=== PATIENT | male | born 1945 | race Caucasian/White ===

== ENCOUNTER → 2017-11-28 10:26 | Outpatient (CLI) | payer MEDICARE, SELFPAY ==
[2017-11-28 12:21] LABS: Absolute Lymphocyte Count 1.64 X10^3/ul (0.83-4.51); Absolute Neutrophil Count 3.4 X10^3/uL (2.0-7.7); Basophil# 0.07 X10^3/uL; Basophil% 1.1 % (0-1); Eosinophil# 0.28 X10^3/uL; Eosinophils% 4.6 % (0-5); Hematocrit 43.8 % (40-54); Lymphocyte # 1.64 X10^3/ul (4.0); Lymphocyte % 26.9 % (19-41); Mean Corp Hgb Conc 34.2 g/gl (32-36); Mean Corpuscular Hgb 34.2 pg (27.0-32.0); Mean Corpuscular Volume 99.8 fL (80-94); Mean Platelet Vol. 11.1 fl (6.2-12.0); Monocyte% 11.5 % (0-10); Neutrophil # 3.38 X10^3/uL (2.7-7.7); Neutrophil % 55.6 % (47-70); Platelet Count 285 K/mm3 (150-450); RBC Distribution Width CV 12.5 % (11.6-14.6); RBC Distribution Width SD 45.8 fl (35.1-43.9); Red Blood Count 4.39 M/mm3 (4.6-6.2); White Blood Count 6.1 K/mm3 (4.4-11.0)
[2017-11-28 12:33] LABS: POSITIVE COUNT NO; POSITIVE DIFFERENTIAL NO; POSITIVE MORPHOLOGY NO
[2017-11-28 12:39] LABS: Vitamin D,25 Hydroxy 18.5 ng/mL (29.95-100.01)
[2017-11-28 12:57] LABS: ALB/GLOB Ratio 0.9 RATIO (0.9-2.4); AST(SGOT) 14 U/L (15-37); Alanine Aminotransfer ALT/SGPT 26 U/L (16-61); Albumin, Serum 3.6 g/dL (3.2-5.0); Alkaline Phosphatase 63 U/L (45-117); Anion Gap 8 (5-15); BUN 24 mg/dL (7-18); BUN/Creat Ratio 22.2 RATIO (10-20); Calcium,Total 8.7 mg/dL (8.5-10.1); Chloride 107 mmol/L (98-107); Creatinine, Serum 1.08 mg/dL (0.70-1.30); EST Glomerular Filtration Rate 71 mL/min (>60); Est Glom Filt Rate - Afr Amer 86 mL/min (>60); Globulin 3.8 g/dL (2.2-4.2); Glucose 97 mg/dL (74-106); PSA,Total - Annual Screen 1.53 ng/mL (0.00-4.00); Potassium 3.9 mmol/L (3.5-5.1); Protein, Total 7.4 g/dL (6.4-8.2); Sodium Level 141 mmol/L (136-145); Thyroid Stim Hormone (TSH) 2.55 uIU/mL (0.358-3.74)
== END ==
PROVIDERS: Family Provider Family Medicine Geriatric Medicine; PCP Family Medicine Geriatric Medicine; Visit Provider Family Medicine Geriatric Medicine
DX: I10 Essential (primary) hypertension (principal); E55.9 Vitamin D deficiency, unspecified; Z12.5 Encounter for screening for malignant neoplasm of prostate
CPT/HCPCS: 36415; 80053; 82306; 84153; 84443; 85025; G0103

== ENCOUNTER → 2017-12-30 11:58 | Outpatient (CLI) | payer MEDICARE, SELFPAY | PROVIDERS: Family Provider Family Medicine Geriatric Medicine; PCP Family Medicine Geriatric Medicine; Visit Provider Family Medicine Geriatric Medicine | DX: R68.89 Other general symptoms and signs (principal) | CPT/HCPCS: 87633 ==

== ENCOUNTER → 2018-06-26 12:57 | Outpatient (CLI) | payer MEDICARE, SELFPAY ==
--- NOTE | 2018-06-26 14:43 | RAD_ITS ---
STUDY: X-RAY - ABDOMEN/PELVIS REASON FOR EXAM: Male, 73 years old. Nausea and vomiting TECHNIQUE: Two AP supine views of the abdomen and pelvis. COMPARISON: None. FINDINGS: No evidence of small bowel obstruction. Singular mildly gaseous distended loop of small bowel in the central abdomen with some wall thickening; this could represent enteritis. There is no demonstrated free abdominal air. The visualized liver, spleen and kidneys are grossly normal in size and morphology. Normal soft tissue structures. There are diffuse degenerative changes of the visualized lumbar spine. RAD/Abdomen Single View IMPRESSION: No evidence of small bowel obstruction. Mildly gaseous distended loop of small bowel in the central abdomen with wall thickening. Could represent enteritis. Electronically Signed: Yasmany Hartley DO at 12:47 EDT Tel , Service support ,
--- NOTE | 2018-06-26 14:43 | RAD_ITS ---
STUDY: X-RAY CHEST REASON FOR EXAM: Male, 73 years old. Cough TECHNIQUE: PA and lateral views of the chest. COMPARISON: None. FINDINGS: There is hyperinflation of the lungs consistent with chronic obstructive lung disease (COPD). Bibasilar airspace disease with small effusions. There is no demonstrated pleural abnormality. There is mild cardiac enlargement. Normal mediastinum and beto. Normal visualized pulmonary arteries. There is atherosclerotic tortuosity of the aortic arch and descending thoracic aorta. There are diffuse degenerative changes of the visualized thoracic spine. Normal visualized ribs, clavicles, and shoulders. There is no demonstrated abnormality of the visualized soft tissue structures of the upper abdomen. RAD/Chest PA and Lateral IMPRESSION: Bibasilar airspace disease with small effusions. Mild cardiomegaly Electronically Signed: Yasmany Hartley DO at 12:48 EDT Tel , Service support ,
[2018-06-26 16:33] LABS: Absolute Lymphocyte Count 1.35 X10^3/ul (0.83-4.51); Absolute Neutrophil Count 6.7 X10^3/uL (2.0-7.7); Basophil# 0.04 X10^3/uL; Basophil% 0.4 % (0-1); Eosinophil# 0.11 X10^3/uL; Eosinophils% 1.2 % (0-5); Hematocrit 46.9 % (40-54); Hemoglobin 15.7 g/dl (13.0-16.5); Lymphocyte # 1.35 X10^3/ul (4.0); Lymphocyte % 14.7 % (19-41); Mean Corp Hgb Conc 33.5 g/gl (32-36); Mean Corpuscular Hgb 33.8 pg (27.0-32.0); Mean Corpuscular Volume 100.9 fL (80-94); Mean Platelet Vol. 11.7 fl (6.2-12.0); Monocyte# 0.97 X10^3/uL; Monocyte% 10.6 % (0-10); Neutrophil # 6.66 X10^3/uL (2.7-7.7); Neutrophil % 72.8 % (47-70); Platelet Count 283 K/mm3 (150-450); RBC Distribution Width CV 14.4 % (11.6-14.6); RBC Distribution Width SD 52.7 fl (35.1-43.9); Red Blood Count 4.65 M/mm3 (4.6-6.2); White Blood Count 9.2 K/mm3 (4.4-11.0)
[2018-06-26 16:40] LABS: Anion Gap 9 (5-15); BUN 29 mg/dL (7-18); BUN/Creat Ratio 24.8 RATIO (10-20); CPK Total, Creatine Kinase 106 U/L (39-308); Calcium,Total 9.4 mg/dL (8.5-10.1); Chloride 108 mmol/L (98-107); Creatinine, Serum 1.17 mg/dL (0.70-1.30); EST Glomerular Filtration Rate 65 mL/min (>60); Est Glom Filt Rate - Afr Amer 78 mL/min (>60); Glucose 112 mg/dL (74-106); Sodium Level 143 mmol/L (136-145)
[2018-06-26 16:47] LABS: BNP,B-Type NATRIURETIC PEPTIDE 722.9 pg/mL (0-100)
[2018-06-26 17:11] LABS: POSITIVE COUNT NO; POSITIVE DIFFERENTIAL NO; POSITIVE MORPHOLOGY NO
[2018-06-28 12:34] LABS: Myoglobin, Serum 75 ng/mL (28-72)
== END ==
PROVIDERS: Family Provider Family Medicine Geriatric Medicine; PCP Family Medicine Geriatric Medicine; Referring Provider Family Medicine Geriatric Medicine; Visit Provider Family Medicine Geriatric Medicine
DX: I10 Essential (primary) hypertension (principal); R06.02 Shortness of breath; R06.89 Other abnormalities of breathing
CPT/HCPCS: 36415; 71046; 74018; 80048; 82550; 83874; 83880; 84484; 85025; 85379

== ENCOUNTER 2018-06-27 00:04 | Inpatient (IN) | payer MEDICARE, SELFPAY ==
[2018-06-27] VITALS (21 sets, daily range): BP systolic 144–203; BP diastolic 68–113; PULSE 78–130; RESP 18–26; TEMP 36.4–36.7; O2SAT 92–98; BMI 24.8; BMI 23.4
--- NOTE | 2018-06-27 00:26 | EKG12_ITS ---
Test Reason : SOB Blood Pressure : / mmHG Vent. Rate : 115 BPM Atrial Rate : 113 BPM P-R Int : 000 ms QRS Dur : 094 ms QT Int : 378 ms P-R-T Axes : 000 048 -43 degrees QTc Int : 522 ms Atrial fibrillation with multiform PVCs Nonspecific ST and T wave abnormality Prolonged QT Abnormal ECG Confirmed by CONTRERAS KELLEY, RUBENS ([id number]), marketing editor FELI HO ([id number]) on 06/29/2018 11:28:19 AM Referred By: Jose Alvarez Confirmed By:RUBENS CHAIREZ MD
--- NOTE | 2018-06-27 00:27 | CT_ITS ---
STUDY: CTA CHEST REASON FOR EXAM: Male, 73 years old. Shortness of breath for 6 months. RADIATION DOSAGE (If Supplied By Facility): CTDIvol = ( 16.62 ) mGy, DLP = ( 563.28 ) mGycm TECHNIQUE: The examination was performed with the intravenous administration of 75ML ml of Isovue 370 contrast material. Post-processing of the angiographic images was performed, with multiplanar reformation and 3D reconstruction. Individualized dose optimization techniques were used for this CT. COMPARISON: None. FINDINGS: Normal enhancement of the main pulmonary artery and right and left pulmonary arteries. Normal enhancement of the bilateral peripheral pulmonary arteries. There is no demonstrated pulmonary embolism. There is mild atherosclerotic calcification of the aortic arch with tortuosity. The aorta otherwise is not enhanced. Normal heart and pericardium. There are small nodes in the mediastinum and aortopulmonic window. Normal hilar regions. Normal visualized trachea and bronchi. The lungs are well expanded. There is a calcified granuloma in the left lower lobe. There is mild stranding/scarring in the left lower lobe. No focal infiltrate otherwise is seen. There are moderate bilateral pleural effusions. Normal chest wall structures. There are mild degenerative changes of thoracic spine. The visualized portions of the upper abdomen demonstrate a cyst in the right kidney. CT/CTA Chest W/WO Contrast IMPRESSION: 1. No evidence of pulmonary embolism. 2. Moderate bilateral pleural effusions. 3. Mild stranding/scarring in the left lower lobe. Electronically Signed: Mohit Stark MD at 1:35 EDT Tel , Service support ,
--- NOTE | 2018-06-27 00:28 | ED.RN ---
RN CALLED FOR EKG, NO OLD EKGS IN MUSE
--- NOTE | 2018-06-27 00:35 | ED.DCSUM_ITS ---
History of Present Illness Chief Complaint: Shortness of Breath Informant: Patient Onset: Month(s) - 6 Context: Gradual Onset Timing: Continuous Quality: just feels short of breath; wheezy at times, but not always Location: chest Current Severity: Mild - at rest, but present Maximum Severity: Severe Worsened by: exertion, lying supine Relieved by: sitting up, rest Associated Symptoms: cough mostly nonproductive, but swallowing mucous Narrative: Saw his PCP for this for the first time in about 6 months, since symptoms have been getting worse. No fever since, no chest discomfort. With swallowing mucus, he was vomiting last week, but that has been less now. About 6 months ago he had a case of acute bronchitis that he saw his doctor for and felt like he got over for the most part but continued to have coughing and dyspnea since that progressively worsened, but slowly. He thought maybe he had chronic bronchitis and was waiting for my body to heal itself, but I realized I was getting worse so I made an appointment with my doctor. An EKG was done in the office which according to his PCP showed A. fib, but he was rate controlled, so labs and chest x-ray were obtained as an outpatient. However they came back with a d-dimer elevated over 1 and a troponin that was just barely not negative, and the patient was more short of breath at rest and so he was advised to come to the ER for further testing and admission. Past Medical History - Allergies and Home Meds Allergies/Adverse Reactions: Allergies No Known Allergies Allergy (Verified 06/27/18 00:09) Primary Care Physician: Jose Alvarez Chi, MD [Primary Care Provider] - Smoking Status: Former smoker Drugs: None Review of Systems General: Reports: Malaise. Denies: Chills, Fever, Sweats Eyes: Denies: Visual changes - bilaterally, Diplopia ENT: Denies: Rhinorrhea, Sore throat Cardiovascular: Denies: Chest pain, Palpitations, Heart racing Respiratory: Reports: Dyspnea, Cough, Sputum - mostly swallowing it, Dyspnea on exertion Gastrointestinal: Reports: Nausea - gone now, Vomiting - after swallows lots of sputum. Denies: Abdominal pain, Diarrhea, Melena, Hematochezia Genitourinary: Denies: Dysuria, Hematuria, Frequency Musculoskeletal: Denies: Neck pain, Back pain, Swelling, Extremity Pain Skin: Denies: Rash, Abscess Neurological: Denies: Headache, Weakness, Numbness Psych: Denies: Depression, Suicidal thoughts Endocrine: Denies: Polyuria, Polydipsia, Heat intolerance, Cold intolerance Hematologic: Denies: Easy bruising, Easy bleeding Allergy: Denies: Swelling of the mouth, Swelling of the tongue Physical Exam Vital Signs/Narrative: Vital Signs Temp Pulse Resp BP Pulse Ox 06/27/18 00:15 119 H 24 H 203/99 H 96 06/27/18 00:05 97.6 F L 116 H 18 161/109 H 93 06/27/18 00:04 130 H 22 H 159/113 H 98 Inital Vital Signs reviewed: Yes General: Well nourished, Well developed Head: Normocephalic, Atraumatic Eyes: Perrl, EOMI ENT: Moist mucous membranes, No rhinorrhea Neck: Supple, Nontender, No lymphadenopathy, No JVD, - - trachea midline Cardiovascular: No murmurs, Irregular, Tachycardia Respiratory: No distress - mildly tachypneic, no distress. conversational., CTA bilaterally - although somewhat symmetrically diminished throughout, Chest nontender Abdomen: Soft, Nontender, Nondistended, Normal bowel sounds Back: Nontender, Normal Inspection. Negative for: CVA tenderness Extremities: Nontender - including no calf tenderness bilat, No edema, - - no cords Skin: Normal color, No rash Neurological: Alert, Oriented x3, Cranial nerves II-XII grossly intact, Normal Strength, Normal Sensation Psychological: Normal affect Diagnostic/Tx/Re-eval Impressions Chest CTA 06/27/18 00:27 IMPRESSION: 1. No evidence of pulmonary embolism. 2. Moderate bilateral pleural effusions. 3. Mild stranding/scarring in the left lower lobe. Electronically Signed: Mohit Stark MD at 1:35 EDT Tel , Service support , 06/27/18 00:27 CTA Chest W/WO Contrast [CT] Stat Laboratory Results 06/27/18 00:40 Troponin I 0.058 H - Rhythm Strip Rhythm Strip: A-fib Rate: 118 Ectopy: PVC(s) - EKG Initial EKG Interpretation: No Acute Injury Pattern, Atrial Fibrillation - w/ RVR at around 115, Non-Specific ST Changes, - - frequent multifocal PVCs, Fusion beats seen - Medical Decision Making Blood counts and renal function were fairly unremarkable, his x-ray had not been interpreted by radiology yet but I was able to visualize it, it showed what appeared to be a possible infiltrate in the left lower lobe and a possible left lung mass. His d-dimer was reported by his PCP to be over 1, but in the computer/EMR, it is labeled as canceled and there is no result available. I thought it best given x-ray findings in this ambiguous lab result to directly obtain CT angiography of the chest which I discussed with the patient and he was amenable to. It shows no PE, but bilateral moderate pleural effusions, which I suspect is probably mostly responsible for his symptoms. It also shows some scarring without pneumonia in the left lower lobe, as well as a calcified granuloma. His troponin is a little lower than it was earlier today but still abnormal. He was initially in A. fib with RVR, I gave him Cardizem 20 mg, also treating his blood pressure which was over 200. His blood pressure is down to 160s, and his heart rate is in the 80 range. Therefore, I am not putting him on a drip at this time. Will admit to the hospital for further workup and treatment. ED Disposition - Plan for ED Patient: Disposition: Acute Care Hospital [facility] Chief Complaint: Shortness of Breath Diagnosis: Pleural effusion, bilateral, Atrial fibrillation with RVR, Hypertensive urgency Referrals: Jose Alvarez Chi, MD [Primary Care Provider] -
[2018-06-27] MEDS: dilTIAZem 25 MG/5 ML Vial 20 MG IV BOLUS (00:41)
--- NOTE | 2018-06-27 02:13 | PCM.HP.STD ---
Problem List (1) Pleural effusion, bilateral Status: Acute (2) Atrial fibrillation with RVR Status: Acute (3) Hypertensive urgency Status: Chronic History of Present Illness Date of Admission: 06/27/18 Chief Complaint: shortness of breath The patient is a 73 year old male patient with a history of hypertension presents to the ER with shortness of breath. He states he has been dealing with what he calls chronic bronchitis for the past year. It has recently become worse with any exertion. He denies chest pain. CT scan reveals bilateral pleural effusions. He has an elevated BNTP and is in atrial fibrillation. He recently stopped his metoprolol and finds himself more short of breath after this was discharged. He will be admitted for further cardiac workup. Past Medical History Past Medical History (Chronic Problems): Chronic Problems Hypertensive urgency (Chronic) Allergies No Known Allergies Allergy (Verified 06/27/18 00:09) Home Medications: Ambulatory Orders Medication Instructions Recorded Metoprolol Tartrate 50 mg PO DAILY 06/27/18 Surgical History: no surgical history Smoking Status: Former smoker Drugs: None - *Family History Maternal History Items: No pertinent history Review of Systems Constitutional: Denies: Chills, Fever, Weight Change HEENT: Denies: Head Aches, Sinus Congestion, Sinus Drainage Cardiovascular: Denies: Chest Pain, Palpitations Respiratory: Reports: Cough, Shortness of breath at rest, Shortness of breath upon exertion. Denies: Sputum production Gastrointestinal: Denies: Abdominal Pain, Nausea, Vomiting Genitourinary: Denies: Dysuria Musculoskeletal: Denies: Joint Pain, Joint Tenderness Skin: Denies: Rash, Wounds Neurological: Denies: Numbness, Tingling, Focal weakness Psychiatric: Denies: Anxiety, Depression, Homicidal Ideations, Suicidal Ideations Hematologic/ Lymphatic: Denies: Easy Bruising, Easy Bleeding VTE Information - Inpt Only VTE Present on Admission: No VTE Mechan Device Prophylaxis: None VTE Pharm Prophylaxis ordered?: Yes Patient Problems: Active and Suspected Problems Pleural effusion, bilateral (Acute) Atrial fibrillation with RVR (Acute) - Physical Exam General: Alert, Oriented x3, Cooperative HEENT: Atraumatic, Normocephalic Neck: Supple Lungs: Clear to auscultation, Normal air movement Cardiovascular: Normal S1, Normal S2, Irregular Rate, Murmur Abdomen: Bowel Sounds Present, Soft, Non Tender Extremities: No edema Skin: No rashes Musculoskeletal: No Tenderness to Palpation of Joints or Extremities Neurological: Neuro grossly intact Psych/Mental Status: Normal Affect, Appropriate Vital Signs Temp Pulse Resp BP Pulse Ox 97.6 F L 94 26 H 148/92 H 92 06/27/18 00:05 06/27/18 02:00 06/27/18 02:00 06/27/18 02:00 06/27/18 02:00 Oxygen Delivery Method Nasal Cannula Weight: 173 lb 1.006 oz Body Mass Index (BMI) 24.8 Laboratory Tests Past 24 Hrs 06/27/18 00:40 Troponin I 0.058 H Assessment/Plan All Active Problems Pleural effusion, bilateral (Acute) Atrial fibrillation with RVR (Acute) Plan - admit to PCU - cycle cardiac markers - echocardiogram - consider cardiac consult in am - add lasix for diureses - CBC, BMP in am - oxygen per routine - LMWH for DVT prophylaxis - continue routine medications Code Visit Inpatient E&M: 97163 Init Hosp L3
[2018-06-27 04:16] LABS: BNP,B-Type NATRIURETIC PEPTIDE 687.1 pg/mL (0-100)
[2018-06-27 04:22] LABS: ALB/GLOB Ratio 1.1 RATIO (0.9-2.4); AST(SGOT) 39 U/L (15-37); Alanine Aminotransfer ALT/SGPT 54 U/L (16-61); Albumin, Serum 3.2 g/dL (3.2-5.0); Alkaline Phosphatase 70 U/L (45-117); Anion Gap 12 (5-15); BUN 25 mg/dL (7-18); BUN/Creat Ratio 24.8 RATIO (10-20); Calcium,Total 8.4 mg/dL (8.5-10.1); Chloride 111 mmol/L (98-107); Cholesterol 153 mg/dL (200); Creatinine, Serum 1.01 mg/dL (0.70-1.30); EST Glomerular Filtration Rate 77 mL/min (>60); Est Glom Filt Rate - Afr Amer 93 mL/min (>60); Estimated Creatinine Clearance 70.43 ml/min; Glucose 147 mg/dL (74-106); High Density Lipoprotein 22 mg/dL; Potassium 3.3 mmol/L (3.5-5.1); Protein, Total 6.2 g/dL (6.4-8.2); Sodium Level 144 mmol/L (136-145); Thyroid Stim Hormone (TSH) 0.54 uIU/mL (0.358-3.74); Triglycerides 62 mg/dL; Very Low Density Lipoprotein 12 mg/dL (5-40)
[2018-06-27] MEDS: 0.9% NaCl Peripheral Flush Adult/Peds IV ×3 (05:29→17:53)
[2018-06-27] MEDS: Metoprolol Tartrate 5 MG/5 ML Vial IV ×2 (05:29→11:30)
--- NOTE | 2018-06-27 05:55 | ECHOD_ITS ---
Reason For Study: MURMUR Procedure This was a 2D Doppler, Color Flow transthoracic echocardiogram. The exam was of adequate technical quality. Exam performed portable in patient room. Left Ventricle Normal LV size. Apical false tendon noted. Left ventricular systolic function is normal. The estimated ejection fraction is 60 %. Diastolic function is indeterminate. No regional wall motion abnormalities noted. Right Ventricle Normal RV size. Normal systolic function. Atria The left atrium is moderately enlarged. The right atrium is mildly enlarged. No doppler evidence for ASD. Mitral Valve There is no mitral annular calcification. Mild mitral valve prolapse, posterior leaflet. Moderate (2+) eccentric mitral valve insufficiency. Tricuspid Valve Normal tricuspid valve. Moderate (2+) eccentric tricuspid valve insufficiency. Right ventricular systolic pressure estimated to be 58 mmHg. Aortic Valve Trisinus/trileaflet aortic valve. Mild focal aortic valve calcification. Trivial eccentric aortic valve insufficiency. Pulmonic Valve The pulmonic valve is not well visualized. Trivial eccentric pulmonic valve insufficiency. Great Vessels Normal sized aortic root. Pericardium/Pleural No pericardial effusion. Echolucency c/w a pleural effusion. MMode/2D Measurements & Calculations LVIDd: 5.5 cm IVSd: 1.2 cm Ao root diam: 3.3 cm LVIDs: 4.3 cm LVPWd: 1.1 cm LA dimension: 4.4 cm RVDd: 3.9 cm FS: 22.3 % LAV(MOD-bp): 119.5 ml LVAd ap4: 35.5 cm2 SV(MOD-sp4): 73.0 ml LAV(MOD-bp) Indexed: 60.9 ml/m2 EDV(MOD-sp4): 115.0 ml LAV(MOD-sp2): 125.7 ml EDV(sp4-el): 117.7 ml LAV(MOD-sp4): 95.0 ml LVAs ap4: 20.0 cm2 ESV(MOD-sp4): 42.0 ml ESV(sp4-el): 43.6 ml EF(MOD-sp4): 63.5 % EF(sp4-el): 63.0 % SV(sp4-el): 74.1 ml LA A4 area: 31.2 cm2 RA A4 area: 26.3 cm2 Doppler Measurements & Calculations MV E max kimberly: 121.9 cm/sec Ao V2 max: 123.4 cm/sec LV V1 max: 93.0 cm/sec Ao max P.1 mmHg LV V1 max P.5 mmHg PA V2 max: 82.8 cm/sec TR max kimberly: 354.4 cm/sec TR max P.3 mmHg Interpretation Summary Left ventricular systolic function is normal. The estimated ejection fraction is 60 %. Apical false tendon noted. The left atrium is moderately enlarged. The right atrium is mildly enlarged. Mild mitral valve prolapse, posterior leaflet Moderate (2+) eccentric mitral valve insufficiency. Moderate (2+) eccentric tricuspid valve insufficiency. Mild focal aortic valve calcification. Trivial eccentric aortic valve insufficiency. Trivial eccentric pulmonic valve insufficiency. Echolucency c/w a pleural effusion. Right ventricular systolic pressure estimated to be 58 mmHg. Diastolic function is indeterminate. Ordering Physician: [facility] Referring Physician: Jose Alvarez Chi Performed By: Grace Dawson, SHIRLEY
[2018-06-27] MEDS: Aspirin 81 MG TAB.CHEW PO (08:34)
[2018-06-27] MEDS: Furosemide 20 MG/2 ML VIAL IV ×2 (10:08→17:53)
[2018-06-27] MEDS: Enoxaparin 40 MG/0.4 ML Syringe SC (10:08)
--- NOTE | 2018-06-27 11:12 | CASEMGMT ---
RENITA HAYS assessment: Face to Face with patient for initial transition planning/care coordination assessment. RENITA HAYS introduced self and role at [facility], pt voices understanding and consents to assessment at this time. Pt is sitting up in bed in no distress at this time. Pt is A/Ox4 at this time and answers all questions appropriately at this time. Care providers, pharmacy, and demographics verified at this time. PCP: [facility] Specialists: Pt states currently has no specialists. Preferred Pharmacy: [facility] but [facility]. Insurance: [facility] Prescription Benefit: [facility] Living Will/HPOA: Pt state does not currently have LW/HPOA but is interested in completing at this time. Referral to [facility] at this time, voices understanding. LNOK: Timoteo Diaz, son; Joe Diaz, son Living Arrangements: Pt states lives alone in a duplex with stairs throughout but states no concerns at home at this time. Transportation: Pt states drives self and states no transportation concerns at this time. DME/HHC: Pt states has grab bars and states no further need for DME at this time. Pt states no hx of HHC or SNF. Pt states no concerns with going home at time of discharge. Pt states no further concerns/needs at this time. Advised pt to ask for CM if any further questions/concerns/needs arise, voices understanding. CM to follow for any further discharge planning/needs. Plan[place] RENITA HAYS
--- NOTE | 2018-06-27 13:05 | PN_ITS ---
<Keyla Sigala - Last Filed: 06/27/18 13:08> Patient Problems: Active and Suspected Problems Pleural effusion, bilateral (Acute) Atrial fibrillation with RVR (Acute) Subjective: Patient seen and examined. Notes improvement in breathing. Notes improvement in breathing while lying flat. Denies other current complaints. - Physical Exam General: Alert, Oriented x3, Cooperative, No apparent distress HEENT: Atraumatic, PERRLA, EOMI, Normocephalic Neck: Supple, No JVD, Negative Carotid Bruits Lungs: Clear to auscultation, Normal air movement Cardiovascular: Normal S1, Normal S2, Murmur, - - Atrial fibrillation, rate controlled Abdomen: Bowel Sounds Present, Soft, Non Tender, Non-Distended Extremities: No clubbing, No cyanosis, No edema, Capillary Refill Less than 3 Seconds Skin: No rashes, No breakdown Musculoskeletal: No Tenderness to Palpation of Joints or Extremities Neurological: Cranial nerves II-XII grossly intact, Neuro grossly intact Psych/Mental Status: Normal Affect, Appropriate Vital Signs Temp Pulse Resp BP Pulse Ox 97.9 F 95 18 151/81 H 95 06/27/18 11:18 06/27/18 11:30 06/27/18 11:18 06/27/18 11:30 06/27/18 11:18 Oxygen Delivery Method Room Air Weight: 173 lb 1.006 oz Body Mass Index (BMI) 23.4 Intake and Output for Last 24 Hours 06/25/18 06/26/18 06/27/18 23:59 23:59 23:59 Intake Total 320 / 320 Output Total 675 / 675 Balance -355 / -355 Laboratory Tests Past 24 Hrs 06/27/18 06/27/18 06/27/18 00:40 03:38 03:38 Sodium 144 Potassium 3.3 L Chloride 111 H Carbon Dioxide 21.0 Anion Gap 12 BUN 25 H Creatinine 1.01 Estim Creat Clear Calc 70.43 Est GFR (MDRD) Af Amer 93 Est GFR (MDRD) Non-Af 77 BUN/Creatinine Ratio 24.8 H Glucose 147 H Calcium 8.4 L Total Bilirubin 1.50 H AST 39 H ALT 54 Alkaline Phosphatase 70 Troponin I 0.058 H B-Natriuretic Peptide 687.1 H Total Protein 6.2 L Albumin 3.2 Globulin 3.0 Albumin/Globulin Ratio 1.1 Triglycerides 62 Cholesterol 153 LDL Cholesterol 119 VLDL Cholesterol 12 HDL Cholesterol 22 L TSH 0.54 06/27/18 06/27/18 03:38 06:40 Sodium Potassium Chloride Carbon Dioxide Anion Gap BUN Creatinine Estim Creat Clear Calc Est GFR (MDRD) Af Amer Est GFR (MDRD) Non-Af BUN/Creatinine Ratio Glucose Calcium Total Bilirubin AST ALT Alkaline Phosphatase Troponin I 0.059 H 0.055 H B-Natriuretic Peptide Total Protein Albumin Globulin Albumin/Globulin Ratio Triglycerides Cholesterol LDL Cholesterol VLDL Cholesterol HDL Cholesterol TSH Medical Necessity - Tobacco Use Smoking Status: Former smoker Assessment/Plan All Active Problems Pleural effusion, bilateral (Acute) Atrial fibrillation with RVR (Acute) 1. Small bilateral pleural effusions suspected secondary to new onset CHF, unclear subtype-BNP on admission 687. Chest x-ray shows bibasilar small effusions, mild cardiomegaly. CTA of chest showed no evidence of pulmonary embolism, moderate bilateral pleural effusions, mild scarring in the left lower lobe. Patient reports history of rheumatic fever as a child, positive murmur. Echocardiogram pending. Continue IV Lasix. Cardiology consult. Strict I&O. Daily weight. 2. New onset atrial fibrillation-initially A. fib with RVR on admission. Received IV Cardizem bolus 20 mg x1. Now on metoprolol IV 5 mg every 6. Cardiology consulted given new onset A. fib. Begin therapeutic Lovenox sc. 3. Hypertensive urgency-elevated blood pressure on admission 203/99. Improved. Patient reports previously on lisinopril and developed cough. He was then switched to metoprolol by primary care physician. Recommend adding losartan or amlodipine. 4. Indeterminate troponin-suspect demand ischemia due to A. fib with RVR. Cardiology consulted. 5. Elevated glucose-check hemoglobin A1c. DVT prophylaxis-Lovenox subcu. This patient was seen by GABE Hodge under the supervision of Dr. Mera. <Maciel Mera - Last Filed: 06/27/18 16:04> Subjective: Seen and examined. 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 Patient also has PND and orthopnea. Patient attributes to shortness of breath and cough of bronchitis that he had 6 months ago. Patient also states he has a dry cough. Patient denies chest pain. Patient never had been assessed for heart failure in the past or denies history of coronary artery disease. Was found to have A. fib patient states sometimes he feels irregular heartbeat. No significant pedal edema. On cardiac rehabilitation specialist shows A. fib. Patient has history of his smoking. For about 15-20 pack years and quit when he was 29-year-old - Physical Exam Lungs: No rhonchi, No wheeze, No rales, Diminished - Diminished in bilateral lung bases secondary to bilateral pleural effusion Cardiovascular: Normal S1, Normal S2, Irregular Rate, Murmur, - Abdomen: Non Tender, Non-Distended Extremities: No clubbing, No cyanosis, No edema Musculoskeletal: No Tenderness to Palpation of Joints or Extremities Vital Signs Temp Pulse Resp BP Pulse Ox 97.9 F 95 18 151/81 H 95 06/27/18 11:18 06/27/18 12:26 06/27/18 11:18 06/27/18 11:30 06/27/18 11:18 Oxygen Delivery Method Room Air Weight: 173 lb 1.006 oz Body Mass Index (BMI) 23.4 Intake and Output for Last 24 Hours 06/25/18 06/26/18 06/27/18 23:59 23:59 23:59 Intake Total 320 / 320 Output Total 675 / 675 Balance -355 / -355 Laboratory Tests Past 24 Hrs 06/27/18 06/27/18 06/27/18 00:40 03:38 03:38 Sodium 144 Potassium 3.3 L Chloride 111 H Carbon Dioxide 21.0 Anion Gap 12 BUN 25 H Creatinine 1.01 Estim Creat Clear Calc 70.43 Est GFR (MDRD) Af Amer 93 Est GFR (MDRD) Non-Af 77 BUN/Creatinine Ratio 24.8 H Glucose 147 H Calcium 8.4 L Total Bilirubin 1.50 H AST 39 H ALT 54 Alkaline Phosphatase 70 Troponin I 0.058 H B-Natriuretic Peptide 687.1 H Total Protein 6.2 L Albumin 3.2 Globulin 3.0 Albumin/Globulin Ratio 1.1 Triglycerides 62 Cholesterol 153 LDL Cholesterol 119 VLDL Cholesterol 12 HDL Cholesterol 22 L TSH 0.54 06/27/18 06/27/18 06/27/18 03:38 06:40 13:10 Sodium 145 Potassium 3.9 Chloride 112 H Carbon Dioxide 21.0 Anion Gap 12 BUN 24 H Creatinine 1.24 Estim Creat Clear Calc 57.37 Est GFR (MDRD) Af Amer 73 Est GFR (MDRD) Non-Af 61 BUN/Creatinine Ratio 19.4 Glucose 132 H Calcium 9.1 Total Bilirubin AST ALT Alkaline Phosphatase Troponin I 0.059 H 0.055 H B-Natriuretic Peptide Total Protein Albumin Globulin Albumin/Globulin Ratio Triglycerides Cholesterol LDL Cholesterol VLDL Cholesterol HDL Cholesterol TSH Assessment/Plan This patient was seen in conjunction with Keyla NOONAN. I have independently interviewed and examined the patient and reviewed pertinent history, examination findings, laboratory and plan of management. I have reviewed the note and agree with the documented findings with the few additional points. In brief, patient is admitted for new diagnosis of heart failure with small to moderate bilateral pleural effusion on chest x-ray and chest CT scan. CTA negative for PE. Patient also has A. fib with RVR on admission currently rate is controlled. Heart failure workup with 2D echo, rate control. Patient is on Lovenox subcu therapeutic dose and will be transitioned to Eliquis. I have discussed my assessment with Keyla NOONAN and orders have been reviewed.
[2018-06-27 14:10] LABS: Anion Gap 12 (5-15); BUN 24 mg/dL (7-18); BUN/Creat Ratio 19.4 RATIO (10-20); Calcium,Total 9.1 mg/dL (8.5-10.1); Chloride 112 mmol/L (98-107); Creatinine, Serum 1.24 mg/dL (0.70-1.30); EST Glomerular Filtration Rate 61 mL/min (>60); Est Glom Filt Rate - Afr Amer 73 mL/min (>60); Estimated Creatinine Clearance 57.37 ml/min; Glucose 132 mg/dL (74-106); Potassium 3.9 mmol/L (3.5-5.1); Sodium Level 145 mmol/L (136-145)
--- NOTE | 2018-06-27 15:40 | EKG12_ITS ---
Test Reason : RHYTHM Blood Pressure : / mmHG Vent. Rate : 107 BPM Atrial Rate : 107 BPM P-R Int : 000 ms QRS Dur : 090 ms QT Int : 384 ms P-R-T Axes : 000 047 035 degrees QTc Int : 512 ms Atrial fibrillation with rapid ventricular response with premature ventricular or aberrantly conducte d complexes Nonspecific ST abnormality Abnormal ECG When compared with ECG of 27-JUN-2018 00:16, MANUAL COMPARISON REQUIRED, DATA IS UNCONFIRMED Confirmed by KALLI KELLEY, CARINA ([id number]), news editor JASMEET DESIR ([id number]) on 07/03/2018 10:59:24 AM Referred By: Jose Alvarez Confirmed By:CARINA MAHAN MD
--- NOTE | 2018-06-27 17:04 | CON.PCM_ITS ---
Problem List (1) Atrial fibrillation with RVR Status: Acute (2) Mitral valve disorder Status: Chronic (3) CHF (congestive heart failure) Status: Acute Qualifiers: Heart failure type: diastolic Heart failure chronicity: acute Qualified Code(s): I50.31 - Acute diastolic (congestive) heart failure (4) Pleural effusion, bilateral Status: Acute (5) Abnormal cardiac enzyme level Status: Acute (6) Hypertensive urgency Status: Acute Reason for Consult Date of Consultation: 06/27/18 History of Present Illness: The patient is a 73 year old male who claims to have a past medical history of hypertension and a mitral valve disorder with mitral valve prolapse/mitral valve regurgitation, who presents for concerns of progressive shortness of breath/dyspnea, orthopnea, and fatigue. He states symptoms have progressed for some time now. He notes they finally got to the point where he felt he required additional evaluation and care. He states based upon his symptoms he has been diagnosed with repetitive episodes of bronchitis in the past. He has been treated with antiviral therapy and antibacterial therapy. He notes over time he would rebound from these events and then they would occur again. Thus based upon his ongoing symptoms and concerns, despite his outpatient medical evaluation care, he presented to the hospital for further evaluation. He has denied acute chest discomfort. He states he has had waxing and waning lower extremity edema in the past but not recently. He denies any near-syncope or syncope. He believes he may have sensed intermittent palpitations and/or an irregular heartbeat in the past. He was evaluated and found to have abnormal cardiac enzymes with respect to troponin I levels and BNP levels. His ECG demonstrated atrial fibrillation with occasional PVCs. A chest x-ray and chest CT scan suggested bilateral pleural effusions. There was no report of great vessel disease or thromboembolic disease. He has undergone evaluation with a transthoracic echocardiogram. The results are as noted below. He does not recall any other cardiovascular testing since perhaps the when he believes he had some form of exercise tolerance test performed in [place]. Since admission he has been treated with rate control therapy with IV beta- blockers. He is also received IV diuretics. He notes that his breathing has improved. He feels he is able to lie much more supine now than he has for some time. He does note based upon his mitral valve history that he was told that at some point in time in the future he would need a valve job . [] Past Medical History Allergies/Adverse Reactions: Allergies No Known Allergies Allergy (Verified 06/27/18 02:51) Home Medications: Ambulatory Orders Medication Instructions Recorded Metoprolol Tartrate 50 mg PO DAILY 06/27/18 Past Medical History (Chronic Problems): Chronic Problems Mitral valve disorder (Chronic) Surgical History: no surgical history - *Family History Maternal History Items: No pertinent history Lives: Alone Smoking Status: Former smoker Alcohol: None Drugs: None Review of Systems - Review of Systems General: Reports: Fatigue. Denies: Fever, Night Sweats Cardiovascular: Reports: Shortness of Breath, Shortness of Breath at Rest, Shortness of Breath with Exertion, Orthopnea, Peripheral Edema. Denies: Chest Discomfort, PND, Palpitations, Lightheadedness, Dizziness, Near Syncope, Syncope Respiratory: Reports: Cough, Shortness of Breath. Denies: Hemoptysis Gastrointestinal: Denies: Hematemesis, Hematochezia, Melena Genitourinary: Denies: Dysuria, Hematuria Skin: Denies: Rash Subjectve: This is a thin 73-year-old white male who appears to be resting reasonably comfortably at this time in no acute distress. Objective: Vital Signs Temp Pulse Resp BP Pulse Ox 97.9 F 97 18 151/81 H 95 06/27/18 11:18 06/27/18 16:10 06/27/18 11:18 06/27/18 11:30 06/27/18 11:18 Oxygen Delivery Method Room Air Weight: 173 lb 1.006 oz Body Mass Index (BMI) 23.4 Intake and Output for Last 24 Hours 06/25/18 06/26/18 06/27/18 23:59 23:59 23:59 Intake Total 320 / 320 Output Total 675 / 675 Balance -355 / -355 General: Awake, Alert, Oriented x 3, Cooperative, No Acute Distress HEENT: Atraumatic, Normocephalic, PERRL, EOMI, Sclera Non Icteric Oral: Moist Mucosa, Poor Dentition Neck: Supple, Good ROM, No JVD Lungs: Diminished [place] Bases Cardiovascular: Irregular Rhythm, Normal S1, Normal S2 Murmur Murmur: Grade 3/6, Harsh, Holosystolic, [place], [place]illa Vascular: No Carotid Bruits Abdomen: Bowel Sounds Present, Soft, Non Tender Extremities: No Cyanosis, No Clubbing, No edema Neurological: No Focal Motor or Sensory Deficit Psych/Mental Status: Appropriate, Normal Affect 06/27/18 00:40: Troponin I 0.058 H 06/27/18 03:38: Sodium 144, Potassium 3.3 L, Chloride 111 H, Carbon Dioxide 21.0, Anion Gap 12, BUN 25 H, Creatinine 1.01, Est GFR (MDRD) Af Amer 93, Est GFR (MDRD) Non-Af 77, BUN/Creatinine Ratio 24.8 H, Glucose 147 H, Calcium 8.4 L, Total Bilirubin 1.50 H, Triglycerides 62, Cholesterol 153, LDL Cholesterol 119, VLDL Cholesterol 12, HDL Cholesterol 22 L 06/27/18 03:38: B-Natriuretic Peptide 687.1 H 06/27/18 03:38: Troponin I 0.059 H 06/27/18 06:40: Troponin I 0.055 H 06/27/18 13:10: Sodium 145, Potassium 3.9, Chloride 112 H, Carbon Dioxide 21.0, Anion Gap 12, BUN 24 H, Creatinine 1.24, Est GFR (MDRD) Af Amer 73, Est GFR (MDRD) Non-Af 61, BUN/Creatinine Ratio 19.4, Glucose 132 H, Calcium 9.1 Rhythm: Atrial fibrillation; PVCs EKG: As noted above ECHO: 06/27/2018 Interpretation Summary Left ventricular systolic function is normal. The estimated ejection fraction is 60 %. Apical false tendon noted. The left atrium is moderately enlarged. The right atrium is mildly enlarged. Mild mitral valve prolapse, posterior leaflet Moderate (2+) eccentric mitral valve insufficiency. Moderate (2+) eccentric tricuspid valve insufficiency. Mild focal aortic valve calcification. Trivial eccentric aortic valve insufficiency. Trivial eccentric pulmonic valve insufficiency. Echolucency c/w a pleural effusion. Right ventricular systolic pressure estimated to be 58 mmHg. Diastolic function is indeterminate. Assessment/Plan 1. Atrial fibrillation It is unclear how long the patient has been in atrial fibrillation. The etiologies may be multifactorial related to his age, hypertension, underlying cardiovascular disease with mitral valve disorder with mitral valve regurgitation, etc. From a cardiac standpoint he will need to be monitored. He will continue rate control therapy and anticoagulant therapy as deemed appropriate. Depending upon his clinical course and future needs he may at some point in time be considered for an attempt at regaining sinus rhythm with synchronized biphasic DC cardioversion. 2. Mitral valve disorder with mitral valve prolapse and mitral valve regurgitation The patient knows that he has mitral valve prolapse with mitral valve regurgitation. He states there is been no follow-up for this. He states he was told at some point in time this would catch up with him and he would need a valve job . At the present time there is concern that his mitral valve disorder may be contributing to his atrial dysrhythmia and his volume overload status with respect to concerns of CHF and pleural effusions. At the present time he is being monitored. He will continue to be treated medically for his multiple medical issues. He will be considered for additional evaluation of his cardiovascular status with diagnostic cardiac catheterization and depending upon his clinical course needs potential future GLENNA to further evaluate his mitral valve apparatus and physiology. If it is found that his mitral valve disorder has progressed to the point where it does appear to be causing him concerns of CHF and pleural effusions then he will need to be considered for CT surgery consultation for mitral valve repair. 3. CHF: Acute diastolic This is based on the patient's clinical course and objective markers and findings. At the present time he is being followed. He is being treated medically. This is included IV diuretics. He has had increased diuresis and states his breathing has improved. He will continue evaluation care as noted above. 4. Pleural effusions The patient does have bilateral pleural effusions. This to be related to his underlying mitral valve disorder and atrial dysrhythmia and congestive heart failure scenario. He is continuing IV diuresis. His pulmonary status/respiratory status/breathing has improved. 5. Abnormal cardiac enzymes He does have abnormal troponin I levels. Is unclear whether this represents an additional acute coronary syndrome event versus a type II supply demand mismatch event secondary to his underlying combination of atrial dysrhythmia, mitral valve disorder, congestive heart failure, etc. Thus at the present time he is being evaluated and treated for the possibility of underlying CAD. He is being considered for further evaluation with diagnostic cardiac catheterization. 6. Hypertensive urgency The patient's blood pressure was elevated upon admission. It is unclear whether this was a primary event contributing to his other findings versus a secondary event from concerns of his other findings in his respiratory concerns. His blood pressure is being followed. His medications are being adjusted. Overall, at the present time, the patient will continue to be monitored. He will continue medical management. He will be considered for further noninvasive and invasive studies as described above. The above was discussed with the patient and he is agreeable to the aforementioned evaluation and care plan. The patient's case is also been discussed with the [facility] staff members. This note was generated with [employer] dictation software. It may contain incorrect words, spelling, and punctuation that were not noted in checking the note be fore signing.
[2018-06-27] MEDS: Clopidogrel Bisulfate 300 MG Tablet PO (17:33)
[2018-06-27] MEDS: Metoprolol Tartrate 50 MG Tablet PO (17:33)
[2018-06-27] MEDS: Losartan Potassium 25 MG Tablet PO (17:34)
[2018-06-27] MEDS: Enoxaparin 80 MG/0.8 ML Syringe SC (21:15)
[2018-06-27] MEDS: Atorvastatin Calcium 40 MG Tablet PO (21:16)
[2018-06-28] VITALS (26 sets, daily range): BP systolic 95–168; BP diastolic 65–105; PULSE 65–105; RESP 16–28; TEMP 36.4–36.7; O2SAT 92–99
--- NOTE | 2018-06-28 00:01 | NURSING ---
Report given to Jessie Harp RN. She will resume care of pt at this time.
[2018-06-28 01:19] LABS: Color, Urine Yellow (Yellow); Glucose, Dipstick Normal (Normal); Ketone-Dipstick Negative (Negative); Leukocyte Esterase-Dipstick Negative /ul (Negative); Nitrite-Dipstick Negative (Negative); Occult Blood-Urine 150 /ul (Negative); Protein-Dipstick 30 mg/dl (Negative); Urine Bilirubin Dipstick Negative (Negative); Urine Clarity Clear (Clear); Urine Urobilinogen 1 mg/dl (Normal)
--- NOTE | 2018-06-28 04:00 | RAD_ITS ---
STUDY: X-RAY CHEST REASON FOR EXAM: Male, 73 years old. Cough TECHNIQUE: Single frontal view of the chest. COMPARISON: 06/26/2018 FINDINGS: Interval resolution of bibasilar alveolar disease. There is no demonstrated pleural abnormality. Stable cardiac silhouette. Calcified granuloma in the left lung base. Normal mediastinum and beto. Normal visualized pulmonary arteries. Normal visualized aortic arch and descending thoracic aorta. Normal visualized thoracic spine. Normal visualized ribs, clavicles, and shoulders. There is no demonstrated abnormality of the visualized soft tissue structures of the upper abdomen. RAD/Chest 1 View (Portable) IMPRESSION: Interval resolution of bibasilar alveolar disease. Electronically Signed: Daniele Barnes MD at 4:55 EDT Tel , Service support ,
--- NOTE | 2018-06-28 05:55 | EKG12_ITS ---
Test Reason : AM EKG Blood Pressure : / mmHG Vent. Rate : 083 BPM Atrial Rate : 073 BPM P-R Int : 000 ms QRS Dur : 094 ms QT Int : 432 ms P-R-T Axes : 000 042 032 degrees QTc Int : 507 ms Atrial fibrillation Prolonged QT Abnormal ECG When compared with ECG of 27-JUN-2018 15:55, MANUAL COMPARISON REQUIRED, DATA IS UNCONFIRMED Confirmed by KALLI KELLEY, CARINA ([id number]), publication editor JASMEET DESIR ([id number]) on 07/03/2018 10:57:20 AM Referred By: Jose Alvarez Confirmed By:CARINA MAHAN MD
[2018-06-28 06:11] LABS: Absolute Lymphocyte Count 1.45 X10^3/ul (0.83-4.51); Absolute Neutrophil Count 10.8 X10^3/uL (2.0-7.7); Basophil# 0.03 X10^3/uL; Basophil% 0.2 % (0-1); Eosinophil# 0.06 X10^3/uL; Eosinophils% 0.4 % (0-5); Hematocrit 42.2 % (40-54); Hemoglobin 14.5 g/dl (13.0-16.5); Lymphocyte # 1.45 X10^3/ul (4.0); Lymphocyte % 10.6 % (19-41); Mean Corp Hgb Conc 34.4 g/gl (32-36); Mean Corpuscular Hgb 34.4 pg (27.0-32.0); Mean Platelet Vol. 10.8 fl (6.2-12.0); Monocyte# 1.36 X10^3/uL; Monocyte% 9.9 % (0-10); Neutrophil # 10.77 X10^3/uL (2.7-7.7); Neutrophil % 78.5 % (47-70); Platelet Count 267 K/mm3 (150-450); RBC Distribution Width CV 14.9 % (11.6-14.6); RBC Distribution Width SD 53.8 fl (35.1-43.9); Red Blood Count 4.22 M/mm3 (4.6-6.2); White Blood Count 13.7 K/mm3 (4.4-11.0)
[2018-06-28] MEDS: Losartan Potassium 25 MG Tablet PO (06:16)
[2018-06-28] MEDS: 0.9% NaCl Peripheral Flush Adult/Peds IV ×2 (06:17→17:44)
[2018-06-28] MEDS: Metoprolol Tartrate 50 MG Tablet PO ×2 (06:17→22:30)
[2018-06-28] MEDS: Aspirin 81 MG TAB.CHEW PO (06:17)
[2018-06-28 06:19] LABS: POSITIVE COUNT NO; POSITIVE DIFFERENTIAL NO; POSITIVE MORPHOLOGY NO
[2018-06-28 06:30] LABS: International Normalized Ratio 1.2; Prothrombin Time (Protime)PT. 15.3 SECONDS (11.7-14.9)
[2018-06-28 06:31] LABS: Partial Thromboplast Time 38.3 Seconds (24.1-36.2)
[2018-06-28 06:32] LABS: Anion Gap 10 (5-15); BUN 27 mg/dL (7-18); BUN/Creat Ratio 23.3 RATIO (10-20); Calcium,Total 8.9 mg/dL (8.5-10.1); Chloride 111 mmol/L (98-107); Creatinine, Serum 1.16 mg/dL (0.70-1.30); EST Glomerular Filtration Rate 65 mL/min (>60); Est Glom Filt Rate - Afr Amer 79 mL/min (>60); Estimated Creatinine Clearance 61.32 ml/min; Glucose 99 mg/dL (74-106); Magnesium 1.9 mg/dL (1.6-2.6); Potassium 3.3 mmol/L (3.5-5.1); Sodium Level 146 mmol/L (136-145)
[2018-06-28 08:23] LABS: Hemoglobin A1c 5.6 % (4.2-6.3)
--- NOTE | 2018-06-28 08:48 | CL.D_ITS ---
Patient Name: STEFANIA MOYA Study Date: 06/28/2018 Performing: River Alvarado MD Ht: 72.04 inches 183 cm : 1945 Wt: 174.17 lbs 79 kg Age: 73 Gender: male BSA: 2.01 PROCEDURE(S) PERFORMED IO59-HOC/LHC/COR/LV CLINICAL PROFILE AND INDICATIONS Indications: Valvular Disease Heart Failure: NYHA Class: 3, Newly Diagnosed: Yes, Heart Failure Type: Diastolic Stress/Imaging Stress/Image Study Performed: No Angina Classification Anginal Classification w/in 2 Weeks: No symptoms CAD Presentations: Other: CHF CONCLUSIONS Right heart pressures - severely elevated The patient has pulmonary hypertension which is severe. Intracardiac shunting: Calculated Qp/Qs ratio: 0.61 (non hemodynamically significant) Elevated Left Ventricular End Diastolic Pressure Normal LV size, wall motion,and systolic function LVEF: by LV gram 50 % Single vessel CAD of the RCA: Proximal: mild luminal irregularities Mitral Valve Insufficiency Severe Left Atrium: Enlarged RECOMMENDATIONS Risk factor modification Medical therapy Surgery consult for valvular disease DESCRIPTION OF PROCEDURE The patient arrived to the procedure lab. The risks and benefits of the procedure as well as a full d escription of our services here and current unavailability of surgical backup were fully explained to the patient and/or their significant other prior to the catheterization. The Timeout was completed, verifying the correct patient and procedure. The patient's procedural site was prepped and draped in the usual fashion. Local anesthetic was given subcutaneously to right groin region with Lidocaine 2%. Using a modified Seldinger technique, arterial access was obtained via the right femoral artery, a 4 Fr sheath was inserted Venous access was obtained via the right femoral vein, a 7Fr sheath was insert ed. A 7Fr thermal dilution catheter was inserted and right heart pressures were recorded, it was then advanced to PA position for cardiac outputs. Thermal dilution cardiac outputs were then recorded. O2 saturations were then obtained. Left Ventriculography was performed in HILTON projection using a 4 Fr. Pigtail catheter. The Thermal dilution catheter was then removed. LV to AO pullback pressures were th en recorded. Left Coronary Artery selective angiography was performed in multiple views using a 4 Fr. JL4 catheter. Right Coronary Artery selective angiography was then performed in multiple views using a 4 Fr. JR4 catheter.The arterial sheath was pulled and manual compression applied until hemostasis is achieved.. The venous sheath was then pulled and manual compression applied until hemostasis achie ramin CORONARY ANGIOGRAPHY DOMINANCE: Right Dominant LEFT HEART ASSESSMENT Left Ventricular Ejection Fraction: by LV Gram 50% Normal LV wall motion Elevated Left Ventricular End Diastolic Pressure LVEDP: 31 mmHg RIGHT HEART ASSESSMENT Thermal CO: 2.76 Thermal CI: 1.37 Vi CO: 5.65 Vi CI: 2.81 PW: /39 35 PA: 76/40 51 RV: 60/17 19 RA: / 22 PVR: 464 SVR: 2464 Right Heart pressures - elevated Pulmonary Hypertension Severe Intracardiac shunting: Calculated Qp/Qs ratio: 0.61 (non hemodynamically significant) LEFT MAIN: Angiographically normal LEFT ANTERIOR DECENDING ARTERY: Angiographically normal CIRCUMFLEX ARTERY: Angiographically normal RIGHT CORONARY ARTERY: Proximal: mild luminal irregularities VALVE FINDINGS: Normal Aortic Valve function Mitral Valve Insufficiency - Grade 4 AORTIC ROOT: Angiographically normal COMPLICATIONS No Complications PROCEDURE MEDICATIONS Versed 1 mg IV Oxygen: 2 L/min via nasal cannula Plavix 75 mg PO 06/28/2018 07:32:29 Potassium Chloride 10 mEq in 100cc NS 06/28/2018 08:05:37 SUMMARY OF HEMODYNAMIC DATA Time AIR REST RA / (22) SV 07:54:12 RV 60/17, 19 07:54:31 PA 76/40 (51) PA 07:56:33 PW /39 (35) PV 07:57:21 LV 120/11, 24 08:10:42 PW /36 (27) 08:10:42 LV 120/11, 27 08:17:08 PA 60/31 (43) 08:17:08 LVp 121/12, 31 08:17:39 LVp 123/18, 31 08:17:57 AO 128/93 (107) SA 08:18:00 AOp 128/93 (108) 08:18:02 RV 61/21, 23 08:18:31 RA / (23) 08:18:42 ECG 08:33:13 Type SV CO (l/m) CI (l/m/ HR Time AIR REST Thermal 35.80 2.76 1.37 77 07:29:13 Vi 73.40 5.65 2.81 77 07:29:13 Label % O2 Pres/Loc Time AIR REST IVC 58 SV 08:07:40 SVC 50 08:07:49 PA 46 PA 08:07:55 AO 82 PV 08:08:03 Signed By River Alvarado MD On 06/28/2018 08:48:25 River Alvarado MD
--- NOTE | 2018-06-28 09:22 | PCM.PN.CARD ---
Subjectve: The patient is now status post diagnostic cardiac catheterization. He completed his procedure without obvious adverse events. Overall, he states his breathing has improved. Objective: Vital Signs Temp Pulse Resp BP Pulse Ox 98.0 F 68 17 114/91 H 97 06/28/18 09:10 06/28/18 09:10 06/28/18 09:10 06/28/18 09:10 06/28/18 09:10 Oxygen Flow Rate (L/min) 2 Oxygen Delivery Method Nasal Cannula Weight: 173 lb 1.006 oz Body Mass Index (BMI) 23.4 Intake and Output for Last 24 Hours 06/26/18 06/27/18 06/28/18 23:59 23:59 23:59 Intake Total 800 / 800 210 / 210 Output Total 1525 / 1525 1775 / 1775 Balance -725 / -725 -1565 / -1565 General: Awake, Alert, Oriented x 3, No Acute Distress HEENT: Atraumatic, Normocephalic, PERRL, EOMI, Sclera Non Icteric Oral: Poor Dentition Neck: Supple, Good ROM, No JVD Lungs: Clear to auscultation Cardiovascular: Irregular Rhythm, Normal S1, Normal S2 Murmur Murmur: Grade 3/6, Harsh, Holosystolic, [place], Axilla Vascular: Normal Femoral Pulses Abdomen: Bowel Sounds Present, Soft, Non Tender Extremities: No edema Neurological: No Focal Motor or Sensory Deficit Psych/Mental Status: Appropriate, Normal Affect 06/27/18 13:10: Sodium 145, Potassium 3.9, Chloride 112 H, Carbon Dioxide 21.0, Anion Gap 12, BUN 24 H, Creatinine 1.24, Est GFR (MDRD) Af Amer 73, Est GFR (MDRD) Non-Af 61, BUN/Creatinine Ratio 19.4, Glucose 132 H, Calcium 9.1 06/28/18 01:05: Urine Color Yellow, Urine Clarity Clear, Urine pH 6.0, Ur Specific [place] 1.020, Urine Protein 30 H, Urine Glucose (UA) Normal, Urine Ketones Negative, Urine Occult Blood 150 H, Urine Nitrite Negative, Urine Bilirubin Negative, Urine Urobilinogen 1 H, Ur Leukocyte Esterase Negative 06/28/18 05:40: Hemoglobin A1c 5.6 06/28/18 05:40: Sodium 146 H, Potassium 3.3 L, Chloride 111 H, Carbon Dioxide 25.0, Anion Gap 10, BUN 27 H, Creatinine 1.16, Est GFR (MDRD) Af Amer 79, Est GFR (MDRD) Non-Af 65, BUN/Creatinine Ratio 23.3 H, Glucose 99, Calcium 8.9, Magnesium 1.9 06/28/18 05:40: WBC 13.7 H, RBC 4.22 L, Hgb 14.5, Hct 42.2, MCV 100.0 H, MCH 34.4 H, MCHC 34.4, RDW 14.9 H, RDW Differential 53.8 H, Plt Count 267, MPV 10.8, Immature Gran % (Auto) 0.400, Neut % (Auto) 78.5 H, Lymph % (Auto) 10.6 L, [place] % (Auto) 9.9, Eos % (Auto) 0.4, Baso % (Auto) 0.2, Absolute Neuts (auto) 10.8 H, Total Counted Not Reportable 06/28/18 05:40: PT 15.3 H, INR 1.2, APTT 38.3 H Rhythm: Atrial fibrillation Cardiac Cath: Please see official report Chest x-ray: Preliminary evaluation: Compared to the previous chest x-ray there appears to be a decrease with respect to the previous Maxwell noted increased pulmonary vascularity/pleural effusions. Please see official report Medical Necessity - Tobacco Use Smoking Status: Former smoker Assessment/Plan 1. Atrial fibrillation It is unclear how long the patient has been in atrial fibrillation. The etiologies may be multifactorial related to his age, hypertension, underlying cardiovascular disease with mitral valve disorder with mitral valve regurgitation, etc. From a cardiac standpoint he will need to be monitored. He will continue rate control therapy and anticoagulant therapy as deemed appropriate. As he has been found to have significant mitral valve disease with significant MR, significant pulmonary hypertension, without obvious significant CAD, requiring a future CT surgery evaluation for mitral valve repair/replacement, it appears reasonable at the present time to continue rate control therapy and, once he has recuperated from his cardiac catheterization, restart anticoagulant therapy. He can be considered, at the time of CT surgery, for additional atrial fibrillation procedures such as a Hackett-Maze procedure and left atrial appendage ligation. 2. Mitral valve disorder with mitral valve prolapse and mitral valve regurgitation Based upon the patient's clinical course, echocardiogram, and cardiac catheterization, he does have significant mitral valve disease/regurgitation. His cardiac catheterization would suggest severe mitral valve regurgitation with severe secondary pulmonary hypertension. At the present time he will continue medical management/stabilization. He will need to be referred to CT surgery for consideration for mitral valve repair/replacement. 3. CHF: Acute diastolic / systolic The patient does appear to be symptomatically improved. His CHF may be a combination of diastolic and based on his cardiac catheterization suggesting mildly diminished LV systolic function, a systolic component as well. He will need to continue medical management. Need to be referred to CT surgery for mitral valve repair/replacement. 4. Pleural effusions He appears to have improved status post IV diuresis. His physical exam is improved and his chest x-ray is improved. 5. Abnormal cardiac enzymes Upon his cardiac catheterization appears his cardiac enzymes represent a type II supply demand mismatch event as he does not have obvious angiographically significant appearing CAD requiring revascularization therapy. 6. Hypertensive urgency He will continue antihypertensive therapy with adjustment as needed. The above has been discussed with the patient. This note was generated with [employer] for [employer] dictation software. It may contain incorrect words, spelling, and punctuation that were not noted in checking the note before signing.
--- NOTE | 2018-06-28 10:00 | CASEMGMT ---
SW completed advance directives with patient per his request. Copies were made one of each document placed in chart and rest given to patient. Mallory BECK MSW
--- NOTE | 2018-06-28 12:25 | PCM.PROGNOTE ---
<Keyla Sigala - Last Filed: 06/28/18 12:36> Subjective: Patient seen and examined. Complains of continued shortness of breath while lying flat. Underwent cardiac catheterization this morning. No significant CAD. Cardiology recommending referral for grade 4 mitral valve insufficiency. - Physical Exam General: Alert, Oriented x3, Cooperative HEENT: Atraumatic, PERRLA, EOMI, Normocephalic Neck: Supple, No JVD, Negative Carotid Bruits Lungs: Clear to auscultation, Normal air movement Cardiovascular: Murmur, - - Atrial fibrillation, rate controlled. Abdomen: Bowel Sounds Present, Soft, Non Tender, Non-Distended Extremities: No clubbing, No cyanosis, No edema, Capillary Refill Less than 3 Seconds Skin: No rashes, No breakdown Musculoskeletal: No Tenderness to Palpation of Joints or Extremities Neurological: Cranial nerves II-XII grossly intact, Neuro grossly intact Psych/Mental Status: Normal Affect, Appropriate Vital Signs Temp Pulse Resp BP Pulse Ox 98.0 F 80 16 134/76 H 92 06/28/18 11:55 06/28/18 11:55 06/28/18 11:55 06/28/18 11:55 06/28/18 11:55 Oxygen Flow Rate (L/min) 2 Oxygen Delivery Method Room Air Weight: 173 lb 1.006 oz Body Mass Index (BMI) 23.4 Intake and Output for Last 24 Hours 06/26/18 06/27/18 06/28/18 23:59 23:59 23:59 Intake Total 800 / 800 1100 / 1100 Output Total 1525 / 1525 1775 / 1775 Balance -725 / -725 -675 / -675 Laboratory Tests Past 24 Hrs 06/27/18 06/28/18 06/28/18 13:10 01:05 05:40 WBC RBC Hgb Hct MCV MCH MCHC RDW RDW Differential Plt Count MPV Immature Gran % (Auto) Neut % (Auto) Lymph % (Auto) [place] % (Auto) Eos % (Auto) Baso % (Auto) Absolute Neuts (auto) Absolute Lymphs (auto) Total Counted PT INR APTT Sodium 145 Potassium 3.9 Chloride 112 H Carbon Dioxide 21.0 Anion Gap 12 BUN 24 H Creatinine 1.24 Estim Creat Clear Calc 57.37 Est GFR (MDRD) Af Amer 73 Est GFR (MDRD) Non-Af 61 BUN/Creatinine Ratio 19.4 Glucose 132 H Hemoglobin A1c 5.6 Calcium 9.1 Magnesium Urine Color Yellow Urine Clarity Clear Urine pH 6.0 Ur Specific [place] 1.020 Urine Protein 30 H Urine Glucose (UA) Normal Urine Ketones Negative Urine Occult Blood 150 H Urine Nitrite Negative Urine Bilirubin Negative Urine Urobilinogen 1 H Ur Leukocyte Esterase Negative 06/28/18 06/28/18 06/28/18 05:40 05:40 05:40 WBC 13.7 H RBC 4.22 L Hgb 14.5 Hct 42.2 MCV 100.0 H MCH 34.4 H MCHC 34.4 RDW 14.9 H RDW Differential 53.8 H Plt Count 267 MPV 10.8 Immature Gran % (Auto) 0.400 Neut % (Auto) 78.5 H Lymph % (Auto) 10.6 L [place] % (Auto) 9.9 Eos % (Auto) 0.4 Baso % (Auto) 0.2 Absolute Neuts (auto) 10.8 H Absolute Lymphs (auto) 1.45 Total Counted Not Reportable PT 15.3 H INR 1.2 APTT 38.3 H Sodium 146 H Potassium 3.3 L Chloride 111 H Carbon Dioxide 25.0 Anion Gap 10 BUN 27 H Creatinine 1.16 Estim Creat Clear Calc 61.32 Est GFR (MDRD) Af Amer 79 Est GFR (MDRD) Non-Af 65 BUN/Creatinine Ratio 23.3 H Glucose 99 Hemoglobin A1c Calcium 8.9 Magnesium 1.9 Urine Color Urine Clarity Urine pH Ur Specific [place] Urine Protein Urine Glucose (UA) Urine Ketones Urine Occult Blood Urine Nitrite Urine Bilirubin Urine Urobilinogen Ur Leukocyte Esterase Medical Necessity - Tobacco Use Smoking Status: Former smoker Assessment/Plan All Active Problems Pleural effusion, bilateral (Acute) Atrial fibrillation with RVR (Acute) Hypertensive urgency (Acute) CHF (congestive heart failure) (Acute) Abnormal cardiac enzyme level (Acute) 1. Small bilateral pleural effusions suspected secondary to new onset diastolic CHF, unclear subtype-BNP on admission 687. Chest x-ray shows bibasilar small effusions, mild cardiomegaly. CTA of chest showed no evidence of pulmonary embolism, moderate bilateral pleural effusions, mild scarring in the left lower lobe. Patient reports history of rheumatic fever as a child, positive murmur. Echocardiogram shows an EF of 60%, mild mitral valve prolapse, moderate mitral valve insufficiency, moderate tricuspid valve insufficiency, RVSP estimated to be 58 mmHg. Continue IV Lasix. Cardiology following. Strict I&O. Daily weight. Patient underwent cardiac catheterization this morning which showed no significant CAD. Stage IV mitral valve insufficiency. 2. New onset atrial fibrillation-initially A. fib with RVR on admission. Rate controlled. Continue metoprolol. On therapeutic Lovenox. Recommend Eliquis at discharge. 3. Grade IV mitral valve insufficiency- as noted on cath. Cardiology recommending referral for valve replacement in the future. Continue medical management in the meantime. 4. Hypertensive urgency-elevated blood pressure on admission 203/99. Improved. Patient reports previously on lisinopril and developed cough. He was then switched to metoprolol by primary care physician. Losartan added. 5. Severe pulmonary hypertension- as noted on echo and heart cath. Suspect secondary to mitral valve insufficiency. 6. Indeterminate troponin- demand ischemia due to A. fib with RVR/CHF. Cath without CAD as noted above. 7. Elevated glucose-hemoglobin A1c 5.6%. DVT prophylaxis-Lovenox subcu. This patient was seen by GABE Hodge under the supervision of Dr. Mera. <Maciel Mera - Last Filed: 06/28/18 16:49> Subjective: Seen in the morning. Patient short of breath on laying flat after cardiac cath. No significant/obvious coronary artery disease but severe MR. Objective: General: Alert, Oriented x3, Cooperative HEENT: Atraumatic, PERRLA, EOMI, Normocephalic Neck: Supple, No JVD, Negative Carotid Bruits Lungs: Diminished - Air entry diminished in bilateral lung bases. Bilateral pleural effusion, Short of Breath - Orthopnea. Cardiovascular: Irregular Rate, Murmur - grade 4/6, pansystolic murmur over mitral area with radiation to right axillary region. Abdomen: Bowel Sounds Present, Soft, Non Tender, Non-Distended Extremities: No edema, Capillary Refill Less than 3 Seconds Skin: No rashes, No breakdown Musculoskeletal: No Tenderness to Palpation of Joints or Extremities Neurological: Cranial nerves II-XII grossly intact Psych/Mental Status: Normal Affect, Appropriate - Physical Exam Vital Signs Temp Pulse Resp BP Pulse Ox 97.7 F L 91 28 H 134/70 H 98 06/28/18 13:09 06/28/18 14:50 06/28/18 13:09 06/28/18 13:09 06/28/18 13:09 Oxygen Flow Rate (L/min) 2 Oxygen Delivery Method Nasal Cannula Weight: 173 lb 1.006 oz Body Mass Index (BMI) 23.4 Intake and Output for Last 24 Hours 06/26/18 06/27/18 06/28/18 23:59 23:59 23:59 Intake Total 800 / 800 1100 / 1100 Output Total 1525 / 1525 1775 / 1775 Balance -725 / -725 -675 / -675 Laboratory Tests Past 24 Hrs 06/28/18 06/28/18 06/28/18 01:05 05:40 05:40 WBC RBC Hgb Hct MCV MCH MCHC RDW RDW Differential Plt Count MPV Immature Gran % (Auto) Neut % (Auto) Lymph % (Auto) [place] % (Auto) Eos % (Auto) Baso % (Auto) Absolute Neuts (auto) Absolute Lymphs (auto) Total Counted PT INR APTT Specimen Type pH Bicarbonate Actual POC Total CO2 Base Excess O2 Saturation ABG pCO2 ABG pO2 VBG pH VBG pO2 VBG O2 Sat (Calc) VBG O2 Content VBG Base Excess POC Mix VBG pCO2 Pt Tmp Sodium 146 H Potassium 3.3 L Chloride 111 H Carbon Dioxide 25.0 Anion Gap 10 BUN 27 H Creatinine 1.16 Estim Creat Clear Calc 61.32 Est GFR (MDRD) Af Amer 79 Est GFR (MDRD) Non-Af 65 BUN/Creatinine Ratio 23.3 H Glucose 99 Hemoglobin A1c 5.6 Calcium 8.9 Magnesium 1.9 Urine Color Yellow Urine Clarity Clear Urine pH 6.0 Ur Specific [place] 1.020 Urine Protein 30 H Urine Glucose (UA) Normal Urine Ketones Negative Urine Occult Blood 150 H Urine Nitrite Negative Urine Bilirubin Negative Urine Urobilinogen 1 H Ur Leukocyte Esterase Negative 06/28/18 06/28/18 06/28/18 05:40 05:40 07:54 WBC 13.7 H RBC 4.22 L Hgb 14.5 Hct 42.2 MCV 100.0 H MCH 34.4 H MCHC 34.4 RDW 14.9 H RDW Differential 53.8 H Plt Count 267 MPV 10.8 Immature Gran % (Auto) 0.400 Neut % (Auto) 78.5 H Lymph % (Auto) 10.6 L [place] % (Auto) 9.9 Eos % (Auto) 0.4 Baso % (Auto) 0.2 Absolute Neuts (auto) 10.8 H Absolute Lymphs (auto) 1.45 Total Counted Not Reportable PT 15.3 H INR 1.2 APTT 38.3 H Specimen Type SILVIA pH Bicarbonate Actual POC Total CO2 Base Excess O2 Saturation ABG pCO2 ABG pO2 VBG pH 7.41 VBG pO2 30 VBG O2 Sat (Calc) 58 VBG O2 Content 26 VBG Base Excess 0 POC Mix VBG pCO2 Pt Tmp 38.3 L Sodium Potassium Chloride Carbon Dioxide Anion Gap BUN Creatinine Estim Creat Clear Calc Est GFR (MDRD) Af Amer Est GFR (MDRD) Non-Af BUN/Creatinine Ratio Glucose Hemoglobin A1c Calcium Magnesium Urine Color Urine Clarity Urine pH Ur Specific [place] Urine Protein Urine Glucose (UA) Urine Ketones Urine Occult Blood Urine Nitrite Urine Bilirubin Urine Urobilinogen Ur Leukocyte Esterase 06/28/18 06/28/18 06/28/18 07:57 08:01 08:04 WBC RBC Hgb Hct MCV MCH MCHC RDW RDW Differential Plt Count MPV Immature Gran % (Auto) Neut % (Auto) Lymph % (Auto) [place] % (Auto) Eos % (Auto) Baso % (Auto) Absolute Neuts (auto) Absolute Lymphs (auto) Total Counted PT INR APTT Specimen Type SILVIA SILVIA ART pH 7.40 Bicarbonate Actual 23.5 POC Total CO2 25 Base Excess -1 O2 Saturation 82 L ABG pCO2 38.0 ABG pO2 46 L VBG pH 7.39 7.40 VBG pO2 27 25 VBG O2 Sat (Calc) 50 46 L VBG O2 Content 26 25 VBG Base Excess 0 -1 POC Mix VBG pCO2 Pt Tmp 40.5 L 38.8 L Sodium Potassium Chloride Carbon Dioxide Anion Gap BUN Creatinine Estim Creat Clear Calc Est GFR (MDRD) Af Amer Est GFR (MDRD) Non-Af BUN/Creatinine Ratio Glucose Hemoglobin A1c Calcium Magnesium Urine Color Urine Clarity Urine pH Ur Specific [place] Urine Protein Urine Glucose (UA) Urine Ketones Urine Occult Blood Urine Nitrite Urine Bilirubin Urine Urobilinogen Ur Leukocyte Esterase Assessment/Plan This patient was seen in conjunction with [employer] PL[employer] PRINTER[employer]yla. I have independently interviewed and examined the patient and reviewed pertinent history, examination findings, laboratory and plan of management. I have reviewed the note and agree with the documented findings with the few additional points. In brief, patient is admitted for new diagnosis of heart failure with small to moderate bilateral pleural effusion on chest x-ray and chest CT scan. CTA negative for PE. Patient also has A. fib with RVR on admission currently rate is controlled. Patient is on Lovenox subcut therapeutic dose. 2D echo was done which shows EF 60% with indeterminant diastolic function. No regional wall motion abnormality. LA moderately enlarged. RA mildly enlarged. Moderate 2+ eccentric MR, mild mitral prolapse. Moderate TR. RVSP 58 mmHg. Patient had cardiac catheter today and shows severe MR, significant pulmonary hypertension without significant obvious coronary artery disease. Right heart pressure was severely elevated. Mild luminal irregularities of proximal RCA. Dr. Alvarado suggested patient requires CT surgery for mitral valve replacement. For A. fib, patient may be considered for Hackett maze procedure at the same time. He suggested that she be care center either [facility] or [facility] but patient insurance accepts [facility] only. I have discussed my assessment with Keyla NOONAN and orders have been reviewed. [] Code Visit Inpatient E&M: 32538 Subs Hosp L3
[2018-06-28 12:51] LABS: Base Excess -1 mmol/L (-2 to +2); Bicarbonate 23.5 mmol/L (22-26); Blood Gas Specimen Type ART; PO2 46 mmHG (75-100); SO2 82 % (95-99); Total Carbon Dioxide 25 mmol/L
[2018-06-28 12:51] LABS: Blood Gas Specimen Type VEN; VBG BASE EXCESS 0 mmol/L (-1.0-3.5); VBG Bicarbonate 24 mmol/L (22-26); VBG Oxygen Content 26 mmol/L (23-33); VBG PO2 30 mmHg (25-40); VBG SO2 58 % (50-70); VBG pCO2 38.3 mmHg (41-51); VBG pH 7.41 (7.32-7.42)
[2018-06-28 12:51] LABS: Blood Gas Specimen Type VEN; VBG BASE EXCESS -1 mmol/L (-1.0-3.5); VBG Bicarbonate 24 mmol/L (22-26); VBG Oxygen Content 25 mmol/L (23-33); VBG PO2 25 mmHg (25-40); VBG SO2 46 % (50-70); VBG pCO2 38.8 mmHg (41-51)
[2018-06-28 12:51] LABS: Blood Gas Specimen Type VEN; VBG BASE EXCESS 0 mmol/L (-1.0-3.5); VBG Bicarbonate 25 mmol/L (22-26); VBG Oxygen Content 26 mmol/L (23-33); VBG PO2 27 mmHg (25-40); VBG SO2 50 % (50-70); VBG pCO2 40.5 mmHg (41-51); VBG pH 7.39 (7.32-7.42)
--- NOTE | 2018-06-28 12:59 | NURSING ---
student charting reviewed by this rn.
--- NOTE | 2018-06-28 13:24 | CASEMGMT ---
According to [facility] website, the following are in-network tertiary facilities: [facility], [place], [facility], [place], [facility], [place], [facility], and . Addy MARAVILLA CM
--- NOTE | 2018-06-28 15:20 | DS.PCM_ITS ---
<Keyla Sigala - Last Filed: 06/28/18 15:22> Discharge Date and Diagnosis Date of Admission: 06/27/18 Date of Discharge: 06/28/18 - Primary Discharge Diagnosis Active and Suspected Problems 1. Small bilateral pleural effusions secondary to new onset diastolic CHF 2. New onset atrial fibrillation 3. Grade 4 mitral valve insufficiency 4. Hypertensive urgency 5. Severe pulmonary hypertension 6. Indeterminate troponin, demand ischemia secondary to A. fib and CHF - Secondary Discharge Diagnosis Chronic Problems Mitral valve disorder (Chronic) Hospital Course and Treatment Imaging Results: Diagnostic Data Chest CTA 06/27/18 00:27 IMPRESSION: 1. No evidence of pulmonary embolism. 2. Moderate bilateral pleural effusions. 3. Mild stranding/scarring in the left lower lobe. Electronically Signed: Mohit Stark MD at 1:35 EDT Tel , Service support , Chest X-Ray 06/28/18 04:00 IMPRESSION: Interval resolution of bibasilar alveolar disease. Electronically Signed: Dainele Barnes MD at 4:55 EDT Tel , Service support , Dr. Alvarado- Cardiology Operations: None Procedures: 2-D Echocardiogram Summary of Care Provided: The patient is a 73 year old M admitted 06/27/2018 due to shortness of breath. 1. Small bilateral pleural effusions suspected secondary to new onset diastolic CHF, unclear subtype-BNP on admission 687. Chest x-ray shows bibasilar small effusions, mild cardiomegaly. CTA of chest showed no evidence of pulmonary embolism, moderate bilateral pleural effusions, mild scarring in the left lower lobe. Patient reports history of rheumatic fever as a child, positive murmur. Echocardiogram shows an EF of 60%, mild mitral valve prolapse, moderate mitral valve insufficiency, moderate tricuspid valve insufficiency, RVSP estimated to be 58 mmHg. Continue IV Lasix. Cardiology following. Strict I&O. Daily weight. Patient underwent cardiac catheterization this morning which showed no significant CAD. Stage IV mitral valve insufficiency. 2. New onset atrial fibrillation-initially A. fib with RVR on admission. Rate controlled. Continue metoprolol. On therapeutic Lovenox. Recommend Eliquis at discharge. 3. Grade IV mitral valve insufficiency- as noted on cath. Cardiology recommending transfer for valve replacement. Transfer to [facility]. 4. Hypertensive urgency-elevated blood pressure on admission 203/99. Improved. Patient reports previously on lisinopril and developed cough. He was then switched to metoprolol by primary care physician. Losartan added. 5. Severe pulmonary hypertension- as noted on echo and heart cath. Suspect secondary to mitral valve insufficiency. 6. Indeterminate troponin- demand ischemia due to A. fib with RVR/CHF. Cath without CAD as noted above. 7. Elevated glucose-hemoglobin A1c 5.6%. General: Alert, Oriented x3, Cooperative HEENT: Atraumatic, PERRLA, EOMI, Normocephalic Neck: Supple, No JVD, Negative Carotid Bruits Lungs: Clear to auscultation, Normal air movement Cardiovascular: Murmur, - - Atrial fibrillation, rate controlled. Abdomen: Bowel Sounds Present, Soft, Non Tender, Non-Distended Extremities: No clubbing, No cyanosis, No edema, Capillary Refill Less than 3 Seconds Skin: No rashes, No breakdown Musculoskeletal: No Tenderness to Palpation of Joints or Extremities Neurological: Cranial nerves II-XII grossly intact, Neuro grossly intact Psych/Mental Status: Normal Affect, Appropriate Patient seen exam prior to discharge. Physical assessment as noted above. This patient was seen by GABE Hodge under the supervision of Dr. Mera. - Physical Exam Vital Signs Temp Pulse Resp BP Pulse Ox 97.7 F L 91 28 H 134/70 H 98 06/28/18 13:09 06/28/18 14:50 06/28/18 13:09 06/28/18 13:09 06/28/18 13:09 Oxygen Flow Rate (L/min) 2 Oxygen Delivery Method Nasal Cannula Weight: 173 lb 1.006 oz Body Mass Index (BMI) 23.4 Intake and Output for Last 24 Hours 06/26/18 06/27/18 06/28/18 23:59 23:59 23:59 Intake Total 800 / 800 1100 / 1100 Output Total 1525 / 1525 1775 / 1775 Balance -725 / -725 -675 / -675 Laboratory Tests Past 24 Hrs 06/28/18 06/28/18 06/28/18 01:05 05:40 05:40 WBC RBC Hgb Hct MCV MCH MCHC RDW RDW Differential Plt Count MPV Immature Gran % (Auto) Neut % (Auto) Lymph % (Auto) [place] % (Auto) Eos % (Auto) Baso % (Auto) Absolute Neuts (auto) Absolute Lymphs (auto) Total Counted PT INR APTT Specimen Type pH Bicarbonate Actual POC Total CO2 Base Excess O2 Saturation ABG pCO2 ABG pO2 VBG pH VBG pO2 VBG O2 Sat (Calc) VBG O2 Content VBG Base Excess POC Mix VBG pCO2 Pt Tmp Sodium 146 H Potassium 3.3 L Chloride 111 H Carbon Dioxide 25.0 Anion Gap 10 BUN 27 H Creatinine 1.16 Estim Creat Clear Calc 61.32 Est GFR (MDRD) Af Amer 79 Est GFR (MDRD) Non-Af 65 BUN/Creatinine Ratio 23.3 H Glucose 99 Hemoglobin A1c 5.6 Calcium 8.9 Magnesium 1.9 Urine Color Yellow Urine Clarity Clear Urine pH 6.0 Ur Specific Deal 1.020 Urine Protein 30 H Urine Glucose (UA) Normal Urine Ketones Negative Urine Occult Blood 150 H Urine Nitrite Negative Urine Bilirubin Negative Urine Urobilinogen 1 H Ur Leukocyte Esterase Negative 06/28/18 06/28/18 06/28/18 05:40 05:40 07:54 WBC 13.7 H RBC 4.22 L Hgb 14.5 Hct 42.2 MCV 100.0 H MCH 34.4 H MCHC 34.4 RDW 14.9 H RDW Differential 53.8 H Plt Count 267 MPV 10.8 Immature Gran % (Auto) 0.400 Neut % (Auto) 78.5 H Lymph % (Auto) 10.6 L [place] % (Auto) 9.9 Eos % (Auto) 0.4 Baso % (Auto) 0.2 Absolute Neuts (auto) 10.8 H Absolute Lymphs (auto) 1.45 Total Counted Not Reportable PT 15.3 H INR 1.2 APTT 38.3 H Specimen Type SILVIA pH Bicarbonate Actual POC Total CO2 Base Excess O2 Saturation ABG pCO2 ABG pO2 VBG pH 7.41 VBG pO2 30 VBG O2 Sat (Calc) 58 VBG O2 Content 26 VBG Base Excess 0 POC Mix VBG pCO2 Pt Tmp 38.3 L Sodium Potassium Chloride Carbon Dioxide Anion Gap BUN Creatinine Estim Creat Clear Calc Est GFR (MDRD) Af Amer Est GFR (MDRD) Non-Af BUN/Creatinine Ratio Glucose Hemoglobin A1c Calcium Magnesium Urine Color Urine Clarity Urine pH Ur Specific Deal Urine Protein Urine Glucose (UA) Urine Ketones Urine Occult Blood Urine Nitrite Urine Bilirubin Urine Urobilinogen Ur Leukocyte Esterase 06/28/18 06/28/18 06/28/18 07:57 08:01 08:04 WBC RBC Hgb Hct MCV MCH MCHC RDW RDW Differential Plt Count MPV Immature Gran % (Auto) Neut % (Auto) Lymph % (Auto) [place] % (Auto) Eos % (Auto) Baso % (Auto) Absolute Neuts (auto) Absolute Lymphs (auto) Total Counted PT INR APTT Specimen Type SILVIA SILVIA ART pH 7.40 Bicarbonate Actual 23.5 POC Total CO2 25 Base Excess -1 O2 Saturation 82 L ABG pCO2 38.0 ABG pO2 46 L VBG pH 7.39 7.40 VBG pO2 27 25 VBG O2 Sat (Calc) 50 46 L VBG O2 Content 26 25 VBG Base Excess 0 -1 POC Mix VBG pCO2 Pt Tmp 40.5 L 38.8 L Sodium Potassium Chloride Carbon Dioxide Anion Gap BUN Creatinine Estim Creat Clear Calc Est GFR (MDRD) Af Amer Est GFR (MDRD) Non-Af BUN/Creatinine Ratio Glucose Hemoglobin A1c Calcium Magnesium Urine Color Urine Clarity Urine pH Ur Specific Deal Urine Protein Urine Glucose (UA) Urine Ketones Urine Occult Blood Urine Nitrite Urine Bilirubin Urine Urobilinogen Ur Leukocyte Esterase Home Medications: Medications to take at Discharge Metoprolol Tartrate 50 mg PO DAILY 06/27/18 Primary Care Physician: Jose Alvarez Chi, MD [Primary Care Provider] - Disposition: Acute care Hospital Minutes spent on discharge:: 35 Patient Condition:: Stable Medical Necessity - Tobacco Use Smoking Status: Former smoker Meaningful Use Info Meaningful Use Diagnoses (Choose all that apply): None applicable <Maciel Mera - Last Filed: 06/29/18 08:08> Discharge Date and Diagnosis - Secondary Discharge Diagnosis Chronic Problems Mitral valve disorder (Chronic) Hospital Course and Treatment Imaging Results: 06/29/18 05:55 CXR [Chest 1 View (Portable)] [RAD] AM (NON MEDS) Summary of Care Provided: This patient was seen in conjunction with GANG RIDERKeyla. I have independently interviewed and examined the patient and reviewed pertinent history, examination findings, laboratory and plan of management. I have reviewed the note and agree with the documented findings with the few additional points. In brief, patient is admitted for new diagnosis of heart failure with small to moderate bilateral pleural effusion on chest x-ray and chest CT scan. CTA negative for PE. Patient also has A. fib with RVR on admission currently rate is controlled. Patient is on Lovenox subcut therapeutic dose. Patient had cardiac catheter today and shows severe MR, significant pulmonary hypertension without significant obvious coronary artery disease. Right heart pressure was severely elevated. Mild luminal irregularities of proximal RCA. 2D echo was done which shows EF 60% with indeterminant diastolic function. No regional wall motion abnormality. LA moderately enlarged. RA mildly enlarged. Moderate 2+ eccentric MR, mild mitral prolapse. Moderate TR. RVSP [address] Alvarado suggested patient requires CT surgery for mitral valve replacement. For A. fib, patient may be considered for Hackett maze procedure. Transfer to tertiary care, [facility] was facilitated. SHAISTA Ramires discussed the patient finding and clinical course with casserole preparer Dr. Corbin and he accepted the patient. Transfer formality is done. The patient transferred to [facility] about 11:00 PM on 06/28/2018 I have discussed my assessment with Keyla NOONAN and orders have been reviewed. [] - Physical Exam General: Alert, Oriented x3, Cooperative HEENT: Atraumatic, PERRLA, EOMI, Normocephalic Neck: Supple, No JVD, Negative Carotid Bruits Lungs: Diminished - Air entry diminished in bilateral lung bases. Bilateral pleural effusion, Short of Breath - Orthopnea. Cardiovascular: Irregular Rate, Murmur - grade 4/6, pansystolic murmur over mitral area with radiation to right axillary region. Abdomen: Bowel Sounds Present, Soft, Non Tender, Non-Distended Extremities: No edema, Capillary Refill Less than 3 Seconds Skin: No rashes, No breakdown Musculoskeletal: No Tenderness to Palpation of Joints or Extremities Neurological: Cranial nerves II-XII grossly intact Psych/Mental Status: Normal Affect, Appropriate Vital Signs Temp Pulse Resp BP Pulse Ox 97.7 F L 91 28 H 134/70 H 98 06/28/18 13:09 06/28/18 14:50 06/28/18 13:09 06/28/18 13:09 06/28/18 13:09 Oxygen Flow Rate (L/min) 2 Oxygen Delivery Method Nasal Cannula Weight: 173 lb 1.006 oz Body Mass Index (BMI) 23.4 Intake and Output for Last 24 Hours 06/26/18 06/27/18 06/28/18 23:59 23:59 23:59 Intake Total 800 / 800 1100 / 1100 Output Total 1525 / 1525 1775 / 1775 Balance -725 / -725 -675 / -675 Laboratory Tests Past 24 Hrs 06/28/18 06/28/18 06/28/18 01:05 05:40 05:40 WBC RBC Hgb Hct MCV MCH MCHC RDW RDW Differential Plt Count MPV Immature Gran % (Auto) Neut % (Auto) Lymph % (Auto) [place] % (Auto) Eos % (Auto) Baso % (Auto) Absolute Neuts (auto) Absolute Lymphs (auto) Total Counted PT INR APTT Specimen Type pH Bicarbonate Actual POC Total CO2 Base Excess O2 Saturation ABG pCO2 ABG pO2 VBG pH VBG pO2 VBG O2 Sat (Calc) VBG O2 Content VBG Base Excess POC Mix VBG pCO2 Pt Tmp Sodium 146 H Potassium 3.3 L Chloride 111 H Carbon Dioxide 25.0 Anion Gap 10 BUN 27 H Creatinine 1.16 Estim Creat Clear Calc 61.32 Est GFR (MDRD) Af Amer 79 Est GFR (MDRD) Non-Af 65 BUN/Creatinine Ratio 23.3 H Glucose 99 Hemoglobin A1c 5.6 Calcium 8.9 Magnesium 1.9 Urine Color Yellow Urine Clarity Clear Urine pH 6.0 Ur Specific Deal 1.020 Urine Protein 30 H Urine Glucose (UA) Normal Urine Ketones Negative Urine Occult Blood 150 H Urine Nitrite Negative Urine Bilirubin Negative Urine Urobilinogen 1 H Ur Leukocyte Esterase Negative 06/28/18 06/28/18 06/28/18 05:40 05:40 07:54 WBC 13.7 H RBC 4.22 L Hgb 14.5 Hct 42.2 MCV 100.0 H MCH 34.4 H MCHC 34.4 RDW 14.9 H RDW Differential 53.8 H Plt Count 267 MPV 10.8 Immature Gran % (Auto) 0.400 Neut % (Auto) 78.5 H Lymph % (Auto) 10.6 L [place] % (Auto) 9.9 Eos % (Auto) 0.4 Baso % (Auto) 0.2 Absolute Neuts (auto) 10.8 H Absolute Lymphs (auto) 1.45 Total Counted Not Reportable PT 15.3 H INR 1.2 APTT 38.3 H Specimen Type SILVIA pH Bicarbonate Actual POC Total CO2 Base Excess O2 Saturation ABG pCO2 ABG pO2 VBG pH 7.41 VBG pO2 30 VBG O2 Sat (Calc) 58 VBG O2 Content 26 VBG Base Excess 0 POC Mix VBG pCO2 Pt Tmp 38.3 L Sodium Potassium Chloride Carbon Dioxide Anion Gap BUN Creatinine Estim Creat Clear Calc Est GFR (MDRD) Af Amer Est GFR (MDRD) Non-Af BUN/Creatinine Ratio Glucose Hemoglobin A1c Calcium Magnesium Urine Color Urine Clarity Urine pH Ur Specific Deal Urine Protein Urine Glucose (UA) Urine Ketones Urine Occult Blood Urine Nitrite Urine Bilirubin Urine Urobilinogen Ur Leukocyte Esterase 06/28/18 06/28/18 06/28/18 07:57 08:01 08:04 WBC RBC Hgb Hct MCV MCH MCHC RDW RDW Differential Plt Count MPV Immature Gran % (Auto) Neut % (Auto) Lymph % (Auto) [place] % (Auto) Eos % (Auto) Baso % (Auto) Absolute Neuts (auto) Absolute Lymphs (auto) Total Counted PT INR APTT Specimen Type SILVIA SILVIA ART pH 7.40 Bicarbonate Actual 23.5 POC Total CO2 25 Base Excess -1 O2 Saturation 82 L ABG pCO2 38.0 ABG pO2 46 L VBG pH 7.39 7.40 VBG pO2 27 25 VBG O2 Sat (Calc) 50 46 L VBG O2 Content 26 25 VBG Base Excess 0 -1 POC Mix VBG pCO2 Pt Tmp 40.5 L 38.8 L Sodium Potassium Chloride Carbon Dioxide Anion Gap BUN Creatinine Estim Creat Clear Calc Est GFR (MDRD) Af Amer Est GFR (MDRD) Non-Af BUN/Creatinine Ratio Glucose Hemoglobin A1c Calcium Magnesium Urine Color Urine Clarity Urine pH Ur Specific Deal Urine Protein Urine Glucose (UA) Urine Ketones Urine Occult Blood Urine Nitrite Urine Bilirubin Urine Urobilinogen Ur Leukocyte Esterase Code Visit Inpatient E&M: [id number] Disch Hosp
[2018-06-28] MEDS: Furosemide 20 MG/2 ML VIAL IV (17:44)
--- NOTE | 2018-06-28 21:06 | NURSING ---
Roslyn from transfer center at [facility] called and patient has bed assignment at [facility], [facility] to arrange transport.
[2018-06-28] MEDS: Atorvastatin Calcium 40 MG Tablet PO (22:30)
[2018-06-28] MEDS: Enoxaparin 80 MG/0.8 ML Syringe SC (22:30)
--- NOTE | 2018-06-29 07:16 | PCM.DC.SUM ---
<Keyla Sigala - Last Filed: 06/28/18 15:22> Discharge Date and Diagnosis Date of Admission: 06/27/18 Date of Discharge: 06/28/18 - Primary Discharge Diagnosis Active and Suspected Problems 1. Small bilateral pleural effusions secondary to new onset diastolic CHF 2. New onset atrial fibrillation 3. Grade 4 mitral valve insufficiency 4. Hypertensive urgency 5. Severe pulmonary hypertension 6. Indeterminate troponin, demand ischemia secondary to A. fib and CHF - Secondary Discharge Diagnosis Chronic Problems Mitral valve disorder (Chronic) Hospital Course and Treatment Imaging Results: Diagnostic Data Chest CTA 06/27/18 00:27 IMPRESSION: 1. No evidence of pulmonary embolism. 2. Moderate bilateral pleural effusions. 3. Mild stranding/scarring in the left lower lobe. Electronically Signed: Mohit Stark MD at 1:35 EDT Tel , Service support , Chest X-Ray 06/28/18 04:00 IMPRESSION: Interval resolution of bibasilar alveolar disease. Electronically Signed: Daniele Barnes MD at 4:55 EDT Tel , Service support , Dr. Alvarado- Cardiology Operations: None Procedures: 2-D Echocardiogram Summary of Care Provided: The patient is a 73 year old M admitted 06/27/2018 due to shortness of breath. 1. Small bilateral pleural effusions suspected secondary to new onset diastolic CHF, unclear subtype-BNP on admission 687. Chest x-ray shows bibasilar small effusions, mild cardiomegaly. CTA of chest showed no evidence of pulmonary embolism, moderate bilateral pleural effusions, mild scarring in the left lower lobe. Patient reports history of rheumatic fever as a child, positive murmur. Echocardiogram shows an EF of 60%, mild mitral valve prolapse, moderate mitral valve insufficiency, moderate tricuspid valve insufficiency, RVSP estimated to be 58 mmHg. Continue IV Lasix. Cardiology following. Strict I&O. Daily weight. Patient underwent cardiac catheterization this morning which showed no significant CAD. Stage IV mitral valve insufficiency. 2. New onset atrial fibrillation-initially A. fib with RVR on admission. Rate controlled. Continue metoprolol. On therapeutic Lovenox. Recommend Eliquis at discharge. 3. Grade IV mitral valve insufficiency- as noted on cath. Cardiology recommending transfer for valve replacement. Transfer to [facility]. 4. Hypertensive urgency-elevated blood pressure on admission 203/99. Improved. Patient reports previously on lisinopril and developed cough. He was then switched to metoprolol by primary care physician. Losartan added. 5. Severe pulmonary hypertension- as noted on echo and heart cath. Suspect secondary to mitral valve insufficiency. 6. Indeterminate troponin- demand ischemia due to A. fib with RVR/CHF. Cath without CAD as noted above. 7. Elevated glucose-hemoglobin A1c 5.6%. General: Alert, Oriented x3, Cooperative HEENT: Atraumatic, PERRLA, EOMI, Normocephalic Neck: Supple, No JVD, Negative Carotid Bruits Lungs: Clear to auscultation, Normal air movement Cardiovascular: Murmur, - - Atrial fibrillation, rate controlled. Abdomen: Bowel Sounds Present, Soft, Non Tender, Non-Distended Extremities: No clubbing, No cyanosis, No edema, Capillary Refill Less than 3 Seconds Skin: No rashes, No breakdown Musculoskeletal: No Tenderness to Palpation of Joints or Extremities Neurological: Cranial nerves II-XII grossly intact, Neuro grossly intact Psych/Mental Status: Normal Affect, Appropriate Patient seen exam prior to discharge. Physical assessment as noted above. This patient was seen by GABE Hodge under the supervision of Dr. Mera. - Physical Exam Vital Signs Temp Pulse Resp BP Pulse Ox 97.7 F L 91 28 H 134/70 H 98 06/28/18 13:09 06/28/18 14:50 06/28/18 13:09 06/28/18 13:09 06/28/18 13:09 Oxygen Flow Rate (L/min) 2 Oxygen Delivery Method Nasal Cannula Weight: 173 lb 1.006 oz Body Mass Index (BMI) 23.4 Intake and Output for Last 24 Hours 06/26/18 06/27/18 06/28/18 23:59 23:59 23:59 Intake Total 800 / 800 1100 / 1100 Output Total 1525 / 1525 1775 / 1775 Balance -725 / -725 -675 / -675 Laboratory Tests Past 24 Hrs 06/28/18 06/28/18 06/28/18 01:05 05:40 05:40 WBC RBC Hgb Hct MCV MCH MCHC RDW RDW Differential Plt Count MPV Immature Gran % (Auto) Neut % (Auto) Lymph % (Auto) [place] % (Auto) Eos % (Auto) Baso % (Auto) Absolute Neuts (auto) Absolute Lymphs (auto) Total Counted PT INR APTT Specimen Type pH Bicarbonate Actual POC Total CO2 Base Excess O2 Saturation ABG pCO2 ABG pO2 VBG pH VBG pO2 VBG O2 Sat (Calc) VBG O2 Content VBG Base Excess POC Mix VBG pCO2 Pt Tmp Sodium 146 H Potassium 3.3 L Chloride 111 H Carbon Dioxide 25.0 Anion Gap 10 BUN 27 H Creatinine 1.16 Estim Creat Clear Calc 61.32 Est GFR (MDRD) Af Amer 79 Est GFR (MDRD) Non-Af 65 BUN/Creatinine Ratio 23.3 H Glucose 99 Hemoglobin A1c 5.6 Calcium 8.9 Magnesium 1.9 Urine Color Yellow Urine Clarity Clear Urine pH 6.0 Ur Specific [place] 1.020 Urine Protein 30 H Urine Glucose (UA) Normal Urine Ketones Negative Urine Occult Blood 150 H Urine Nitrite Negative Urine Bilirubin Negative Urine Urobilinogen 1 H Ur Leukocyte Esterase Negative 06/28/18 06/28/18 06/28/18 05:40 05:40 07:54 WBC 13.7 H RBC 4.22 L Hgb 14.5 Hct 42.2 MCV 100.0 H MCH 34.4 H MCHC 34.4 RDW 14.9 H RDW Differential 53.8 H Plt Count 267 MPV 10.8 Immature Gran % (Auto) 0.400 Neut % (Auto) 78.5 H Lymph % (Auto) 10.6 L [place] % (Auto) 9.9 Eos % (Auto) 0.4 Baso % (Auto) 0.2 Absolute Neuts (auto) 10.8 H Absolute Lymphs (auto) 1.45 Total Counted Not Reportable PT 15.3 H INR 1.2 APTT 38.3 H Specimen Type SILVIA pH Bicarbonate Actual POC Total CO2 Base Excess O2 Saturation ABG pCO2 ABG pO2 VBG pH 7.41 VBG pO2 30 VBG O2 Sat (Calc) 58 VBG O2 Content 26 VBG Base Excess 0 POC Mix VBG pCO2 Pt Tmp 38.3 L Sodium Potassium Chloride Carbon Dioxide Anion Gap BUN Creatinine Estim Creat Clear Calc Est GFR (MDRD) Af Amer Est GFR (MDRD) Non-Af BUN/Creatinine Ratio Glucose Hemoglobin A1c Calcium Magnesium Urine Color Urine Clarity Urine pH Ur Specific [place] Urine Protein Urine Glucose (UA) Urine Ketones Urine Occult Blood Urine Nitrite Urine Bilirubin Urine Urobilinogen Ur Leukocyte Esterase 06/28/18 06/28/18 06/28/18 07:57 08:01 08:04 WBC RBC Hgb Hct MCV MCH MCHC RDW RDW Differential Plt Count MPV Immature Gran % (Auto) Neut % (Auto) Lymph % (Auto) [place] % (Auto) Eos % (Auto) Baso % (Auto) Absolute Neuts (auto) Absolute Lymphs (auto) Total Counted PT INR APTT Specimen Type SILVIA SILVIA ART pH 7.40 Bicarbonate Actual 23.5 POC Total CO2 25 Base Excess -1 O2 Saturation 82 L ABG pCO2 38.0 ABG pO2 46 L VBG pH 7.39 7.40 VBG pO2 27 25 VBG O2 Sat (Calc) 50 46 L VBG O2 Content 26 25 VBG Base Excess 0 -1 POC Mix VBG pCO2 Pt Tmp 40.5 L 38.8 L Sodium Potassium Chloride Carbon Dioxide Anion Gap BUN Creatinine Estim Creat Clear Calc Est GFR (MDRD) Af Amer Est GFR (MDRD) Non-Af BUN/Creatinine Ratio Glucose Hemoglobin A1c Calcium Magnesium Urine Color Urine Clarity Urine pH Ur Specific [place] Urine Protein Urine Glucose (UA) Urine Ketones Urine Occult Blood Urine Nitrite Urine Bilirubin Urine Urobilinogen Ur Leukocyte Esterase Home Medications: Medications to take at Discharge Metoprolol Tartrate 50 mg PO DAILY 06/27/18 Primary Care Physician: Jose Alvarez Chi, MD [Primary Care Provider] - Disposition: Acute care Hospital Minutes spent on discharge:: 35 Patient Condition:: Stable Medical Necessity - Tobacco Use Smoking Status: Former smoker Meaningful Use Info Meaningful Use Diagnoses (Choose all that apply): None applicable <Maciel Mera - Last Filed: 06/29/18 08:08> Discharge Date and Diagnosis - Secondary Discharge Diagnosis Chronic Problems Mitral valve disorder (Chronic) Hospital Course and Treatment Imaging Results: 06/29/18 05:55 CXR [Chest 1 View (Portable)] [RAD] AM (NON MEDS) Summary of Care Provided: This patient was seen in conjunction with EXERCISE PHYSIOLOGISTKeyla. I have independently interviewed and examined the patient and reviewed pertinent history, examination findings, laboratory and plan of management. I have reviewed the note and agree with the documented findings with the few additional points. In brief, patient is admitted for new diagnosis of heart failure with small to moderate bilateral pleural effusion on chest x-ray and chest CT scan. CTA negative for PE. Patient also has A. fib with RVR on admission currently rate is controlled. Patient is on Lovenox subcut therapeutic dose. Patient had cardiac catheter today and shows severe MR, significant pulmonary hypertension without significant obvious coronary artery disease. Right heart pressure was severely elevated. Mild luminal irregularities of proximal RCA. 2D echo was done which shows EF 60% with indeterminant diastolic function. No regional wall motion abnormality. LA moderately enlarged. RA mildly enlarged. Moderate 2+ eccentric MR, mild mitral prolapse. Moderate TR. RVSP [address] Alvarado suggested patient requires CT surgery for mitral valve replacement. For A. fib, patient may be considered for Hackett maze procedure. Transfer to tertiary care, [facility] was facilitated. SHAISTA Ramires discussed the patient finding and clinical course with tree sapper Dr. Corbin and he accepted the patient. Transfer formality is done. The patient transferred to [facility] about 11:00 PM on 06/28/2018 I have discussed my assessment with Keyla NOONAN and orders have been reviewed. [] - Physical Exam General: Alert, Oriented x3, Cooperative HEENT: Atraumatic, PERRLA, EOMI, Normocephalic Neck: Supple, No JVD, Negative Carotid Bruits Lungs: Diminished - Air entry diminished in bilateral lung bases. Bilateral pleural effusion, Short of Breath - Orthopnea. Cardiovascular: Irregular Rate, Murmur - grade 4/6, pansystolic murmur over mitral area with radiation to right axillary region. Abdomen: Bowel Sounds Present, Soft, Non Tender, Non-Distended Extremities: No edema, Capillary Refill Less than 3 Seconds Skin: No rashes, No breakdown Musculoskeletal: No Tenderness to Palpation of Joints or Extremities Neurological: Cranial nerves II-XII grossly intact Psych/Mental Status: Normal Affect, Appropriate Vital Signs Temp Pulse Resp BP Pulse Ox 97.7 F L 91 28 H 134/70 H 98 06/28/18 13:09 06/28/18 14:50 06/28/18 13:09 06/28/18 13:09 06/28/18 13:09 Oxygen Flow Rate (L/min) 2 Oxygen Delivery Method Nasal Cannula Weight: 173 lb 1.006 oz Body Mass Index (BMI) 23.4 Intake and Output for Last 24 Hours 06/26/18 06/27/18 06/28/18 23:59 23:59 23:59 Intake Total 800 / 800 1100 / 1100 Output Total 1525 / 1525 1775 / 1775 Balance -725 / -725 -675 / -675 Laboratory Tests Past 24 Hrs 06/28/18 06/28/18 06/28/18 01:05 05:40 05:40 WBC RBC Hgb Hct MCV MCH MCHC RDW RDW Differential Plt Count MPV Immature Gran % (Auto) Neut % (Auto) Lymph % (Auto) [place] % (Auto) Eos % (Auto) Baso % (Auto) Absolute Neuts (auto) Absolute Lymphs (auto) Total Counted PT INR APTT Specimen Type pH Bicarbonate Actual POC Total CO2 Base Excess O2 Saturation ABG pCO2 ABG pO2 VBG pH VBG pO2 VBG O2 Sat (Calc) VBG O2 Content VBG Base Excess POC Mix VBG pCO2 Pt Tmp Sodium 146 H Potassium 3.3 L Chloride 111 H Carbon Dioxide 25.0 Anion Gap 10 BUN 27 H Creatinine 1.16 Estim Creat Clear Calc 61.32 Est GFR (MDRD) Af Amer 79 Est GFR (MDRD) Non-Af 65 BUN/Creatinine Ratio 23.3 H Glucose 99 Hemoglobin A1c 5.6 Calcium 8.9 Magnesium 1.9 Urine Color Yellow Urine Clarity Clear Urine pH 6.0 Ur Specific [place] 1.020 Urine Protein 30 H Urine Glucose (UA) Normal Urine Ketones Negative Urine Occult Blood 150 H Urine Nitrite Negative Urine Bilirubin Negative Urine Urobilinogen 1 H Ur Leukocyte Esterase Negative 06/28/18 06/28/18 06/28/18 05:40 05:40 07:54 WBC 13.7 H RBC 4.22 L Hgb 14.5 Hct 42.2 MCV 100.0 H MCH 34.4 H MCHC 34.4 RDW 14.9 H RDW Differential 53.8 H Plt Count 267 MPV 10.8 Immature Gran % (Auto) 0.400 Neut % (Auto) 78.5 H Lymph % (Auto) 10.6 L [place] % (Auto) 9.9 Eos % (Auto) 0.4 Baso % (Auto) 0.2 Absolute Neuts (auto) 10.8 H Absolute Lymphs (auto) 1.45 Total Counted Not Reportable PT 15.3 H INR 1.2 APTT 38.3 H Specimen Type SILVIA pH Bicarbonate Actual POC Total CO2 Base Excess O2 Saturation ABG pCO2 ABG pO2 VBG pH 7.41 VBG pO2 30 VBG O2 Sat (Calc) 58 VBG O2 Content 26 VBG Base Excess 0 POC Mix VBG pCO2 Pt Tmp 38.3 L Sodium Potassium Chloride Carbon Dioxide Anion Gap BUN Creatinine Estim Creat Clear Calc Est GFR (MDRD) Af Amer Est GFR (MDRD) Non-Af BUN/Creatinine Ratio Glucose Hemoglobin A1c Calcium Magnesium Urine Color Urine Clarity Urine pH Ur Specific [place] Urine Protein Urine Glucose (UA) Urine Ketones Urine Occult Blood Urine Nitrite Urine Bilirubin Urine Urobilinogen Ur Leukocyte Esterase 06/28/18 06/28/18 06/28/18 07:57 08:01 08:04 WBC RBC Hgb Hct MCV MCH MCHC RDW RDW Differential Plt Count MPV Immature Gran % (Auto) Neut % (Auto) Lymph % (Auto) [place] % (Auto) Eos % (Auto) Baso % (Auto) Absolute Neuts (auto) Absolute Lymphs (auto) Total Counted PT INR APTT Specimen Type SILVIA SILVIA ART pH 7.40 Bicarbonate Actual 23.5 POC Total CO2 25 Base Excess -1 O2 Saturation 82 L ABG pCO2 38.0 ABG pO2 46 L VBG pH 7.39 7.40 VBG pO2 27 25 VBG O2 Sat (Calc) 50 46 L VBG O2 Content 26 25 VBG Base Excess 0 -1 POC Mix VBG pCO2 Pt Tmp 40.5 L 38.8 L Sodium Potassium Chloride Carbon Dioxide Anion Gap BUN Creatinine Estim Creat Clear Calc Est GFR (MDRD) Af Amer Est GFR (MDRD) Non-Af BUN/Creatinine Ratio Glucose Hemoglobin A1c Calcium Magnesium Urine Color Urine Clarity Urine pH Ur Specific [place] Urine Protein Urine Glucose (UA) Urine Ketones Urine Occult Blood Urine Nitrite Urine Bilirubin Urine Urobilinogen Ur Leukocyte Esterase Code Visit Inpatient E&M: [id number] Disch Hosp
== END 2018-06-28 22:50 | disposition short-term general hospital (02) | DRG 286 ==
LOC: ED 01:53 → PCU 02:13
PROVIDERS: Internal Medicine Cardiovascular Disease; Nurse Practitioner Family; Admitting Provider Family Medicine; Emergency Provider Emergency Medicine; Family Provider Family Medicine Geriatric Medicine; PCP Family Medicine Geriatric Medicine; Visit Provider Internal Medicine
DX: I11.0 Hypertensive heart disease with heart failure (principal); I50.31 Acute diastolic (congestive) heart failure; I24.8 Other forms of acute ischemic heart disease; I48.91 Unspecified atrial fibrillation; I16.0 Hypertensive urgency; Z87.891 Personal history of nicotine dependence; I27.20 Pulmonary hypertension, unspecified; I34.0 Nonrheumatic mitral (valve) insufficiency; Z79.899 Other long term (current) drug therapy
CPT/HCPCS: 36415; 71045; 71046; 71275; 74018; 80048; 80053; 80061; 81002; 82550; 82803; 83036; 83735; 83874; 83880; 84443; 84484; 85025; 85610; 85730; 93005; 93306; 93460; 99152; 99153; 99283; J7030; J7040; Q9967; A4216; C1751; C1769; C1894; J1940

== ENCOUNTER → 2018-07-19 11:28 | Outpatient (CLI) | payer MEDICARE, SELFPAY ==
[2018-07-19 12:38] LABS: Absolute Lymphocyte Count 1.13 X10^3/ul (0.83-4.51); Absolute Neutrophil Count 7.9 X10^3/uL (2.0-7.7); Basophil% 0.9 % (0-1); Eosinophil# 0.47 X10^3/uL; Eosinophils% 4.4 % (0-5); Hematocrit 38.9 % (40-54); Hemoglobin 12.6 g/dl (13.0-16.5); Lymphocyte # 1.13 X10^3/ul (4.0); Lymphocyte % 10.6 % (19-41); Mean Corp Hgb Conc 32.4 g/gl (32-36); Mean Corpuscular Hgb 32.7 pg (27.0-32.0); Mean Platelet Vol. 9.3 fl (6.2-12.0); Monocyte# 1.04 X10^3/uL; Monocyte% 9.7 % (0-10); Neutrophil # 7.92 X10^3/uL (2.7-7.7); Neutrophil % 73.9 % (47-70); Platelet Count 898 K/mm3 (150-450); RBC Distribution Width CV 14.5 % (11.6-14.6); RBC Distribution Width SD 52.9 fl (35.1-43.9); Red Blood Count 3.85 M/mm3 (4.6-6.2); White Blood Count 10.7 K/mm3 (4.4-11.0)
[2018-07-19 12:39] LABS: Differential Indicated SCAN CRITERIA MET; POSITIVE COUNT YES; POSITIVE DIFFERENTIAL NO; POSITIVE MORPHOLOGY NO
[2018-07-19 12:56] LABS: Anion Gap 10 (5-15); BUN 19 mg/dL (7-18); BUN/Creat Ratio 18.4 RATIO (10-20); Calcium,Total 9.3 mg/dL (8.5-10.1); Chloride 105 mmol/L (98-107); Creatinine, Serum 1.03 mg/dL (0.70-1.30); EST Glomerular Filtration Rate 75 mL/min (>60); Est Glom Filt Rate - Afr Amer 91 mL/min (>60); Glucose 88 mg/dL (74-106); Potassium 4.2 mmol/L (3.5-5.1); Sodium Level 141 mmol/L (136-145)
[2018-07-19 13:25] LABS: Platelet Estimate MKD INC (ADEQ)
[2018-07-20 09:38] LABS: Pathologist Review Reviewed
== END ==
PROVIDERS: Family Provider Family Medicine Geriatric Medicine; PCP Family Medicine Geriatric Medicine; Visit Provider Family Medicine Geriatric Medicine
DX: I50.9 Heart failure, unspecified (principal)
CPT/HCPCS: 36415; 80048; 85025

== ENCOUNTER → 2018-08-22 11:29 | Outpatient (CLI) | payer MEDICARE, SELFPAY ==
[2018-08-17 13:42] VITALS: BMI 20.7
--- NOTE | 2018-08-22 16:01 | STRESSREP ---
Stress Test Report Date: 08/01/2018 Procedure: Exercise tolerance test Indications: Status post mitral valve repair; precardiac rehabilitation evaluation Consent: Per the patient Procedure: The patient exercised on a Jose Raul protocol for 5 minutes completing Stage I and 2 minutes of Stage II achieving a peak heart rate of 108 bpm (93 % predicted maximal heart rate) with a peak blood pressure 146/90 mmHg and a peak MET capacity of approximately 7 MET's. The baseline ECG demonstrated dermal sinus rhythm; PVCs; nonspecific ST/T wave abnormality. The peak exercise ECG demonstrated no obvious ECG changes. There were occasional PVCs pretest, during exercise, and recovery. The functional capacity was considered average. The patient had no complaint of chest discomfort during exercise or recovery. The examination was discontinued secondary to leg discomfort. Impression: 1. Technically adequate (percent predicted maximal heart rate greater than 85%) exercise tolerance test 2. Peak exercise ECG with continued nonspecific ST and T wave abnormality 3. There were occasional PVCs pretest, during exercise, and recovery This note was generated with [employer] software. It may contain incorrect words, spelling, and punctuation that were not noted in checking the note before signing.
--- OUTSIDE RECORDS SUMMARY | 2018-10-08 12:41 | XMS RPT_ITS ---
:1945 Author Organization OHIP Support Name Relationship Address Phone DIAZTRUMAN MURDOCK Unavailable NEELIMA GARCIA + [place] [address] DIAZ, HENRY Unavailable [address] + [place] [address] R Unavailable Unavailable Unavailable [address]UM[address] D[address] + [place] [address] DIAZ, HENRY Unavailable [address] + [place] [address] R Unavailable Unavailable Unavailable TRUMAN DIAZ Unavailable NEELIMA GARCIA + [place] [address] DIAZ, HENRY Unavailable [id number] + [place] [address] R Unavailable Unavailable Unavailable [address] + [place] [address] DIAZ, HENRY Unavailable [id number] + [place] [address] R Unavailable Unavailable Unavailable [address] + [place] [address] DIAZ, HENRY Unavailable Unavailable + R Unavailable Unavailable Unavailable [address] + [place] [address] DIAZ, HENRY Unavailable Unavailable + R Unavailable Unavailable Unavailable [address] + [place] [address] DIAZ, HENRY Unavailable Unavailable + R Unavailable Unavailable Unavailable [address] + [place] [address] DIAZ, HENRY Unavailable Unavailable + R Unavailable Unavailable Unavailable DIAZ, TRUMAN Unavailable NEELIMA GARCIA + [place] [address] HENRY DIAZ Unavailable Unavailable + R Unavailable Unavailable Unavailable TRUMAN DIAZ Unavailable NEELIMA GARCIA + [place] [address] BALJEET DIAZIC Unavailable Unavailable + R Unavailable Unavailable Unavailable DIAZTRUMAN MURDOCK Unavailable NEELIMA GARCIA + [place] [address] BALJEET DIAZIC Unavailable Unavailable + R Unavailable Unavailable Unavailable TRUMAN DIAZ Unavailable NEELIMA GARCIA + [place] [address] R Unavailable Unavailable Unavailable TRUMAN DIAZ Unavailable NEELIMA GARCIA [phone] [place] [address] R Unavailable Unavailable Unavailable NITATRUMAN Unavailable NEELIMA GARCIA [phone] [place] [address] R Unavailable Unavailable Unavailable Care Team Providers Name Role Phone TANGELA FLANNERY Admitting Unavailable TANGELA FLANNERY Attending Unavailable TANGELA FLANNERY Referring Unavailable MAGDIEL LANDONEL Esteban Admitting Unavailable WIERUP, PER Attending Unavailable BARBI, WAEL A Referring Unavailable FARTUN NESBITT (RES) Attending Unavailable WIERUP, PER Referring Unavailable MARCI RHOADES (SORTING MACHINE OPERATOR) Referring Unavailable River Alvarado Attending Unavailable River Alvarado Referring Unavailable Antonio, Jose Chi Primary Care Unavailable River Alvarado Attending Unavailable River Alvarado Referring Unavailable Antonio, Jose Chi Attending Unavailable Antonio, Jose Chi Primary Care Unavailable Antonio, Jose Chi Attending Unavailable Antonio, Jose Chi Primary Care Unavailable Antonio, Jose Chi Attending Unavailable Antonio, Jose Chi Primary Care Unavailable Antonio, Jose Chi Referring Unavailable Antonio, Jose Chi Primary Care Unavailable River North Admitting Unavailable Maciel Mera Attending Unavailable River Alvarado Consulting Unavailable River North Admitting Unavailable River North Attending Unavailable Antonio, Jose Chi Primary Care Unavailable River North Consulting Unavailable River North Admitting Unavailable River Alvarado Attending Unavailable Antonio, Jose Chi Primary Care Unavailable River Alvarado Consulting Unavailable Maciel Mera Consulting Unavailable River North Admitting Unavailable Moodispaw, River Attending Unavailable Antonio, Jose Chi Primary Care Unavailable River Alvarado Consulting Unavailable Ede, Maciel Consulting Unavailable River North Admitting Unavailable Antonio, Jose Chi Primary Care Unavailable River Alvarado Consulting Unavailable Ede, Maciel Attending Unavailable Ede, Maciel Consulting Unavailable River North Admitting Unavailable Antonio, Jose Chi Primary Care Unavailable River Alvarado Consulting Unavailable Ede, Maciel Attending Unavailable Ede, Maciel Consulting Unavailable Antonio, Jose Chi Attending Unavailable Antonio, Jose Chi Primary Care Unavailable Yareli Vidal Attending Unavailable MoodispaRiver pavon Attending Unavailable Antonio, Jose Chi Referring Unavailable PROBLEMS PROBLEMS DATE TYPE CONDITION / CODE ATTENDING STATUS SOURCE 08/17/2018 Unknown I25.10 - River Alvarado Active [place] Atherosclerotic heart Community disease of [facility] coronary artery Repository without angina pectoris / I25.10(ICD-10) 08/17/2018 Unknown Z98.890 - Other River Alvarado Active [place] specified Community postprocedural [facility] Hospital / Z98.890(ICD-10) Repository 08/17/2018 Unknown I48.91 - Unspecified River Alvarado Active [place] atrial fibrillation / Community I48.91(ICD-10) Hospital Repository 07/13/2018 Active Elevated white blood WIERUP, PER Active [place] cell count, Clinic Main unspecified / [place] D72.829(ICD-10) Repository 07/08/2018 Active Moderate WIERUP, PER Active [place] protein-calorie [facility] Main malnutrition / [place] E44.0(ICD-10) Repository 07/08/2018 Active Unspecified severe WIERUP, PER Active [place] protein-calorie [facility] Main malnutrition / [place] E43(ICD-10) Repository 07/08/2018 Active Acute posthemorrhagic WIERUP, PER Active [place] anemia / D62(ICD-10) Clinic Main [place] Repository 07/08/2018 Active Cardiogenic shock / WIERUP, PER Active [place] R57.0(ICD-10) Clinic Main [place] Repository 07/06/2018 Active 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, 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 [facility] Main (ventilator) status / [place] Z99.11(ICD-10) Repository 06/29/2018 Active Other acute WIERUP, PER Active [place] postprocedural pain / Clinic Main G89.18(ICD-10) [place] Repository 06/29/2018 Active Nonrheumatic mitral WIERUP, PER Active [place] (valve) insufficiency Clinic Main / I34.0(ICD-10) [place] Repository 06/26/2018 Unknown I10 - Essential Antonio, Jose Chi Active [place] (primary) [facility] hypertension / Hospital I10(ICD-10) Repository 06/26/2018 Unknown R06.02 - Shortness of Antonio, Jose Chi Active [place] breath / Community R06.02(ICD-10) Hospital Repository 06/26/2018 Unknown R05 - Cough / Antonio, Jose Chi Active [place] R05(ICD-10) [facility] Repository 04/12/2018 Active Encounter for FLANNERYTANGELA Active [place] screening for ORA [facility] Main malignant neoplasm of [place] colon / Repository Z12.11(ICD-10) PROCEDURES PROCEDURES No Procedure Records FoundRESULTS RESULTS STRESS REPORT Observed: 08/22/2018 Status: F Source: [place] 4:09 PM [facility] Cardiovascular Services [address] [place] [id number] MR#: [id number] Acct: [id number] Name: STEFANIA DIAZ Rep #: [id number] : 1945 73 From: River Alvarado MD Primary Care: Jose Alvarez MD, Chi Status: REG CLI Ordering Dr: Lizette Salazar Stress Test Report Date: 08/01/2018 Procedure: Exercise tolerance test Indications: Status post mitral valve repair; precardiac rehabilitation evaluation Consent: Per the patient Procedure: The patient exercised on a Jose Raul protocol for 5 minutes completing Stage I and 2 minutes of Stage II achieving a peak heart rate of 108 bpm (93 % predicted maximal heart rate) with a peak blood pressure 146/90 mmHg and a peak MET capacity of approximately 7 MET's. The baseline ECG demonstrated dermal sinus rhythm; PVCs; nonspecific ST/T wave abnormality. The peak exercise ECG demonstrated no obvious ECG changes. There were occasional PVCs pretest, during exercise, and recovery. The functional capacity was considered average. The patient had no complaint of chest discomfort during exercise or recovery. The examination was discontinued secondary to leg discomfort. Impression: 1. Technically adequate (percent predicted maximal heart rate greater than 85%) exercise tolerance test 2. Peak exercise ECG with continued nonspecific ST and T wave abnormality 3. There were occasional PVCs pretest, during exercise, and recovery This note was generated with Kyoger dictation software. It may contain incorrect words, spelling, and punctuation that were not noted in checking the note before signing. 08/22/18 1609 <Electronically signed by River Alvarado MD> Date River Alvarado MD CC: River Alvarado MD; Jose Alvarez MD Date Dictated: 08/22/181600 Date Transcribed: 08/22/181600 Self Propelled Hot Mix Roller Operator: PM Signed CARDIOLOGY VISIT Observed: 08/17/2018 Status: F Source: [place] REPORT 6:43 PM [facility] [address] [place] [address]. [address] [place] [address] OFFICE VISIT Date of Service: 08/17/18 MR#: [id number] Acct: [id number] Name: STEFANIA DIAZ Rep #: [id number] : 1945 Provider: River Alvarado MD Age/Sex: 73/M Location: [facility] Status: Signed HPI HPI Details: STEFANIA DIAZ, is a 73 M who presents to the office today for outpatient hospital follow-up. He was evaluated in cardiovascular consultation at [facility] on 06/27/2018 for concerns of atrial fibrillation with RVR, mitral valve disorder/regurgitation, CHF, bilateral pleural effusions, abnormal cardiac enzymes, and elevated blood pressure not compatible with hypertensive urgency. He underwent additional medical therapy and noninvasive/invasive evaluation. This included a transthoracic echocardiogram and a diagnostic cardiac catheterization. The results are as noted below. In brief he was felt to have evidence of elevated pulmonary pressures, borderline low LV systolic function at the time of cardiac catheterization with an LVEF of 50%, no angiographically significant CAD, severe mitral valve regurgitation, and left atrial enlargement. He was subtotally transferred to the [facility] for further valvular evaluation and care. He subsequently underwent a mitral valve repair with insertion of artificial cords to the anterior and posterior leaflet, annuloplasty with an Michael IMR size #34, as well as a biatrial cryo-Maze procedure and a left atrial appendage clip size #35 He states since his surgical procedure and his recuperation he has felt so much better with respect to his breathing in general, his lack of orthopnea, and his overall well-being. He has had no other acute events. He has had no obvious palpitations or rapid rates. There is been no near syncope or syncope. He had an ECG in the office today. He was noted to have sinus rhythm with occasional PVCs as well as nonspecific T wave abnormality. Intake Vital Signs08/17/18 Height 6 ft 08/17/18 Weight: 153 lb 08/17/18 Body Mass Index (BMI) 20.7 08/17/18 Blood Pressure 160/88 H Intake Visit Reasons: A- fib/ post CABG at F/Ref. 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 aortic regurgitation (Chronic) Rheumatic mitral valve disease (Chronic) GERD (gastroesophageal reflux disease) (Chronic) Acute systolic (congestive) heart failure (Acute) Pulmonary hypertension (Acute) Pleural effusion, bilateral (Acute) Atrial fibrillation with RVR (Acute) Hypertensive urgency (Acute) Mitral valve disorder (Chronic) Abnormal cardiac enzyme level (Acute) CHF (congestive heart failure) (Inactive) Surgical History S/P mitral valve repair (Chronic 07/04/18) History of maze procedure (Resolved) Family History Father Heart disease Social History Smoking Status: Former smoker alcohol intake: never substance use type: does not use ROS Const Const: Negative for fatigue, weakness, weight gain, weight loss, frequent falls or excessive sweating Eyes Eyes: Negative for change in vision, blurry vision or transient loss of vision ENT ENT: Negative for dizziness or balance problems Cardio Chest Pain: No Palpitations: No Edema: None Muscle aches with walking: None Resp Respiratory: Positive for Cough (dry); negative for SOB with activity or SOB at rest GI GI: Negative vomiting or vomiting blood/hematemesis : Negative for hematuria Musc Musc: Negative for balance problems, muscle aches/ myalgia, muscle weakness or joint pain Skin Skin: Negative non-healing lesions or rash Neuro Neuro: Negative for weakness, blurry vision, dizziness, lightheadedness, frequent falls or orthostatic symptoms Jose Hematologic/Lymphatic: Negative for easy bleeding Endo Endo: Negative for fatigue or excessive sweating Psych Psych: Negative for anxiety or depression Allergy Allergy/Immunology: Negative for hives, Negative for rash Cardiology Exam Const Appearance: cooperative, healthy appearing, comfortable, no acute distress, well developed and well groomed Nutritional Appearance: thin Orientation: alert and awake Head Head: normal to inspection, normocephalic and atraumatic Ears: hearing grossly normal bilaterally Nose: external nose normal Face and Sinus: face symmetric Mouth: oral mucosae normal Eyes Eyelids: eyelids normal Conjunctivae: conjunctivae normal Pupils: PERRL EOM: EOM intact bilaterally Neck Neck: normal visual inspection and full ROM Carotids: normal carotid upstroke Chest Chest inspection: normal inspection of the chest, symmetric chest movement and normal respiratory effort Auscultation: Bilateral: Clear to Auscultation Cardio Palpation: normal PMI Rate: regular rate Rhythm: regular rhythm Heart sounds: S1 normal and S2 normal GI GI: normal to inspection, bowel sounds present and soft Neuro General: alert, awake, oriented x3, gait normal, moves all extremities, no focal sensory deficit and no focal motor deficits Skin Skin: no rashes or lesions noted Extremities Pulses: Normal: Right Radial Pulse, Left Radial Pulse Lower Extremity Edema: None: Bilateral Psych Psychological: normal affect Supplemental Info Transthoracic echocardiogram: 06/27/2018 Interpretation Summary Left ventricular systolic function is normal. The estimated ejection fraction is 60 %. Apical false tendon noted. The left atrium is moderately enlarged. The right atrium is mildly enlarged. Mild mitral valve prolapse, posterior leaflet Moderate (2+) eccentric mitral valve insufficiency. Moderate (2+) eccentric tricuspid valve insufficiency. Mild focal aortic valve calcification. Trivial eccentric aortic valve insufficiency. Trivial eccentric pulmonic valve insufficiency. Echolucency c/w a pleural effusion. Right ventricular systolic pressure estimated to be 58 mmHg. Diastolic function is indeterminate. Cardiac catheterization: 06/28/2018 CORONARY ANGIOGRAPHY DOMINANCE: Right Dominant LEFT HEART ASSESSMENT Left Ventricular Ejection Fraction: by LV Gram 50% Normal LV wall motion Elevated Left Ventricular End Diastolic Pressure LVEDP: 31 mmHg RIGHT HEART ASSESSMENT Thermal CO: 2.76 Thermal CI: 1.37 Vi CO: 5.65 Vi CI: 2.81 PW: /39 35 PA: 76/40 51 RV: 60/17 19 RA: / 22 PVR: 464 SVR: 2464 Right Heart pressures - elevated Pulmonary Hypertension Severe Intracardiac shunting: Calculated Qp/Qs ratio: 0.61 (non hemodynamically significant) LEFT MAIN: Angiographically normal LEFT ANTERIOR DECENDING ARTERY: Angiographically normal CIRCUMFLEX ARTERY: Angiographically normal RIGHT CORONARY ARTERY: Proximal: mild luminal irregularities VALVE FINDINGS: Normal Aortic Valve function Mitral Valve Insufficiency - Grade 4 AORTIC ROOT: Angiographically normal Assessment AND Plan 1. S/P mitral valve repair Z98.890 Mitral valve repair with insertion of artificial chords to ant/post leaflets, annuloplasty Michael IMR #34. Biatrial cryo MAZE and left atrial appendage clip #35 07/04/18 Plan He is now status post mitral valve repair as noted above. He will continue AHA antibiotic prophylaxis. He was asked to be enrolled in outpatient cardiac rehabilitation. He will need long-term outpatient cardiovascular monitoring Orders Orders: Referrals: 2. Atrial fibrillation with RVR I48.91 Plan He does have a history of atrial fibrillation. He is now status post the aforementioned by atrial cryo-Maze procedure and left atrial appendage clip. Based on his ECG today he remains in sinus rhythm. He was not discharged from [facility], per their records, on anticoagulant therapy. At the present time he will continue his current medical management. If there are recurrences of his atrial dysrhythmia then he will need appropriate evaluation and care and medical management. Orders Orders: Referrals: 3. Atherosclerotic heart disease of [place] coronary artery without angina pectoris I25.10 mild per cath 06/28/18 Plan He does have a history of CAD. It was non-angiographically significant. He will continue risk factor evaluation and care as deemed appropriate. Orders Orders: Referrals: Plan Detail Additional Comments The above was discussed with the patient. He was agreeable to the aforementioned evaluation and care plan Thank you for allowing me to participate in the care of your patient. Please don't hesitate to call if any issues arise. This note was generated using a voice recognition system and there may be incorrect words, spelling or punctuation that were not noted when reviewing the office note prior to saving. Follow Up 3 Months (PFM) Coding Level of Care Code Off vis,est,level 4 Diagnoses S/P mitral valve repair Z98.890 Atrial fibrillation with RVR I48.91 Atherosclerotic heart disease of [place] coronary artery without angina pectoris I25.10 Coding Level of Care Code Off vis,est,level 4 Diagnoses S/P mitral valve repair Z98.890 Atrial fibrillation with RVR I48.91 Atherosclerotic heart disease of [place] coronary artery without angina pectoris I25.10 08/17/18 1843 <Electronically signed by River Alvarado MD> Date River Alvarado MD Cosigner Signature: Date (if applicable) CC: Jose Alvarez MD 12 LEAD EKG PERFORMED Observed: 08/17/2018 Status: F Source: [place] [facility] 1:42 PM [facility] [address] [address] 12 Lead EKG performed by [facility] 08/17/18 1341 MR#: [id number] Acct: [id number] Name: STEFANIA DIAZ Rep #: [id number] : 1945 73 From: River Alvarado MD Attending Dr: River Alvarado MD Status: DEP AMB Ordering Dr: River Alvarado MD Date: 08/17/18 Location: [facility] Sex: M C Admitted: [facility]/12 Lead EKG performed by [facility] ECG Report Interpretation Sinus Rhythm - occasional ectopic ventricular beat RSR(V1) -nondiagnostic. Nonspecific T-abnormality. ABNORMAL Electronically signed on 08/17/2018 at 19:54 by River Alvarado Software Version [id number] 08/17/181955 Date River Alvarado MD CC: Jose Alvarez MD Date Dictated: 08/17/181340 Date Transcribed: 08/17/181340 Self Propelled Hot Mix Roller Operator: PM Signed CBC W/DIFF, AUTOMATED Collected: 07/19/2018 Status: F Source: [place] 11:29 AM [facility] Order Comment: CRITICAL VALUE VERIFIED. CALLED TO YVES LOYOLA 07/19/18 1340 Ann Tai. RESULTS READ BACK BY SAME . TYPE CODE TESTS RESULT OUT OF RANGE REFERENCE UNITS LAB L100.1000 4.4-11.0 K/mm3 Normal WBC 10.7 LAB L100.1200 4.6-6.2 M/mm3 Low RBC 3.85 LAB L100.1300 13.0-16.5 g/dl Low HGB 12.6 LAB L100.1400 40-54 % Low HCT 38.9 LAB L100.1500 80-94 fL High MCV 101.0 LAB L100.1600 27.0-32.0 pg High MCH 32.7 LAB L100.1700 32-36 g/gl Normal MCHC 32.4 LAB L100.1810 11.6-14.6 % Normal RDW CV 14.5 LAB L100.1820 35.1-43.9 fl High RDW SD 52.9 LAB L100.1900 150-450 K/mm3 High alert PLT 898 LAB L100.2000 6.2-12.0 fl Normal MPV 9.3 LAB L100.2100 47-70 % High NEUT% 73.9 LAB L100.2200 19-41 % Low LY% 10.6 LAB L100.2300 0-10 % Normal MONO% 9.7 LAB L100.2400 0-5 % Normal EO% 4.4 LAB L100.2500 0-1 % Normal BASO% 0.9 LAB L100.2550 0.0-0.9 % Normal IM GRAN % 0.500 Result Comment: IG% - Immature Granulocytes (promyelocytes, myelocytes and metamyelocytes) > 1% indicates that a LEFT SHIFT is Present. LAB L100.2620 2.0-7.7 X10 3/uL High Absolute Neut 7.9 LAB L100.2720 0.83-4.51 X10 3/ul Normal Absolute Lymph 1.13 LAB L100.5500 ADEQ Normal PLT EST MKD INC LAB L100.9900 Normal PATH REV Reviewed Result Comment: Macrocytosis. Thrombocytosis. Clinical correlation necessary. Manuel Alcocer M.D. 07/20/18 Performed By: #### L100.0100 #### [facility] [address] [place], [address] BASIC METABOLIC Collected: 07/19/2018 Status: F Source: [place] PROFILE ([facility]) 11:29 AM [facility] TYPE CODE TESTS RESULT OUT OF RANGE REFERENCE UNITS LAB L501.0100 74-106 mg/dL Normal GLU 88 Result Comment: Please note revised GLUCOSE reference range effective 2017. LAB L501.1000 7-18 mg/dL High BUN 19 LAB L501.1100 0.70-1.30 mg/dL Normal CREAT,SERUM 1.03 Result Comment: The validity of the calculated GFR AND GFRAA in patients over 70 years has not been determined. Clinical correlation is essential. LAB L501.1110 >60 mL/min Normal EST GFR 75 Result Comment: Non- GFR Calc LAB L501.1115 >60 mL/min Normal EST GFR - AA 91 Result Comment: GFR Calc LAB L501.1300 10-20 RATIO Normal BUN/CRE 18.4 LAB L501.2200 8.5-10.1 mg/dL CA Normal 9.3 LAB L501.5300 136-145 mmol/L NA Normal 141 LAB L501.5600 3.5-5.1 mmol/L K Normal 4.2 LAB L501.5900 98-107 mmol/L CL Normal 105 LAB L501.6100 21.0-32.0 mmol/L Normal CO2 26.0 LAB L501.6200 5-15 Normal GAP 10 Performed By: #### L500.2500 #### [facility] [address] [place], [address] CNCO Observed: 07/14/2018 Status: COMPLETED Source: [place] 12:00 AM [facility] REPOSITORY Letter Text July 14, 2018 Stefania Diaz [id number] [place] [address] Dear Mr. Diaz, The nurses and staff of -1 nursing unit at [facility] hope this letter finds you feeling well and progressing in your recovery. It was an honor for us to provide your nursing care. We know that placing our Patients First and maintaining a culture of continuous improvement, each and every day, are essential to the success of our organization. We want to hear from you. If you have any comments, questions or concerns about your hospital stay, please feel free to contact me, Miguel Angel Silva RN at [phone] or e-mail [email or web address]. Additionally, you will receive a survey in the mail asking you to rate the care you received while in the hospital. Please take the time to complete and send back the survey. I personally review all the results and would appreciate your feedback. Please consider completing this survey for each individual visit. Thank you in advance for your participation and thank you for choosing the [facility] for your healthcare needs. Sincerely, Miguel Angel Silva RN Nurse Senior Mechanical Estimator J5-1 Cardiovascular Surgery Step-down Unit CASE MANAGEM Observed: 07/13/2018 Status: COMPLETED Source: [place] 12:01 PM [facility] REPOSITORY HNO ID: [id number] Author: Hailee Mosley (Asst) Service: Care Management Author Type: Resource Center Bullet Slugs Inspector Type: Care Mgt Progress Note Filed: 07/13/2018 12:44 PM Note Text: CARE MANAGEMENT PROGRESS NOTE SERVICE DATE: 07/13/2018 SERVICE TIME: 10:53 am LOS: 14 days IM letter given to patient on 07/13/18. SIGNATURE: Asst Abida PATIENT NAME: Stefania Diaz DATE: July 13, 2018 TIME: 12:43 PM PAGER/CONTACT #: [phone] PROGRESS Observed: 07/13/2018 Status: COMPLETED Source: [place] 9:59 AM [facility] REPOSITORY HNO ID: [id number] Author: Melisa Landa Service: (none) Author Type: (none) Type: Progress Notes Filed: 07/13/2018 9:59 AM Note Text: Radiology Service Progress Note PATIENT NAME: Stefania Diaz DATE OF SERVICE: July 13, 2018 TIME: 9:59 AM PATIENT IDENTITY VERIFICATION COMPLETED USING TWO (2) METHODS: Patient confirmed name verbally and ID band matches.. PATIENT GENDER DATA: Male PATIENT RELEVANT IMPLANT DATA REVIEWED: Yes RADIOLOGY DEPARTMENT: General X-ray: Exam(s) Completed: Chest X-Ray PERIPHERAL IV DATA: Not applicable SIGNED BY: Melisa Landa July 13, 2018 9:59 AM CNDS Observed: 07/13/2018 Status: COMPLETED Source: [place] 9:59 AM [facility] REPOSITORY [facility] ID: [id number] Author: Ivan Angel Service: Cardiac Surgery Author Type: Nurse Practitioner Type: Discharge Summaries Filed: 07/13/2018 2:52 PM Note Text: Department of Cardiothoracic Surgery Discharge Summary PATIENT NAME: Stefania Diaz ADMISSION DATE: 06/29/2018 DISCHARGE DATE: 07/13/2018 Attending Physician/Surgeon: Tonya Blake Primary Service: Hvi Cts Team D Code Status: Not on file [facility] Primary Ornamental Metalwork Designer: Godfrey Landon M.D. Admission Diagnosis: Mitral regurgitation, left heart failure, and atrial fibrillation.? Discharge Diagnosis: Mitral regurgitation, left heart failure, and atrial fibrillation. ? Reason for Hospitalization: Patient with recurrent bouts of bronchitis marked by progressive shortness of breath AND orthopnea over the past year. Most recently when he presented to his PCP evaluation demonstrated elevations in both d-dimer AND troponin for which he was directed to the local ED. In the ED he was noted to be in rapid A-fib AND an echo showed moderate mitral regurgitation AND bilateral pleural effusions. A R/LHC showed severe pulmonary HTN AND reduced cardiac output. He was then transferred to [facility] where he has been hospitalized for surgical consideration. Operations during Hospitalization: Mitral valve repair with insertion of artificial chords to anterior and posterior leaflet, annuloplasty, Michael IMR size #34, insertion of intra-aortic balloon pump. Biatrial CryoMaze and left atrial appendage clip size #35. Hospital Course: * How was the Reason for Hospitalization Addressed: Surgical repair of a regurgitant mitral valve AND medical management of acute decompensated heart failure. * What were the Active Issues: ECG: SR with 1st degree AV block PMH/PSH: Childhood rheumatic fever, HTN, severe symptomatic MR with dyspnea/orthopnea/PND, former smoker, bilateral pleural effusions, AND newly diagnosed atrial fibrillation A/Plan: -S/p MVr: Post-op echo reviewed. ASA. -S/p Maze AND LAURA clip: Newly dx Afib pre-op on no meds. No afib post-op, sustaining sinus rhythm. Continue BB, adjust to Toprol. Do not intend to anticoagulate in the absence of post-op occurrence. -Systolic HF: Has been aggressively diuresed, appears a little dry on exam today. Adjust to low dose maintenance lasix. Convert metoprolol to Toprol for rate control. Would ideally like to add in valsartan (had cough with lisinopril in the past) but will defer for now as marginal AND he's likely a bit intravascularly dry - will defer to follow-up next week. * Surgical Pathology/Microbiology: N/A * Hospital Course Complicated by: Acute on chronic systolic HF with volume overload. Initially required management with IABP AND inotropes in the post-op CVICU - all of which were weaned off AND a beta- blcoker was started in their place. FVO was protracted AND after several days of aggressive IV lasix his 3 chest drains were able to be successfully removed - he is presently below his pre-operative weight AND looks euvolemic, if not dry, on exam. Post-pull CXR is stable. * Extended Hospital Stay Due to: Upon admission several days were spent evaluating for surgical intervention (a transesophageal echo was done) during which time he was aggressively diuresed with a lasix infusion. His post-op course was prolonged in a similar fashion so as to achieve euvolemia. * Specific Medication Changes: Metoprolol succinate added for heart rate control AND A-fib prophylaxis. Low dose of oral lasix was added to achieve neutral fluid balance. Short course of pantoprazole for post- op stress ulcer prophylaxis. Valsartan not resumed re: marginal BP. * Pain: Controlled with tylenol AND given a short supply of as needed oxycodone for more severe pain. * Surgical Incisions/Wounds: C/D/I, routine care. * Patient Condition at Discharge: Stable * Disposition: Home/Self Care Problem List: Patient Active Hospital Problem List: Transition of care performed with sharing of clinical summary (07/08/2018) Mitral regurgitation (06/29/2018) Primary hypertension (07/08/2018) History of atrial fibrillation (07/08/2018) Acute systolic heart failure (HCC) (07/13/2018) Discharge planning issues (07/08/2018) Consults: The patient was seen by the dentist for pre-operative clearance which was granted - routine follow-up Procedures Performed and Major Radiology: Temporary epicardial pacer wires were CUT. Echocardiogram 07/09/2018: - The left ventricle is normal in size. There is left ventricular hypertrophy. Left ventricular systolic function is mildly decreased. EF = 46 ? 5% (2D biplane) - The right ventricle is borderline dilated. Right ventricular systolic function is mildly decreased. - Post mitral valve repair. Lauren-Michael More Monterroso IMR Ring (size #34). ?There is trivial mitral valve regurgitation. The peak gradient is 9 mmHg and the mean gradient is 5 mmHg. Transmitral gradients obtained at 100 bpm. - There is moderate (2+) aortic valve regurgitation. Information Provided to the Patient: Patient given copy of After Visit Summary which included activity instructions, diet instructions, wound care instructions, medication instructions and follow up appointment ALLERGIES No Known Allergies Discharge Medications: Discharge Medication List as of 07/13/2018 10:26 AM START taking these medications aspirin 81 mg chewable tablet Take 2 tablets by mouth once daily. Continue for 30 days AND then reduce to 1 tab once daily Normal, Disp-90 tablet, R-0, Long-term acetaminophen (TYLENOL) 325 mg tablet Take 2 tablets by mouth every 4 hours as needed (mild post- op pain). OTC metoprolol succinate ER (TOPROL XL) 50 mg 24 hr tablet Take 2 tablets daily in the morning AND 1 tablet daily in the evening. Normal, Disp-90 tablet, R-1, Long-term senna-docusate (SENNA-S) 8.6-50 mg per tablet Take 1 tablet twice daily. Continue while on narcotic pain meds AND/or as needed thereafter for mild post-op constipation AND stool softening. Normal, Disp-60 tablet, R-0 bisacodyl (DULCOLAX) 10 mg supp 1 Suppository by RECTAL route once daily as needed for Constipation. OTC oxyCODONE IR (ROXICODONE) 5 mg immediate release tablet Take 1 tablet by mouth every 8 hours as needed (moderate to severe post-op pain) for up to 5 days. Earliest Fill Date: 07/13/18 Print RX, Disp-15 tablet, R-0 Dx: 1. Postoperative pain pantoprazole DR (PROTONIX) 20 mg tablet Take 1 tablet by mouth DAILY (6 AM) for 14 days. Normal, Disp-14 tablet, R-0, Long-term furosemide (LASIX) 20 mg tablet Take 1 tablet by mouth once daily. Normal, Disp-30 tablet, R-0, Long-term potassium chloride (K-TAB) 10 mEq tablet Take 1 tablet by mouth once daily. Normal, Disp-30 tablet, R-0 STOP taking these medications Chlorhexidine Gluconate (PERIDEX) 0.12 % solution Comments: Reason for Stopping: VALSARTAN ORAL Comments: Reason for Stopping: aspirin 325 mg tablet Comments: Reason for Stopping: metoprolol tartrate, short acting, (LOPRESSOR) 25 mg tablet Comments: Reason for Stopping: Transitions of Care Critical Issues: -Given his marginal ejection fraction (45%) would prefer to add in valsartan (which happens to be a pre-operative medication) but deferred given labile BP AND aggressive post-operative diuresis. Patient is to follow-up with PCP in one week at which time BP should be repeated AND ARB added if appropriate. -Post-operative chest tube stitches to be removed at PCP visit. -CXR, CBC, AND metabolic panel recommended to be done at PCP visit to reassess volume status, renal function AND electrolytes. -EKG recommended to be done at PCP visit to reassess heart rhythm AND rate - continue to titrate beta-maude as needed. -Take antibiotics for prevention of subacute bacterial endocarditis prior to dental, GI (gastrointestinal) and (genitourinary) procedures -Continue to wear compression hose for the next week. -Weight on the day of discharge: 67 kg (147 lb 11.2 oz). Outpatient Management: 1. An appointment has been requested behalf of patient with his primary care provider Dr. Alvarez - scheduled 07/19/2018 at 10:20. 2. An appointment has been requested behalf of patient so as to establish with a electrical prospecting operator at the [facility] 4 weeks of discharge - scheduled with Dr. Conner on 09/25/2018 at 10:40 3. Mr. Diaz was offered an appointment with the cardiac surgery nurse practitioner in 3-5 days after discharge but declined AND wishes to follow-up locally. Future Appointments Date Time Provider Department Center 09/25/2018 10:40 AM [id number] Highest Readmission Risk Score: 22 The 30 day readmissions risk score is derived from an internally validated risk model which evaluates patient level characteristics, utilization history, medication orders and lab results up until the day of discharge. Patients with a score of 40 or above are considered highest risk for readmission. Specific patient level drivers will be listed at the bottom of the summary. This patient?s risk for 30-day readmission is determined using the following contributing drivers Pt variables contributing to increased readmission risk: 25 Most Recent BUN Result 20 Active Medication Orders 9.1 First Resulted Calcium During Admission 1 Insurance - Medicare 1 History of Anemia 1 Active Anticoagulant Electronically SIGNED by Licensed Independent Practitioner: Ivan Angel APRN.SORTING MACHINE OPERATOR XR CHEST 2V FRONTAL/LAT Observed: 07/13/2018 Status: F Source: [place] 9:59 AM [facility] [place] REPOSITORY * * *Final Report* * * DATE OF EXAM: Jul 13 2018 9:59AM JIX [id number] - XR CHEST 2V FRONTAL/LAT / PROCEDURE REASON: Pleural effusion * * * * Physician Interpretation * * * * EXAMINATION: CHEST RADIOGRAPH (2 VIEW FRONTAL and LATERAL) CLINICAL HISTORY: Pleural effusion, MQ: XC2_5 Comparison: 1 day prior RESULT: Lines, tubes, and devices: None. Lungs and pleura: Tiny right and small left loculated pleural effusions remain. Tiny apical pneumothoraces remain in the apical regions. Atelectatic changes again seen along the medial aspect of the bases. Cardiomediastinal silhouette: Heart remains enlarged. Decrease of soft tissue gas in the retrosternal region. Other: Median sternotomy IMPRESSION: As above Self Propelled Hot Mix Roller Operator: MARCO ANTONIO Transcribe Date/Time: Jul 13 2018 3:54P Dictated by : ALEKSANDAR WARD MD This examination was interpreted and the report reviewed and electronically signed by: ALEKSANDAR WARD MD on Jul 13 2018 3:55PM EST [id number] THERAPY NT Observed: 07/13/2018 Status: COMPLETED Source: [place] 9:08 AM [facility] REPOSITORY O ID: [id number] Author: Jerod (Pt) Narciso Service: Physical Therapy Author Type: Physical Therapist Type: Therapy (PT/OT/Speech/Resp) Filed: 07/13/2018 9:12 AM Note Text: Physical Therapy Evaluation SERVICE DATE: 07/13/2018 SERVICE TIME: 0840 to 09 ROOM: [place] [address] Recommended Discharge Disposition: Home Recommended Discharge Disposition Comments: no skilled needs PT Recommendations to Nursing: Ambulate without device (appears safe to walk IND without a device) Device: No Device PT 6 Clicks Score: 24 Precautions/Activity Restrictions: Cardiac ASSESSMENT : Pleasant, cooperative 73 yr old seen for PT evaluation and education after surgery on 07/04. Patient presents with intact cognition, no significant strength or functional mobility deficits, ability to ambulate without a device including stairs. The only thing of note in the evaluation was that he was tachycardic at rest HR 108, increases to 117 with activity, BP stable. RN and BOW MAKER MACHINE TENDER aware of HR. DC PT consult as no skilled needs identified. Patient Disposition at Start of Session: Supine in Bed Patient Disposition at End of Session: Other: See Comment (sitting, edge of bed, RN and BOW MAKER MACHINE TENDER with pt) Tolerated Full Session Physical Therapy Problem List: Other: See Comment (none) Patient /Caregiver Goals: Go Home Goals for Plan of Care: No Goals set Rehab Potential: Excellent PLAN: Treatment Frequency (times per week): Discontinue Therapy Services Reasons Therapy Services Discontinued: No skilled needs Treatment Interventions: Education Plan of Care developed with: Patient TREATMENT INTERVENTIONS: Therapy Diagnosis: No Skilled Need Interventions Provided: Evaluation;Therapeutic Exercise (07074) $ Evaluation-Low (75691) Billed Units: 1 unit Therapeutic Exercise (38229) Treatment Minutes: 5 0 units Skilled Intervention(s): I did provide our handout with instructions regarding exercise, precautions and mobility after surgery. I instructed him in symptoms to avoid with activity. He verbalized understanding. Total Timed Code Treatment Minutes: 5 Total Treatment Time (minutes): 20 FUNCTIONAL G CODE: PT 6 Clicks Score: 24 (07/13/18839) Mobility: Walking and Moving Around Current Status (G8978): (07/13/18839) Mobility: Walking and Moving Around Goal Status (G8979): (07/13/18 0840) Based on clinical assessment and the score on the 6 Clicks Functional Assessment Tool, the G code and corresponding severity modifiers are documented above. SUBJECTIVE: Current Hospital Course: Chart reviewed; 07/04/2018 S/P SURGERY: Mitral Valve Repair with a 34 mm Michael ring and neochords and Cryo MAZE with LAAL Reason for Physical Therapy Consult : mobility assessment Relevant Past Medical History: Severe MR, pHTN, childhood rheumatic fever, HTN, former smoker Patient Report: no complaints, stated he may be going home today. Home Environment Patient Lives With: Self/Alone Assistance Available: PRN (family ) Entry To Home: Stairs;Without Rail Number Of Stairs Into Home: 1 Number Of Stairs To Bed/Bath: 10 Prior Functional Level: Within Functional Limits OBJECTIVE: CURRENT FUNCTIONAL STATUS: Current Functional Mobility Assist Level Additional Information Rolling Supine to Sit Contact Guard Assistance Sit to Supine Scooting Sit to Stand Independent Stand to Sit Independent Bed to Chair Toilet/Commode Gait Independent Gait Device: None Gait Distance (feet): 150 Stairs Supervision Stairs Device: Rail Number of Stairs: 12 Curb Step Car Transfer Please see discipline specific clinical documentation flowsheet for complete details for this therapy evaluation/treatment. SIGNATURE: Jerod Stuart PT PATIENT NAME: Stefania Diaz DATE: July 13, 2018 TIME: 9:08 AM ECG COMPLETE W Observed: 07/13/2018 Status: F Source: [facility] 7:31 AM [facility] REPOSITORY NAME : STEFANIA DIAZ PID : [id number] : 1945 Gender : Male Race : ORD : [id number] Procedure Date : Jul 13 2018 07:31:29 Edit Date : Jul 20 2018 10:22:56 Diagnosis:SINUS TACHYCARDIA NONSPECIFIC ST ABNORMALITY ABNORMAL ECG Confirmed by ANGÉLICA PLATT M.D. ([id number]) on 07/20/2018 10:06:19 AM Ventricular Rate : 103 BPM Atrial Rate : 103 BPM P-R Interval : 196 ms QRS Duration : 92 ms Q-T Interval : 362 ms QTC Calculation(Bezet) : 474 ms P [place] : 61 degrees R [place] : 10 degrees T [place] : 61 degrees Test Reason : Location : 351 : J51 [id number] Overread By : ANGÉLICA PLATT M.D. Edited By : ANGÉLICA PLATT M.D. Referred By : , Acquired by : HAZEL KAUR PROGRESS Observed: 07/13/2018 Status: COMPLETED Source: [place] 7:19 AM [facility] REPOSITORY [facility] ID: [id number] Author: Ivan Stanley Service: Cardiac Surgery Author Type: Nurse Practitioner Type: Progress Notes Filed: 07/14/2018 4:49 PM Note Text: [facility] POSTOP PROGRESS NOTE Day of Surgery:07/04/2018 S/P SURGERY: Mitral valve repair with insertion of artificial chords to anterior and posterior leaflet, annuloplasty, Michael IMR size #34, insertion of intra-aortic balloon pump. Biatrial CryoMaze and left atrial appendage clip size #35. INTERVAL EVENTS / PERTINENT ROS: 1. No acute changes or complaints overnight. Resting in bed - just back from a long walk in the [place] with PT - did great, no untoward symptoms. 2. Decent appetite. No nausea or constipation. 3. Pain very well controlled. 4. Feels that his quality of breathing is much improved. 5. Would like to be discharged today Rhythm: SR overnight, ST this morning following a session with PT. Intake/Output Summary (Last 24 hours) at 07/13/18 0957 Last data filed at 07/13/18 0900 Gross per 24 hour Intake 720 ml Output 500 ml Net 220 ml EKG: most recent image reviewed, most recent report reviewed TELE: most recent recordings reviewed CXR: most recent image reviewed, most recent report reviewed Echocardiogram: most recent report reviewed PHYSICAL EXAM: BP 107/67 Pulse 117 Temp 36.8 ?C (98.3 ?F) (Oral) Resp 6 Ht 182.9 cm (6') Wt 67 kg (147 lb 11.2 oz) SpO2 97% BMI 20.03 kg/m? Neuro: AANDO x 3. Mild, generalized post-op weakness but no overt focal deficits. CV: Jugular veins are flat even with pressure applied over RUQ. Normal S1/S2. No rub. RRR, borderline tachycardic. Resp: Diminished bibasilar sounds. Resps even AND unlabored. Abd: The abdomen is soft, nontender, nondistended; BS normal; +flatus. Skin: skin color, texture, turgor normal. Ext: No edema, 2+ distal pulses Warm. Surgical incisions: clean, dry and intact Chest tube: No Pacer wires: No HISTORY, ASSESSMENT AND PLAN: Problem Transition of Care Performed With Sharing of Clinical Summary Indication for Surgery: Severe MR, severe pulmonary HTN Preop LVEF: 61 ? 5% RVF: low Normal ECG: SR with 1st degree AV block CARDS: Barbi PMH/PSH: Childhood rheumatic fever, HTN, severe symptomatic MR with dyspnea/orthopnea/PND, former smoker, bilateral pleural effusions, and newly diagnosed atrial fibrillation Airway Difficulty: Grade I - No special instrumentation and easy Pacing Wires: Cut 07/12 Surgeries and Major Events: 07/04/2018: Mitral valve repair with a 34mm Michael ring and neochords and Cyro MAZE with LAAL A/Plan: -S/p MVr: Post-op echo reviewed. ASA. -S/p MAZE AND LAURA clip: Newly dx Afib pre-op on no meds. No afib post-op, sustaining sinus rhythm. Continue BB, adjust to Toprol. Do not intend to anticoagulate in the absence of post-op occurrence. -Systolic HF: Has been aggressively diuresed, appears a little dry on exam today. Adjust to low dose maintenance lasix. Convert metoprolol to Toprol for rate control. Would ideally like to add in losartan (had cough with lisinopril in the past) but will defer for now as marginal AND he's likely a bit intravascularly dry - will defer to follow-up next week. -Lives in [place], [place]. No skills needs anticipated. Declined recommendation to return for follow-up, instead plans to follow up with local PCP AND to see a electrical prospecting operator in [place] Discharge Planning: Anticipated Discharge Date: Unknown Barriers to Discharge: Unknown Care Management Discharge Needs: Needs Prior to Discharge: To Be Determined Mitral Regurgitation History: There is severe (3+ - 4+) holosystolic mitral valve regurgitation. Assessment: 07/04/2018- Mitral valve repair with a 34mm Michael ring and neochords Plan: ASA. Post op echo showed trivial MR. Acute Systolic Heart Failure (Hcc) History: Presented with ADHF, severe pHTN in the setting of severe MR. Assessment: Is now s/p MV repair. Required IABP, which has since been weaned. Post-op EF marginal at 46%. FVO much improved, has been aggressively diuresed. Tachycardic with exertion. Plan: Has been aggressively diuresed, appears a little dry on exam today. Adjust to low dose maintenance lasix. Convert metoprolol to Toprol for rate control. Would ideally like to add in losartan (had cough with lisinopril in the past) but will defer for now as marginal AND he's likely a bit intravascularly dry - will defer to follow-up next week. Cards f/u. Primary Hypertension History: On Metoprolol and Valsartan pre-op Assessment: BP well controlled AND at times marginal in the setting of aggressive diuresis - appears a little dry on exam today. Plan: Adjust Metoprolol to Toprol. Taper to low dose maintenance diuretic. History of Atrial Fibrillation History: Newly diagnosed Afib preop. On no meds. Assessment: 07/04/2018-Cryo MAZE and LAAL. No episodes of Afib post-op - maintaining SR with modest first degree AV block - tachy with exertion. Plan: Continue Metoprolol, adjust to Toprol. Do not intend to anticoagulate in the absence of recurrence post-op. EKG with OPD visit. Discharge Planning Issues Lives in [place], [place]. No skills needs anticipated. Declined recommendation to return for follow-up, instead plans to follow up with local PCP AND to see a electrical prospecting operator in [place] - requested f/u with PCP AND Mayela Mccurdy. Severe malnutrition as per RD. Liberalize diet. Protein supplements. DAILY STEP DOWN CHECKLIST FOR CATHETER RELATED INFECTION PREVENTION CVC, PICC, Juli and/or Permacath present? No Does the patient have a urinary catheter beyond POD 2? No VTE Risk Assessment: High risk VTE Mechanical and/or Pharmacologic Prophylaxis: IPC Device, GCS and Subcutaneous Heparin Labs and medications reviewed in Epic Case discussed in depth with: Dr. Blake SIGNATURE: Ivan Angel APRN.CNP PATIENT NAME: Stefania Diaz DATE: July 13, 2018 TIME: 7:19 AM PAGER/CONTACT #: [phone] ETX#[id number] CBC Collected: 07/13/2018 Status: F Source: [place] 6:58 AM [facility] REPOSITORY TYPE CODE TESTS RESULT OUT OF REFERENCE UNITS RANGE LAB WBC 3.70-11.00 k/uL WBC 10.72 LAB RBC 4.20-6.00 m/uL Low RBC 3.66 LAB HGB 13.0-17.0 g/dL Low Hemoglobin 11.9 LAB HCT 39.0-51.0 % Low Hematocrit 35.4 LAB MCV 80.0-100.0 fL MCV 96.7 LAB MCH 26.0-34.0 pG MCH 32.5 LAB MCHC 30.5-36.0 g/dL MCHC 33.6 LAB RDWCV 11.5-15.0 % RDW-CV High 15.7 LAB PLTCT 150-400 k/uL Platelet High Count 616 LAB MPV 9.0-12.7 fL MPV 9.3 LAB ABSNUC <0.01 k/uL Absolute nRBC <0.01 Performed By: #### CBC, CMP #### [facility] [address] [place], [place] [address] COMP METABOLIC PANEL Collected: 07/13/2018 Status: F Source: [place] 6:58 AM [facility] REPOSITORY TYPE CODE TESTS RESULT OUT OF REFERENCE UNITS RANGE LAB TP 6.3-8.0 g/dL Protein, Total 6.5 LAB ALB 3.9-4.9 g/dL Low Albumin 3.4 LAB CA 8.5-10.2 mg/dL Calcium, Total 9.4 LAB TBIL 0.2-1.3 mg/dL Bilirubin, Total 1.1 LAB ALKP 38-113 U/L Alkaline High Phosphatase 129 LAB AST 14-40 U/L AST 39 LAB GLU 74-99 mg/dL Glucose High 106 Result Comment: The [place] [employer] (ADA) provides guidance for cutoff values for fasting glucose and random glucose. The ADA defines fasting as no caloric intake for at least 8 hours. Fas ting plasma glucose results between 100 to 125 mg/dL indicate increased risk for diabetes (prediabetes). Fasting plasma glucose results greater than or equal to 126 mg/dL meet the criteria for diagnosis of diabetes. In the absence of unequivocal hyperglycemia, results should be confirmed by repeat testing. In a patient with classic symptoms of hyperglycemia or hyperglycemic crisis, random plasma glucose results greater than or equal to 200 mg/dL meet the criteria for diagnosis of diabetes. Reference: Standards of Medical Care in Diabetes 2016, [place] [employer]. Diabetes Care. 2016.39(Suppl 1). LAB BUN 9-24 mg/dL BUN High 25 LAB CRET 0.73-1.22 mg/dL Creatinine 0.97 LAB NA 136-144 mmol/L Sodium 136 LAB K 3.7-5.1 mmol/L Potassium 4.2 LAB CL 97-105 mmol/L Low Chloride 95 LAB CO2 22-30 mmol/L CO2 30 LAB AGAP 9-18 mmol/L Anion Gap 11 LAB ALT 10-54 U/L ALT High 59 LAB GFRAA eGFR- Amer. >60 LAB GFRNAA . eGFR-All Other Races >60 Result Comment: eGFR (Estimated GFR) Units of measure: mL/min/1.73 meters squared eGFR is derived from the reexpressed MDRD Study equation using the following parameters: serum creatinine, age, gender and race. The creatinine assay has been calibrated to be traceable to IDMS. An eGFR <60 mL/min/1.73m2 for >3 months is consistent with chronic kidney disease. Refer to [facility] guidelines for clinical interpretation. In patients with unstable renal function, e.g. those with acute kidney injury, the eGFR may not accurately reflect actual GFR. Performed By: #### CBC, CMP #### [facility] [address] [address] PROGRESS Observed: 07/12/2018 Status: COMPLETED Source: [place] 9:12 PM [facility] REPOSITORY HNO ID: [id number] Author: Vicente Landa Service: (none) Author Type: (none) Type: Progress Notes Filed: 07/12/2018 9:12 PM Note Text: Radiology Service Progress Note PATIENT NAME: Stefania Diaz DATE OF SERVICE: July 12, 2018 TIME: 9:12 PM PATIENT IDENTITY VERIFICATION COMPLETED USING TWO (2) METHODS: Patient confirmed name verbally and ID band matches. and Patient confirmed name verbally. PATIENT GENDER DATA: Male PATIENT RELEVANT IMPLANT DATA REVIEWED: Not Applicable RADIOLOGY DEPARTMENT: General X-ray: Exam(s) Completed: Chest X-Ray PERIPHERAL IV DATA: Not applicable SIGNED BY: Vicente Landa July 12, 2018 9:12 PM XR CHEST 2V FRONTAL/LAT Observed: 07/12/2018 Status: F Source: [place] 9:12 PM [facility] REPOSITORY * * *Final Report* * * DATE OF EXAM: Jul 12 2018 9:12PM JIX [id number] - XR CHEST 2V FRONTAL/LAT / PROCEDURE REASON: Pleural effusion * * * * Physician Interpretation * * * * EXAMINATION: CHEST RADIOGRAPH (2 VIEW FRONTAL and LATERAL) CLINICAL HISTORY: Pleural effusion, Post-operative / post-procedure assessment, asymptomatic, MQ: XC2_5 Comparison: 07/12/2018 RESULT: Lines, tubes, and devices: Interval removal of chest tubes and mediastinal drain. Lungs and pleura: Tiny left apical pneumothorax has minimally decreased in size. Tiny new/increasing right apical pneumothorax is not excluded. Tiny right and small left pleural effusions remain. Atelectatic changes remain at the bases, left more than right. Superimposed infiltrates/infection or edema cannot be entirely excluded.. Cardiomediastinal silhouette: Heart remains enlarged. Thoracic aorta is tortuous. Other: Median sternotomy. Retrosternal soft tissue gas is likely postoperative. Follow-up is recommended. IMPRESSION: As above Self Propelled Hot Mix Roller Operator: PSCB Transcribe Date/Time: Jul 12 2018 9:34P Dictated by : ALEKSANDAR WARD MD This examination was interpreted and the report reviewed and electronically signed by: ALEKSANDAR WARD MD on Jul 12 2018 9:36PM EST [id number] NURSING PROG Observed: 07/12/2018 Status: COMPLETED Source: [place] 5:26 PM [facility] REPOSITORY HNO ID: [id number] Author: Norma DisalRn) RENITA Ramesh Service: (none) Author Type: Registered Nurse Type: Nursing Progress Note Filed: 07/12/2018 5:27 PM Note Text: PMW d/c (CUT) by Terrence Malave @1545 . [facility] notified. Tele SR . VSS. Patient instructed on 30 minute bedrest. PMW site dry and intact. Vital signs per protocol. PROGRESS Observed: 07/12/2018 Status: COMPLETED Source: [place] 5:12 PM [facility] REPOSITORY HNO ID: [id number] Author: Sheila Pompa Service: Nursing Author Type: Nurse Practitioner Type: Progress Notes Filed: 07/12/2018 5:14 PM Note Text: [facility] POSTOP PROGRESS NOTE Day of Surgery:07/04/2018 S/P SURGERY: Mitral Valve Repair with a 34 mm Michael ring and neochords and Cryo MAZE with LAAL INTERVAL EVENTS / PERTINENT ROS: -S/p MVr-Postop echo showed EF 46%. Start Lisinopril when able. -S/p MAZE/LAAL-No episodes of Afib post op. SR with 1st degree AV block-07/10. Currently ST Increased Metoprolol per discussion with Dr. Blake -Total CT output for last 24 hrs- MS-33cc. L-40cc, [id number] to remove all per Dr. Blake -Leukocytosis-resolved. WBC today 10.94. Afebrile. Denies urinary complaints -Encourage Ambulation Rhythm: NSR with 1st degree AV block Intake/Output Summary (Last 24 hours) at 07/12/18 1713 Last data filed at 07/12/18 1300 Gross per 24 hour Intake 1310 ml Output 2591 ml Net -1281 ml EKG: most recent image reviewed TELE: most recent recordings reviewed CXR: most recent image reviewed Echocardiogram: most recent report reviewed PHYSICAL EXAM: BP 112/62 Pulse 96 Temp 37 ?C (98.6 ?F) (Oral) Resp 18 Ht 182.9 cm (6') Wt 66.5 kg (146 lb 11.2 oz) SpO2 95% BMI 19.90 kg/m? Neuro: AANDO x 3 moves all extremities with no apparent weakness CV: no jugular venous distention Heart Exam: RRR without murmur, gallop, or rubs. No ectopy. Resp: clear to auscultation bilaterally and diminished breath sounds. Resp even and unlabored Abd: The abdomen is soft, nontender, nondistended; BS normal; no masses or organomegaly noted. Skin: Skin color, texture, turgor normal, no suspicious rashes or lesions Ext: Trace edema Surgical incisions: Well approximated. No drainage or erythema Chest tube: No Pacer wires: No HISTORY, ASSESSMENT AND PLAN: Problem Transition of Care Performed With Sharing of Clinical Summary Indication for Surgery: Severe MR, severe pulmonary HTN Preop LVEF: 61 ? 5% RVF: low Normal ECG: SR with 1st degree AV block CARDS: Barbi Important/Relevant PMH/PSH: Childhood rheumatic fever, HTN, severe symptomatic MR with dyspnea/orthopnea/PND, former smoker, bilateral pleural effusions, and newly diagnosed atrial fibrillation Airway Difficulty: Grade I - No special instrumentation and easy Pacing Wires: No: Ventricular: Cut 07/12 Chronological List of Surgeries and Major Events (Diagnosis): (Surgeries in bold characters) 07/04/2018: Mitral valve repair with a 34mm Michael ring and neochords and Cyro MAZE with LAAL A/P of Major Active Problems: -S/p MVr-Post-op echo showed trivial MR, mod AR, EF 47%. Start Lisinopril when able. SBP 90-110 -S/p MAZE- newly dx Afib pre-op on no meds. No episodes of afib post-op. Had first degree AV block ND .22 on 07/10, Currently ST. Discussed with Dr. Blake Increased Metoprolol -DC CTs per Dr. Blake. Total for last 24 hrs- MS-33cc. L- 40cc, R-150cc. Okay to change Furosemide to 40 PO BID. -Lives in [place], [place]. No skills needs anticipated. Plans to follow up with local PCP. Still deciding on follow up with electrical prospecting operator Discharge Planning: Anticipated Discharge Date: Unknown Barriers to Discharge: Unknown Care Management Discharge Needs: Needs Prior to Discharge: To Be Determined Mitral Regurgitation History: There is severe (3+ - 4+) holosystolic mitral valve regurgitation. Assessment: 07/04/2018- Mitral valve repair with a 34mm Michael ring and neochords Plan: ASA. Post op echo showed trivial MR. Primary Hypertension History: On Metoprolol and Valsartan pre-op Assessment: SBP currently 100-110 Plan: Continue Metoprolol History of Atrial Fibrillation History: Newly diagnosed Afib preop. On no meds. Assessment: 07/04/2018-Cryo MAZE and LAAL. SR with 1st degree AV block on 07/10. Currently SR with ND interval 0.19. No episodes of Afib post-op Plan: Continue Metoprolol. Post-Operative Pain History: Developed pain postoperatively Assessment: Pain controlled with current regiment Plan: Continue scheduled Lidoderm patches, tylenol, and prn oxycodone/ultram. Leukocytosis History: Stress-induced leukocytosis. No evidence of infection at this time (afebrile, no radiographic suggestion of infection, no purulent secretions) Assessment: WBC downtrending today 10.94 Plan: Monitor daily with CBC. Consider blood cultures if WBC continues to increase or if other signs/symptoms of infections are evident Discharge Planning Issues Lives in [place], [place]. No skills needs anticipated. Plans to follow up with local PCP and still deciding on cardiology follow up DAILY STEP DOWN CHECKLIST FOR CATHETER RELATED INFECTION PREVENTION CVC, PICC, Juli and/or Permacath present? No Does the patient have a urinary catheter beyond POD 2? No VTE Risk Assessment: Moderate risk VTE Mechanical and/or Pharmacologic Prophylaxis: IPC Device, GCS and Subcutaneous Heparin Labs and medications reviewed in Epic Case discussed in depth with: Dr. Blake SIGNATURE: Sheila Pompa APRN.CNP PATIENT NAME: Stefania Diaz DATE: July 12, 2018 TIME: 5:12 PM PAGER/CONTACT #: [phone] ETX#[id number] PROCEDURE Observed: 07/12/2018 Status: COMPLETED Source: [place] 5:11 PM [facility] REPOSITORY HNO ID: [id number] Author: Sheila Pompa Service: Nursing Author Type: Nurse Practitioner Type: Procedures Filed: 07/12/2018 5:12 PM Note Text: Remaining L pleural CT 40 cc serosanguinous drainage out over past 24 hrs. No air leak or SQ emphysema. CXR on waterseal reviewed AND does not demonstrate significant pneumothorax. CT removed - site closed with purse string sutures AND dressed with vasoline gauze. Patient tolerated procedure well. CXR in the am. PROCEDURE Observed: 07/12/2018 Status: COMPLETED Source: [place] 3:45 PM [facility] REPOSITORY HNO ID: [id number] Author: Sheila Pompa Service: Nursing Author Type: Nurse Practitioner Type: Procedures Filed: 07/12/2018 5:11 PM Note Text: Remaining R pleural 150 cc and MS 33cc serosanguinous drainage out over past 24 hrs. No air leak or SQ emphysema. CT removed - site closed with purse string sutures AND dressed with vasoline gauze. Patient tolerated procedure well. CXR at 1900 and in am PROCEDURE Observed: 07/12/2018 Status: COMPLETED Source: [place] 3:43 PM [facility] REPOSITORY HNO ID: [id number] Author: Sheial Pompa Service: Nursing Author Type: Nurse Practitioner Type: Procedures Filed: 07/12/2018 3:43 PM Note Text: Platelet Count 502 07/12/2018 Platelet Count 416 07/11/2018 Platelet Count 386 07/10/2018 Platelet Count 196 07/08/2018 PT INR 1.2 07/06/2018 PT INR 1.2 06/29/2018 rhythm sinus tachycardia 2 ventricular wires were discontinued without difficulty Mr. Stefania Diaz and bedside RN aware of 30 min bedrest restriction Sheila Pompa, HELEN.VENKATA ECG COMPLETE W Observed: 07/12/2018 Status: F Source: [place] INTERPRETATION 2:04 PM [facility] REPOSITORY NAME : STEFANIA DIAZ PID : [id number] : 1945 Gender : Male Race : ORD : [id number] Procedure Date : Jul 12 2018 14:04:49 Edit Date : Jul 14 2018 15:33:21 Diagnosis:SINUS TACHYCARDIA WITH 1ST DEGREE AV BLOCK ST ELEVATION, CONSIDER EARLY REPOLARIZATION, PERICARDITIS, OR INJURY ABNORMAL ECG Confirmed by ROGER JOHNSON M.D. ([id number]) on 07/14/2018 3:27:17 PM Ventricular Rate : 102 BPM Atrial Rate : 102 BPM P-R Interval : 216 ms QRS Duration : 92 ms Q-T Interval : 348 ms QTC Calculation(Bezet) : 453 ms P [place] : 74 degrees R [place] : 6 degrees T [place] : 53 degrees Test Reason : Location : 351 : J51 5 Overread By : ROGER JOHNSON M.D. Edited By : ROGER JOHNSON M.D. Referred By : , Acquired by : NICK WALKER PROGRESS Observed: 07/12/2018 Status: COMPLETED Source: [place] 9:51 AM [facility] REPOSITORY HNO ID: [id number] Author: Vernon Kwok Rt Service: (none) Author Type: (none) Type: Progress Notes Filed: 07/12/2018 9:51 AM Note Text: Radiology Service Progress Note PATIENT NAME: Stefania Diaz DATE OF SERVICE: July 12, 2018 TIME: 9:51 AM PATIENT IDENTITY VERIFICATION COMPLETED USING TWO (2) METHODS: Patient confirmed name verbally and ID band matches.. PATIENT GENDER DATA: Male PATIENT RELEVANT IMPLANT DATA REVIEWED: Yes RADIOLOGY DEPARTMENT: General X-ray: Exam(s) Completed: Chest X-Ray PERIPHERAL IV DATA: Not applicable SIGNED BY: Vernonlorenzo Kwok Rt July 12, 2018 9:51 AM XR CHEST 2V FRONTAL/LAT Observed: 07/12/2018 Status: F Source: [place] 9:42 AM [facility] REPOSITORY * * *Final Report* * * DATE OF EXAM: Jul 12 2018 9:42AM JIX [id number] - XR CHEST 2V FRONTAL/LAT / PROCEDURE REASON: Pleural effusion * * * * Physician Interpretation * * * * EXAMINATION: CHEST RADIOGRAPH (2 VIEW FRONTAL and LATERAL) CLINICAL HISTORY: Pleural effusion, MQ: XC2_5 Comparison: 07/11/2018 RESULT: Lines, tubes, and devices: Stable position of bilateral chest tubes and mediastinal drain. Temporary epicardial pacing leads/wires are noted. Lungs and pleura: There is a small left pleural effusion present with adjacent left basilar atelectasis. Minimal right basilar atelectasis present as well. No overt pulmonary edema. There are small biapical pneumothoraces with approximately 1.5 cm of pleural separation at the right lung apex and 7 mm of pleural separation at the left, without significant change. Cardiomediastinal silhouette: Status post median sternotomy, mitral valve replacement and left atrial appendage clip placement. Cardiomediastinal silhouette is enlarged and unchanged. Other: Mild degenerative endplate changes with marginal osteophyte formation present within the thoracic spine. IMPRESSION: See results. Self Propelled Hot Mix Roller Operator: MARCO ANTONIO Transcribe Date/Time: Jul 12 2018 2:51P Dictated by : DENIA EL MD This examination was interpreted and the report reviewed and electronically signed by: DENIA EL MD on Jul 12 2018 2:55PM EST [id number] CBC Collected: 07/12/2018 Status: F Source: [place] 4:11 AM [facility] REPOSITORY TYPE CODE TESTS RESULT OUT OF REFERENCE UNITS RANGE LAB WBC 3.70-11.00 k/uL WBC 10.94 LAB RBC 4.20-6.00 m/uL Low RBC 3.40 LAB HGB 13.0-17.0 g/dL Low Hemoglobin 11.0 LAB HCT 39.0-51.0 % Low Hematocrit 33.4 LAB MCV 80.0-100.0 fL MCV 98.2 LAB MCH 26.0-34.0 pG MCH 32.4 LAB MCHC 30.5-36.0 g/dL MCHC 32.9 LAB RDWCV 11.5-15.0 % RDW-CV High 15.9 LAB PLTCT 150-400 k/uL Platelet High Count 502 LAB MPV 9.0-12.7 fL MPV 9.4 LAB ABSNUC <0.01 k/uL Absolute nRBC <0.01 Performed By: #### CBC, CMP #### [facility] [address] [place], [place] [address] COMP METABOLIC PANEL Collected: 07/12/2018 Status: F Source: [place] 4:11 AM [facility] REPOSITORY TYPE CODE TESTS RESULT OUT OF REFERENCE UNITS RANGE LAB TP 6.3-8.0 g/dL Low Protein, Total 5.9 LAB ALB 3.9-4.9 g/dL Low Albumin 3.5 LAB CA 8.5-10.2 mg/dL Calcium, Total 9.3 LAB TBIL 0.2-1.3 mg/dL Bilirubin, Total 1.2 LAB ALKP 38-113 U/L Alkaline Phosphatase 113 LAB AST 14-40 U/L AST High 48 Result Comment: Results may be falsely increased due to interference by hemolysis. Suggest reorder as clinically indicated. LAB GLU 74-99 mg/dL Glucose 97 Result Comment: The [place] [employer] (ADA) provides guidance for cutoff values for fasting glucose and random glucose. The ADA defines fasting as no caloric intake for at least 8 hours. Fas ting plasma glucose results between 100 to 125 mg/dL indicate increased risk for diabetes (prediabetes). Fasting plasma glucose results greater than or equal to 126 mg/dL meet the criteria for diagnosis of diabetes. In the absence of unequivocal hyperglycemia, results should be confirmed by repeat testing. In a patient with classic symptoms of hyperglycemia or hyperglycemic crisis, random plasma glucose results greater than or equal to 200 mg/dL meet the criteria for diagnosis of diabetes. Reference: Standards of Medical Care in Diabetes 2016, [place] [employer]. Diabetes Care. 2016.39(Suppl 1). LAB BUN 9-24 mg/dL BUN 17 LAB CRET 0.73-1.22 mg/dL Creatinine 0.89 LAB NA 136-144 mmol/L Sodium 138 LAB K 3.7-5.1 mmol/L Potassium 4.1 Result Comment: Results may be falsely increased due to interference by hemolysis. Suggest reorder as clinically indicated. LAB CL 97-105 mmol/L Chloride Low 96 LAB CO2 22-30 mmol/L CO2 26 LAB AGAP 9-18 mmol/L Anion Gap 16 LAB ALT 10-54 U/L ALT 46 Result Comment: Results may be falsely increased due to interference by hemolysis. Suggest reorder as clinically indicated. LAB GFRAA eGFR- Amer. >60 LAB GFRNAA . eGFR-All Other Races >60 Result Comment: eGFR (Estimated GFR) Units of measure: mL/min/1.73 meters squared eGFR is derived from the reexpressed MDRD Study equation using the following parameters: serum creatinine, age, gender and race. The creatinine assay has been calibrated to be traceable to IDMS. An eGFR <60 mL/min/1.73m2 for >3 months is consistent with chronic kidney disease. Refer to KDOQI guidelines for clinical interpretation. In patients with unstable renal function, e.g. those with acute kidney injury, the eGFR may not accurately reflect actual GFR. Performed By: #### CBC, CMP #### [facility] [address] [place], [place] [address] PROGRESS Observed: 07/11/2018 Status: COMPLETED Source: [place] 5:57 PM [facility] REPOSITORY O ID: [id number] Author: Nadja Arevalo (Rt) Service: Radiology Author Type: Research & Analytics Manager Type: Progress Notes Filed: 07/11/2018 5:58 PM Note Text: Radiology Service Progress Note PATIENT NAME: Stefania Diaz DATE OF SERVICE: July 11, 2018 TIME: 5:57 PM PATIENT IDENTITY VERIFICATION COMPLETED USING TWO (2) METHODS: Patient confirmed name verbally and Date of . PATIENT GENDER DATA: Male PATIENT RELEVANT IMPLANT DATA REVIEWED: Yes RADIOLOGY DEPARTMENT: General X-ray: Exam(s) Completed: Chest X-Ray PERIPHERAL IV DATA: Not applicable SIGNED BY: RT Mickey July 11, 2018 5:57 PM XR CHEST 2V FRONTAL/LAT Observed: 07/11/2018 Status: F Source: [place] 5:53 PM [facility] REPOSITORY * * *Final Report* * * DATE OF EXAM: Jul 11 2018 5:53PM KACIE [id number] - XR CHEST 2V FRONTAL/LAT / PROCEDURE REASON: Pleural effusion * * * * Physician Interpretation * * * * EXAMINATION: CHEST RADIOGRAPH (2 VIEW FRONTAL and LATERAL) CLINICAL HISTORY: Pleural effusion, MQ: XC2_5 Comparison: 07/10/2018 RESULT: Lines, tubes, and devices: Bilateral chest tube/mediastinal drains remain. Lungs and pleura: Small apical pneumothoraces remain unchanged. Atelectatic changes again seen at the bases. Tiny right and small left pleural effusions are again seen. Hazy opacities again seen at the bases, suggesting atelectasis. Superimposed infiltrates/infection or edema cannot be entirely excluded. Cardiomediastinal silhouette: Unchanged with persistent small amount of retrosternal soft tissue gas. Other: Median sternotomy IMPRESSION: As above Self Propelled Hot Mix Roller Operator: MARCO ANTONIO Transcribe Date/Time: Jul 11 2018 8:12P Dictated by : ALEKSANDAR WARD MD This examination was interpreted and the report reviewed and electronically signed by: ALEKSANDAR WARD MD on Jul 11 2018 8:13PM EST [id number] MANAGEM Observed: 07/11/2018 Status: COMPLETED Source: [place] 5:10 PM [facility] REPOSITORY HNO ID: [id number] Author: Gerardo Pearce) RENITA Caraballo Service: Care Management Author Type: Registered Nurse Type: Care Mgt Progress Note Filed: 07/11/2018 5:16 PM Note Text: CARE MANAGEMENT PROGRESS NOTE SERVICE DATE: 07/11/2018 SERVICE TIME: 5:10 PM LOS: 12 days Needs Prior to Discharge: To Be Determined;OT/PT Evaluation Pt was transferred to [facility] from [facility] ICU s/p recovery from MV repair and Maze with LAAL procedure. Discharge date is currently pending on medical condition. Chest tubes in place d/t drainage. Currently, pt is preforming ADLs with little assistance, per NPR. Mr. Diaz is ambulating with standby assistance per cardiac rehab evaluation. Projecting basic dc needs at this time. CM will follow to assist with dc plans. SIGNATURE: Gerardo Caraballo RN PATIENT NAME: Stefania Diaz DATE: July 11, 2018 TIME: 5:10 PM PAGER/CONTACT #: [phone] or [phone] PROGRESS Observed: 07/11/2018 Status: COMPLETED Source: [place] 4:30 PM [facility] REPOSITORY HNO ID: [id number] Author: Sheila Pompa Service: Nursing Author Type: Nurse Practitioner Type: Progress Notes Filed: 07/11/2018 4:42 PM Note Text: [facility] POSTOP PROGRESS NOTE Day of Surgery:07/04/2018 S/P SURGERY: Mitral Valve Repair with a 34 mm Michael ring and neochords and Cryo MAZE with LAAL INTERVAL EVENTS / PERTINENT ROS: -S/p MVr-Postop echo showed EF 46%. Start Lisinopril when able. -S/p MAZE/LAAL-No episodes of Afib. SR with 1st degree AV block-07/10. Currently NSR-ND 0.19. On Metoprolol -Total CT output for last 24 hrs- MS-260cc. L-20cc, [id number] with Dr. Blake re: persistent CT drainage-transfuse 2 units PRBC and give Furosemide 40 mg IV TID. Keep all Chest tubes -Leukocytosis-resolved. WBC today 9.81. Afebrile. Denies urinary complaints -Encourage Ambulation Rhythm: NSR with 1st degree AV block Intake/Output Summary (Last 24 hours) at 07/11/18 1641 Last data filed at 07/11/18 1555 Gross per 24 hour Intake 800 ml Output 1765 ml Net -965 ml EKG: most recent image reviewed TELE: most recent recordings reviewed CXR: most recent image reviewed Echocardiogram: most recent report reviewed PHYSICAL EXAM: BP 107/61 Pulse 100 Temp 36.5 ?C (97.7 ?F) (Oral) Resp 18 Ht 182.9 cm (6') Wt 69.2 kg (152 lb 8 oz) SpO2 95% BMI 20.68 kg/m? Neuro: AANDO x 3 moves all extremities with no apparent weakness CV: no jugular venous distention Heart Exam: RRR without murmur, gallop, or rubs. No ectopy., temporary pacer wires intact Resp: clear to auscultation bilaterally and diminished breath sounds. Resp even and unlabored Abd: The abdomen is soft, nontender, nondistended; BS normal; no masses or organomegaly noted. Skin: Skin color, texture, turgor normal, no suspicious rashes or lesions Ext: Trace edema Surgical incisions: Well approximated. No drainage or erythema Chest tube: Yes: Greater than 200 mL output per 24 hours Pacer wires: Yes, Ventricular HISTORY, ASSESSMENT AND PLAN: Problem Transition of Care Performed With Sharing of Clinical Summary Indication for Surgery: Severe MR, severe pulmonary HTN Preop LVEF: 61 ? 5% RVF: low Normal ECG: SR with 1st degree AV block CARDS: Barbi Important/Relevant PMH/PSH: Childhood rheumatic fever, HTN, severe symptomatic MR with dyspnea/orthopnea/PND, former smoker, bilateral pleural effusions, and newly diagnosed atrial fibrillation Airway Difficulty: Grade I - No special instrumentation and easy Pacing Wires: Yes: Ventricular: When discontinuing pacing wires: Cut all pacing wires Chronological List of Surgeries and Major Events (Diagnosis): (Surgeries in bold characters) 07/04/2018: Mitral valve repair with a 34mm Michael ring and neochords and Cyro MAZE with LAAL A/P of Major Active Problems: -S/p MVr-Post-op echo showed trivial MR, mod AR, EF 47%. Start Lisinopril -S/p MAZE- newly dx Afib pre-op on no meds. Had first degree AV block ND .22 on 07/10, Currently SR ND interval 0.19. Continue Metoprolol. -Keep CT per Dr. Blake. Total for last 24 hrs- MS-260cc. L-20cc, [id number] with Dr. Blake re: persistent CT drainage- plan to transfuse 2 units PRBC and give Furosemide 40 mg IV TID. -Lives in [place], [place]. No skills needs anticipated. Plans to follow up with local PCP. Still deciding on follow up with electrical prospecting operator Discharge Planning: Anticipated Discharge Date: Unknown Barriers to Discharge: Unknown Care Management Discharge Needs: Needs Prior to Discharge: To Be Determined Mitral Regurgitation History: There is severe (3+ - 4+) holosystolic mitral valve regurgitation. Assessment: 07/04/2018- Mitral valve repair with a 34mm Michael ring and neochords Plan: ASA. Post op echo showed trivial MR Primary Hypertension History: On Metoprolol and Valsartan pre-op Assessment: SBP currently 100-120 Plan: Continue Metoprolol. History of Atrial Fibrillation History: Newly diagnosed Afib preop. On no meds. Assessment: 07/04/2018-Cryo MAZE and LAAL. SR with 1st degree AV block on 07/10. Currently SR with ND interval 0.19. No episodes of Afib post-op Plan: Continue Metoprolol Post-Operative Pain History: Developed pain postoperatively Assessment: Pain controlled with current regiment Plan: Continue scheduled Lidoderm patches, tylenol, and prn oxycodone/ultram Leukocytosis History: Stress-induced leukocytosis. No evidence of infection at this time (afebrile, no radiographic suggestion of infection, no purulent secretions) Assessment: WBC downtrending today 9.81 Plan: Monitor daily with CBC. Consider blood cultures if WBC continues to increase or if other signs/symptoms of infections are evident. Discharge Planning Issues Lives in [place], [place]. No skills needs anticipated. Plans to follow up with local PCP and still deciding on cardiology follow up. DAILY STEP DOWN CHECKLIST FOR CATHETER RELATED INFECTION PREVENTION CVC, PICC, Juli and/or Permacath present? No Does the patient have a urinary catheter beyond POD 2? No VTE Risk Assessment: Moderate risk VTE Mechanical and/or Pharmacologic Prophylaxis: IPC Device, GCS and Subcutaneous Heparin Labs and medications reviewed in Epic Case discussed in depth with: Dr. Blake SIGNATURE: Sheila Pompa APRN.SORTING MACHINE OPERATOR PATIENT NAME: Stefania Diaz DATE: July 11, 2018 TIME: 4:42 PM PAGER/CONTACT #: [phone] ETX#[id number] TYPE AND SCREEN Collected: 07/11/2018 Status: F Source: [place] 3:46 PM [facility] REPOSITORY TYPE CODE TESTS RESULT OUT OF REFERENCE UNITS RANGE LAB %ABR O ABO/RH(D) POSITIVE LAB % Antibody NEG Screen Performed By: #### TSCR #### [facility] [address] [place], [place] [address] NUTRITION Observed: 07/11/2018 Status: COMPLETED Source: [place] 10:00 AM [facility] REPOSITORY HNO ID: [id number] Author: Elizabeth Blackwell Service: Nutrition Therapy Author Type: Registered Dietitian Type: Nutrition Filed: 07/11/2018 11:54 AM Note Text: NUTRITION THERAPY PROGRESS NOTE SERVICE DATE: 07/11/2018 SERVICE TIME: 10:30 AM RECOMMENDED DIAGNOSIS: SEVERE PROTEIN-CALORIE MALNUTRITION per Registered Dietitian on 07/05 NUTRITION CARE PLAN Intervention: 1. Recommend liberalize diet to Electrolyte Controlled- 4 GM NA at this time. Fluid restriction per MD 2. Ensure Enlive daily- 350 kcal and 20 g protein 3. Magic Cup daily- 290 kcal and 9 g protein 4. Zone Bar daily- 210 kcal and 14 g protein 5. Monitor oral intake including supplement acceptance Monitor and Evaluation: Goal: Meet >75% of estimated needs Monitor fluid/electrolyte balance Monitor labs, I/Os, vital signs, weight Discharge Nutrition Recommendations: Diet: HH- Low Sodium Supplements: nutrient dense supplement as pt accepts until appetite improves Interval History: Day of Surgery:07/04/2018 S/P SURGERY: Mitral Valve Repair with a 34 mm Michael ring and neochords and Cryo MAZE with LAAL Pt visited- states he feels his appetite has been inconsistent. States some days he eats better than others since surgery. Pt feels like his sense of smell and taste are off. Supplement options discussed until appetite improves and Pt is agreeable to supplementation and prefers a variety to trial. Pt is on fluid restriction and understands supplement shake will take place of 240 ml of fluid allotment. Nutritional Intake: 07/05: Average daily PO intake over 6 days = 1315 kcals and 52 g protein, meeting 64% of estimated energy needs and 50% of estimated protein needs. 07/06-07/07: No meals recorded 07/07-07/10: Pt met ~48% estimated energy needs Recent intakes: 07/06: Meals not recorded 07/07: Meals not recorded 07/08: 637 kcal/ 24 g pro x 2 meals 07/09: 1200 kcal/ 80 g pro x 3 meals 07/10: 1137 kcal/ 49 g pro x 3 meals Current Diet Order DIET HEART HEALTHY Order Specific Question: Heart Healthy Answer: 2 GM SODIUM (<200 MG CHOL / LOW SAT FAT) Order Specific Question: Carbohydrate Control Answer: 3-5 CARBS/MEAL Order Specific Question: Fluid Restriction Answer: 1500 ML Lines and Drains: Peripheral 07/08/18 0326 Left Forearm 20 Gauge (Active) Chest Tube 07/04/181934 Midline Medial Mediastinal 32 Fr Tube #1 (Active) Chest Tube 07/04/18 193 Left Medial Pleural 28 Fr Tube #2 (Active) Chest Tube 07/04/18 1935 Right Medial Pleural 28 Fr Tube #3 (Active) Height: 182.9 cm (6') Admission Weight: 75.3 kg (166 lb) Current Weight: 69.2 kg (152 lb 8 oz) Body mass index is 20.68 kg/m?. normal Recent Labs 07/11/18 0439 GLUC 94 BUN 18 CREAT 0.92 NA 137 K 4.1 CHLOR 99 CO2 26 ALB 3.0* HB 9.2* HCT 27.9* WBC 9.81 ALLERGIES No Known Allergies Current Facility-Administered Medications: metoprolol tartrate (short acting) 50 mg tab(s) (LOPRESSOR) 50 mg ORAL BID tamsulosin ER 0.4 mg cap(s) (FLOMAX) 0.4 mg ORAL DAILY albumin (25%) 25 g infusion 25 g INTRAVENOUS ONCE traMADol 50 mg tab(s) (ULTRAM) 50 mg ORAL q 6 H PRN phenol 1-2 Carmel (CHLORASEPTIC) 1-2 Carmel MUCOUS MEMBRANE (TOPICAL MOUTH AND THROAT) q 2 H PRN perflutren lipid microspheres 1.1 mg/mL 1.3 mL injection (DEFINITY) 1.3 mL INTRAVENOUS DIRECTED PRN 0.9% NaCl 3-5 mL 3-5 mL INTRAVENOUS q 12 H therapeutic multivitamin 1 tablet tab(s) (THERA VITAMIN) 1 tablet ORAL DAILY WITH BREAKFAST pantoprazole DR 20 mg tab(s) (PROTONIX) 20 mg ORAL DAILY (6 AM) acetaminophen 650 mg tab(s) (TYLENOL) 650 mg ORAL q 4 H PRN sodium phosphate-sodium bisphosphate 133 mL enema (FLEET) 133 mL RECTAL PRN magnesium hydroxide 400 mg/5 mL 30 mL (MOM) 30 mL ORAL q 6 H PRN oxyCODONE IR 5-10 mg tab(s) (ROXICODONE) 5-10 mg ORAL/FEEDING TUBE q 4 H PRN senna-docusate 8.6-50 mg 1 tablet (SENNA-S) 1 tablet ORAL BID bisacodyl 10 mg suppository (DULCOLAX) 10 mg RECTAL DAILY PRN ondansetron (PF) 4 mg injection (ZOFRAN) 4 mg INTRAVENOUS q 6 H PRN lidocaine 5 % 1 Patch (LIDODERM) 1 Patch TRANSDERMAL DAILY And lidocaine patch - REMOVE OTHER AT BEDTIME And lidocaine - VERIFY PATCH OTHER q 8 H aspirin 162 mg chewable tab(s) 162 mg ORAL/FEEDING TUBE DAILY heparin 5,000 Units injection 5,000 Units SUBCUTANEOUS q 12 H Date 07/10/18699 - 07/11/1865807/11/18699 - 07/12/18 0659 Shift 2625-2198 0901-7436 0760-4055 24 Hour Total 5942-1697 6740-3884 6475-0359 24 Hour Total I N T A K E PO 600 571 366 6810 240 240 PO 600 127 357 7803 240 240 IV 100 100 ALBUMIN (mL) 100 100 Shift Total 700 577 042 6688 240 240 O U T P U T Urine 300 450 750 280 280 Void (ml) 300 450 750 280 280 Urine Not Saved. 1 x 1 x Chest Tube 90 276 29 395 130 130 Chest Tube Output (Chest Tube 07/04/181934 Midline Medial Mediastinal 32 Fr Tube #1) 40 218 2 260 15 15 Chest Tube Output (Chest Tube 07/04/181935 Left Medial Pleural 28 Fr Tube #2) 20 0 0 20 30 30 Chest Tube Output (Chest Tube 07/04/181935 Right Medial Pleural 28 Fr Tube #3) 30 58 27 115 85 85 # of BMs Number of BMs 1 x 1 x Shift Total 390 581 39 1475 410 410 Weight (kg) 68.5 68.5 69.2 69.2 69.2 69.2 69.2 69.2 Surgical Incision Chest - Midsternal (Active) Dressing Status None: Open to Air 07/11/2018 7:00 AM Frequency of Dressing Change As Needed 07/09/2018 10:15 AM Dressing Change Due 07/06/18 07/06/2018 7:30 AM Dressing /Treatment Type Dry Sterile Dressing 07/07/2018 7:30 AM Incision Closures Intact 07/11/2018 7:00 AM Drainage Description None 07/11/2018 7:00 AM Drainage Amount None 07/11/2018 7:00 AM Edges Intact 07/11/2018 7:00 AM Hematoma No 07/11/2018 7:00 AM Number of days: Surgical Incision 07/06/18 1315 Femoral - Left (Active) Dressing Status None: Open to Air 07/11/2018 7:00 AM Frequency of Dressing Change As Needed 07/09/2018 10:15 AM Dressing /Treatment Type Dry Cover Dressing 07/07/2018 7:30 AM Incision Closures Intact 07/11/2018 7:00 AM Drainage Description None 07/11/2018 7:00 AM Drainage Amount None 07/11/2018 7:00 AM Edges Intact 07/11/2018 7:00 AM Hematoma No 07/11/2018 7:00 AM Number of days: 4 MNT Billing Type: Re-assess/15 min 2 units SIGNATURE: Elizabeth Blackwell RD PATIENT NAME: Stefania Diaz DATE: July 11, 2018 TIME: 10:00 AM PAGER: [phone] ECG COMPLETE W Observed: 07/11/2018 Status: F Source: [place] INTERPRETATION 8:09 AM [facility] [place] REPOSITORY NAME : STEFANIA DIAZ PID : [id number] : 1945 Gender : Male Race : ORD : [id number] Procedure Date : Jul 11 2018 08:09:17 Edit Date : Jul 18 2018 19:44:25 Diagnosis:SINUS TACHYCARDIA WITH OCCASIONAL PREMATURE VENTRICULAR COMPLEXES PROLONGED QTC INTERVAL ABNORMAL ECG Confirmed by Nilay Ramos ([id number]) on 07/18/2018 7:44:20 PM Ventricular Rate : 110 BPM Atrial Rate : 110 BPM P-R Interval : 192 ms QRS Duration : 92 ms Q-T Interval : 338 ms QTC Calculation(Bezet) : 457 ms P [place] : 62 degrees R [place] : 38 degrees T [place] : 57 degrees Test Reason : Location : 351 : J51 5 Overread By : Nilay Ramos Edited By : Nilay Ramos Referred By : , Acquired by : REBECA BEATTY NURSING PROG Observed: 07/11/2018 Status: COMPLETED Source: [place] 8:06 AM [facility] [place] REPOSITORY HNO ID: [id number] Author: Mike (Rn) RENITA Cr Service: (none) Author Type: Registered Nurse Type: Nursing Progress Note Filed: 07/11/2018 8:07 AM Note Text: Nursing Progress Note Patient Name: Stefania Diaz Patient Location: J051 005/J5-1-05 Daily Note:0745: No urine output overnight therefore performed bladder scan. 296cc urine noted. SHAISTA Vitale made aware. This note was completed by: Mike Cr RN CBC Collected: 07/11/2018 Status: F Source: [place] 4:39 AM [facility] REPOSITORY TYPE CODE TESTS RESULT OUT OF REFERENCE UNITS RANGE LAB WBC 3.70-11.00 k/uL WBC 9.81 LAB RBC 4.20-6.00 m/uL Low RBC 2.75 LAB HGB 13.0-17.0 g/dL Low Hemoglobin 9.2 LAB HCT 39.0-51.0 % Low Hematocrit 27.9 LAB MCV 80.0-100.0 fL MCV High 101.5 LAB MCH 26.0-34.0 pG MCH 33.5 LAB MCHC 30.5-36.0 g/dL MCHC 33.0 LAB RDWCV 11.5-15.0 % RDW-CV 14.1 LAB PLTCT 150-400 k/uL Platelet High Count 416 LAB MPV 9.0-12.7 fL MPV 9.5 LAB ABSNUC <0.01 k/uL Absolute nRBC <0.01 Performed By: #### CBC, CMP #### [facility] [address] [place] [address] COMP METABOLIC PANEL Collected: 07/11/2018 Status: F Source: [place] 4:39 [facility] REPOSITORY TYPE CODE TESTS RESULT OUT OF REFERENCE UNITS RANGE LAB TP 6.3-8.0 g/dL Low Protein, Total 5.4 LAB ALB 3.9-4.9 g/dL Low Albumin 3.0 LAB CA 8.5-10.2 mg/dL Calcium, Total 8.8 LAB TBIL 0.2-1.3 mg/dL Bilirubin, Total 0.9 LAB ALKP 38-113 U/L Alkaline Phosphatase 101 LAB AST 14-40 U/L AST 33 LAB GLU 74-99 mg/dL Glucose 94 Result Comment: The [place] [employer] (ADA) provides guidance for cutoff values for fasting glucose and random glucose. The ADA defines fasting as no caloric intake for at least 8 hours. Fas ting plasma glucose results between 100 to 125 mg/dL indicate increased risk for diabetes (prediabetes). Fasting plasma glucose results greater than or equal to 126 mg/dL meet the criteria for diagnosis of diabetes. In the absence of unequivocal hyperglycemia, results should be confirmed by repeat testing. In a patient with classic symptoms of hyperglycemia or hyperglycemic crisis, random plasma glucose results greater than or equal to 200 mg/dL meet the criteria for diagnosis of diabetes. Reference: Standards of Medical Care in Diabetes 2016, [place] [employer]. Diabetes Care. 2016.39(Suppl 1). LAB BUN 9-24 mg/dL BUN 18 LAB CRET 0.73-1.22 mg/dL Creatinine 0.92 LAB NA 136-144 mmol/L Sodium 137 LAB K 3.7-5.1 mmol/L Potassium 4.1 LAB CL 97-105 mmol/L Chloride 99 LAB CO2 22-30 mmol/L CO2 26 LAB AGAP 9-18 mmol/L Anion Gap 12 LAB ALT 10-54 U/L ALT 38 LAB GFRAA eGFR- Amer. >60 LAB GFRNAA . eGFR-All Other Races >60 Result Comment: eGFR (Estimated GFR) Units of measure: mL/min/1.73 meters squared eGFR is derived from the reexpressed MDRD Study equation using the following parameters: serum creatinine, age, gender and race. The creatinine assay has been calibrated to be traceable to IDMS. An eGFR <60 mL/min/1.73m2 for >3 months is consistent with chronic kidney disease. Refer to KDOQI guidelines for clinical interpretation. In patients with unstable renal function, e.g. those with acute kidney injury, the eGFR may not accurately reflect actual GFR. Performed By: #### CBC, CMP #### [facility] [address] [address] NURSING PROG Observed: 07/10/2018 Status: COMPLETED Source: [place] 10:43 PM [facility] REPOSITORY HNO ID: [id number] Author: Mike (Rn) RENITA Cr Service: (none) Author Type: Registered Nurse Type: Nursing Progress Note Filed: 07/10/2018 10:45 PM Note Text: Nursing Progress Note Patient Name: Stefania Diaz Patient Location: [place] [address]/J5-1-05 Daily Note:2245: No urine output since 1130. Bladder scan showed 450 cc urine. CTS cabinet professional made aware. Will continue to monitor. This note was completed by: Mike Cr RN PROGRESS Observed: 07/10/2018 Status: COMPLETED Source: [place] 7:05 PM [facility] REPOSITORY HNO ID: [id number] Author: Sheila Pompa Service: Nursing Author Type: Nurse Practitioner Type: Progress Notes Filed: 07/10/2018 7:07 PM Note Text: [facility] CTS POSTOP PROGRESS NOTE Day of Surgery:07/04/2018 S/P SURGERY: Mitral Valve Repair with a 34 mm Michael ring and neochords and Cryo MAZE with LAAL INTERVAL EVENTS / PERTINENT ROS: -S/p MVr-Postop echo completed -S/p MAZE/LAAL-No episodes of Afib. Currently SR with 1st degree AV block-On Metoprolol -Cut wires tomorrow per CTS -Keep CT per Dr. Blake. Total for last 24 hrs- MS-210cc. L-70cc, R-60cc -Leukocytosis-WBC downtrending today 9.98. Afebrile. Denies urinary complaints -FVO-improved. Furosemide changed to PO. Stable on 1 L NC -Encourage Ambulation Rhythm: NSR with 1st degree AV block Intake/Output Summary (Last 24 hours) at 07/10/18 1906 Last data filed at 07/10/18 1833 Gross per 24 hour Intake 940 ml Output 1270 ml Net -330 ml EKG: most recent image reviewed TELE: most recent recordings reviewed CXR: most recent image reviewed Echocardiogram: most recent report reviewed PHYSICAL EXAM: BP 102/58 Pulse 109 Temp 36.9 ?C (98.4 ?F) (Oral) Resp 18 Ht 182.9 cm (6') Wt 68.5 kg (151 lb) SpO2 96% BMI 20.48 kg/m? Neuro: AANDO x 3 moves all extremities with no apparent weakness CV: no jugular venous distention Heart Exam: RRR without murmur, gallop, or rubs. No ectopy., temporary pacer wires intact Resp: clear to auscultation bilaterally and diminished breath sounds. Resp even and unlabored Abd: The abdomen is soft, nontender, nondistended; BS normal; no masses or organomegaly noted. Skin: Skin color, texture, turgor normal, no suspicious rashes or lesions Ext: Trace edema Surgical incisions: Well approximated. No drainage or erythema Chest tube: Yes: Greater than 200 mL output per 24 hours Pacer wires: Yes, Ventricular HISTORY, ASSESSMENT AND PLAN: Problem Transition of Care Performed With Sharing of Clinical Summary Indication for Surgery: Severe MR, severe pulmonary HTN Preop LVEF: 61 ? 5% RVF: low Normal ECG: SR with 1st degree AV block CARDS: Barbi Important/Relevant PMH/PSH: Childhood rheumatic fever, HTN, severe symptomatic MR with dyspnea/orthopnea/PND, former smoker, bilateral pleural effusions, and newly diagnosed atrial fibrillation Airway Difficulty: Grade I - No special instrumentation and easy Pacing Wires: Yes: Ventricular: When discontinuing pacing wires: Cut all pacing wires Chronological List of Surgeries and Major Events (Diagnosis): (Surgeries in bold characters) 07/04/2018: Mitral valve repair with a 34mm Michael ring and neochords and Cyro MAZE with LAAL A/P of Major Active Problems: -S/p MVr-Will need post-op echo (ordered) -S/p MAZE- newly dx Afib pre-op on no meds. Currently SR with 1st degree AV block ND interval 0.22. Continue Metoprolol. -RYZ-Stjytuil-Xzxvryy to PO Lasix -Keep MS, L, and R chest tubes in place per -[facility] in [place], [place]. No skills needs anticipated. Plans to follow up with local PCP. Still deciding on follow up with electrical prospecting operator Discharge Planning: Anticipated Discharge Date: Unknown Barriers to Discharge: Unknown Care Management Discharge Needs: Needs Prior to Discharge: To Be Determined Mitral Regurgitation History: There is severe (3+ - 4+) holosystolic mitral valve regurgitation. Assessment: 07/04/2018- Mitral valve repair with a 34mm Michael ring and neochords Plan: ASA. Post op echo completed Primary Hypertension History: On Metoprolol and Valsartan pre-op Assessment: SBP currently 106-115 Plan: Continue Metoprolol. History of Atrial Fibrillation History: Newly diagnosed Afib preop. On no meds. Assessment: 07/04/2018-Cryo MAZE and LAAL. Currently SR with 1st degree AV block. No episodes of Afib post-op Plan: Increased Metoprolol. Post-Operative Pain History: Developed pain postoperatively Assessment: Pain controlled with current regiment Plan: Continue scheduled Lidoderm patches, tylenol, and prn oxycodone/ultram. Leukocytosis History: Stress-induced leukocytosis. No evidence of infection at this time (afebrile, no radiographic suggestion of infection, no purulent secretions) Assessment: WBC downtrending today 9.98 Plan: Monitor daily with CBC. Consider blood cultures if WBC continues to increase or if other signs/symptoms of infections are evident. Discharge Planning Issues Lives in [place], [place]. No skills needs anticipated. Plans to follow up with local PCP and still deciding on cardiology follow up DAILY STEP DOWN CHECKLIST FOR CATHETER RELATED INFECTION PREVENTION CVC, PICC, Juli and/or Permacath present? No Does the patient have a urinary catheter beyond POD 2? No VTE Risk Assessment: Moderate risk VTE Mechanical and/or Pharmacologic Prophylaxis: IPC Device, GCS and Subcutaneous Heparin Labs and medications reviewed in Epic Case discussed in depth with: CTS team with Dr. Blake SIGNATURE: Sheila Pompa APRN.CNP PATIENT NAME: Stefania Diaz DATE: July 10, 2018 TIME: 19:07 PM PAGER/CONTACT #: [phone] ETX#[id number] ECG COMPLETE W Observed: 07/10/2018 Status: F Source: [place] INTERPRETATION 10:11 AM [facility] [place] REPOSITORY NAME : STEFANIA DIAZ PID : [id number] : 1945 Gender : Male Race : ORD : [id number] Procedure Date : Jul 10 2018 10:11:19 Edit Date : Jul 11 2018 11:23:49 Diagnosis:SINUS TACHYCARDIA WITH OCCASIONAL PREMATURE VENTRICULAR COMPLEXES OTHERWISE NORMAL ECG Confirmed by ANDRZEJ SNOW M.D. ([id number]) on 07/11/2018 11:23:14 AM Ventricular Rate : 114 BPM Atrial Rate : 114 BPM P-R Interval : 192 ms QRS Duration : 90 ms Q-T Interval : 328 ms QTC Calculation(Bezet) : 452 ms P [place] : 84 degrees R [place] : 13 degrees T [place] : 55 degrees Test Reason : Location : 351 : J51 J5105 Overread By : ANDRZEJ SNOW M.D. Edited By : ANDRZEJ SNOW M.D. Referred By : , Acquired by : DEIRDRE BRADFORD PROGRESS Observed: 07/10/2018 Status: COMPLETED Source: [place] 8:40 AM [facility] REPOSITORY HNO ID: [id number] Author: Vernon Landa Service: (none) Author Type: (none) Type: Progress Notes Filed: 07/10/2018 8:40 AM Note Text: Radiology Service Progress Note PATIENT NAME: Stefania Diaz DATE OF SERVICE: July 10, 2018 TIME: 8:40 AM PATIENT IDENTITY VERIFICATION COMPLETED USING TWO (2) METHODS: Patient confirmed name verbally and ID band matches.. PATIENT GENDER DATA: Male PATIENT RELEVANT IMPLANT DATA REVIEWED: Yes RADIOLOGY DEPARTMENT: General X-ray: Exam(s) Completed: Chest X-Ray PERIPHERAL IV DATA: Not applicable SIGNED BY: Vernon Landa July 10, 2018 8:40 AM XR CHEST 2V FRONTAL/LAT Observed: 07/10/2018 Status: F Source: [place] 8:34 AM [facility] REPOSITORY * * *Final Report* * * DATE OF EXAM: Jul 10 2018 8:34AM JIX [id number] - XR CHEST 2V FRONTAL/LAT / PROCEDURE REASON: Pleural effusion * * * * Physician Interpretation * * * * CHEST RADIOGRAPH (2 VIEW PA and LATERAL) Indication: Pleural effusion M: XC2_1 Comparison: Chest radiograph dated 07/08/2018 RESULTS: See impression. IMPRESSION: Lines, tubes, and devices: Patient is status post median sternotomy for mitral valve repair and placement of a left atrial appendage occlusion clip. Mediastinal drain and bilateral thoracostomy tubes are present. Lungs and pleura: Stable small left pleural effusion. Bibasilar opacities appear unchanged and likely represent atelectasis. No new consolidative opacity or pulmonary edema. Small biapical pneumothoraces have not substantially changed in size in the interval. Cardiomediastinal silhouette: Stable enlargement of the cardiomediastinal silhouette. Gas in the retrosternal region is consistent with recent cardiac surgery. Other: Mild endplate degenerative changes are present within the thoracic spine. Self Propelled Hot Mix Roller Operator: MARCO ANTONIO Transcribe Date/Time: Jul 10 2018 11:03A Dictated by : IVAN MOBLEY MD This examination was interpreted and the report reviewed and electronically signed by: IVAN MOBLEY MD on Jul 10 2018 11:05AM EST [id number] CBC Collected: 07/10/2018 Status: F Source: [place] 7:40 AM [facility] REPOSITORY TYPE CODE TESTS RESULT OUT OF REFERENCE UNITS RANGE LAB WBC 3.70-11.00 k/uL WBC 9.98 LAB RBC 4.20-6.00 m/uL Low RBC 2.90 LAB HGB 13.0-17.0 g/dL Low Hemoglobin 9.7 LAB HCT 39.0-51.0 % Low Hematocrit 29.0 LAB MCV 80.0-100.0 fL MCV 100.0 LAB MCH 26.0-34.0 pG MCH 33.4 LAB MCHC 30.5-36.0 g/dL MCHC 33.4 LAB RDWCV 11.5-15.0 % RDW-CV 14.0 LAB PLTCT 150-400 k/uL Platelet Count 386 LAB MPV 9.0-12.7 fL MPV 9.6 LAB ABSNUC <0.01 k/uL Absolute nRBC <0.01 Performed By: #### CBC, CMP #### [facility] [address] [address] COMP METABOLIC PANEL Collected: 07/10/2018 Status: F Source: [place] 7:40 AM [facility] REPOSITORY TYPE CODE TESTS RESULT OUT OF REFERENCE UNITS RANGE LAB TP 6.3-8.0 g/dL Low Protein, Total 6.0 LAB ALB 3.9-4.9 g/dL Low Albumin 3.2 LAB CA 8.5-10.2 mg/dL Calcium, Total 9.1 LAB TBIL 0.2-1.3 mg/dL Bilirubin, Total 0.9 LAB ALKP 38-113 U/L Alkaline High Phosphatase 119 LAB AST 14-40 U/L AST 35 LAB GLU 74-99 mg/dL Glucose High 140 Result Comment: The [place] [employer] (ADA) provides guidance for cutoff values for fasting glucose and random glucose. The ADA defines fasting as no caloric intake for at least 8 hours. Fas ting plasma glucose results between 100 to 125 mg/dL indicate increased risk for diabetes (prediabetes). Fasting plasma glucose results greater than or equal to 126 mg/dL meet the criteria for diagnosis of diabetes. In the absence of unequivocal hyperglycemia, results should be confirmed by repeat testing. In a patient with classic symptoms of hyperglycemia or hyperglycemic crisis, random plasma glucose results greater than or equal to 200 mg/dL meet the criteria for diagnosis of diabetes. Reference: Standards of Medical Care in Diabetes 2016, [place] [employer]. Diabetes Care. 2016.39(Suppl 1). LAB BUN 9-24 mg/dL BUN 21 LAB CRET 0.73-1.22 mg/dL Creatinine 0.89 LAB NA 136-144 mmol/L Sodium 136 LAB K 3.7-5.1 mmol/L Potassium 3.7 LAB CL 97-105 mmol/L Chloride Low 95 LAB CO2 22-30 mmol/L CO2 28 LAB AGAP 9-18 mmol/L Anion Gap 13 LAB ALT 10-54 U/L ALT 35 LAB GFRAA eGFR- Amer. >60 LAB GFRNAA . eGFR-All Other Races >60 Result Comment: eGFR (Estimated GFR) Units of measure: mL/min/1.73 meters squared eGFR is derived from the reexpressed MDRD Study equation using the following parameters: serum creatinine, age, gender and race. The creatinine assay has been calibrated to be traceable to IDMS. An eGFR <60 mL/min/1.73m2 for >3 months is consistent with chronic kidney disease. Refer to KDOQI guidelines for clinical interpretation. In patients with unstable renal function, e.g. those with acute kidney injury, the eGFR may not accurately reflect actual GFR. Performed By: #### CBC, CMP #### [facility] [address] [address] PROGRESS Observed: 07/09/2018 Status: COMPLETED Source: [place] 9:27 AM [facility] REPOSITORY HNO ID: [id number] Author: Porter Lewis Service: Cardiac Surgery Author Type: Physician Type: Progress Notes Filed: 07/09/2018 9:29 AM Note Text: Pt is doing fine , sinus rhythm, no issues , serosanguinous drainage 320 ml total . Plan : deep breathing exercises , 2D echo , keep chest tubes one more day . ECG COMPLETE W Observed: 07/08/2018 Status: F Source: [place] INTERPRETATION 1:03 PM [facility] REPOSITORY NAME : STEFANIA DIAZ PID : [id number] : 1945 Gender : Male Race : ORD : [id number] Procedure Date : Jul 08 2018 13:03:13 Edit Date : Jul 11 2018 14:28:21 Diagnosis:SINUS RHYTHM WITH 1ST DEGREE AV BLOCK PERICARDITIS Confirmed by EVELYNE DELGADO M.D. ([id number]) on 07/11/2018 2:20:38 PM Ventricular Rate : 98 BPM Atrial Rate : 98 BPM P-R Interval : 222 ms QRS Duration : 94 ms Q-T Interval : 368 ms QTC Calculation(Bezet) : 469 ms P [place] : 65 degrees R [place] : 9 degrees T [place] : 54 degrees Test Reason : Location : 351 : J51 J5105 Overread By : EVELYNE DELGADO M.D. Edited By : EVELYNE DELGADO M.D. Referred By : , Acquired by : YIN CHAUDHRY ALLIED HEALTH Observed: 07/08/2018 Status: COMPLETED Source: [place] 11:44 AM [facility] [place] REPOSITORY O ID: [id number] Author: Deonte (Ex Phys) Jaden Service: Cardiovascular Medicine Author Type: Camera Machinist Type: Allied Health Filed: 07/08/2018 11:47 AM Note Text: CARDIAC REHABILITATION PHASE I ASSESSMENT PATIENT NAME: Stefania Diaz SERVICE DATE: July 08, 2018 SESSION TIME: 10:25am BP HR SpO2 % Flow/Rate L/min Pain (0-10) Supine N/A Patient seated in chair N/A Seated (edge of bed > 30 sec) Yes 103/65 92 96% 1L 0 Sit --> Stand (stand unassisted > 30 sec) No N/A 95 N/A 1L 0 Ambulation (>10? unassisted) No 131/67 99 96% 1L 0 Post N/A N/A 94 N/A 1L 0 Pre-Exercise Assessment 1. Ankle Pumps x 5: Left - Yes Right - Yes 2. Point Pain in Calf: Left - No Right - No 3. Dorsiflex: Left - Yes Right - Yes 4. Overhead Reach x 3: Left - Yes Right - Yes 5. Unstable Sternum: No 6. Shoulder Pain: Left - No Right - No Exercise Distance: ~ 500 feet Duration: ~ 3-4 minutes Assistance: Standby supervision Device: IV pole RECOMMENDATIONS: Ambulate: with staff assist only Oxygen: with O2 1L or as advised by nurse Assist Device: yes - IV pole / prn / wheeled walker COMMENTS: 1. Pt was seated in chair upon arrival to room. Pt was willing to participate in activity. Pt tolerated activity well and was steady while ambulating ~ 500 feet utilizing IV Pole and SBA. Pt had no complaints at this time. HP was reviewed with pt and order for Phase II Cardiac Rehab was provided. 2. Instructed on continued increased ambulation as tolerated 4-6 times per day. 3. Reviewed signs and symptoms of exercise intolerance. 4. Encouraged pt/family to attend Home Activity Guidelines class (M,W,F 3:00-3:30pm) in room [facility]. Home Program: Provided and reviewed home activity guidelines as outlined below. Frequency: 4 - 6 days/week Intensity: 3 - 4/10 RPE Type: walking - start at 3 - 5 minutes/4 - 6 x day Duration: 20 - 30 minutes -----> 45 + minutes Deonte Stanley Ex Buffy Phone: [phone] July 08, 2018 11:44 AM PT ED Observed: 07/08/2018 Status: COMPLETED Source: [place] 11:31 AM [facility] [place] REPOSITORY O ID: [id number] Author: Harpal Rhodes (Pharmacist) Service: Pharmacy Author Type: Pharmacist Type: Patient Education Filed: 07/13/2018 11:14 AM Note Text: PHARMACY WARFARIN EDUCATION Patient Name: Stefania Diaz Account #: Data Unavailable Admission Date: 06/29/2018 12:15 AM Date of Contact: July 08, 2018 Time of Contact: 11:31 AM Patient new to warfarin? Yes Outpatient follow-up plan: Other: CTS plan is to not anticoagulate at this time. Patient requests to follow up with PCP in [place], [place] Indication for warfarin: atrial fibrillation Target INR range: 2.0 - 3.0 (Target 2.5) Patient received full warfarin education. Initial patient education included: * Reason for taking warfarin * How warfarin works * What the INR test is, frequency of testing, and the importance of monitoring warfarin with scheduled PT/INR blood draws or finger sticks * Information about plans to monitor warfarin post-discharge was reviewed * When to take warfarin and what to do if a dose is missed * Identifying tablet(s) and to notify the doctor/anticoagulation clinic if there is a change in tablet color, shape, or markings * Drug interactions (Rx, OTC, herbal) and importance of notifying the doctor/anticoagulation clinic with any changes. * Do not take or discontinue any medication or over the counter medication except on the advice of the physician or pharmacist because certain medications can affect the PT/INR. * Potential duration of therapy * Signs/symptoms of bleeding and what to do if they occur because warfarin increases the risk of bleeding * Precautionary measures to decrease trauma/bleeding * Signs/symptoms of thrombosis and what to do if they occur * Need to limit or avoid EtOH consumption * Dietary considerations discussing that a ?consistent amount? of foods with vitamin K rather than avoidances should be advised and to avoid major changes in dietary habits, or notify health professional before changing habits because diet can affect the PT/INR * Carrying identification * Importance of notifying healthcare provider and [facility] when hospitalizations occur and when another healthcare provider has asked them to stop/hold warfarin before any procedure * Importance of notifying all healthcare providers they are taking warfarin * Use of control measures if applicable * The importance of taking warfarin as instructed and the potential ramifications of non- compliance were explained to the patient. The patient was provided ?Understanding the Anticoagulant Medication Warfarin? education booklet which includes the following : compliance Issues, dietary advice, follow-up with physician, follow- up monitoring, potential adverse drug reactions and interactions. READINESS TO LEARN COGNITIVE ABILITY: Alert and oriented MOTIVATION TO LEARN: Interested FAMILY SUPPORT: Unable to assess - Family not present. Patient lives alone. INSTRUCTION PROVIDED TO: Patient PATIENT LEARNS BEST BY: Unable to Assess FACTORS AFFECTING LEARNING: None PHYSICAL LIMITATIONS AFFECTING LEARNING: None LEARNING RESPONSE DIAGNOSIS: SEE INDICATION(S) ABOVE PATIENT/FAMILY RESPONSE: Verbalizes understanding of: The signs and symptoms of a worsening condition that warrant a call to the physician. The correct actions to take to manage symptoms associated with his/her disease/illness. The physical restrictions and recommendations after discharge from the hospital. Accurate knowledge of prescribed medication prior to discharge. The correct action to take if medication dose is missed. The side effects associated with the medication that warrant a call to the physician. Post discharge follow up instruction Diet / weight monitoring METHOD OF INSTRUCTION: Individual instruction SUPPLEMENTAL MATERIAL PROVIDED: Warfarin booklet Understanding your Warfarin Therapy: FURTHER RECOMMENDATIONS (if any) none EVIDENCE OF LEARNING Outcomes met: Describes/able to restate information Outpatient Follow-up: TBD. Patient requests to follow up with PCP in [place], [place] Khloe Scott (Retail Visual Merchandiser) PROGRESS Observed: 07/08/2018 Status: COMPLETED Source: [place] 9:58 AM [facility] REPOSITORY HNO ID: [id number] Author: Ellis (Rt) Nadja Euceda Service: Radiology Author Type: Research & Analytics Manager Type: Progress Notes Filed: 07/08/2018 9:58 AM Note Text: Radiology Service Progress Note PATIENT NAME: Stefania Diaz DATE OF SERVICE: July 08, 2018 TIME: 9:58 AM PATIENT IDENTITY VERIFICATION COMPLETED USING TWO (2) METHODS: Patient confirmed name verbally and Date of . PATIENT GENDER DATA: Male PATIENT RELEVANT IMPLANT DATA REVIEWED: Yes RADIOLOGY DEPARTMENT: General X-ray: Exam(s) Completed: Chest X-Ray PERIPHERAL IV DATA: Not applicable SIGNED BY: RT Vidhi July 08, 2018 9:58 AM XR CHEST 2V FRONTAL/LAT Observed: 07/08/2018 Status: F Source: [place] 9:52 AM [facility] REPOSITORY * * *Final Report* * * DATE OF EXAM: Jul 08 2018 9:52AM JIX [id number] - XR CHEST 2V FRONTAL/LAT / PROCEDURE REASON: Post-operative / post-procedure assessment, asymptomatic * * * * Physician Interpretation * * * * EXAMINATION: CHEST RADIOGRAPH (2 VIEW FRONTAL and LATERAL) CLINICAL HISTORY: Post-operative / post-procedure assessment, asymptomatic, MQ: XC2_5 Comparison: 07/07/2018 RESULT: Lines, tubes, and devices: Right IJ PA catheter removed. Stable bilateral chest tubes and mediastinal drain. Lungs and pleura: NEW SMALL BIAPICAL PNEUMOTHORACES WITH APPROXIMATELY 1 CM SEPARATION OF RIGHT APICAL PLEURAL STRIPE BILATERAL APICAL PLEURAL STRIPES. Small left pleural effusion is noted with associated basilar atelectases. Mild atelectasis in the right base without substantial right pleural effusion. Mild perihilar reticular opacities in both lungs suggestive of interstitial edema/venous congestion. Cardiomediastinal silhouette: Stable cardiomediastinal silhouette. Mitral annuloplasty and left atrial appendage clip. Other: Median sternotomy with improving retrosternal air pockets, likely postsurgical.. IMPRESSION: See body of report. Self Propelled Hot Mix Roller Operator: MARCO ANTONIO Transcribe Date/Time: Jul 08 2018 1:53P Dictated by : ZAC LLANES MD This examination was interpreted and the report reviewed and electronically signed by: ZAC LLANES MD on Jul 08 2018 1:54PM EST [id number] PROGRESS Observed: 07/08/2018 Status: COMPLETED Source: [place] 8:20 AM [facility] [place] REPOSITORY HNO ID: [id number] Author: Sheila Pompa Service: Nursing Author Type: Nurse Practitioner Type: Progress Notes Filed: 07/08/2018 5:08 PM Note Text: [facility] CTS POSTOP PROGRESS NOTE Day of Surgery:07/04/2018 S/P SURGERY: Mitral Valve Repair with a 34 mm Michael ring and neochords and Cryo MAZE with LAAL INTERVAL EVENTS / PERTINENT ROS: -S/p MVr-will need postop echo (ordered) -S/p MAZE/LAAL-No episodes of Afib. Currently SR with 1st degree AV block-On Metoprolol -Cut wires tomorrow per CTS -Keep CT per Dr. Blake. Total for last 24 hrs- MS-190cc. L- 250cc, R-800cc -Leukocytosis-WBC downtrending today 15.62. Afebrile. Denies urinary complaints -FVO-improving. Continue Furosemide. Stable on 1 L NC -Encourage Ambulation Rhythm: NSR with 1st degree AV block Intake/Output Summary (Last 24 hours) at 07/08/18 1705 Last data filed at 07/08/18 1231 Gross per 24 hour Intake 1355 ml Output 1920 ml Net -565 ml EKG: most recent image reviewed TELE: most recent recordings reviewed CXR: most recent image reviewed Echocardiogram: most recent report reviewed PHYSICAL EXAM: BP 106/55 Pulse 95 Temp 36.7 ?C (98.1 ?F) (Oral) Resp 18 Ht 182.9 cm (6') Wt 71.4 kg (157 lb 8 oz) SpO2 95% BMI 21.36 kg/m? Neuro: AANDO x 3 moves all extremities with no apparent weakness CV: no jugular venous distention Heart Exam: RRR without murmur, gallop, or rubs. No ectopy., temporary pacer wires intact Resp: clear to auscultation bilaterally and diminished breath sounds. Resp even and unlabored Abd: The abdomen is soft, nontender, nondistended; BS normal; no masses or organomegaly noted. Skin: Skin color, texture, turgor normal, no suspicious rashes or lesions Ext: Trace edema Surgical incisions: Well approximated. No drainage or erythema Chest tube: Yes: Greater than 200 mL output per 24 hours Pacer wires: Yes, Ventricular HISTORY, ASSESSMENT AND PLAN: Problem Transition of Care Performed With Sharing of Clinical Summary Indication for Surgery: Severe MR, severe pulmonary HTN Preop LVEF: 61 ? 5% RVF: low Normal ECG: SR with 1st degree AV block CARDS: Barbi Important/Relevant PMH/PSH: Childhood rheumatic fever, HTN, severe symptomatic MR with dyspnea/orthopnea/PND, former smoker, bilateral pleural effusions, and newly diagnosed atrial fibrillation Airway Difficulty: Grade I - No special instrumentation and easy Pacing Wires: Yes: Ventricular: When discontinuing pacing wires: Cut all pacing wires Chronological List of Surgeries and Major Events (Diagnosis): (Surgeries in bold characters) 07/04/2018: Mitral valve repair with a 34mm Michael ring and neochords and Cyro MAZE with LAAL A/P of Major Active Problems: -S/p MVr-Will need post-op echo (ordered) -S/p MAZE- newly dx Afib pre-op on no meds. Currently SR with 1st degree AV block ND interval 0.22. Increased Metoprolol. -FVO-Improving- Continue IV Furosemide -Keep MS, L, and R chest tubes in place per -[facility] in [place], [place]. No skills needs anticipated. Plans to follow up with local PCP. Still deciding on follow up with electrical prospecting operator. Discharge Planning: Anticipated Discharge Date: Unknown Barriers to Discharge: Unknown Care Management Discharge Needs: Needs Prior to Discharge: To Be Determined Mitral Regurgitation History: There is severe (3+ - 4+) holosystolic mitral valve regurgitation. Assessment: 07/04/2018- Mitral valve repair with a 34mm Michael ring and neochords Plan: ASA. Will need post op echo (ordered) Primary Hypertension History: On Metoprolol and Valsartan pre-op Assessment: SBP currently 106-115 Plan: Continue Metoprolol History of Atrial Fibrillation History: Newly diagnosed Afib preop. On no meds. Assessment: 07/04/2018-Cryo MAZE and LAAL. Currently SR with 1st degree AV block. No episodes of Afib post-op Plan: Increased Metoprolol Post-Operative Pain History: Developed pain postoperatively Assessment: Pain controlled with current regiment Plan: Continue scheduled Lidoderm patches, tylenol, and prn oxycodone/ultram Leukocytosis History: Stress-induced leukocytosis. No evidence of infection at this time (afebrile, no radiographic suggestion of infection, no purulent secretions) Assessment: WBC downtrending today 15.62 Plan: Monitor daily with CBC. Consider blood cultures if WBC continues to increase or if other signs/symptoms of infections are evident. Discharge Planning Issues Lives in [place], [place]. No skills needs anticipated. Plans to follow up with local PCP and still deciding on cardiology follow up. DAILY STEP DOWN CHECKLIST FOR CATHETER RELATED INFECTION PREVENTION CVC, PICC, Juli and/or Permacath present? No Does the patient have a urinary catheter beyond POD 2? No VTE Risk Assessment: Moderate risk VTE Mechanical and/or Pharmacologic Prophylaxis: IPC Device, GCS and Subcutaneous Heparin Labs and medications reviewed in Epic Case discussed in depth with: CTS team with Dr. Blake SIGNATURE: Sheila Pompa APRN.CNP PATIENT NAME: Stefania Diaz DATE: July 08, 2018 TIME: 5:07 PM PAGER/CONTACT #: [phone] ETX#[id number] CBC Collected: 07/08/2018 Status: F Source: [place] 3:25 AM [facility] REPOSITORY TYPE CODE TESTS RESULT OUT OF REFERENCE UNITS RANGE LAB WBC 3.70-11.00 k/uL WBC High 15.62 LAB RBC 4.20-6.00 m/uL Low RBC 2.88 LAB HGB 13.0-17.0 g/dL Low Hemoglobin 9.6 LAB HCT 39.0-51.0 % Low Hematocrit 29.5 LAB MCV 80.0-100.0 fL MCV High 102.4 LAB MCH 26.0-34.0 pG MCH 33.3 LAB MCHC 30.5-36.0 g/dL MCHC 32.5 LAB RDWCV 11.5-15.0 % RDW-CV 14.6 LAB PLTCT 150-400 k/uL Platelet Count 196 LAB MPV 9.0-12.7 fL MPV 10.8 LAB ABSNUC <0.01 k/uL Absolute High nRBC 0.01 Performed By: #### CBC, CMP #### [facility] [address] [place], [place] [address] COMP METABOLIC PANEL Collected: 07/08/2018 Status: F Source: [place] 3:25 AM [facility] [place] REPOSITORY TYPE CODE TESTS RESULT OUT OF REFERENCE UNITS RANGE LAB TP 6.3-8.0 g/dL Low Protein, Total 5.6 LAB ALB 3.9-4.9 g/dL Low Albumin 2.9 LAB CA 8.5-10.2 mg/dL Calcium, Total 8.7 LAB TBIL 0.2-1.3 mg/dL Bilirubin, Total 1.1 LAB ALKP 38-113 U/L Alkaline Phosphatase 92 LAB AST 14-40 U/L AST 33 LAB GLU 74-99 mg/dL Glucose 95 Result Comment: The [place] Diabetes Association (ADA) provides guidance for cutoff values for fasting glucose and random glucose. The ADA defines fasting as no caloric intake for at least 8 hours. Fas ting plasma glucose results between 100 to 125 mg/dL indicate increased risk for diabetes (prediabetes). Fasting plasma glucose results greater than or equal to 126 mg/dL meet the criteria for diagnosis of diabetes. In the absence of unequivocal hyperglycemia, results should be confirmed by repeat testing. In a patient with classic symptoms of hyperglycemia or hyperglycemic crisis, random plasma glucose results greater than or equal to 200 mg/dL meet the criteria for diagnosis of diabetes. Reference: Standards of Medical Care in Diabetes 2016, [place] [employer] Association. Diabetes Care. 2016.39(Suppl 1). LAB BUN 9-24 mg/dL BUN High 26 LAB CRET 0.73-1.22 mg/dL Creatinine 0.99 LAB NA 136-144 mmol/L Sodium 138 LAB K 3.7-5.1 mmol/L Potassium 3.7 LAB CL 97-105 mmol/L Chloride 97 LAB CO2 22-30 mmol/L CO2 27 LAB AGAP 9-18 mmol/L Anion Gap 14 LAB ALT 10-54 U/L ALT 28 LAB GFRAA eGFR- Amer. >60 LAB GFRNAA . eGFR-All Other Races >60 Result Comment: eGFR (Estimated GFR) Units of measure: mL/min/1.73 meters squared eGFR is derived from the reexpressed MDRD Study equation using the following parameters: serum creatinine, age, gender and race. The creatinine assay has been calibrated to be traceable to IDMS. An eGFR <60 mL/min/1.73m2 for >3 months is consistent with chronic kidney disease. Refer to KDOQI guidelines for clinical interpretation. In patients with unstable renal function, e.g. those with acute kidney injury, the eGFR may not accurately reflect actual GFR. Performed By: #### CBC, CMP #### [facility] [address] [address] PROGRESS Observed: 07/08/2018 Status: COMPLETED Source: [place] 1:58 AM [facility] REPOSITORY HNO ID: [id number] Author: Downtime Note Service: (none) Author Type: (none) Type: Progress Notes Filed: 07/08/2018 2:01 AM Note Text: Epic Scheduled Downtime: 07/08/2018 12:00:01 AM to 07/08/2018 1:54:00 AM NURSING PROG Observed: 07/07/2018 Status: COMPLETED Source: [place] 4:45 PM [facility] REPOSITORY HNO ID: [id number] Author: Maricruz Pearce) RENITA Farfan Service: (none) Author Type: Registered Nurse Type: Nursing Progress Note Filed: 07/07/2018 4:46 PM Note Text: Nursing Progress Note Patient Name: Stefania Diaz [address] Transfer Note: Patient transferred into room/unit J51-05. in stable condition. Actions taken: patient oriented to room and unit. No skin issues noted at this time. Falls protocol initiated and pt reminded to call before getting up. Will continue to check with patient for changes. This note was completed by: Maricruz Farfan, RN ALLIED HEALTH Observed: 07/07/2018 Status: COMPLETED Source: [place] 1:48 PM [facility] REPOSITORY HNO ID: [id number] Author: Norma Fall (Chaplain), Baby Registry Sales Consultant Service: (none) Author Type: Baby Registry Sales Consultant Type: Allied Health Filed: 07/07/2018 1:52 PM Note Text: SPIRITUALCARE Spiritual Care Visit- Brief Note Name: Stefania Diaz Date: July 07, 2018 Notes: Intro visit with pt and pt's son. Baby Registry Sales Consultant will follow up as needed. Baby Registry Sales Consultant Signature: Chaplain Mila Resident To contact the Spiritual Care Department: Please call [phone] or Page the On-Call Baby Registry Sales Consultant at pager [phone] Thank you for the opportunity to be of service. This is an electronically created document. IF PRINTED, PLEASE DO NOT REMOVE FROM THE CHART OR MODIFY PRINTED COPY. PROGRESS Observed: 07/07/2018 Status: COMPLETED Source: [place] 11:31 AM [facility] REPOSITORY O ID: [id number] Author: Sagar Stout Service: Critical Care Author Type: Anesthesiologist Type: Progress Notes Filed: 07/07/2018 11:32 AM Note Text: [facility] CVICU Note Name: Stefania Diaz Coordination of Care Note: Indication for Surgery: Severe MR, severe pulmonary HTN Preop LVEF: 61 ? 5% RVF: low Normal Important/Relevant PMH/PSH: Childhood rheumatic fever, HTN, severe symptomatic MR with dyspnea/orthopnea/PND, former smoker, bilateral pleural effusions, and newly diagnosed atrial fibrillation Airway Difficulty: Grade I - No special instrumentation and easy Pacing Wires: Yes: Ventricular: When discontinuing pacing wires: Cut all pacing wires Chronological List of Surgeries and Major Events (Diagnosis): (Surgeries in bold characters) 07/04/2018: Mitral valve repair with a 34mm Michael ring and neochords and Cyro MAZE with LAAL A/P of Major Active Problems: Cardiac:stable hemodynamics, started low dose lopressor Resp: breathing 2 L O2 Endo: Stress hyperglycemia To Do or to Watch: Keep chest tubes in place per Discharge Planning: Anticipated Discharge Date: Unknown Barriers to Discharge: Unknown Care Management Discharge Needs: Needs Prior to Discharge: To Be Determined Other Problems I Reviewed and/or Managed During This Encounter: No problems updated. PHYSICAL EXAM: Neuro: Awake, Follows commands and Alert and oriented x 3 Cardiovascular: Rhythm: regular rate and rhythm and Rate:normal sinus rhythm Pulmonary: Clear to auscultation and Breath sounds equal Ventilator: N/A, patient is extubated CXR Findings: Atelectasis Bilateral, Pleural effusion Left and CXR personally viewed and interpreted by ICU staff Physician Gastrointestinal: Abdominal: Soft and Non-tender DAILY CVICU CHECKLIST VTE Prophylaxis: Pharmacologic Yes VTE Prophylaxis: Mechanical: Yes Line infection prevention: Can CVC, PAC or arterial line be removed: Yes - Remove arterial line and Remove Central venous catheter Continued need for urinary catheter: Yes - clinical indication: Patient post major surgery requiring fluid balance and input and output measurement. Restraints needed: No Level 3 care SIGNATURE: Sagar Stout MD DATE of SERVICE: 07/07/2018 TIME of SERVICE: 11:32 AM CASE MANAGEM Observed: 07/07/2018 Status: COMPLETED Source: [place] 11:07 AM [facility] REPOSITORY O ID: [id number] Author: Beryl (Rn) RENITA Cavanaugh Service: Case Management Author Type: Registered Nurse Type: Care Mgt Progress Note Filed: 07/07/2018 11:09 AM Note Text: CARE MANAGEMENT PROGRESS NOTE SERVICE DATE: 07/07/2018 SERVICE TIME: 11:08 AM LOS: 8 days Needs Prior to Discharge: To Be Determined;OT/PT Evaluation Anticipate transfer to step down unit. D/C needs and date TBD. SIGNATURE: Beryl Cavanaugh RN PATIENT NAME: Stefania Diaz DATE: July 07, 2018 TIME: 11:08 AM PAGER/CONTACT #: [phone] GASA + ALL Collected: 07/07/2018 Status: F Source: [facility] 8:38 AM [facility] RADIANCE USE ONLY REPOSITORY TYPE CODE TESTS RESULT OUT OF REFERENCE UNITS RANGE LAB PH 7.35-7.45 pH High 7.49 LAB PCO2 34-46 mm Hg pCO2 36 LAB PO2 85-95 mm Hg pO2 High 103 LAB BE mmol/L Base Excess 4 LAB HCO3 22-26 mmol/L Bicarbonate High 27 LAB CO2CT 22.0-28.0 mmol/L CO2 Content High 29 LAB O2HB 95-98 % Oxyhemoglobin, Art. 96 LAB COHB 0-5.0 % Carboxyhemoglobin,A 1.4 rt LAB MHGB 0.4-1.5 % Methemoglobin 1.2 LAB TEMP C Temperature, Body 37.0 LAB PHTC 7.35-7.45 pH, Temp High Corrected 7.49 LAB PCO2T 34-46 mm Hg pCO2, Temp Correct 36 LAB PO2T mm Hg pO2, Temp Corrected 103 LAB NAB 135-146 mmol/L Sodium,Whole Bld 138 LAB KWB 3.5-5.0 mmol/L Potassium, Whole Bld 3.8 LAB HGBB 13.0-17.0 g/dL Low Hemoglobin,Total,AC 10.0 L LAB HCTB 39.0-51.0 % Hematocrit, ACL Low 31 LAB IC 1.08-1.30 mmol/L Calcium, Ion, WB 1.19 LAB GLB 60-105 mg/dL Glucose,Whole Bld High 107 LAB LACT 0.5-2.2 mmol/L Lactate 1.5 Performed By: #### ALLBG #### [facility] [address] [place], [place] [address] XR CHEST 1V FRONTAL Observed: 07/07/2018 Status: F Source: [facility] 4:57 AM [facility] REPOSITORY * * *Final Report* * * DATE OF EXAM: Jul 07 2018 4:57AM ELIEX [id number] - XR CHEST 1V FRONTAL PORT / PROCEDURE REASON: Evaluate tube, line or lead position * * * * Physician Interpretation * * * * EXAMINATION: CHEST RADIOGRAPH (PORTABLE SINGLE VIEW AP) Exam Date/Time: 07/07/2018 4:57 AM Clinical History: Evaluate tube, line or lead position, MQ: XCPMC_5 Comparison: 1 day prior RESULT: See impression. IMPRESSION: Lines, tubes, and devices: IABP removed. Right IJ PA catheter, mediastinal drain and bilateral basilar chest tubes are unchanged in positions. Lungs and pleura: Stable small left pleural effusion and associated left basilar atelectasis. Stable left greater than right, bilateral perihilar reticular opacities, which could represent mild residual pulmonary edema. No large pneumothorax appreciated. Cardiomediastinal silhouette: Stable cardiomediastinal silhouette. Stable mitral annuloplasty ring and left atrial appendage clip. Other: Median sternotomy . Self Propelled Hot Mix Roller Operator: MARCO ANTONIO Transcribe Date/Time: Jul 07 2018 8:23A Dictated by : AZC LLANES MD This examination was interpreted and the report reviewed and electronically signed by: ZAC LLANES MD on Jul 07 2018 8:24AM EST [id number] TYPE AND SCREEN Collected: 07/07/2018 Status: F Source: [place] 3:30 AM [facility] REPOSITORY TYPE CODE TESTS RESULT OUT OF REFERENCE UNITS RANGE LAB %ABR O ABO/RH(D) POSITIVE LAB % Antibody NEG Screen Performed By: #### TSCR #### [facility] [address] [place] [address] GASA + ALL Collected: 07/07/2018 Status: F Source: [place] FOR 1:50 AM [facility] RADIANCE USE ONLY REPOSITORY TYPE CODE TESTS RESULT OUT OF REFERENCE UNITS RANGE LAB PH 7.35-7.45 pH High 7.48 LAB PCO2 34-46 mm Hg pCO2 40 LAB PO2 85-95 mm Hg pO2 High 114 LAB BE mmol/L Base Excess 6 LAB HCO3 22-26 mmol/L Bicarbonate High 30 LAB CO2CT 22.0-28.0 mmol/L CO2 Content High 31 LAB O2HB 95-98 % Oxyhemoglobin, Art. 97 LAB COHB 0-5.0 % Carboxyhemoglobin,A 0.9 rt LAB MHGB 0.4-1.5 % Methemoglobin 0.5 LAB TEMP C Temperature, Body 37.0 LAB PHTC 7.35-7.45 pH, Temp High Corrected 7.48 LAB PCO2T 34-46 mm Hg pCO2, Temp Correct 40 LAB PO2T mm Hg pO2, Temp Corrected 114 LAB NAB 135-146 mmol/L Sodium,Whole Bld 138 LAB KWB 3.5-5.0 mmol/L Potassium, Whole Bld 4.1 LAB HGBB 13.0-17.0 g/dL Low Hemoglobin,Total,AC 9.6 L LAB HCTB 39.0-51.0 % Hematocrit, ACL Low 30 LAB IC 1.08-1.30 mmol/L Calcium, Ion, WB 1.22 LAB GLB 60-105 mg/dL Glucose,Whole Bld High 115 LAB LACT 0.5-2.2 mmol/L Lactate 1.1 Performed By: #### ALLBG #### [facility] [address], [place] [address] CBC Collected: 07/07/2018 Status: F Source: [place] 12:21 AM [facility] REPOSITORY TYPE CODE TESTS RESULT OUT OF REFERENCE UNITS RANGE LAB WBC 3.70-11.00 k/uL WBC High 16.51 LAB RBC 4.20-6.00 m/uL Low RBC 2.81 LAB HGB 13.0-17.0 g/dL Low Hemoglobin 9.5 LAB HCT 39.0-51.0 % Low Hematocrit 28.3 LAB MCV 80.0-100.0 fL MCV High 100.7 LAB MCH 26.0-34.0 pG MCH 33.8 LAB MCHC 30.5-36.0 g/dL MCHC 33.6 LAB RDWCV 11.5-15.0 % RDW-CV 14.7 LAB PLTCT 150-400 k/uL Low Platelet Count 138 LAB MPV 9.0-12.7 fL MPV 10.9 LAB ABSNUC <0.01 k/uL Absolute nRBC <0.01 Performed By: #### CBC, CMP #### [facility], [place] [address] COMP METABOLIC PANEL Collected: 07/07/2018 Status: F Source: [place] 12:21 AM [facility] REPOSITORY TYPE CODE TESTS RESULT OUT OF REFERENCE UNITS RANGE LAB TP 6.3-8.0 g/dL Low Protein, Total 5.1 LAB ALB 3.9-4.9 g/dL Low Albumin 3.3 LAB CA 8.5-10.2 mg/dL Calcium, Total 8.7 LAB TBIL 0.2-1.3 mg/dL Bilirubin, Total 1.0 LAB ALKP 38-113 U/L Alkaline Phosphatase 60 LAB AST 14-40 U/L AST High 42 LAB GLU 74-99 mg/dL Glucose High 114 Result Comment: The [place] [employer] (ADA) provides guidance for cutoff values for fasting glucose and random glucose. The ADA defines fasting as no caloric intake for at least 8 hours. Fas ting plasma glucose results between 100 to 125 mg/dL indicate increased risk for diabetes (prediabetes). Fasting plasma glucose results greater than or equal to 126 mg/dL meet the criteria for diagnosis of diabetes. In the absence of unequivocal hyperglycemia, results should be confirmed by repeat testing. In a patient with classic symptoms of hyperglycemia or hyperglycemic crisis, random plasma glucose results greater than or equal to 200 mg/dL meet the criteria for diagnosis of diabetes. Reference: Standards of Medical Care in Diabetes 2016, [place] [employer]. Diabetes Care. 2016.39(Suppl 1). LAB BUN 9-24 mg/dL BUN 24 LAB CRET 0.73-1.22 mg/dL Creatinine 0.92 LAB NA 136-144 mmol/L Sodium 142 LAB K 3.7-5.1 mmol/L Potassium 4.2 LAB CL 97-105 mmol/L Chloride 102 LAB CO2 22-30 mmol/L CO2 27 LAB AGAP 9-18 mmol/L Anion Gap 13 LAB ALT 10-54 U/L ALT 32 LAB GFRAA eGFR- Amer. >60 LAB GFRNAA . eGFR-All Other Races >60 Result Comment: eGFR (Estimated GFR) Units of measure: mL/min/1.73 meters squared eGFR is derived from the reexpressed MDRD Study equation using the following parameters: serum creatinine, age, gender and race. The creatinine assay has been calibrated to be traceable to IDMS. An eGFR <60 mL/min/1.73m2 for >3 months is consistent with chronic kidney disease. Refer to KDOQI guidelines for clinical interpretation. In patients with unstable renal function, e.g. those with acute kidney injury, the eGFR may not accurately reflect actual GFR. Performed By: #### CBC, CMP #### [facility] [address] [id number] GASA + ALL Collected: 07/06/2018 Status: F Source: [place] FOR 7:50 PM [facility] RADIANCE USE ONLY REPOSITORY TYPE CODE TESTS RESULT OUT OF REFERENCE UNITS RANGE LAB PH 7.35-7.45 pH High 7.49 LAB PCO2 34-46 mm Hg pCO2 40 LAB PO2 85-95 mm Hg pO2 High 108 LAB BE mmol/L Base Excess 6 LAB HCO3 22-26 mmol/L Bicarbonate High 30 LAB CO2CT 22.0-28.0 mmol/L CO2 Content High 31 LAB O2HB 95-98 % Oxyhemoglobin, Art. 96 LAB COHB 0-5.0 % Carboxyhemoglobin,A 1.3 rt LAB MHGB 0.4-1.5 % Methemoglobin 0.9 LAB TEMP C Temperature, Body 37.0 LAB PHTC 7.35-7.45 pH, Temp High Corrected 7.49 LAB PCO2T 34-46 mm Hg pCO2, Temp Correct 40 LAB PO2T mm Hg pO2, Temp Corrected 108 LAB NAB 135-146 mmol/L Sodium,Whole Bld 138 LAB KWB 3.5-5.0 mmol/L Potassium, Whole Bld 4.0 LAB HGBB 13.0-17.0 g/dL Low Hemoglobin,Total,AC 10.0 L LAB HCTB 39.0-51.0 % Hematocrit, ACL Low 31 LAB IC 1.08-1.30 mmol/L Calcium, Ion, WB 1.24 LAB GLB 60-105 mg/dL Glucose,Whole Bld High 136 LAB LACT 0.5-2.2 mmol/L Lactate 1.2 Performed By: #### ALLBG #### [facility] [address] [id number] GASA + ALL Collected: 07/06/2018 Status: F Source: [place] FOR 4:53 PM [facility] RADIANCE USE ONLY REPOSITORY TYPE CODE TESTS RESULT OUT OF REFERENCE UNITS RANGE LAB PH 7.35-7.45 pH High 7.48 LAB PCO2 34-46 mm Hg pCO2 39 LAB PO2 85-95 mm Hg pO2 High 104 LAB BE mmol/L Base Excess 5 LAB HCO3 22-26 mmol/L Bicarbonate High 29 LAB CO2CT 22.0-28.0 mmol/L CO2 Content High 30 LAB O2HB 95-98 % Oxyhemoglobin, Art. 96 LAB COHB 0-5.0 % Carboxyhemoglobin,A 1.2 rt LAB MHGB 0.4-1.5 % Methemoglobin 1.3 LAB TEMP C Temperature, Body 37.0 LAB PHTC 7.35-7.45 pH, Temp High Corrected 7.48 LAB PCO2T 34-46 mm Hg pCO2, Temp Correct 39 LAB PO2T mm Hg pO2, Temp Corrected 104 LAB NAB 135-146 mmol/L Sodium,Whole Bld 139 LAB KWB 3.5-5.0 mmol/L Potassium, Whole Bld 4.1 LAB HGBB 13.0-17.0 g/dL Low Hemoglobin,Total,AC 9.5 L LAB HCTB 39.0-51.0 % Hematocrit, ACL Low 30 LAB IC 1.08-1.30 mmol/L Calcium, Ion, WB 1.24 LAB GLB 60-105 mg/dL Glucose,Whole Bld High 122 LAB LACT 0.5-2.2 mmol/L Lactate 1.0 Performed By: #### ALLBG #### [facility] [address] [place], [place] [address] GASA + ALL Collected: 07/06/2018 Status: F Source: [place] FOR 12:14 PM [facility] RADIANCE USE ONLY REPOSITORY TYPE CODE TESTS RESULT OUT OF REFERENCE UNITS RANGE LAB PH 7.35-7.45 pH High 7.48 LAB PCO2 34-46 mm Hg pCO2 39 LAB PO2 85-95 mm Hg pO2 90 LAB BE mmol/L Base Excess 5 LAB HCO3 22-26 mmol/L Bicarbonate High 29 LAB CO2CT 22.0-28.0 mmol/L CO2 Content High 30 LAB O2HB 95-98 % Oxyhemoglobin, Art. 95 LAB COHB 0-5.0 % Carboxyhemoglobin, 1.6 Art LAB MHGB 0.4-1.5 % Methemoglobin 0.7 LAB TEMP C Temperature, Body 37.0 LAB PHTC 7.35-7.45 pH, Temp High Corrected 7.48 LAB PCO2T 34-46 mm Hg pCO2, Temp Correct 39 LAB PO2T mm Hg pO2, Temp Corrected 90 LAB NAB 135-146 mmol/L Sodium,Whole Bld 140 LAB KWB 3.5-5.0 mmol/L Potassium, Whole Bld 4.2 LAB HGBB 13.0-17.0 g/dL Low Hemoglobin,Total,A 9.2 CL LAB HCTB 39.0-51.0 % Hematocrit, Low ACL 29 LAB IC 1.08-1.30 mmol/L Calcium, Ion, WB 1.26 LAB GLB 60-105 mg/dL Glucose,Whole High Bld 119 LAB LACT 0.5-2.2 mmol/L Lactate 1.1 LAB ACBDTE Notify Date, Art [id number] LAB ACBTME Notify Time, Art Performed By: #### ALLBG #### [facility] [address] [place], [place] [address] PROGRESS Observed: 07/06/2018 Status: COMPLETED Source: [place] 11:10 AM [facility] REPOSITORY HNO ID: [id number] Author: Sagar Stout Service: Critical Care Author Type: Anesthesiologist Type: Progress Notes Filed: 07/06/2018 11:11 AM Note Text: [facility] Note Name: Stefania Diaz Coordination of Care Note: Indication for Surgery: Severe MR, severe pulmonary HTN Preop LVEF: 61 ? 5% RVF: low Normal Important/Relevant PMH/PSH: Childhood rheumatic fever, HTN, severe symptomatic MR with dyspnea/orthopnea/PND, former smoker, bilateral pleural effusions, and newly diagnosed atrial fibrillation Airway Difficulty: Grade I - No special instrumentation and easy Pacing Wires: Yes: Ventricular: When discontinuing pacing wires: Cut all pacing wires Chronological List of Surgeries and Major Events (Diagnosis): (Surgeries in bold characters) 07/04/2018: Mitral valve repair with a 34mm Michael ring and neochords and Cyro MAZE with LAAL A/P of Major Active Problems (excluding routine care and common problems): Cardiac: cardiogenic shock: resolved, stable CI and Svo2 Sinus tachycardia: ? a flutter at 120 bpm. short run of VT treated with magnesium and K+. IABP: d/c today Resp: extubated, breathing 3 L O2 Endo: Stress hyperglycemia To Do or to Watch: d/c IABP Discharge Planning: Anticipated Discharge Date: Unknown Barriers to Discharge: Unknown Care Management Discharge Needs: Needs Prior to Discharge: To Be Determined Other Problems I Reviewed and/or Managed During This Encounter: Problem Cardiogenic Shock (Hcc) Acute postoperative cardiogenic shock after cardiac surgery. Preoperatively, normal LV function and mildly decreased RV function. After CPB required multiple pressors for hemodynamic support. Currently on epinephrine, norepinephrine, vasopressin, and milrinone. IABP on at 1:1. Assessment: Acute postoperative cardiogenic shock. Plan: Resolved stable CI off inotrope Acute Hyperglycemia A/P: Postoperative hyperglycemia, likely due to stress response, no h/o DM. insulin infusion per protocol. transition to SSI Leukocytosis Stress-induced leukocytosis. No evidence of infection at this time (afebrile, no radiographic suggestion of infection, no purulent secretions) Plan: Monitor daily with CBC. Consider blood cultures if WBC continues to increase or if other signs/symptoms of infections are evident. PHYSICAL EXAM: Neuro: Awake, Follows commands and ERAZO Cardiovascular: Rhythm: regular rate and rhythm and Rate:sinus tachycardia Pulmonary: Clear to auscultation and Breath sounds equal Ventilator: N/A, patient is extubated CXR Findings: Atelectasis Bilateral, Increased Vascular Markings Bilateral and CXR personally viewed and interpreted by ICU staff Physician Gastrointestinal: Abdominal: Soft and Non-tender DAILY CVICU CHECKLIST VTE Prophylaxis: Pharmacologic Yes VTE Prophylaxis: Mechanical: Yes Line infection prevention: Can CVC, PAC or arterial line be removed: Yes - Remove PA catheter and Remove IABP Continued need for urinary catheter: Yes - clinical indication: Patient post major surgery requiring fluid balance and input and output measurement. Restraints needed: No This patient has a high probability of sudden, clinically significant deterioration, which requires the highest level of preparedness to intervene urgently. I participated in the decision making and personally managed or directed the management of the following life and organ supporting interventions that required my frequent assessment to treat or prevent imminent deterioration of: Problem Cardiogenic Shock (Hcc) Acute Hyperglycemia Leukocytosis On Mechanically Assisted Ventilation (Hcc) (Resolved) Lactic acid acidosis due to cardiogenic shock (Resolved) I personally spent 40 minutes of critical care time treating the patient. Time devoted to any procedures I billed separately is not included. SIGNATURE: Sagar Stout MD DATE of SERVICE: 07/06/2018 TIME of SERVICE: 11:10 AM GASV + ALL Collected: 07/06/2018 Status: F Source: [place] 8:31 AM [facility] [place] REPOSITORY TYPE CODE TESTS RESULT OUT OF REFERENCE UNITS RANGE LAB VPH 7.32-7.42 pH High 7.43 LAB VPC2 42-55 mm Hg pCO2 48 LAB VPO2 35-45 mm Hg pO2 36 LAB VBE mmol/L Base Excess 6 LAB VHC3 24-28 mmol/L Bicarbonate High 31 LAB VC2C 25-29 mmol/L CO2 Content High 32 LAB O2HBCX 60-85 % Oxyhemoglobin, Curt. 63 LAB CO <2.0 % Carboxyhemoglobin, 1.3 Curt LAB METHB 0.4-1.5 % Methemoglobin 0.8 LAB VTMP C Temperature, Body 37.0 LAB VPHTC 7.32-7.42 pH, Temp High Corrected 7.43 LAB VPC2T mm Hg pCO2, Temp Correct 48 LAB VPO2T mm Hg pO2, Temp Corrected 36 LAB NAB 135-146 mmol/L Sodium,Whole Bld 139 LAB KWB 3.5-5.0 mmol/L Potassium, Whole Bld 4.4 LAB HGBB 13.0-17.0 g/dL Low Hemoglobin,Total,A 9.7 CL LAB HCTB 39.0-51.0 % Hematocrit, Low ACL 30 LAB IC 1.08-1.30 mmol/L Calcium, Ion, WB 1.27 LAB GLB 60-105 mg/dL Glucose,Whole High Bld 141 LAB LACT 0.5-2.2 mmol/L Lactate 1.2 LAB VCBDTE Notify Date, Curt [id number] LAB VCBTME Notify Time, Curt Performed By: #### VALLBG #### [facility] [address] [place], [place] [address] GASA + ALL Collected: 07/06/2018 Status: F Source: [place] FOR 7:58 AM [facility] RADIANCE USE ONLY REPOSITORY TYPE CODE TESTS RESULT OUT OF REFERENCE UNITS RANGE LAB PH 7.35-7.45 pH High 7.47 LAB PCO2 34-46 mm Hg pCO2 40 LAB PO2 85-95 mm Hg pO2 High 115 LAB BE mmol/L Base Excess 5 LAB HCO3 22-26 mmol/L Bicarbonate High 28 LAB CO2CT 22.0-28.0 mmol/L CO2 Content High 30 LAB O2HB 95-98 % Oxyhemoglobin, Art. 97 LAB COHB 0-5.0 % Carboxyhemoglobin,A 1.3 rt LAB MHGB 0.4-1.5 % Methemoglobin 0.4 LAB TEMP C Temperature, Body 37.0 LAB PHTC 7.35-7.45 pH, Temp High Corrected 7.47 LAB PCO2T 34-46 mm Hg pCO2, Temp Correct 40 LAB PO2T mm Hg pO2, Temp Corrected 115 LAB NAB 135-146 mmol/L Sodium,Whole Bld 141 LAB KWB 3.5-5.0 mmol/L Potassium, Whole Bld 4.5 LAB HGBB 13.0-17.0 g/dL Low Hemoglobin,Total,AC 9.3 L LAB HCTB 39.0-51.0 % Hematocrit, ACL Low 29 LAB IC 1.08-1.30 mmol/L Calcium, Ion, WB 1.27 LAB GLB 60-105 mg/dL Glucose,Whole Bld High 130 LAB LACT 0.5-2.2 mmol/L Lactate 1.2 Performed By: #### ALLBG #### [facility] [place] [address], [place] [address] CBC Collected: 07/06/2018 Status: F Source: [place] 7:50 AM [facility] REPOSITORY TYPE CODE TESTS RESULT OUT OF REFERENCE UNITS RANGE LAB WBC 3.70-11.00 k/uL WBC High 17.27 LAB RBC 4.20-6.00 m/uL Low RBC 2.71 LAB HGB 13.0-17.0 g/dL Low Hemoglobin 9.3 LAB HCT 39.0-51.0 % Low Hematocrit 27.5 LAB MCV 80.0-100.0 fL MCV High 101.5 LAB MCH 26.0-34.0 pG MCH High 34.3 LAB MCHC 30.5-36.0 g/dL MCHC 33.8 LAB RDWCV 11.5-15.0 % RDW-CV High 15.1 LAB PLTCT 150-400 k/uL Low Platelet Count 126 LAB MPV 9.0-12.7 fL MPV 11.4 LAB ABSNUC <0.01 k/uL Absolute nRBC <0.01 Performed By: #### CBC, PT, PTT, FIBCT #### [facility] [place] [address], [place] [address] PROTIME Collected: 07/06/2018 Status: F Source: [place] 7:50 AM [facility] REPOSITORY TYPE CODE TESTS RESULT OUT OF RANGE REFERENCE UNITS LAB PSEC 8.4-13.0 sec PT Sec 12.1 LAB INR 0.9-1.3 PT INR 1.2 Result Comment: Vitamin K Antagonist (VKA) Therapeutic Range: INR 2 to 3 (Target INR of 2.5) Note: For patients treated with VKA drugs, such as warfarin, the [place] [employer] 2012 Guideline recommends a therapeutic INR range of 2 to 3 (target INR of 2.5). This recommendation includes high-risk patients with antiphospholipid syndrome with previous arterial or venous thromboembolism, current-generation mechanical or bioprosthetic aortic heart valve replacement. Note: Patients with mechanical aortic valve replacement and additional risk factors for thromboembolic events (atrial fibrillation, previous thromboembolism, LV dysfunction, hypercoagulable conditions) or an older generation mechanical AVR (i.e., ball in-Cage) or any mechanical MVR should have a INR therapeutic range of 2.5 to 3.5 (target INR of 3). Nadia YBARRA, et al. Chest 2012, 141:7S-47S Demetria RA, et al. [facility] 2017, 70: 252-289 Performed By: #### CBC, PT, PTT, FIBCT #### [facility] [place] [address] [place], [place] [id number] APTT Collected: 07/06/2018 Status: F Source: [place] [address] [place] [address] REPOSITORY TYPE CODE TESTS RESULT OUT OF RANGE REFERENCE UNITS LAB APTT 23.0-32.4 sec High APTT 38.8 Result Comment: Unfractionated Heparin Therapeutic Ranges: Standard Heparin Nomogram: 53 to 78 seconds (anti-Xa level of 0.3 to 0.7 U/ml) Low Dose/ACS Nomogram: 49 to 67 seconds (anti-Xa level of 0.2 to 0.5 U/ml) Stroke Treatment Nomogram: 49 to 67 seconds (anti-Xa level of 0.2 to 0.5 U/ml) Note: The APTT therapeutic range has been determined for the current lot of laboratory APTT reagent in use throughout the [facility]. Performed By: #### CBC, PT, PTT, FIBCT #### [facility] [place] [address] [place], [place] [address] FIBRINOGEN Collected: 07/06/2018 Status: F Source: [place] 7:50 [facility] REPOSITORY TYPE CODE TESTS RESULT OUT OF REFERENCE UNITS RANGE LAB FIBCT 200-400 mg/dL Fibrinogen 388 Performed By: #### CBC, PT, PTT, FIBCT #### [facility] [address] [place], [place] [address] XR CHEST 1V FRONTAL Observed: 07/06/2018 Status: F Source: [place] PORT 5:26 AM [facility] REPOSITORY * * *Final Report* * * DATE OF EXAM: Jul 06 2018 5:26AM [id number] - XR CHEST 1V FRONTAL PORT / PROCEDURE REASON: Evaluate tube, line or lead position * * * * Physician Interpretation * * * * EXAMINATION: CHEST RADIOGRAPH (PORTABLE SINGLE VIEW AP) Exam Date/Time: 07/06/2018 5:26 AM Clinical History: Evaluate tube, line or lead position, MQ: [id number] Comparison: 1 day prior RESULT: See impression. IMPRESSION: Lines, tubes, and devices: The patient has been extubated and the NG tube removed. Right IJ PA catheter tip and proximal right pulmonary artery. Bilateral chest tubes and mediastinal drain remain in place. Intra-aortic balloon pump tip in proximal descending thoracic aorta. Lungs and pleura: Low lung volumes. Small to medium-sized left pleural effusion present with adjacent left sided atelectasis. Patchy reticular opacities within the lungs bilaterally may be related to trace interstitial edema or vascular crowding due to low lung volumes. No large pneumothorax. Cardiomediastinal silhouette: Status post median sternotomy, left atrial appendage clip placement and mitral valve replacement. Cardiomediastinal silhouette is enlarged and unchanged. Self Propelled Hot Mix Roller Operator: PSCB Transcribe Date/Time: Jul 06 2018 10:31A Dictated by : DENIA EL MD This examination was interpreted and the report reviewed and electronically signed by: DENIA EL MD on Jul 06 2018 10:36AM EST [id number] GASA + ALL Collected: 07/06/2018 Status: F Source: [facility] 4:02 AM [facility] RADIANCE USE ONLY REPOSITORY TYPE CODE TESTS RESULT OUT OF REFERENCE UNITS RANGE LAB PH 7.35-7.45 pH High 7.47 LAB PCO2 34-46 mm Hg pCO2 39 LAB PO2 85-95 mm Hg pO2 High 117 LAB BE mmol/L Base Excess 4 LAB HCO3 22-26 mmol/L Bicarbonate High 28 LAB CO2CT 22.0-28.0 mmol/L CO2 Content High 29 LAB O2HB 95-98 % Oxyhemoglobin, Art. 97 LAB COHB 0-5.0 % Carboxyhemoglobin,A 1.1 rt LAB MHGB 0.4-1.5 % Methemoglobin 0.8 LAB TEMP C Temperature, Body 37.0 LAB PHTC 7.35-7.45 pH, Temp High Corrected 7.47 LAB PCO2T 34-46 mm Hg pCO2, Temp Correct 39 LAB PO2T mm Hg pO2, Temp Corrected 117 LAB NAB 135-146 mmol/L Sodium,Whole Bld 140 LAB KWB 3.5-5.0 mmol/L Potassium, Whole Bld 4.8 LAB HGBB 13.0-17.0 g/dL Low Hemoglobin,Total,AC 9.5 L LAB HCTB 39.0-51.0 % Hematocrit, ACL Low 30 LAB IC 1.08-1.30 mmol/L Calcium, Ion, WB 1.29 LAB GLB 60-105 mg/dL Glucose,Whole Bld High 123 LAB LACT 0.5-2.2 mmol/L Lactate 1.3 Performed By: #### ALLBG #### [facility] [address] [place] [address] GASA + ALL Collected: 07/06/2018 Status: F Source: [place] FOR 1:49 AM [facility] RADIANCE USE ONLY REPOSITORY TYPE CODE TESTS RESULT OUT OF REFERENCE UNITS RANGE LAB PH 7.35-7.45 pH High 7.48 LAB PCO2 34-46 mm Hg pCO2 38 LAB PO2 85-95 mm Hg pO2 High 119 LAB BE mmol/L Base Excess 4 LAB HCO3 22-26 mmol/L Bicarbonate High 28 LAB CO2CT 22.0-28.0 mmol/L CO2 Content High 29 LAB O2HB 95-98 % Oxyhemoglobin, Art. 98 LAB COHB 0-5.0 % Carboxyhemoglobin,A 0.5 rt LAB MHGB 0.4-1.5 % Methemoglobin Low 0.1 LAB TEMP C Temperature, Body 37.0 LAB PHTC 7.35-7.45 pH, Temp High Corrected 7.48 LAB PCO2T 34-46 mm Hg pCO2, Temp Correct 38 LAB PO2T mm Hg pO2, Temp Corrected 119 LAB NAB 135-146 mmol/L Sodium,Whole Bld 138 LAB KWB 3.5-5.0 mmol/L Potassium, Whole Bld 4.6 LAB HGBB 13.0-17.0 g/dL Low Hemoglobin,Total,AC 9.1 L LAB HCTB 39.0-51.0 % Hematocrit, ACL Low 28 LAB IC 1.08-1.30 mmol/L Calcium, Ion, WB 1.21 LAB GLB 60-105 mg/dL Glucose,Whole Bld High 121 LAB LACT 0.5-2.2 mmol/L Lactate 1.1 Performed By: #### ALLBG #### [id number] [place] [id number] CBC Collected: 07/06/2018 Status: F Source: [place] 12:04 [facility] REPOSITORY TYPE CODE TESTS RESULT OUT OF REFERENCE UNITS RANGE LAB WBC 3.70-11.00 k/uL WBC High 17.00 LAB RBC 4.20-6.00 m/uL Low RBC 2.73 LAB HGB 13.0-17.0 g/dL Low Hemoglobin 9.2 LAB HCT 39.0-51.0 % Low Hematocrit 27.3 LAB MCV 80.0-100.0 fL MCV 100.0 LAB MCH 26.0-34.0 pG MCH 33.7 LAB MCHC 30.5-36.0 g/dL MCHC 33.7 LAB RDWCV 11.5-15.0 % RDW-CV 14.6 LAB PLTCT 150-400 k/uL Low Platelet Count 137 Result Comment: Result checked and verified No clot detected. LAB MPV 9.0-12.7 fL MPV 11.1 LAB ABSNUC <0.01 k/uL Absolute nRBC <0.01 Performed By: #### CBC, CMP #### [facility] [address] [id number] COMP METABOLIC PANEL Collected: 07/06/2018 Status: F Source: [place] 12:04 [facility] REPOSITORY TYPE CODE TESTS RESULT OUT OF REFERENCE UNITS RANGE LAB TP 6.3-8.0 g/dL Low Protein, Total 4.9 LAB ALB 3.9-4.9 g/dL Low Albumin 3.4 LAB CA 8.5-10.2 mg/dL Calcium, Total 9.4 LAB TBIL 0.2-1.3 mg/dL Bilirubin, High Total 1.5 LAB ALKP 38-113 U/L Alkaline Phosphatase 38 LAB AST 14-40 U/L AST High 88 LAB GLU 74-99 mg/dL Glucose 93 Result Comment: The [place] [employer] (ADA) provides guidance for cutoff values for fasting glucose and random glucose. The ADA defines fasting as no caloric intake for at least 8 hours. Fas ting plasma glucose results between 100 to 125 mg/dL indicate increased risk for diabetes (prediabetes). Fasting plasma glucose results greater than or equal to 126 mg/dL meet the criteria for diagnosis of diabetes. In the absence of unequivocal hyperglycemia, results should be confirmed by repeat testing. In a patient with classic symptoms of hyperglycemia or hyperglycemic crisis, random plasma glucose results greater than or equal to 200 mg/dL meet the criteria for diagnosis of diabetes. Reference: Standards of Medical Care in Diabetes 2016, [place] [employer]. Diabetes Care. 2016.39(Suppl 1). LAB BUN 9-24 mg/dL BUN 19 LAB CRET 0.73-1.22 mg/dL Creatinine 1.02 LAB NA 136-144 mmol/L Sodium 143 LAB K 3.7-5.1 mmol/L Potassium 4.9 LAB CL 97-105 mmol/L Chloride 105 LAB CO2 22-30 mmol/L CO2 28 LAB AGAP 9-18 mmol/L Anion Gap 10 LAB ALT 10-54 U/L ALT 36 LAB GFRAA eGFR- Amer. >60 LAB GFRNAA . eGFR-All Other Races >60 Result Comment: eGFR (Estimated GFR) Units of measure: mL/min/1.73 meters squared eGFR is derived from the reexpressed MDRD Study equation using the following parameters: serum creatinine, age, gender and race. The creatinine assay has been calibrated to be traceable to IDMS. An eGFR <60 mL/min/1.73m2 for >3 months is consistent with chronic kidney disease. Refer to KDOQI guidelines for clinical interpretation. In patients with unstable renal function, e.g. those with acute kidney injury, the eGFR may not accurately reflect actual GFR. Performed By: #### CBC, CMP #### [facility] [address], [place] [address] GASV + ALL Collected: 07/05/2018 Status: F Source: [place] 10:30 PM [facility] REPOSITORY TYPE CODE TESTS RESULT OUT OF REFERENCE UNITS RANGE LAB VPH 7.32-7.42 pH High 7.46 LAB VPC2 42-55 mm Hg pCO2 42 LAB VPO2 35-45 mm Hg pO2 High 48 LAB VBE mmol/L Base Excess 6 LAB VHC3 24-28 mmol/L Bicarbonate High 30 LAB VC2C 25-29 mmol/L CO2 Content High 31 LAB O2HBCX 60-85 % Oxyhemoglobin, Curt. 82 LAB CO <2.0 % Carboxyhemoglobin,V 0.9 en LAB METHB 0.4-1.5 % Methemoglobin 0.7 LAB VTMP C Temperature, Body 37.0 LAB VPHTC 7.32-7.42 pH, Temp High Corrected 7.46 LAB VPC2T mm Hg pCO2, Temp Correct 42 LAB VPO2T mm Hg pO2, Temp Corrected 48 LAB NAB 135-146 mmol/L Sodium,Whole Bld 142 LAB KWB 3.5-5.0 mmol/L Potassium, Whole Bld 4.1 LAB HGBB 13.0-17.0 g/dL Low Hemoglobin,Total,AC 9.0 L LAB HCTB 39.0-51.0 % Hematocrit, ACL Low 28 LAB IC 1.08-1.30 mmol/L Calcium, Ion, WB 1.24 LAB GLB 60-105 mg/dL Glucose,Whole Bld 86 LAB LACT 0.5-2.2 mmol/L Lactate 1.5 Performed By: #### VALLBG #### [facility] [address] [place], [place] [address] GASA + ALL Collected: 07/05/2018 Status: F Source: [place] FOR 10:27 PM [facility] RADIANCE USE ONLY REPOSITORY TYPE CODE TESTS RESULT OUT OF REFERENCE UNITS RANGE LAB PH 7.35-7.45 pH High 7.51 LAB PCO2 34-46 mm Hg pCO2 39 LAB PO2 85-95 mm Hg pO2 High 118 LAB BE mmol/L Base Excess 7 LAB HCO3 22-26 mmol/L Bicarbonate High 30 LAB CO2CT 22.0-28.0 mmol/L CO2 Content High 31 LAB O2HB 95-98 % Oxyhemoglobin, Art. 97 LAB COHB 0-5.0 % Carboxyhemoglobin,A 1.0 rt LAB MHGB 0.4-1.5 % Methemoglobin 0.6 LAB TEMP C Temperature, Body 37.0 LAB PHTC 7.35-7.45 pH, Temp High Corrected 7.51 LAB PCO2T 34-46 mm Hg pCO2, Temp Correct 39 LAB PO2T mm Hg pO2, Temp Corrected 118 LAB NAB 135-146 mmol/L Sodium,Whole Bld 142 LAB KWB 3.5-5.0 mmol/L Potassium, Whole Bld 4.4 LAB HGBB 13.0-17.0 g/dL Low Hemoglobin,Total,AC 9.6 L LAB HCTB 39.0-51.0 % Hematocrit, ACL Low 30 LAB IC 1.08-1.30 mmol/L Calcium, Ion, WB 1.28 LAB GLB 60-105 mg/dL Glucose,Whole Bld 93 LAB LACT 0.5-2.2 mmol/L Lactate 1.7 Performed By: #### ALLBG #### [facility] [address] [place], [place] [address] GASV + ALL Collected: 07/05/2018 Status: F Source: [place] 8:38 PM [facility] REPOSITORY TYPE CODE TESTS RESULT OUT OF REFERENCE UNITS RANGE LAB VPH 7.32-7.42 pH High 7.49 LAB VPC2 42-55 mm Hg pCO2 42 LAB VPO2 35-45 mm Hg pO2 44 LAB VBE mmol/L Base Excess 7 LAB VHC3 24-28 mmol/L Bicarbonate High 31 LAB VC2C 25-29 mmol/L CO2 Content High 33 LAB O2HBCX 60-85 % Oxyhemoglobin, Curt. 79 LAB CO <2.0 % Carboxyhemoglobin,V 1.2 en LAB METHB 0.4-1.5 % Methemoglobin 0.5 LAB VTMP C Temperature, Body 37.0 LAB VPHTC 7.32-7.42 pH, Temp High Corrected 7.49 LAB VPC2T mm Hg pCO2, Temp Correct 42 LAB VPO2T mm Hg pO2, Temp Corrected 44 LAB NAB 135-146 mmol/L Sodium,Whole Bld 141 LAB KWB 3.5-5.0 mmol/L Potassium, Whole Bld 4.0 LAB HGBB 13.0-17.0 g/dL Low Hemoglobin,Total,AC 9.4 L LAB HCTB 39.0-51.0 % Hematocrit, ACL Low 29 LAB IC 1.08-1.30 mmol/L Calcium, Ion, WB 1.28 LAB GLB 60-105 mg/dL Glucose,Whole Bld 104 LAB LACT 0.5-2.2 mmol/L Lactate 1.9 Performed By: #### VALLBG #### [facility] [place] [address], [place] [address] GASA + ALL Collected: 07/05/2018 Status: F Source: [place] FOR 8:35 PM [facility] RADIANCE USE ONLY REPOSITORY TYPE CODE TESTS RESULT OUT OF REFERENCE UNITS RANGE LAB PH 7.35-7.45 pH High 7.51 LAB PCO2 34-46 mm Hg pCO2 35 LAB PO2 85-95 mm Hg pO2 High 109 LAB BE mmol/L Base Excess 5 LAB HCO3 22-26 mmol/L Bicarbonate High 28 LAB CO2CT 22.0-28.0 mmol/L CO2 Content High 29 LAB O2HB 95-98 % Oxyhemoglobin, Art. 98 LAB COHB 0-5.0 % Carboxyhemoglobin,A 1.1 rt LAB MHGB 0.4-1.5 % Methemoglobin 0.4 LAB TEMP C Temperature, Body 37.0 LAB PHTC 7.35-7.45 pH, Temp High Corrected 7.51 LAB PCO2T 34-46 mm Hg pCO2, Temp Correct 35 LAB PO2T mm Hg pO2, Temp Corrected 109 LAB NAB 135-146 mmol/L Sodium,Whole Bld 142 LAB KWB 3.5-5.0 mmol/L Potassium, Whole Bld 3.9 LAB HGBB 13.0-17.0 g/dL Low Hemoglobin,Total,AC 9.1 L LAB HCTB 39.0-51.0 % Hematocrit, ACL Low 28 LAB IC 1.08-1.30 mmol/L Calcium, Ion, WB 1.22 LAB GLB 60-105 mg/dL Glucose,Whole Bld 99 LAB LACT 0.5-2.2 mmol/L Lactate 1.9 Performed By: #### ALLBG #### [facility] [place] [address] [place], [place] [address] GASA + ALL Collected: 07/05/2018 Status: F Source: [place] FOR 5:27 PM [facility] RADIANCE USE ONLY REPOSITORY TYPE CODE TESTS RESULT OUT OF REFERENCE UNITS RANGE LAB PH 7.35-7.45 pH High 7.51 LAB PCO2 34-46 mm Hg pCO2 38 LAB PO2 85-95 mm Hg pO2 High 133 LAB BE mmol/L Base Excess 6 LAB HCO3 22-26 mmol/L Bicarbonate High 30 LAB CO2CT 22.0-28.0 mmol/L CO2 Content High 31 LAB O2HB 95-98 % Oxyhemoglobin, Art. 98 LAB COHB 0-5.0 % Carboxyhemoglobin,A 1.0 rt LAB MHGB 0.4-1.5 % Methemoglobin 0.6 LAB TEMP C Temperature, Body 37.0 LAB PHTC 7.35-7.45 pH, Temp High Corrected 7.51 LAB PCO2T 34-46 mm Hg pCO2, Temp Correct 38 LAB PO2T mm Hg pO2, Temp Corrected 133 LAB NAB 135-146 mmol/L Sodium,Whole Bld 139 LAB KWB 3.5-5.0 mmol/L Potassium, Whole Bld 4.0 LAB HGBB 13.0-17.0 g/dL Low Hemoglobin,Total,AC 9.9 L LAB HCTB 39.0-51.0 % Hematocrit, ACL Low 31 LAB IC 1.08-1.30 mmol/L Calcium, Ion, WB 1.26 LAB GLB 60-105 mg/dL Glucose,Whole Bld High 146 LAB LACT 0.5-2.2 mmol/L Lactate High 3.3 Performed By: #### ALLBG #### [facility] [address] [place] [id number] GASV + ALL Collected: 07/05/2018 Status: F Source: [place] 4:34 PM [facility] REPOSITORY TYPE CODE TESTS RESULT OUT OF REFERENCE UNITS RANGE LAB VPH 7.32-7.42 pH High 7.48 LAB VPC2 42-55 mm Hg pCO2 Low 41 LAB VPO2 35-45 mm Hg pO2 45 LAB VBE mmol/L Base Excess 6 LAB VHC3 24-28 mmol/L Bicarbonate High 30 LAB VC2C 25-29 mmol/L CO2 Content High 31 LAB O2HBCX 60-85 % Oxyhemoglobin, Curt. 79 LAB CO <2.0 % Carboxyhemoglobin,V 1.3 en LAB METHB 0.4-1.5 % Methemoglobin 1.1 LAB VTMP C Temperature, Body 37.0 LAB VPHTC 7.32-7.42 pH, Temp High Corrected 7.48 LAB VPC2T mm Hg pCO2, Temp Correct 41 LAB VPO2T mm Hg pO2, Temp Corrected 45 LAB NAB 135-146 mmol/L Sodium,Whole Bld 140 LAB KWB 3.5-5.0 mmol/L Potassium, Whole Bld 4.2 LAB HGBB 13.0-17.0 g/dL Low Hemoglobin,Total,AC 9.9 L LAB HCTB 39.0-51.0 % Hematocrit, ACL Low 31 LAB IC 1.08-1.30 mmol/L Calcium, Ion, WB 1.29 LAB GLB 60-105 mg/dL Glucose,Whole Bld High 165 LAB LACT 0.5-2.2 mmol/L Lactate High 3.9 Performed By: #### VALLBG #### [facility] [address] [place] [id number] ANES POST Observed: 07/05/2018 Status: COMPLETED Source: [place] 4:32 PM [facility] REPOSITORY HNO ID: [id number] Author: Nicolas Tovar Service: Anesthesiology Author Type: Anesthesiologist Type: Anesthesia PostOp Filed: 07/05/2018 4:32 PM Note Text: POST ANESTHESIA EVALUATION NOTE SERVICE DATE: 07/05/2018 SERVICE TIME: 4:32 PM : 1945 Vitals: 07/03/18 2345 07/04/18 0344 07/04/18 0743 07/04/18 1112 Temp: 36.4 ?C (97.5 ?F) 36.9 ?C (98.4 ?F) 36.5 ?C (97.7 ?F) 36.6 ?C (97.8 ?F) 07/05/18 1450 07/05/18 1500 07/05/18 1510 07/05/18 1520 Arterial BP 1: 116/42 116/53 112/54 119/54 BP: 07/05/18 1530 07/05/18 1540 07/05/18 1550 07/05/18 1600 Pulse: 119 117 117 114 07/05/18 1530 07/05/18 1540 07/05/18 1550 07/05/18 1600 Resp: 25 23 24 22 07/05/18 1530 07/05/18 1540 07/05/18 1550 07/05/18 1600 SpO2: 100% 100% 100% 100% Validated Vital Signs: Yes POST ANES STATUS: PACU/ICU Patient Condition: Stable Neurological Status: On intravenous sedation. Pulmonary Status: On invasive mechanical ventilation. Airway Control: Intubated on mechanical ventilation. Cardiovascular Status: Stable, On vasopressor and On inotropes Pain: Adequately controlled Postoperative Nausea/Vomiting: No significant post operative nausea or vomiting Postoperative Hydration Status: Adequate. Intra-Operative Events: No Significant Anesthesia Events Anesthetic Complications: None Recommendation: Continue current plan of care and Further care per PACU/ICU/Floor team Other Remarks: SIGNATURE: Nicolas Tovar MD PATIENT NAME: Stefania Diaz DATE: July 05, 2018 TIME: 4:32 PM PAGER/CONTACT #: [phone] GASA + ALL Collected: 07/05/2018 Status: F Source: [place] FOR 4:[address] [facility] USE ONLY REPOSITORY TYPE CODE TESTS RESULT OUT OF REFERENCE UNITS RANGE LAB PH 7.35-7.45 pH High 7.51 LAB PCO2 34-46 mm Hg pCO2 36 LAB PO2 85-95 mm Hg pO2 High 119 LAB BE mmol/L Base Excess 6 LAB HCO3 22-26 mmol/L Bicarbonate High 29 LAB CO2CT 22.0-28.0 mmol/L CO2 Content High 30 LAB O2HB 95-98 % Oxyhemoglobin, Art. 97 LAB COHB 0-5.0 % Carboxyhemoglobin,A 1.3 rt LAB MHGB 0.4-1.5 % Methemoglobin 1.0 LAB TEMP C Temperature, Body 37.0 LAB PHTC 7.35-7.45 pH, Temp High Corrected 7.51 LAB PCO2T 34-46 mm Hg pCO2, Temp Correct 36 LAB PO2T mm Hg pO2, Temp Corrected 119 LAB NAB 135-146 mmol/L Sodium,Whole Bld 140 LAB KWB 3.5-5.0 mmol/L Potassium, Whole Bld 4.1 LAB HGBB 13.0-17.0 g/dL Low Hemoglobin,Total,AC 10.0 L LAB HCTB 39.0-51.0 % Hematocrit, ACL Low 31 LAB IC 1.08-1.30 mmol/L Calcium, Ion, WB 1.28 LAB GLB 60-105 mg/dL Glucose,Whole Bld High 163 LAB LACT 0.5-2.2 mmol/L Lactate High 3.9 Performed By: #### ALLBG #### [facility] [address] [place], [place] [address] PROGRESS Observed: 07/05/2018 Status: COMPLETED Source: [place] 3:52 PM [facility] REPOSITORY HNO ID: [id number] Author: Sagar Stout Service: Critical Care Author Type: Anesthesiologist Type: Progress Notes Filed: 07/05/2018 3:53 PM Note Text: [facility] CV[facility] Note Name: Stefania Diaz Coordination of Care Note: Indication for Surgery: Severe MR, severe pulmonary HTN Preop LVEF: 61 ? 5% RVF: low Normal Important/Relevant PMH/PSH: Childhood rheumatic fever, HTN, severe symptomatic MR with dyspnea/orthopnea/PND, former smoker, bilateral pleural effusions, and newly diagnosed atrial fibrillation Airway Difficulty: Grade I - No special instrumentation and easy Pacing Wires: Yes: Ventricular: When discontinuing pacing wires: Cut all pacing wires Chronological List of Surgeries and Major Events (Diagnosis): (Surgeries in bold characters) 07/04/2018: REPLACEMENT MITRAL VALVE W/ CARDIOPULMONARY BYPASS FULL MAZE with left atrial appendage ligation A/P of Major Active Problems (excluding routine care and common problems): Cardiac: cardiogenic shock: Post op RV dysfunction, required IABP post CPB, currently at 1:1, milrinone, epi infusion for inotropic support. vasoplegia: Cardiac out put improving, stop milrinone and wean pressors to off Sinus tachycardia: ? a flutter at 120 bpm. short run of VT treated with magnesium and K+. IABP: 1:1 Resp: Mechanical ventilation: Gas exchange stable, ashley to extubate Endo: Stress hyperglycemia To Do or to Watch: short run of VT wean to extubate maintain IABP Discharge Planning: Anticipated Discharge Date: Unknown Barriers to Discharge: Unknown Care Management Discharge Needs: Needs Prior to Discharge: To Be Determined Other Problems I Reviewed and/or Managed During This Encounter: Problem Cardiogenic Shock (Hcc) Acute postoperative cardiogenic shock after cardiac surgery. Preoperatively, normal LV function and mildly decreased RV function. After CPB required multiple pressors for hemodynamic support. Currently on epinephrine, norepinephrine, vasopressin, and milrinone. IABP on at 1:1. Assessment: Acute postoperative cardiogenic shock. Plan: Continue IABP today, wean inotropes/vasopressors for MAP 65-85. wean milrinone to off Postoperative Anemia Due to Acute Blood Loss A/P: Monitor daily with CBC. On Mechanically Assisted Ventilation (Hcc) A/P: Postoperative requirement for mechanical ventilation. Plan: Wean as tolerated with goal to extubate today. Lactic acid acidosis due to cardiogenic shock A/P: Lactate downtrending, continue hemodynamic support, trend lactate wean epi as tolerated to off Leukocytosis Stress-induced leukocytosis. No evidence of infection at this time (afebrile, no radiographic suggestion of infection, no purulent secretions) Plan: Monitor daily with CBC. Consider blood cultures if WBC continues to increase or if other signs/symptoms of infections are evident. PHYSICAL EXAM: Neuro: Follows commands and Sedation Cardiovascular: Rhythm: regular rate and rhythm and Rate:sinus tachycardia Pulmonary: Clear to auscultation and Breath sounds equal Ventilator: Intubated: SPCV; FiO2: 40%; PEEP: 8 cmH2O; Wean to extubate; HOB elevated 40 degrees: Yes; Oral care with chlorhexidine: Yes; Was sedation turned off? Yes CXR Findings: Atelectasis Bilateral, Increased Vascular Markings Bilateral and CXR personally viewed and interpreted by ICU staff Physician Gastrointestinal: Abdominal: Soft and Non-tender DAILY CVICU CHECKLIST VTE Prophylaxis: Pharmacologic No - because thrombocytopenia VTE Prophylaxis: Mechanical: Yes Line infection prevention: Can CVC, PAC or arterial line be removed: No Continued need for urinary catheter: Yes - clinical indication: Patient post major surgery requiring fluid balance and input and output measurement. Restraints needed: No This patient has a high probability of sudden, clinically significant deterioration, which requires the highest level of preparedness to intervene urgently. I participated in the decision making and personally managed or directed the management of the following life and organ supporting interventions that required my frequent assessment to treat or prevent imminent deterioration of: Problem Cardiogenic Shock (Hcc) Postoperative Anemia Due to Acute Blood Loss On Mechanically Assisted Ventilation (Hcc) Lactic acid acidosis due to cardiogenic shock Leukocytosis I personally spent 45 minutes of critical care time treating the patient. Time devoted to any procedures I billed separately is not included. SIGNATURE: Sagar Stout MD DATE of SERVICE: 07/05/2018 TIME of SERVICE: 3:52 PM CASE MANAGEM Observed: 07/05/2018 Status: COMPLETED Source: [place] 2:01 PM [facility] REPOSITORY HNO ID: [id number] Author: Gael (Rn) RENITA Ruiz Service: Case Management Author Type: Registered Nurse Type: Care Mgt Progress Note Filed: 07/05/2018 2:06 PM Note Text: CARE MANAGEMENT PROGRESS NOTE SERVICE DATE: 07/05/2018 SERVICE TIME: 2:01 PM LOS: 6 days Needs Prior to Discharge: To Be Determined;OT/PT Evaluation Chronological List of Surgeries and Major Events (Diagnosis): (Surgeries in bold characters) 07/04/2018: REPLACEMENT MITRAL VALVE W/ CARDIOPULMONARY BYPASS ???FULL MAZE with left atrial appendage ligation Vent 40%, CTx3 and Epi gtt. Pt will need PT/OT eval. DC needs TBD. Case Management will continue to follow medical course and plan discharge accordingly. SIGNATURE: Gael Ruiz RN PATIENT NAME: Stefania Diaz DATE: July 05, 2018 TIME: 2:01 PM PAGER/CONTACT #: [phone] GASA + ALL Collected: 07/05/2018 Status: F Source: [place] FOR 2:01 PM [facility] RADIANCE USE ONLY REPOSITORY TYPE CODE TESTS RESULT OUT OF REFERENCE UNITS RANGE LAB PH 7.35-7.45 pH High 7.49 LAB PCO2 34-46 mm Hg pCO2 35 LAB PO2 85-95 mm Hg pO2 High 149 LAB BE mmol/L Base Excess 4 LAB HCO3 22-26 mmol/L Bicarbonate High 27 LAB CO2CT 22.0-28.0 mmol/L CO2 Content 28 LAB O2HB 95-98 % Oxyhemoglobin, Art. 98 LAB COHB 0-5.0 % Carboxyhemoglobin, 0.8 Art LAB MHGB 0.4-1.5 % Methemoglobin 1.1 LAB TEMP C Temperature, Body 37.0 LAB PHTC 7.35-7.45 pH, Temp High Corrected 7.49 LAB PCO2T 34-46 mm Hg pCO2, Temp Correct 35 LAB PO2T mm Hg pO2, Temp Corrected 149 LAB NAB 135-146 mmol/L Sodium,Whole Bld 142 LAB KWB 3.5-5.0 mmol/L Potassium, Whole Bld 4.1 LAB HGBB 13.0-17.0 g/dL Low Hemoglobin,Total,A 9.5 CL LAB HCTB 39.0-51.0 % Hematocrit, Low ACL 30 LAB IC 1.08-1.30 mmol/L Calcium, Ion, High WB 1.33 LAB GLB 60-105 mg/dL Glucose,Whole High Bld 199 LAB LACT 0.5-2.2 mmol/L Lactate High 3.2 LAB ACBDTE Notify Date, Art [id number] LAB ACBTME Notify Time, Art Performed By: #### ALLBG #### [facility] [address] [place], [place] [address] GASV + ALL Collected: 07/05/2018 Status: F Source: [place] 1:49 PM [facility] REPOSITORY TYPE CODE TESTS RESULT OUT OF REFERENCE UNITS RANGE LAB VPH 7.32-7.42 pH High 7.46 LAB VPC2 42-55 mm Hg pCO2 Low 40 LAB VPO2 35-45 mm Hg pO2 High 50 LAB VBE mmol/L Base Excess 4 LAB VHC3 24-28 mmol/L Bicarbonate 28 LAB VC2C 25-29 mmol/L CO2 Content 29 LAB O2HBCX 60-85 % Oxyhemoglobin, Curt. 83 LAB CO <2.0 % Carboxyhemoglobin, 0.3 Curt LAB METHB 0.4-1.5 % Methemoglobin Low 0.3 LAB VTMP C Temperature, Body 37.0 LAB VPHTC 7.32-7.42 pH, Temp High Corrected 7.46 LAB VPC2T mm Hg pCO2, Temp Correct 40 LAB VPO2T mm Hg pO2, Temp Corrected 50 LAB NAB 135-146 mmol/L Sodium,Whole Bld 140 LAB KWB 3.5-5.0 mmol/L Potassium, Whole Bld 4.0 LAB HGBB 13.0-17.0 g/dL Low Hemoglobin,Total,A 9.5 CL LAB HCTB 39.0-51.0 % Hematocrit, Low ACL 29 LAB IC 1.08-1.30 mmol/L Calcium, Ion, High WB 1.31 LAB GLB 60-105 mg/dL Glucose,Whole High Bld 194 LAB LACT 0.5-2.2 mmol/L Lactate High 3.0 LAB VCBDTE Notify Date, Curt [id number] LAB VCBTME Notify Time, Curt [id number] Performed By: #### VALLBG #### [facility] [place] [address] [place], [place] [address] GASA + ALL Collected: 07/05/2018 Status: F Source: [place] FOR 12:02 PM [facility] USE ONLY REPOSITORY TYPE CODE TESTS RESULT OUT OF REFERENCE UNITS RANGE LAB PH 7.35-7.45 pH High 7.49 LAB PCO2 34-46 mm Hg pCO2 35 LAB PO2 85-95 mm Hg pO2 High 112 LAB BE mmol/L Base Excess 3 LAB HCO3 22-26 mmol/L Bicarbonate 26 LAB CO2CT 22.0-28.0 mmol/L CO2 Content 28 LAB O2HB 95-98 % Oxyhemoglobin, Art. 97 LAB COHB 0-5.0 % Carboxyhemoglobin,A 1.2 rt LAB MHGB 0.4-1.5 % Methemoglobin 1.0 LAB TEMP C Temperature, Body 37.0 LAB PHTC 7.35-7.45 pH, Temp High Corrected 7.49 LAB PCO2T 34-46 mm Hg pCO2, Temp Correct 35 LAB PO2T mm Hg pO2, Temp Corrected 112 LAB NAB 135-146 mmol/L Sodium,Whole Bld 142 LAB KWB 3.5-5.0 mmol/L Potassium, Whole Bld 3.9 LAB HGBB 13.0-17.0 g/dL Low Hemoglobin,Total,AC 9.4 L LAB HCTB 39.0-51.0 % Hematocrit, ACL Low 29 LAB IC 1.08-1.30 mmol/L Calcium, Ion, WB High 1.34 LAB GLB 60-105 mg/dL Glucose,Whole Bld High 124 LAB LACT 0.5-2.2 mmol/L Lactate High 3.1 Performed By: #### ALLBG #### [facility] [address] [place], [place] [address] NUTRITION Observed: 07/05/2018 Status: COMPLETED Source: [place] 11:33 AM [facility] REPOSITORY HNO ID: [id number] Author: Anne Medeiros Service: NST-Nutrition Support Team Author Type: Registered Dietitian Type: Nutrition Filed: 07/05/2018 3:33 PM Note Text: NUTRITION SUPPORT TEAM REASSESSMENT SERVICE DATE: 07/05/2018 SERVICE TIME: 12:05 PM RECOMMENDED MALNUTRITION DIAGNOSIS: SEVERE PROTEIN-CALORIE MALNUTRITION In the context of Acute Illness or Injury based on: Unintentional Weight Loss: >5% over 1 month Muscle Loss Moderate Loss NUTRITION CARE PLAN: Intervention: 1. Initiate tube feeds as medically able: Impact Peptide 1.5 at 65 ml/hr (1560 ml total). Provides 2340 kcals, 147 g protein and 1201 ml free water Water flushes as per primary (minimally 30 ml 6x per day to maintain tube patency) Monitor and Evaluation: Goal: Meet >75% of estimated needs Monitor fluid/electrolyte balance Monitor labs, I/Os, vital signs, weight Monitor tolerance to tube feeding Discharge Nutrition Recommendations: To be determined Per HPI: 73 year old male with PMH significant for: childhood rheumatic fever , HTN, MR with severe dyspnea/orthopnea/PND (severe 4+ holosystolic regurgitation due to prolapse and restricted leaflet motion), former smoker, bilateral pleural effusions, Afib (newly diagnosed). Chronological List of Surgeries and Major Events 07/04/2018: REPLACEMENT MITRAL VALVE W/ CARDIOPULMONARY BYPASS FULL MAZE with left atrial appendage ligation Interval History: Patient intubated with IABP in place. Current Diet Order DIET NPO Lines and Drains: Central Line Triple Lumen Pulmonary Artery Catheter Right Neck Through Introducer (Active) Introducer Right Neck (Active) IABP 07/04/181808 Sensor (Fiberoptic) Left Femoral (Active) GI Feed/Drain 07/04/18 Assessment Oral Gastric (Active) Chest Tube 07/04/18 193 Midline Medial Mediastinal 32 Fr Tube #1 (Active) Chest Tube 07/04/18 193 Left Medial Pleural 28 Fr Tube #2 (Active) Chest Tube 07/04/181935 Right Medial Pleural 28 Fr Tube #3 (Active) Nutritional Intake Prior to Admission: <75% estimated energy needs over the past 1 month(s) Current intake: 07/05: Average daily PO intake over 6 days = 1315 kcals and 52 g protein, meeting 64% of estimated energy needs and 50% of estimated protein needs. GI symptoms: constipation and unable to determine at this time Nutrition Abdominal Exam: abdomen is soft and distended Enteral access: OGT BM/ostomy output: last BM prior to admission Skin condition: Surgical Incision Chest - Midsternal (Active) Pertinent medications: epinephrine, levophed, protonix, potassium chloride, senna, vasopressin ANTHROPOMETRICS Height: 182.9 cm (6') Admission Weight: 75.3 kg (166 lb) Current Weight: 68.7 kg (151 lb 6.4 oz) Body mass index is 20.53 kg/m?. Weight history UBW 170-175 lbs. Reports weighing 172 lbs 1 month ago. Weight has decreased by 11% over 1 month - clinically significant 06/29/18 : 75.3 kg (166 lb) 03/07/17 : 79.8 kg (176 lb) Weight has decreased by 6.6 kg since admission but not fluid related (fairly even fluid balance), admission weight appears incorrect. Dosing Weight: 68.7 kg (standing scale 07/03, BMI 20.53 kg/m2) Estimated kilocalorie needs: 2061 - 2405 kilocalories determined by 30 - 35 kcal/kg Estimated protein needs: 103 - 137 grams determined by 1.5 - 2.0 g/kg Dosing weight NUTRITION FOCUSED PHYSICAL EXAM: Subcutaneous Fat Loss Orbital Mild Triceps Mild Mid-axillary at the iliac crest Unable to determine at this time Muscle Loss Locations: Temporalis Mild Pectoralis Mild Deltoids Moderate Interosseous Unable to determine at this time Latissimus dorsi, trapezius Unable to determine at this time Quadriceps Moderate Gastrocnemius Moderate Potential micronutrient deficiency revealed in: Unable to determine at this time Edema: Yes Generalized Ascites: No Assessment of Functional Status: Functional capacity is unrelated to nutrition status Temperature Max in 24 hours: No data recorded. BP 110/65 Pulse 118 Temp 36.6 ?C (97.8 ?F) (Oral) Resp 17 Ht 182.9 cm (6') Wt 68.7 kg (151 lb 6.4 oz) SpO2 100% BMI 20.53 kg/m? Recent Labs 07/05/18 1002 07/05/18 0030 GLUC -- 177* BUN -- 24 CREAT -- 1.12 NA -- 146* K -- 3.9 CHLOR -- 103 CO2 29 18* ALB -- 3.6* HB -- 10.7* HCT -- 32.1* WBC -- 20.38* Potential Signs of Inflammation: leukocytosis, hyperglycemia, hypoalbuminemia, tachycardia and acute post-operative MNT Billing Type: Re-assess/15 min 4 units SIGNATURE: Anne Medeiros RD PATIENT NAME: Stefania Diaz DATE: July 05, 2018 TIME: 11:45 AM PAGER: [phone] GASV + ALL Collected: 07/05/2018 Status: F Source: [place] 10:02 AM [facility] REPOSITORY TYPE CODE TESTS RESULT OUT OF REFERENCE UNITS RANGE LAB VPH 7.32-7.42 pH High 7.47 LAB VPC2 42-55 mm Hg pCO2 Low 38 LAB VPO2 35-45 mm Hg pO2 42 LAB VBE mmol/L Base Excess 4 LAB VHC3 24-28 mmol/L Bicarbonate 27 LAB VC2C 25-29 mmol/L CO2 Content 29 LAB O2HBCX 60-85 % Oxyhemoglobin, Curt. 78 LAB CO <2.0 % Carboxyhemoglobin, 1.0 Curt LAB METHB 0.4-1.5 % Methemoglobin 0.9 LAB VTMP C Temperature, Body 37.0 LAB VPHTC 7.32-7.42 pH, Temp High Corrected 7.47 LAB VPC2T mm Hg pCO2, Temp Correct 38 LAB VPO2T mm Hg pO2, Temp Corrected 42 LAB NAB 135-146 mmol/L Sodium,Whole Bld 145 LAB KWB 3.5-5.0 mmol/L Potassium, Whole Bld 3.8 LAB HGBB 13.0-17.0 g/dL Low Hemoglobin,Total,A 9.3 CL LAB HCTB 39.0-51.0 % Hematocrit, Low ACL 29 LAB IC 1.08-1.30 mmol/L Calcium, Ion, High WB 1.37 LAB GLB 60-105 mg/dL Glucose,Whole Bld 92 LAB LACT 0.5-2.2 mmol/L Lactate High 5.1 LAB VCBDTE Notify Date, Curt [id number] LAB VCBTME Notify Time, Curt Performed By: #### VALLBG #### [facility] [address] [place], [place] [address] GASA + ALL Collected: 07/05/2018 Status: F Source: [place] [facility] 9:55 AM [facility] [facility] REPOSITORY TYPE CODE TESTS RESULT OUT OF REFERENCE UNITS RANGE LAB PH 7.35-7.45 pH High 7.49 LAB PCO2 34-46 mm Hg pCO2 35 LAB PO2 85-95 mm Hg pO2 High 127 LAB BE mmol/L Base Excess 4 LAB HCO3 22-26 mmol/L Bicarbonate 26 LAB CO2CT 22.0-28.0 mmol/L CO2 Content 28 LAB O2HB 95-98 % Oxyhemoglobin, Art. 98 LAB COHB 0-5.0 % Carboxyhemoglobin, 1.0 Art LAB MHGB 0.4-1.5 % Methemoglobin 0.7 LAB TEMP C Temperature, Body 37.0 LAB PHTC 7.35-7.45 pH, Temp High Corrected 7.49 LAB PCO2T 34-46 mm Hg pCO2, Temp Correct 35 LAB PO2T mm Hg pO2, Temp Corrected 127 LAB NAB 135-146 mmol/L Sodium,Whole Bld 144 LAB KWB 3.5-5.0 mmol/L Potassium, Whole Bld 3.9 LAB HGBB 13.0-17.0 g/dL Low Hemoglobin,Total,A 9.5 CL LAB HCTB 39.0-51.0 % Hematocrit, Low ACL 29 LAB IC 1.08-1.30 mmol/L Calcium, Ion, High WB 1.36 LAB GLB 60-105 mg/dL Glucose,Whole Bld 96 LAB LACT 0.5-2.2 mmol/L Lactate High 5.3 LAB ACBDTE Notify Date, Art [id number] LAB ACBTME Notify Time, Art Performed By: #### ALLBG #### [facility] [address] [place], [place] [address] NURSING PROG Observed: 07/05/2018 Status: COMPLETED Source: [place] 9:52 AM [facility] REPOSITORY HNO ID: [id number] Author: Sophie Salazar (Rn) RENITA Huff Service: Nursing Author Type: Registered Nurse Type: Nursing Progress Note Filed: 07/05/2018 9:53 AM Note Text: Nursing Progress: Topic: RESTRAINT NON-VIOLENT PATIENT NAME: Stefania Diaz PATIENT LOCATION: [address] The patient demonstrates Attempting to Remove Medical Devices Vital to Medical Stability as evidenced by the following behaviors pulling at ETT AND lines which pose an imminent danger to self or others. The following interventions were attempted but were not effective in protecting the patient's safety: Bed in Low/Locked Position, Call Light Within Reach, Medications Reviewed, Modify Environment, Frequent Observation, Re-Orientation Methods Next, a comprehensive assessment was performed and warranted placing the patient in Soft Bilateral Wrists, the least restrictive restraint needed to protect the patient's safety. Ongoing safety assessments and evaluation for earliest removal of restraints will be performed. DATE: July 05, 2018 TIME: 9:52 AM Sophie Huff RN GASA + ALL Collected: 07/05/2018 Status: F Source: [place] FOR 8:02 AM [facility] RADIANCE USE ONLY REPOSITORY TYPE CODE TESTS RESULT OUT OF REFERENCE UNITS RANGE LAB PH 7.35-7.45 pH 7.45 LAB PCO2 34-46 mm Hg pCO2 36 LAB PO2 85-95 mm Hg pO2 High 122 LAB BE mmol/L Base Excess 1 LAB HCO3 22-26 mmol/L Bicarbonate 25 LAB CO2CT 22.0-28.0 mmol/L CO2 Content 26 LAB O2HB 95-98 % Oxyhemoglobin, Art. 97 LAB COHB 0-5.0 % Carboxyhemoglobin, 1.2 Art LAB MHGB 0.4-1.5 % Methemoglobin 1.1 LAB TEMP C Temperature, Body 37.0 LAB PHTC 7.35-7.45 pH, Temp Corrected 7.45 LAB PCO2T 34-46 mm Hg pCO2, Temp Correct 36 LAB PO2T mm Hg pO2, Temp Corrected 122 LAB NAB 135-146 mmol/L Sodium,Whole Bld 141 LAB KWB 3.5-5.0 mmol/L Potassium, Whole Bld 4.0 LAB HGBB 13.0-17.0 g/dL Low Hemoglobin,Total,A 9.9 CL LAB HCTB 39.0-51.0 % Hematocrit, Low ACL 31 LAB IC 1.08-1.30 mmol/L Calcium, Ion, High WB 1.32 LAB GLB 60-105 mg/dL Glucose,Whole High Bld 152 LAB LACT 0.5-2.2 mmol/L Lactate High 6.9 LAB ACBDTE Notify Date, Art [id number] LAB ACBTME Notify Time, Art Performed By: #### ALLBG #### [facility] [address] [place], [place] [address] XR CHEST 1V FRONTAL Observed: 07/05/2018 Status: F Source: [facility] 5:37 AM [facility] REPOSITORY * * *Final Report* * * DATE OF EXAM: Jul 05 2018 5:37AM JIX [id number] - XR CHEST 1V FRONTAL PORT / PROCEDURE REASON: Evaluate tube, line or lead position * * * * Physician Interpretation * * * * EXAMINATION: CHEST RADIOGRAPH (PORTABLE SINGLE VIEW AP) Exam Date/Time: 07/05/2018 5:37 AM Clinical History: Evaluate tube, line or lead position, MQ: XCPMC_5 Comparison: 1 day prior RESULT: See impression. IMPRESSION: Lines, tubes, and devices: The patient is status post median sternotomy with mitral valve repair and left atrial appendage clip placement. A tracheal tube, NG/OG tube, right pulmonary arterial catheter, intra-aortic balloon pump, mediastinal drain and bilateral chest tubes are in place. The tip of the pulmonary arterial catheter overlies the main pulmonary artery. Intra-aortic balloon pump terminates in the mid descending thoracic aorta. Lungs and pleura: Hemidiaphragm. Patchy opacities are noted at the lung bases, likely related to atelectasis. There is central pulmonary venous congestion without overt edema. No large pneumothorax is identified. Cardiomediastinal silhouette: Cardiomediastinal silhouette is at the upper limits of normal size. Other: . Self Propelled Hot Mix Roller Operator: MARCO ANTONIO Transcribe Date/Time: Jul 05 2018 11:00A Dictated by : RUTHY HARTMANN MD This examination was interpreted and the report reviewed and electronically signed by: RUTHY HARTMANN MD on Jul 05 2018 11:01AM EST [id number] STAPH AUREUS PCR Collected: 07/05/2018 Status: F Source: [place] 5:30 AM [facility] REPOSITORY TYPE CODE TESTS RESULT OUT OF REFERENCE UNITS RANGE LAB SASRC Nasal S aureus Spec Source LAB MRSRES MRSA PCR Duplicate request Result Comment: Account Credited WITHIN 24 HRS OF [id number] LAB SARES Staph Duplicate aureus PCR request Result Comment: Account Credited WITHIN 24 HRS OF [id number] Performed By: #### SAPCR #### [facility] [address] [place], [place] [address] GASA + ALL Collected: 07/05/2018 Status: F Source: [place] FOR 4:33 AM [facility] RADIANCE USE ONLY REPOSITORY TYPE CODE TESTS RESULT OUT OF REFERENCE UNITS RANGE LAB PH 7.35-7.45 pH 7.40 LAB PCO2 34-46 mm Hg pCO2 34 LAB PO2 85-95 mm Hg pO2 High 132 LAB BE mmol/L Base Excess NEG 4 LAB HCO3 22-26 mmol/L Bicarbonate Low 20 LAB CO2CT 22.0-28.0 mmol/L CO2 Content Low 21 LAB O2HB 95-98 % Oxyhemoglobin, Art. 97 LAB COHB 0-5.0 % Carboxyhemoglobin, 1.5 Art LAB MHGB 0.4-1.5 % Methemoglobin 0.6 LAB TEMP C Temperature, Body 37.0 LAB PHTC 7.35-7.45 pH, Temp Corrected 7.40 LAB PCO2T 34-46 mm Hg pCO2, Temp Correct 34 LAB PO2T mm Hg pO2, Temp Corrected 132 LAB NAB 135-146 mmol/L Sodium,Whole Bld 143 LAB KWB 3.5-5.0 mmol/L Potassium, Whole Bld 4.1 LAB HGBB 13.0-17.0 g/dL Low Hemoglobin,Total,A 9.8 CL LAB HCTB 39.0-51.0 % Hematocrit, Low ACL 30 LAB IC 1.08-1.30 mmol/L Calcium, Ion, WB 1.29 LAB GLB 60-105 mg/dL Glucose,Whole High Bld 200 LAB LACT 0.5-2.2 mmol/L Lactate High 11.1 LAB ABGCOM Blood Gas Comm, Art Urgent value Result Comment: LACT LAB ACBWHO Notified Whom, Art Called to and read back by Result Comment: Leidy MOREAU LAB ACBDTE [id number] Notify Date, Art LAB ACBTME [id number] Notify Time, Art Performed By: #### ALLBG #### [facility] [address] [place], [place] [address] GASA + ALL Collected: 07/05/2018 Status: F Source: [place] FOR 2:48 AM [facility] RADIANCE USE ONLY REPOSITORY TYPE CODE TESTS RESULT OUT OF REFERENCE UNITS RANGE LAB PH 7.35-7.45 pH 7.38 LAB PCO2 34-46 mm Hg pCO2 35 LAB PO2 85-95 mm Hg pO2 High 149 LAB BE mmol/L Base Excess NEG 4 LAB HCO3 22-26 mmol/L Bicarbonate Low 20 LAB CO2CT 22.0-28.0 mmol/L CO2 Content Low 21 LAB O2HB 95-98 % Oxyhemoglobin, Art. 97 LAB COHB 0-5.0 % Carboxyhemoglobin, 0.9 Art LAB MHGB 0.4-1.5 % Methemoglobin 1.0 LAB TEMP C Temperature, Body 37.0 LAB PHTC 7.35-7.45 pH, Temp Corrected 7.38 LAB PCO2T 34-46 mm Hg pCO2, Temp Correct 35 LAB PO2T mm Hg pO2, Temp Corrected 149 LAB NAB 135-146 mmol/L Sodium,Whole Bld 143 LAB KWB 3.5-5.0 mmol/L Potassium, Whole Bld 3.9 LAB HGBB 13.0-17.0 g/dL Low Hemoglobin,Total,A 9.4 CL LAB HCTB 39.0-51.0 % Hematocrit, Low ACL 29 LAB IC 1.08-1.30 mmol/L Calcium, Ion, High WB 1.32 LAB GLB 60-105 mg/dL Glucose,Whole High Bld 210 LAB LACT 0.5-2.2 mmol/L Lactate High 12.3 LAB ABGCOM Blood Gas Comm, Art Urgent value Result Comment: LACT LAB ACBWHO Notified Whom, Art Called to and read back by Result Comment: JARRET ReyesA.ZAKRAJSEK LAB ACBDTE [id number] Notify Date, Art LAB ACBTME [id number] Notify Time, Art Performed By: #### ALLBG #### [facility] [place] [address] [place], [place] [address] GASA + ALL Collected: 07/05/2018 Status: F Source: [place] FOR 12:52 AM [facility] RADIANCE USE ONLY REPOSITORY TYPE CODE TESTS RESULT OUT OF REFERENCE UNITS RANGE LAB PH 7.35-7.45 pH 7.38 LAB PCO2 34-46 mm Hg pCO2 Low 32 LAB PO2 85-95 mm Hg pO2 High 127 LAB BE mmol/L Base Excess NEG 5 LAB HCO3 22-26 mmol/L Bicarbonate Low 19 LAB CO2CT 22.0-28.0 mmol/L CO2 Content Low 20 LAB O2HB 95-98 % Oxyhemoglobin, Art. 97 LAB COHB 0-5.0 % Carboxyhemoglobin, 0.8 Art LAB MHGB 0.4-1.5 % Methemoglobin 0.9 LAB TEMP C Temperature, Body 37.0 LAB PHTC 7.35-7.45 pH, Temp Corrected 7.38 LAB PCO2T 34-46 mm Hg pCO2, Temp Low Correct 32 LAB PO2T mm Hg pO2, Temp Corrected 127 LAB NAB 135-146 mmol/L Sodium,Whole Bld 143 LAB KWB 3.5-5.0 mmol/L Potassium, Whole Bld 3.8 LAB HGBB 13.0-17.0 g/dL Low Hemoglobin,Total,A 11.0 CL LAB HCTB 39.0-51.0 % Hematocrit, Low ACL 34 LAB IC 1.08-1.30 mmol/L Calcium, Ion, WB 1.19 LAB GLB 60-105 mg/dL Glucose,Whole High Bld 174 LAB LACT 0.5-2.2 mmol/L Lactate High 12.8 LAB ABGCOM Blood Gas Comm, Art Urgent value Result Comment: LACT LAB ACBWHO Notified Whom, Art Called to and read back by Result Comment: MALICK J65 GEOFFREY LAB ACBDTE [id number] Notify Date, Art LAB ACBTME [id number] Notify Time, Art Performed By: #### ALLBG #### [facility] [place] [address], [place] [address] CBC Collected: 07/05/2018 Status: F Source: [place] 12:30 AM [facility] REPOSITORY TYPE CODE TESTS RESULT OUT OF REFERENCE UNITS RANGE LAB WBC 3.70-11.00 k/uL WBC High 20.38 LAB RBC 4.20-6.00 m/uL Low RBC 3.18 LAB HGB 13.0-17.0 g/dL Low Hemoglobin 10.7 LAB HCT 39.0-51.0 % Low Hematocrit 32.1 LAB MCV 80.0-100.0 fL MCV High 100.9 LAB MCH 26.0-34.0 pG MCH 33.6 LAB MCHC 30.5-36.0 g/dL MCHC 33.3 LAB RDWCV 11.5-15.0 % RDW-CV 14.0 LAB PLTCT 150-400 k/uL Platelet Count 211 LAB MPV 9.0-12.7 fL MPV 11.0 LAB ABSNUC <0.01 k/uL Absolute nRBC <0.01 Performed By: #### CBC, CMP, NATA #### [facility] [address] [place], [place] [address] COMP METABOLIC PANEL Collected: 07/05/2018 Status: F Source: [place] 12:30 AM [facility] REPOSITORY TYPE CODE TESTS RESULT OUT OF REFERENCE UNITS RANGE LAB TP 6.3-8.0 g/dL Low Protein, Total 4.6 LAB ALB 3.9-4.9 g/dL Low Albumin 3.6 LAB CA 8.5-10.2 mg/dL Low Calcium, Total 8.2 LAB TBIL 0.2-1.3 mg/dL Bilirubin, High Total 2.0 LAB ALKP 38-113 U/L Low Alkaline Phosphatase 33 LAB AST 14-40 U/L AST High 152 LAB GLU 74-99 mg/dL Glucose High 177 Result Comment: The [place] [employer] (ADA) provides guidance for cutoff values for fasting glucose and random glucose. The ADA defines fasting as no caloric intake for at least 8 hours. Fas ting plasma glucose results between 100 to 125 mg/dL indicate increased risk for diabetes (prediabetes). Fasting plasma glucose results greater than or equal to 126 mg/dL meet the criteria for diagnosis of diabetes. In the absence of unequivocal hyperglycemia, results should be confirmed by repeat testing. In a patient with classic symptoms of hyperglycemia or hyperglycemic crisis, random plasma glucose results greater than or equal to 200 mg/dL meet the criteria for diagnosis of diabetes. Reference: Standards of Medical Care in Diabetes 2016, [place] [employer]. Diabetes Care. 2016.39(Suppl 1). LAB BUN 9-24 mg/dL BUN 24 LAB CRET 0.73-1.22 mg/dL Creatinine 1.12 LAB NA 136-144 mmol/L Sodium High 146 LAB K 3.7-5.1 mmol/L Potassium 3.9 LAB CL 97-105 mmol/L Chloride 103 LAB CO2 22-30 mmol/L Low CO2 18 LAB AGAP 9-18 mmol/L Anion Gap High 25 LAB ALT 10-54 U/L ALT 29 LAB GFRAA eGFR- Amer. >60 LAB GFRNAA . eGFR-All Other Races >60 Result Comment: eGFR (Estimated GFR) Units of measure: mL/min/1.73 meters squared eGFR is derived from the reexpressed MDRD Study equation using the following parameters: serum creatinine, age, gender and race. The creatinine assay has been calibrated to be traceable to IDMS. An eGFR <60 mL/min/1.73m2 for >3 months is consistent with chronic kidney disease. Refer to KDOQI guidelines for clinical interpretation. In patients with unstable renal function, e.g. those with acute kidney injury, the eGFR may not accurately reflect actual GFR. Performed By: #### CBC, CMP, NATA #### [facility] [place] [address] [place], [place] [address] TROPONIN T Collected: 07/05/2018 Status: F Source: [place] 12:30 AM [facility] REPOSITORY TYPE CODE TESTS RESULT OUT OF REFERENCE UNITS RANGE LAB TROPT 0.000-0.029 ng/mL High Troponin T 3.630 Result Comment: Called to and read back by: Jessie Calzada 07/05/18 02:59 BRYN Performed By: #### CBC, CMP, NATA #### [facility] [place] [address] [place], [place] [address] CNCO Observed: 07/05/2018 Status: COMPLETED Source: [place] 12:00 [facility] REPOSITORY Letter Text Per MD Kareem, Ph.D Thoracic and Cardiovascular Surgery / [id number] [place] [address] Office: [phone] July 05, 2018 Re: Stefania Diaz [facility]#: [id number] Dear Dr. Godfrey Landon, Your patient underwent open-heart surgery on July 04, 2018. A copy of the operative report is enclosed for your records. Best regards and thank you for allowing me to participate in the care of your patient. Sincerely, Tonya Blake MD, PhD PW/an Enclosure PROGRESS Observed: 07/04/2018 Status: COMPLETED Source: [place] 11:23 PM [facility] [place] REPOSITORY HNO ID: [id number] Author: Martin Day Service: Anesthesiology Author Type: Anesthesiologist Type: Progress Notes Filed: 07/04/2018 11:32 PM Note Text: [facility] Admission Note Name: Stefania Diaz Principal Diagnosis: <principal problem not specified> Indication for Surgery: Severe MR, severe pulmonary HTN Preop LVEF: 61 ? 5% RVF: low Normal Important/Relevant PMH/PSH: childhood rheumatic fever , HTN, MR with severe dyspnea/orthopnea/PND (severe 4+ holosystolic regurgitation due to prolapse and restricted leaflet motion), former smoker, bilateral pleural effusions, Afib (newly diagnosed) Airway Difficulty: Grade I - No special instrumentation and easy Pacing Wires: Yes: Ventricular: When discontinuing pacing wires: Cut all pacing wires Chronological List of Surgeries and Major Events (Diagnosis): (Surgeries in bold characters) 07/04/2018: REPLACEMENT MITRAL VALVE W/ CARDIOPULMONARY BYPASS FULL MAZE with left atrial appendage ligation A/P of Major Active Problems (excluding routine care and common problems): To Do or to Watch: Wean to extubate overnight per protocol Discharge Planning: Anticipated Discharge Date: Unknown Barriers to Discharge: Unknown Care Management Discharge Needs: Needs Prior to Discharge: To Be Determined Additional Hospital Problems No problems updated. Infusions: Epinephrine Insulin Milrinone Norepinephrine Vasopressin CVICU Admission ECG: Reviewed SINUS TACHYCARDIA WITH 1ST DEGREE AV BLOCK INCOMPLETE RIGHT BUNDLE BRANCH BLOCK PROLONGED QT INTERVAL CVICU Admission CXR: Reviewed Lines, tubes, and devices: ? ? ?The patient has had median sternotomy in the interim between the 2 exams. ?Support devices are unremarkable. Lungs and pleura: ?Slight increase of basilar atelectatic changes. ? Superimposed minimal edema or inflammation cannot be excluded. ?Tiny left apical pneumothorax is suspected. ?There are findings compatible with remote granulomatous infection in the chest. Cardiomediastinal silhouette: ?Stable cardiomediastinal silhouette. Neuro: Sedation . Cardiovascular: Rhythm: regular rate and rhythm and Rate:sinus tachycardia MAP: 66 mmHg Cardiac Index: 3 L/min/m2 Pacemaker : Temporary Epicardial - Pacing ventricular wires ICD: No Peripheral pulses present: All present Pulmonary: Clear to auscultation and Breath sounds equal Ventilator: Intubated Potential prolonged intubation : No Abdominal: Soft and Non-tender Continued need for urinary catheter: Yes - clinical indication: Patient post major surgery requiring fluid balance and input and output measurement. DAY OF SURGERY PLAN: Standard Protocol, intubated patient: Cardiovascular monitoring, stabilization of blood pressure and cardiac function, wean to extubate when ready per protocol. Pain control, glycemic control, DVT prophylaxis, antibiotic prophylaxis. SIGNATURE: Evert South MD DATE of SERVICE: 07/04/2018 TIME of SERVICE: 11:23 PM [facility] STAFF PHYSICIAN SUPERVISING RESIDENT I have reviewed the admission note obtained and documented by the resident. I personally participated in the pitts components. I have discussed the case and the plan and management of the patient's care with the resident, the primary surgical team and consulting services, the bedside nurse and the respiratory therapist. IMPRESSION AND PLAN: As annotated by me in the Problem List and in the above note. SIGNATURE: Martin Day MD DATE of SERVICE: 07/04/2018 TIME of SERVICE: 11:31 PM GASA + ALL Collected: 07/04/2018 Status: F Source: [facility] 10:[address] [facility] USE ONLY REPOSITORY TYPE CODE TESTS RESULT OUT OF REFERENCE UNITS RANGE LAB PH 7.35-7.45 pH Low 7.30 LAB PCO2 34-46 mm Hg pCO2 Low 31 LAB PO2 85-95 mm Hg pO2 High 125 LAB BE mmol/L Base Excess NEG 10 LAB HCO3 22-26 mmol/L Bicarbonate Low 15 LAB CO2CT 22.0-28.0 mmol/L CO2 Content Low 16 LAB O2HB 95-98 % Oxyhemoglobin, Art. 96 LAB COHB 0-5.0 % Carboxyhemoglobin, 1.2 Art LAB MHGB 0.4-1.5 % Methemoglobin 0.8 LAB TEMP C Temperature, Body 37.0 LAB PHTC 7.35-7.45 pH, Temp Low Corrected 7.30 LAB PCO2T 34-46 mm Hg pCO2, Temp Low Correct 31 LAB PO2T mm Hg pO2, Temp Corrected 125 LAB NAB 135-146 mmol/L Sodium,Whole Bld 140 LAB KWB 3.5-5.0 mmol/L Potassium, Whole Bld 3.7 LAB HGBB 13.0-17.0 g/dL Low Hemoglobin,Total,A 12.0 CL LAB HCTB 39.0-51.0 % Hematocrit, Low ACL 37 LAB IC 1.08-1.30 mmol/L Calcium, Ion, WB 1.17 LAB GLB 60-105 mg/dL Glucose,Whole High Bld 183 LAB LACT 0.5-2.2 mmol/L Lactate High 14.0 LAB ABGCOM Blood Gas Comm, Art Urgent value Result Comment: LACT LAB ACBWHO Notified Whom, Art Called to and read back by Result Comment: ROBERTO FELDER LAB ACBDTE [id number] Notify Date, Art LAB ACBTME [id number] Notify Time, Art Performed By: #### ALLBG #### [facility] [address] [place], [place] [address] ANES POST Observed: 07/04/2018 Status: COMPLETED Source: [place] 8:56 PM [facility] REPOSITORY HNO ID: [id number] Author: Aurora Hernandez Service: Anesthesiology Author Type: Anesthesiologist Type: Anesthesia PostOp Filed: 07/04/2018 8:57 PM Note Text: POST ANESTHESIA EVALUATION NOTE SERVICE DATE: 07/04/2018 SERVICE TIME: 20:57 : 1945 Vitals: 07/03/18 2345 07/04/18 0344 07/04/18 0743 07/04/18 1112 Temp: 36.4 ?C (97.5 ?F) 36.9 ?C (98.4 ?F) 36.5 ?C (97.7 ?F) 36.6 ?C (97.8 ?F) 07/04/18 0344 07/04/18 0743 07/04/18 0820 07/04/18 1112 BP: 122/72 123/77 122/76 110/65 07/04/18 0820 07/04/18 1112 07/04/18 1201 07/04/18 204 Pulse: 100 76 83 117 07/04/18 0344 07/04/18 0743 07/04/18 1112 07/04/18 204 Resp: 16 20 18 20 07/04/18 0344 07/04/18 0743 07/04/18 1112 07/04/182039 SpO2: 95% 94% 93% 97% Validated Vital Signs: Yes POST ANES STATUS: No apparent anesthetic complications. The patient is appropriately hydrated with stable respiratory and cardiovascular status. Patient has safe and adequate airway control. The patient has appropriate pain relief and no significant post operative nausea or vomiting. The patient has achieved baseline mental status. Intra-Operative Events: No Significant Anesthesia Events Further assessment by Anesthesia Service: None Other Remarks: SIGNATURE: Aurora Hernandez MD PATIENT NAME: Stefania Diaz DATE: July 04, 2018 TIME: 8:57 PM PAGER/CONTACT #: [phone] XR CHEST 1V FRONTAL Observed: 07/04/2018 Status: F Source: [facility] 8:56 PM [facility] REPOSITORY * * *Final Report* * * DATE OF EXAM: Jul 04 2018 8:56PM JIX [id number] - XR CHEST 1V FRONTAL PORT / PROCEDURE REASON: Evaluate tube, line or lead position * * * * Physician Interpretation * * * * EXAMINATION: CHEST RADIOGRAPH (PORTABLE SINGLE VIEW AP) Exam Date/Time: 07/04/2018 8:56 PM Clinical History: Evaluate tube, line or lead position, MQ: XCPMC_5 Comparison: 06/29/2018 RESULT: See impression. IMPRESSION: Lines, tubes, and devices: The patient has had median sternotomy in the interim between the 2 exams. Support devices are unremarkable. Lungs and pleura: Slight increase of basilar atelectatic changes. Superimposed minimal edema or inflammation cannot be excluded. Tiny left apical pneumothorax is suspected. There are findings compatible with remote granulomatous infection in the chest. [ ] Cardiomediastinal silhouette: Stable cardiomediastinal silhouette. Other: . Self Propelled Hot Mix Roller Operator: MARCO ANTONIO Transcribe Date/Time: Jul 04 2018 9:05P Dictated by : ALEKSANDAR WARD MD This examination was interpreted and the report reviewed and electronically signed by: ALEKSANDAR WARD MD on Jul 04 2018 9:05PM EST [id number] STAPH AUREUS PCR Collected: 07/04/2018 Status: F Source: [place] 8:43 PM [facility] REPOSITORY TYPE CODE TESTS RESULT OUT OF REFERENCE UNITS RANGE LAB SASRC Nasal S aureus Spec Source LAB MRSRES Negative for MRSA MRSA by PCR. PCR LAB SARES Negative for Staph Staphylococcus aureus PCR aureus by PCR. Performed By: #### SAPCR #### [facility] [address] [place], [place] [address] GASA + ALL Collected: 07/04/2018 Status: F Source: [facility] 8:41 PM [facility] [place] RADIANCE USE ONLY REPOSITORY TYPE CODE TESTS RESULT OUT OF REFERENCE UNITS RANGE LAB PH 7.35-7.45 pH Low 7.28 LAB PCO2 34-46 mm Hg pCO2 41 LAB PO2 85-95 mm Hg pO2 High 124 LAB BE mmol/L Base Excess NEG 7 LAB HCO3 22-26 mmol/L Bicarbonate Low 19 LAB CO2CT 22.0-28.0 mmol/L CO2 Content Low 20 LAB O2HB 95-98 % Oxyhemoglobin, Art. 96 LAB COHB 0-5.0 % Carboxyhemoglobin, 0.6 Art LAB MHGB 0.4-1.5 % Methemoglobin 1.0 LAB TEMP C Temperature, Body 37.0 LAB PHTC 7.35-7.45 pH, Temp Low Corrected 7.28 LAB PCO2T 34-46 mm Hg pCO2, Temp Correct 41 LAB PO2T mm Hg pO2, Temp Corrected 124 LAB NAB 135-146 mmol/L Sodium,Whole Bld 139 LAB KWB 3.5-5.0 mmol/L Potassium, Whole Bld 3.8 LAB HGBB 13.0-17.0 g/dL Low Hemoglobin,Total,A 12.5 CL LAB HCTB 39.0-51.0 % Hematocrit, Low ACL 38 LAB IC 1.08-1.30 mmol/L Calcium, Ion, WB 1.20 LAB GLB 60-105 mg/dL Glucose,Whole High Bld 229 LAB LACT 0.5-2.2 mmol/L Lactate High 10.2 LAB ABGCOM Blood Gas Comm, Art Urgent value Result Comment: LACT LAB ACBWHO Notified Whom, Art Called to and read back by Result Comment: Rafaela Gillespie65 L CANNAVINO LAB ACBDTE [id number] Notify Date, Art LAB ACBTME Notify Time, Art Performed By: #### ALLBG #### [facility] [address] [place], [place] [address] ECG COMPLETE W Observed: 07/04/2018 Status: F Source: [place] INTERPRETATION 8:40 PM [facility] REPOSITORY NAME : STEFANIA DIAZ PID : [id number] : 1945 Gender : Male Race : ORD : [id number] Procedure Date : Jul 04 2018 20:40:53 Edit Date : Jul 05 2018 13:07:35 Diagnosis:SINUS TACHYCARDIA WITH 1ST DEGREE AV BLOCK RSR' PATTERN IN V1 PROLONGED QT INTERVAL ABNORMAL ECG Confirmed by MD FOSTER, PhD, FLORI ([id number]) on 07/05/2018 1:07:32 PM Ventricular Rate : 117 BPM Atrial Rate : 117 BPM P-R Interval : 212 ms QRS Duration : 94 ms Q-T Interval : 440 ms QTC Calculation(Bezet) : 613 ms P [place] : 77 degrees R [place] : 25 degrees T [place] : 84 degrees Test Reason : Location : 367 : [id number] Overread By : MD FOSTER, PhD,FLORI Edited By : MD FOSTER, PhD,FLORI Referred By : , Acquired by : [id number], BRIEF OP NOT Observed: 07/04/2018 Status: COMPLETED Source: [place] 8:18 PM [facility] REPOSITORY HNO ID: [id number] Author: Bin Raman) Simeon Service: Cardiac Surgery Author Type: Physician Type: Brief Op Note Filed: 07/04/2018 8:21 PM Note Text: CARDIOTHORACIC BRIEF OP NOTE LOG ID: [id number] SURGERY/PROCEDURE DATE: 07/04/2018 INCISION/PROCEDURE START TIME: 4:01 PM INCISION CLOSE/PROCEDURE END TIME: 8:16 PM SURGEON(S) AND MACHINE STACKER(S): Surgeon(s) and Role: * Per Kareem - Primary * Bin Raman) Simeon - Assisting Registered Nurse Insurance Account Manager: Mike Bradley) THAI Buckley; Gera Kohli (Rn) Augustin RN; Tabby (Rn) Leon RN; Darien Forbes (Rn) RENITA FernandezREHABILITATION SERVICES AIDE AND ANESTHESIA: Procedure(s) and Anesthesia Type: * REPLACEMENT MITRAL VALVE W/ CARDIOPULMONARY BYPASS - General * FULL MAZE W/O CARDIOPULMONARY BYPASS - General 1. Mitral valve repair with a 34mm Michael ring and neocords 2. Cyro MAZE with LAAL ANESTHESIA: General BRIEF FINDINGS: Reduced EF. Balloon pump placed in left femoral artery with good response. Three chest tubes R->L: Right chest tube in left pleural space, medial chest tube in mediastinum, left chest tube in right pleural space PREOPERATIVE DIAGNOSIS: atrial fibrillation and mitral insufficiency POSTOPERATIVE DIAGNOSIS: atrial fibrillation and mitral insufficiency ESTIMATED BLOOD LOSS: 250 ml SPECIMENS: None COMPLICATIONS: None SIGNATURE: BIN HENDRIX MD PATIENT NAME: Stefania Diaz DATE: July 04, 2018 TIME: 8:18 PM PAGER/CONTACT #: [phone] GASA + ALL Collected: 07/04/2018 Status: F Source: [place] FOR 7:[address] [facility] USE ONLY REPOSITORY TYPE CODE TESTS RESULT OUT OF REFERENCE UNITS RANGE LAB PH 7.35-7.45 pH Low 7.33 LAB PCO2 34-46 mm Hg pCO2 43 LAB PO2 85-95 mm Hg pO2 High 351 LAB BE mmol/L Base Excess NEG 3 LAB HCO3 22-26 mmol/L Bicarbonate 22 LAB CO2CT 22.0-28.0 mmol/L CO2 Content 23 LAB O2HB 95-98 % Oxyhemoglobin, Art. 98 LAB COHB 0-5.0 % Carboxyhemoglobin,A 1.2 rt LAB MHGB 0.4-1.5 % Methemoglobin 0.9 LAB TEMP C Temperature, Body 37.0 LAB PHTC 7.35-7.45 pH, Temp Low Corrected 7.33 LAB PCO2T 34-46 mm Hg pCO2, Temp Correct 43 LAB PO2T mm Hg pO2, Temp Corrected 351 LAB NAB 135-146 mmol/L Sodium,Whole Bld 137 LAB KWB 3.5-5.0 mmol/L Potassium, Whole Low Bld 3.4 LAB HGBB 13.0-17.0 g/dL Low Hemoglobin,Total,AC 12.2 L LAB HCTB 39.0-51.0 % Hematocrit, ACL Low 38 LAB IC 1.08-1.30 mmol/L Calcium, Ion, WB Low 1.01 LAB GLB 60-105 mg/dL Glucose,Whole Bld High 232 LAB LACT 0.5-2.2 mmol/L Lactate High 8.6 Performed By: #### ALLBG #### [facility] [address] [place], [place] [address] THROMBOGRAPH PANEL Collected: 07/04/2018 Status: F Source: [place] 7:28 PM [facility] [place] REPOSITORY TYPE CODE TESTS RESULT OUT OF REFERENCE UNITS RANGE LAB RTEG 4.0-10.0 min R Value 4.1 LAB MATEG 51.0-69.0 mm Maximum Amplitude 64.0 LAB DEGANG 47.0-74.0 deg Degree Angle 73.7 LAB LY30 0.0-5.0 % Lysis Time High 30 8.1 LAB CITEG Coagulation Index 3 Result Comment: (NOTE) Reference range: NEG 4 to 2 The Coagulation Index, a secondary parameter, is labeled by the dormitory keeper as for research use only and is used per the dormitory keeper's instructions. Its performance characteristics were determined by [facility]'s Fartun Reyes [facility] Pathology and Laboratory Medicine [place] in a manner consistent with CLIA requirements. This test has not been cleared by the U.S. Food and Drug Administration. LAB TEGINT Thrombograph Interp (NOTE) Result Comment: Performing Pathologist: Lakeisha Crews Interpretation: Abnormal - see comment below. COMMENT: A thromboelastograph (TEG) study was performed using citrate-anticoagulated whole blood. The R value, a measure of coagulation function, is within the normal range. This indicates normal coagulation function. The Maximal Amplitude (MA), a measure of platelet function, is within the normal range. The Angle, a measure of fibrinogen function, is within the normal range. This is indicative of normal fibrinogen concentration or function. The Ly30, a measure of fibrinolysis function, is prolonged. This is indicative of increased fibrinolytic function. The Coagulation Index (CI), a measure of hemostasis function, is increased. The CI is a calculated parameter based on the other TEG results. This is indicative of increased hemostasis function. Performed By: #### TEGPNP #### [facility] [place] [address], [place] [address] GASA + ALL Collected: 07/04/2018 Status: F Source: [place] FOR 7:[address] [facility] USE ONLY REPOSITORY TYPE CODE TESTS RESULT OUT OF REFERENCE UNITS RANGE LAB PH 7.35-7.45 pH Low 7.34 LAB PCO2 34-46 mm Hg pCO2 38 LAB PO2 85-95 mm Hg pO2 High 264 LAB BE mmol/L Base Excess NEG 5 LAB HCO3 22-26 mmol/L Bicarbonate Low 20 LAB CO2CT 22.0-28.0 mmol/L CO2 Content Low 21 LAB O2HB 95-98 % Oxyhemoglobin, Art. 98 LAB COHB 0-5.0 % Carboxyhemoglobin,A 1.2 rt LAB MHGB 0.4-1.5 % Methemoglobin 0.8 LAB TEMP C Temperature, Body 37.0 LAB PHTC 7.35-7.45 pH, Temp Low Corrected 7.34 LAB PCO2T 34-46 mm Hg pCO2, Temp Correct 38 LAB PO2T mm Hg pO2, Temp Corrected 264 LAB NAB 135-146 mmol/L Sodium,Whole Bld 135 LAB KWB 3.5-5.0 mmol/L Potassium, Whole Low Bld 3.2 LAB HGBB 13.0-17.0 g/dL Low Hemoglobin,Total,AC 11.5 L LAB HCTB 39.0-51.0 % Hematocrit, ACL Low 35 LAB IC 1.08-1.30 mmol/L Calcium, Ion, WB Low 1.05 LAB GLB 60-105 mg/dL Glucose,Whole Bld High 252 LAB LACT 0.5-2.2 mmol/L Lactate High 7.4 Performed By: #### ALLBG #### [facility] [place] [address] [place], [place] [address] GASA + ALL Collected: 07/04/2018 Status: F Source: [place] FOR 6:[address] [facility] USE ONLY REPOSITORY TYPE CODE TESTS RESULT OUT OF REFERENCE UNITS RANGE LAB PH 7.35-7.45 pH 7.38 LAB PCO2 34-46 mm Hg pCO2 39 LAB PO2 85-95 mm Hg pO2 High 357 LAB BE mmol/L Base Excess NEG 2 LAB HCO3 22-26 mmol/L Bicarbonate 22 LAB CO2CT 22.0-28.0 mmol/L CO2 Content 24 LAB O2HB 95-98 % Oxyhemoglobin, Art. 98 LAB COHB 0-5.0 % Carboxyhemoglobin,A 1.1 rt LAB MHGB 0.4-1.5 % Methemoglobin 0.6 LAB TEMP C Temperature, Body 37.0 LAB PHTC 7.35-7.45 pH, Temp Corrected 7.38 LAB PCO2T 34-46 mm Hg pCO2, Temp Correct 39 LAB PO2T mm Hg pO2, Temp Corrected 357 LAB NAB 135-146 mmol/L Sodium,Whole Bld Low 134 LAB KWB 3.5-5.0 mmol/L Potassium, Whole Bld 3.7 LAB HGBB 13.0-17.0 g/dL Low Hemoglobin,Total,AC 11.6 L LAB HCTB 39.0-51.0 % Hematocrit, ACL Low 36 LAB IC 1.08-1.30 mmol/L Calcium, Ion, WB Low 1.02 LAB GLB 60-105 mg/dL Glucose,Whole Bld High 275 LAB LACT 0.5-2.2 mmol/L Lactate High 7.0 Performed By: #### ALLBG #### [facility] [address] [place], [place] [address] GASA + ALL Collected: 07/04/2018 Status: F Source: [place] FOR 6:02 PM [facility] USE ONLY REPOSITORY TYPE CODE TESTS RESULT OUT OF REFERENCE UNITS RANGE LAB PH 7.35-7.45 pH 7.39 LAB PCO2 34-46 mm Hg pCO2 39 LAB PO2 85-95 mm Hg pO2 High 377 LAB BE mmol/L Base Excess NEG 2 LAB HCO3 22-26 mmol/L Bicarbonate 23 LAB CO2CT 22.0-28.0 mmol/L CO2 Content 24 LAB O2HB 95-98 % Oxyhemoglobin, Art. 98 LAB COHB 0-5.0 % Carboxyhemoglobin,A 1.3 rt LAB MHGB 0.4-1.5 % Methemoglobin 0.5 LAB TEMP C Temperature, Body 37.0 LAB PHTC 7.35-7.45 pH, Temp Corrected 7.39 LAB PCO2T 34-46 mm Hg pCO2, Temp Correct 39 LAB PO2T mm Hg pO2, Temp Corrected 377 LAB NAB 135-146 mmol/L Sodium,Whole Bld Low 129 LAB KWB 3.5-5.0 mmol/L Potassium, Whole High Bld 5.4 LAB HGBB 13.0-17.0 g/dL Low Hemoglobin,Total,AC 11.5 L LAB HCTB 39.0-51.0 % Hematocrit, ACL Low 36 LAB IC 1.08-1.30 mmol/L Calcium, Ion, WB Low 1.05 LAB GLB 60-105 mg/dL Glucose,Whole Bld High 223 LAB LACT 0.5-2.2 mmol/L Lactate High 3.4 Performed By: #### ALLBG #### [facility] [address] [place], [place] [address] GASA + ALL Collected: 07/04/2018 Status: F Source: [place] FOR 5:32 PM [facility] USE ONLY REPOSITORY TYPE CODE TESTS RESULT OUT OF REFERENCE UNITS RANGE LAB PH 7.35-7.45 pH High 7.47 LAB PCO2 34-46 mm Hg pCO2 34 LAB PO2 85-95 mm Hg pO2 High 396 LAB BE mmol/L Base Excess 1 LAB HCO3 22-26 mmol/L Bicarbonate 24 LAB CO2CT 22.0-28.0 mmol/L CO2 Content 25 LAB O2HB 95-98 % Oxyhemoglobin, Art. 98 LAB COHB 0-5.0 % Carboxyhemoglobin,A 1.4 rt LAB MHGB 0.4-1.5 % Methemoglobin 0.7 LAB TEMP C Temperature, Body 37.0 LAB PHTC 7.35-7.45 pH, Temp High Corrected 7.47 LAB PCO2T 34-46 mm Hg pCO2, Temp Correct 34 LAB PO2T mm Hg pO2, Temp Corrected 396 LAB NAB 135-146 mmol/L Sodium,Whole Bld Low 126 LAB KWB 3.5-5.0 mmol/L Potassium, Whole High Bld 5.3 LAB HGBB 13.0-17.0 g/dL Low Hemoglobin,Total,AC 11.3 L LAB HCTB 39.0-51.0 % Hematocrit, ACL Low 35 LAB IC 1.08-1.30 mmol/L Calcium, Ion, WB Low 0.97 LAB GLB 60-105 mg/dL Glucose,Whole Bld High 227 LAB LACT 0.5-2.2 mmol/L Lactate High 2.5 Performed By: #### ALLBG #### [facility] [address], [place] [address] GASV + ALL Collected: 07/04/2018 Status: F Source: [place] 5:29 PM [facility] REPOSITORY TYPE CODE TESTS RESULT OUT OF REFERENCE UNITS RANGE LAB VPH 7.32-7.42 pH 7.40 LAB VPC2 42-55 mm Hg pCO2 42 LAB VPO2 35-45 mm Hg pO2 High 54 LAB VBE mmol/L Base Excess 1 LAB VHC3 24-28 mmol/L Bicarbonate 26 LAB VC2C 25-29 mmol/L CO2 Content 27 LAB O2HBCX 60-85 % Oxyhemoglobin, Curt. 84 LAB CO <2.0 % Carboxyhemoglobin,V 1.5 en LAB METHB 0.4-1.5 % Methemoglobin 0.7 LAB VTMP C Temperature, Body 37.0 LAB VPHTC 7.32-7.42 pH, Temp Corrected 7.40 LAB VPC2T mm Hg pCO2, Temp Correct 42 LAB VPO2T mm Hg pO2, Temp Corrected 54 LAB NAB 135-146 mmol/L Sodium,Whole Bld Low 128 LAB KWB 3.5-5.0 mmol/L Potassium, Whole High Bld 5.2 LAB HGBB 13.0-17.0 g/dL Low Hemoglobin,Total,AC 11.3 L LAB HCTB 39.0-51.0 % Hematocrit, ACL Low 35 LAB IC 1.08-1.30 mmol/L Calcium, Ion, WB Low 1.00 LAB GLB 60-105 mg/dL Glucose,Whole Bld High 226 LAB LACT 0.5-2.2 mmol/L Lactate High 2.5 Performed By: #### VALLBG #### [facility] [address], [place] [address] GASA + ALL Collected: 07/04/2018 Status: F Source: [place] FOR 3:24 PM [facility] USE ONLY REPOSITORY TYPE CODE TESTS RESULT OUT OF REFERENCE UNITS RANGE LAB PH 7.35-7.45 pH High 7.47 LAB PCO2 34-46 mm Hg pCO2 Low 33 LAB PO2 85-95 mm Hg pO2 High 258 LAB BE mmol/L Base Excess 1 LAB HCO3 22-26 mmol/L Bicarbonate 24 LAB CO2CT 22.0-28.0 mmol/L CO2 Content 25 LAB O2HB 95-98 % Oxyhemoglobin, Art. 97 LAB COHB 0-5.0 % Carboxyhemoglobin,A 1.2 rt LAB MHGB 0.4-1.5 % Methemoglobin 1.1 LAB TEMP C Temperature, Body 37.0 LAB PHTC 7.35-7.45 pH, Temp High Corrected 7.47 LAB PCO2T 34-46 mm Hg pCO2, Temp Low Correct 33 LAB PO2T mm Hg pO2, Temp Corrected 258 LAB NAB 135-146 mmol/L Sodium,Whole Bld 136 LAB KWB 3.5-5.0 mmol/L Potassium, Whole Bld 4.3 LAB HGBB 13.0-17.0 g/dL Hemoglobin,Total,AC 16.7 L LAB HCTB 39.0-51.0 % Hematocrit, ACL 51 LAB IC 1.08-1.30 mmol/L Calcium, Ion, WB 1.24 LAB GLB 60-105 mg/dL Glucose,Whole Bld High 127 LAB LACT 0.5-2.2 mmol/L Lactate 1.6 Performed By: #### ALLBG #### [facility] [address] [place], [place] [address] GASV + ALL Collected: 07/04/2018 Status: F Source: [place] 2:04 PM [facility] REPOSITORY TYPE CODE TESTS RESULT OUT OF REFERENCE UNITS RANGE LAB VPH 7.32-7.42 pH High 7.43 LAB VPC2 42-55 mm Hg pCO2 42 LAB VPO2 35-45 mm Hg pO2 High 54 LAB VBE mmol/L Base Excess 3 LAB VHC3 24-28 mmol/L Bicarbonate 27 LAB VC2C 25-29 mmol/L CO2 Content 28 LAB O2HBCX 60-85 % Oxyhemoglobin, Curt. 85 LAB CO <2.0 % Carboxyhemoglobin, 1.1 Curt LAB METHB 0.4-1.5 % Methemoglobin 0.4 LAB VTMP C Temperature, Body 37.0 LAB VPHTC 7.32-7.42 pH, Temp High Corrected 7.43 LAB VPC2T mm Hg pCO2, Temp Correct 42 LAB VPO2T mm Hg pO2, Temp Corrected 54 LAB NAB 135-146 mmol/L Sodium,Whole Bld 135 LAB KWB 3.5-5.0 mmol/L Potassium, Whole Bld 3.9 LAB HGBB 13.0-17.0 g/dL Hemoglobin,Total,A 16.2 CL LAB HCTB 39.0-51.0 % Hematocrit, ACL 50 LAB IC 1.08-1.30 mmol/L Calcium, Ion, WB 1.21 LAB GLB 60-105 mg/dL Glucose,Whole High Bld 110 LAB LACT 0.5-2.2 mmol/L Lactate High 2.4 LAB VCBDTE Notify Date, Curt [id number] LAB VCBTME Notify Time, Curt [id number] Performed By: #### VALLBG #### [facility] [address] [place], [place] [address] GASA + ALL Collected: 07/04/2018 Status: F Source: [place] FOR 1:03 PM [facility] USE ONLY REPOSITORY TYPE CODE TESTS RESULT OUT OF REFERENCE UNITS RANGE LAB PH 7.35-7.45 pH High 7.46 LAB PCO2 34-46 mm Hg pCO2 36 LAB PO2 85-95 mm Hg pO2 95 LAB BE mmol/L Base Excess 2 LAB HCO3 22-26 mmol/L Bicarbonate 25 LAB CO2CT 22.0-28.0 mmol/L CO2 Content 26 LAB O2HB 95-98 % Oxyhemoglobin, Art. 96 LAB COHB 0-5.0 % Carboxyhemoglobin,A 1.5 rt LAB MHGB 0.4-1.5 % Methemoglobin 0.6 LAB TEMP C Temperature, Body 37.0 LAB PHTC 7.35-7.45 pH, Temp High Corrected 7.46 LAB PCO2T 34-46 mm Hg pCO2, Temp Correct 36 LAB PO2T mm Hg pO2, Temp Corrected 95 LAB NAB 135-146 mmol/L Sodium,Whole Bld Low 134 LAB KWB 3.5-5.0 mmol/L Potassium, Whole Bld 3.8 LAB HGBB 13.0-17.0 g/dL High Hemoglobin,Total,AC 17.8 L LAB HCTB 39.0-51.0 % Hematocrit, ACL High 55 LAB IC 1.08-1.30 mmol/L Calcium, Ion, WB 1.21 LAB GLB 60-105 mg/dL Glucose,Whole Bld High 126 LAB LACT 0.5-2.2 mmol/L Lactate 1.4 Performed By: #### ALLBG #### [facility] [address], [place] [address] CBC Collected: 07/04/2018 Status: F Source: [place] 2:36 AM [facility] REPOSITORY TYPE CODE TESTS RESULT OUT OF REFERENCE UNITS RANGE LAB WBC 3.70-11.00 k/uL WBC 10.11 LAB RBC 4.20-6.00 m/uL RBC 5.00 LAB HGB 13.0-17.0 g/dL High Hemoglobin 17.1 LAB HCT 39.0-51.0 % Hematocrit 50.1 LAB MCV 80.0-100.0 fL MCV High 100.2 LAB MCH 26.0-34.0 pG MCH High 34.2 LAB MCHC 30.5-36.0 g/dL MCHC 34.1 LAB RDWCV 11.5-15.0 % RDW-CV 14.1 LAB PLTCT 150-400 k/uL Platelet Count 337 LAB MPV 9.0-12.7 fL MPV 10.5 LAB ABSNUC <0.01 k/uL Absolute nRBC <0.01 Performed By: #### CBC, BMP #### [facility] [address], [place] [id number] BASIC METABOLIC PANL Collected: 07/04/2018 Status: F Source: [place] 2:36 AM [facility] REPOSITORY TYPE CODE TESTS RESULT OUT OF REFERENCE UNITS RANGE LAB GLU 74-99 mg/dL Glucose 95 Result Comment: The [place] [employer] (ADA) provides guidance for cutoff values for fasting glucose and random glucose. The ADA defines fasting as no caloric intake for at least 8 hours. Fas ting plasma glucose results between 100 to 125 mg/dL indicate increased risk for diabetes (prediabetes). Fasting plasma glucose results greater than or equal to 126 mg/dL meet the criteria for diagnosis of diabetes. In the absence of unequivocal hyperglycemia, results should be confirmed by repeat testing. In a patient with classic symptoms of hyperglycemia or hyperglycemic crisis, random plasma glucose results greater than or equal to 200 mg/dL meet the criteria for diagnosis of diabetes. Reference: Standards of Medical Care in Diabetes 2016, [place] [employer]. Diabetes Care. 2016.39(Suppl 1). LAB BUN 9-24 mg/dL BUN High 31 LAB CRET 0.73-1.22 mg/dL Creatinine High 1.31 LAB NA 136-144 mmol/L Sodium 140 LAB K 3.7-5.1 mmol/L Potassium 4.6 LAB CL 97-105 mmol/L Chloride 100 LAB CO2 22-30 mmol/L CO2 26 LAB AGAP 9-18 mmol/L Anion Gap 14 LAB CA 8.5-10.2 mg/dL Calcium, Total 9.7 LAB GFRAA eGFR- Amer. >60 LAB GFRNAA . eGFR-All Other Races 53 Result Comment: eGFR (Estimated GFR) Units of measure: mL/min/1.73 meters squared eGFR is derived from the reexpressed MDRD Study equation using the following parameters: serum creatinine, age, gender and race. The creatinine assay has been calibrated to be traceable to IDMS. An eGFR <60 mL/min/1.73m2 for >3 months is consistent with chronic kidney disease. Refer to KDOQI guidelines for clinical interpretation. In patients with unstable renal function, e.g. those with acute kidney injury, the eGFR may not accurately reflect actual GFR. Performed By: #### CBC, BMP #### [facility] [address], [place] [address] PTT,ANTICOAG THERAPY Collected: 07/04/2018 Status: F Source: [place] 2:36 AM [facility] REPOSITORY TYPE CODE TESTS RESULT OUT OF RANGE REFERENCE UNITS LAB APTT 23.0-32.4 sec High APTT 75.6 Result Comment: Unfractionated Heparin Therapeutic Ranges: Standard Heparin Nomogram: 53 to 78 seconds (anti-Xa level of 0.3 to 0.7 U/ml) Low Dose/ACS Nomogram: 49 to 67 seconds (anti-Xa level of 0.2 to 0.5 U/ml) Stroke Treatment Nomogram: 49 to 67 seconds (anti-Xa level of 0.2 to 0.5 U/ml) Note: The APTT therapeutic range has been determined for the current lot of laboratory APTT reagent in use throughout the [facility]. Performed By: #### PTTAC #### [facility] [address] [id number] CNCO Observed: 07/04/2018 Status: COMPLETED Source: [place] 12:00 AM [facility] REPOSITORY Letter Text OPERATIVE NO Observed: 07/04/2018 Status: COMPLETED Source: [place] 12:00 AM [facility] REPOSITORY HNO ID: [id number] Author: Tonya Blake Service: Cardiac Surgery Author Type: Physician Type: Operative Report Filed: 07/13/2018 8:54 PM Note Text: [facility] - Cardiothoracic Operative Report [address] [address] [place] ST[place] D[place] : 1945 AGE: 73. SEX: M PATIENT TYPE: I [facility] [facility] [facility] [place]: [id number] ATTENDING PHYSICIAN: Tonya Blake M.D. CSN NUMBER: [id number] DATE OF SURGERY/PROCEDURE: 07/04/2018 INCISION/PROCEDURE START TIME: 4:01 PM INCISION CLOSE/PROCEDURE END TIME: 8:16 PM PREOPERATIVE DIAGNOSIS: Mitral regurgitation, left heart failure, and atrial fibrillation. POSTOPERATIVE DIAGNOSIS: Mitral regurgitation, left heart failure, and atrial fibrillation. SURGEON: Tonya Blake M.D. MACHINE STACKER: Bin Hendrix M.D. SURGERY/PROCEDURE: Mitral valve repair with insertion of artificial chords to anterior and posterior leaflet, annuloplasty, Michael IMR size #34, insertion of intra-aortic balloon pump. Biatrial CryoMaze and left atrial appendage clip size #35. ANESTHESIA: General endotracheal. OPERATIVE FINDINGS: Severely depressed LV function preop despite a severe mitral leakage. No clot in left atrial appendage. OPERATIVE INDICATIONS: Severe mitral regurgitation, left heart failure, atrial fibrillation. DESCRIPTION OF PROCEDURE: Median sternotomy. The pericardium was opened. Heparin given and aorta and bicaval cannulation performed. After going on cardiopulmonary bypass, the cross-clamp was applied and cardioplegia was given antegrade and retrograde repeatedly. Left atrium was opened. The mitral valve was exposed with findings as above with prolapse of anterior and posterior leaflet and annular dilatation. The artificial chords were placed to the anterior leaflet and posterior leaflet. It was very dilated and then the posterior leaflet was relatively restricted. I elected to choose a full rigid ring, Michael IMR size #34, which was sutured in place with interrupted non-pledgeted sutures. Left-sided CryoMaze was performed before the mitral procedure with cryo encircling all the four pulmonary veins with connecting lesions up in the left atrial appendage and towards the mitral annulus and coronary sinus. Closure of the left atrium. A size #35 AtriClip was sutured in place. Cryo lesions were now performed from incision in the right atrium and going towards tricuspid annulus. Another cryolesion was done, from the incision up in the right atrial appendage. Another cryolesion was placed laterally from incision and down in the IVC. Cross-clamp was removed. The heart started in sinus rhythm. The heart look still relatively weak and for security, intra-aortic balloon pump was inserted via one direct puncture in the left groin and positioned using echo guidance. Uncomplicated weaning of cardiopulmonary bypass with Milrinone support. Protamine decannulation. Cannulation sites were oversewn. Echo reveals well-functioning mitral valve with no leakage, no DAKOTA, and low mean gradient. Gradually improved contractility. nice contractility of the lateral wall. Ventricular pacing wires. Additional wires for sternal support. There were no complications. There were no qualified residents available for the case. Dr. Hendrix opened, cannulated, and performed hemostasis and closed the chest. DRAINS: One in each pleura and one in mediastinum. ESTIMATED BLOOD LOSS: 250 mL. SPECIMENS: None. COUNTS: All counts were correct. Per Jovani Blake PW:[id number] /[id number] cc: CONFIRM BLOOD TYPE Collected: 07/03/2018 Status: F Source: [place] 5:19 PM [facility] REPOSITORY TYPE CODE TESTS RESULT OUT OF REFERENCE UNITS RANGE LAB %ABR O ABO/RH(D) POSITIVE Performed By: #### CONABO #### [facility] [address] [place], [place] [address] PTT,ANTICOAG THERAPY Collected: 07/03/2018 Status: F Source: [place] 5:18 PM [facility] REPOSITORY TYPE CODE TESTS RESULT OUT OF RANGE REFERENCE UNITS LAB APTT 23.0-32.4 sec High APTT 35.3 Result Comment: Unfractionated Heparin Therapeutic Ranges: Standard Heparin Nomogram: 53 to 78 seconds (anti-Xa level of 0.3 to 0.7 U/ml) Low Dose/ACS Nomogram: 49 to 67 seconds (anti-Xa level of 0.2 to 0.5 U/ml) Stroke Treatment Nomogram: 49 to 67 seconds (anti-Xa level of 0.2 to 0.5 U/ml) Note: The APTT therapeutic range has been determined for the current lot of laboratory APTT reagent in use throughout the [facility]. Performed By: #### PTTAC #### [facility] [address] [place] [address] ANES PREOP Observed: 07/03/2018 Status: COMPLETED Source: [place] 3:30 PM [facility] REPOSITORY HNO ID: [id number] Author: Mike (Klaudia) Sulaiman Service: Anesthesiology Author Type: Resident Type: Anesthesia PreOp Filed: 07/03/2018 4:02 PM Note Text: [facility] PRE[facility] EVALUATION CARDIOTHORACIC ANESTHESIA INPATIENT @[email or web address]@ SERVICE DATE: 07/03/2018 SERVICE TIME: 3:30PM [id number] Proposed Surgical Procedure: MVR + MAZE Re-do: No ASA Class: 4 Surgeon: Kareem Surgery Date: 07/04/18 Last Wt 07/03/18 : 68.7 kg (151 lb 6.4 oz) Last Ht 06/29/18 : 182.9 cm (6') Estimated body mass index is 20.53 kg/m? as calculated from the following: Height as of this encounter: 182.9 cm (6'). Weight as of this encounter: 68.7 kg (151 lb 6.4 oz). Estimated body surface area is 1.87 meters squared as calculated from the following: Height as of this encounter: 182.9 cm (6'). Weight as of this encounter: 68.7 kg (151 lb 6.4 oz). Pt is a 73 y/o M with PMH significant for childhood rheumatic fever , HTN, MR with severe dyspnea/orthopnea/PND (severe 4+ holosystolic regurgitation due to prolapse and restricted leaflet motion), former smoker, bilateral pleural effusions, Afib (newly diagnosed) who is scheduled to undergo Mitral Valve surgery and MAZE with Dr. Blake on 07/04/18. LHC/RHC (06/28) with nonobstructive CAD and severe pulmonary hypertension ( RA 22, RV 19, PA 76/40 (51), PCWP 35, LVEDP 31, SVO2 46%, vi CO/CI 5.65/2.81, thermo CO/CI 2.7/1.3). PAST MEDICAL HISTORY Diagnosis Date - Colitis 04/12/2018 Chronic active colitis - Colonic polyp - Hypertension resolved - MVP (mitral valve prolapse) - Snoring PAST SURGICAL HISTORY Procedure Laterality Date - COLONOSCOP W/ OR W/O BRSH SPEC 04/12/2018 Colonoscopy - HERNIA REPAIR HX Right 1982 No family history on file. Social History Substance Use Topics - Smoking status: Former Smoker Packs/day: 1.00 Years: 20.00 Types: Cigarettes Quit date: 1980 - Smokeless tobacco: Never Used - Alcohol use 0.6 oz/week 1 Glasses of wine per week Comment: weekly ALLERGIES No Known Allergies REVIEW OF SYSTEMS: Neuro: no hx of stroke or TIA Respiratory: Dyspnea, Orthopnea. Reports being diagnosed with bronchitis several times during last year Cardiovascular: See HPI GI: No history of GI symptoms or problems. No history of esophageal varices, recent ascites, or ETOH greater than 2 drinks per day. Endocrine: no hx of diabetes/endocrine problems Hematology: no history of bleeding or clotting disorders CKD AND ANEMIA ASSESSMENT: Patient has both eGFR < 60 mL/min and a Hemoglobin < 11 g/dl: No if the patient is going on CPB. ANESTHETIC HISTORY: History of general anesthesia without complications. AIRWAY ASSESSMENT: Airway History: No abnormal airway history. No ARKS record available for review Airway Exam: General: Normal appearance Mallampati Score: CLASS I Interincisor Distance: 5 cm Thyromental Distance: 8 cm Neck Circumference: 41 cm Overbite: No Cervical Mobility: Normal Facial Hair: Yes, Full Rosen-Yes Head/Neck Pathology: No ANTICIPATED DIFFICULT AIRWAY: NO Pre-Existing Diagnosis of Obstructive Sleep Apnea: No, but likely. PHYSICAL EXAM: VITALS: BP 111/66 Pulse 95 Temp 36.7 ?C (98.1 ?F) (Oral) Resp 18 Ht 182.9 cm (6') Wt 68.7 kg (151 lb 6.4 oz) SpO2 96% BMI 20.53 kg/m? CARDIAC: Irregular rate, +systolic murmur LUNGS: Lungs clear to auscultation. Good air entry bilaterally. Date 07/03/18 0700 - 07/04/18 0659 Shift 3784-2574 5511-6468 2279-9197 24 Hour Total I N T A K E PO 810 810 IV 50 10 60 Shift Total 860 10 870 O U T P U T Urine 725 725 Shift Total 725 725 Weight (kg) 68.7 68.7 68.7 68.7 Lines, Drains, Airway: PIV x 1, 20G R forearm O2 Therapy: Room Air (07/03/18 1519) LABS: Lab Results Past 6 Months Component Value Date HB 17.1 (H) 07/03/2018 HCT 52.0 (H) 07/03/2018 PLT 327 07/03/2018 WBC 10.08 07/03/2018 NA 139 07/03/2018 K 3.8 07/03/2018 CREAT 1.09 07/03/2018 CA 9.6 07/03/2018 APTT 55.6 (H) 07/03/2018 INR 1.2 06/29/2018 HBA1C 5.5 06/29/2018 TSH 2.560 06/29/2018 Lab Results Past 6 Months Component Value Date GLUC 92 07/03/2018 K 3.8 07/03/2018 NA 139 07/03/2018 CHLOR 97 07/03/2018 CO2 28 07/03/2018 CREAT 1.09 07/03/2018 BUN 27 (H) 07/03/2018 ANION 14 07/03/2018 CA 9.6 07/03/2018 TPROT 6.3 07/03/2018 ALB 3.3 (L) 07/03/2018 TBILI 1.2 07/03/2018 ALKPHOS 85 07/03/2018 AST 35 07/03/2018 ALT 47 07/03/2018 ABO/RH(D) (no units) Date Value 07/03/2018 O POSITIVE Antibody Screen (no units) Date Value 07/03/2018 NEG Historical Ab Scr Status (no units) Date Value 07/03/2018 NEGATIVE Anticipated Blood Products Ordered: No blood product orders needed. Will the Patient Accept Blood: Yes IMAGING AND TESTS: ECHO (TTE) 06/30/18 MEASUREMENTS: ?Value ? Indexed ? ?Normal Max aortic dimension ? ? 3.6 cm ?1.91 cm/m? Left atrium diameter ? ? 5.4 cm (M-Mode) Left atrial volume ? ? ? 164 ml (4ch A-L) ? ?87 ml/m? ? Sarkis <= 34 LV ID (diastole) ? 5.4 cm (2D) LV ID (systole) ?3.7 cm (2D) IVS, leaflet tips ?1.6 cm (2D) Posterior wall thickness 1.1 cm (2D) Left ventricular mass ?167 g/m? LV stroke volume ? 99 ml (2D biplane) LV end diastolic volume ?163 ml (2D biplane) 86.8 ml/m? 34<=EDVi<75 LV end systolic volume ? 64 ml (2D biplane) ?34.0 ml/m? Ejection Fraction ?61 % (2D biplane) ?EF > 52 ? FINDINGS: ? LEFT VENTRICLE The left ventricle is normal in size. There is mild septal left ventricular hypertrophy. Left ventricular systolic function is normal. Left ventricular diastolic function was not evaluated due to AF. Wall Motion: All scored segments are normal. ? ? RIGHT VENTRICLE The right ventricle is normal in size. Right ventricular systolic function is low normal. Estimated right ventricular systolic pressure is 54 mmHg consistent with moderate pulmonary hypertension. Estimated right atrial pressure is 5 mmHg. ? LEFT ATRIUM The left atrial cavity is severely dilated. ? RIGHT ATRIUM The right atrial cavity is dilated. Inferior Vena Cava: The inferior vena cava appears normal measuring 1.8 cm. The vessel decreases greater than 50 percent with inspiration. MITRAL VALVE There is severe (3+ - 4+) holosystolic mitral valve regurgitation. There is a posteriorly directed regurgitant jet. Regurgitant orifice area (PISA) is 0.24 cm?. ? TRICUSPID VALVE The tricuspid valve leaflets are structurally normal. There is mild (1+ - 2+) tricuspid valve regurgitation. There is a laterally directed regurgitant jet. ? AORTIC VALVE There is no aortic valve stenosis. There is mild (1+) aortic valve regurgitation. Tricuspid aortic valve. The peak gradient is 3 mmHg (peak velocity = 91.7 cm/s). ? PULMONIC VALVE The pulmonic valve cusps are structurally normal. The peak gradient is 2 mmHg. ? AORTA The visualized aorta is normal in size. Measurements - Sinus 3.6 cm.?Sinotubular junction 3.2 cm. Mid ascending aorta 2.9 cm. Distal ascending aorta 3.0 cm. PERICARDIUM The pericardium is normal. There is no pericardial effusion. ? CORONARY ARTERIES The coronary arteries are unseen or not interrogated. ? CONCLUSIONS: - Exam indication: mitral regurgitation - The left ventricle is normal in size. There is mild septal left ventricular hypertrophy. Left ventricular systolic function is normal. EF = 61 ? 5% (2D biplane) Left ventricular diastolic function was not evaluated due to AF. - The right ventricle is normal in size. Right ventricular systolic function is low normal. - The left atrial cavity is severely dilated. - The right atrial cavity is dilated. - There is severe (3+ - 4+) holosystolic mitral valve regurgitation. Regurgitant orifice area (PISA) is 0.24 cm?. - Estimated right ventricular systolic pressure is 54 mmHg consistent with moderate pulmonary hypertension. Estimated right atrial pressure is 5 mmHg. - Severe eccentric mitral regurgitation; likely underestimated on quantitative metrics due to eccentric nature of regurgitant jet. A2 flail seen on GLENNA yesterday. Limited assessment of pulmonary veins does not show systolic flow reversal. - Exam was compared with the prior GLENNA exam performed on 06-29-2018. ECHO (Transesophageal) 06/29/18 FINDINGS: ? LEFT VENTRICLE The left ventricle is normal in size. Left ventricular systolic function is normal. ? RIGHT VENTRICLE The right ventricle is normal in size. Right ventricular systolic function is normal. Estimated right ventricular systolic pressure is not reported due to an insufficient tricuspid regurgitation signal. ? LEFT ATRIUM The left atrial cavity is dilated. The left atrial appendage is multilobed. There is no left atrial appendage thrombus. ? RIGHT ATRIUM The right atrial cavity is normal in size. ? MITRAL VALVE [place] mitral valve. There is no mitral stenosis. 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 There is a posteriorly directed regurgitant jet originating along the entire aspect of the coaptation line. There is moderate thickening at the tips. There is mild calcification. There is partial flail of the A2 segment of the anterior mitral leaflet. 3D echocardiographic multi-planar reconstruction of the mitral valve was performed ?to assess anatomy and function. ? TRICUSPID VALVE There is trivial tricuspid valve regurgitation. ? AORTIC VALVE There is no aortic valve stenosis. There is mild (1+) aortic valve regurgitation. Tricuspid aortic valve. 3D echocardiographic multi-planar reconstruction of the aortic valve was performed ?to assess anatomy and function. INTERATRIAL SEPTUM There is no patent foramen ovale as detected by Doppler and saline contrast. There ?is no evidence of intracardiac shunting as detected by Doppler, saline contrast and saline contrast with valsalva. ? CONCLUSIONS: - Exam indication: Pre Cardioversion, Pre AF Ablation - The left ventricle is normal in size. Left ventricular systolic function is normal. EF = 55 ? 5% (visual est.) - The right ventricle is normal in size. Right ventricular systolic function is normal. - The left atrial cavity is dilated. There is no left atrial appendage thrombus or ?sludge. 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 On 3D imaging and live 2D, there appears to be flail A2 segment with free cord (Clip 30) - There is no patent foramen ovale as detected by Doppler and saline contrast. - The patient has not had a prior CC echocardiographic exam for comparison. CXR 06/29/18 IMPRESSION: Lines, tubes, and devices: ?None Lungs and pleura: ?The right costophrenic angle is excluded. ?Blunting of the left costophrenic angle may represent a small left effusion. ?A calcified granuloma is seen in the left lower lobe. ?The lungs are otherwise free of focal consolidation. ?There is no pneumothorax. Cardiomediastinal silhouette: ?The heart is enlarged. ?The mediastinal contours are normal. Other: ?The osseous structures are intact. Spirometry 07/03/18 IMPRESSION: ?[facility] [place] ?Pulmonary Function Lab ?Pred ? ? ? LLN ? ULN ? ? ? Pre ? ? % ? Date ?[id number] ? Time ?02:43PM ? Height ?182.9 ? Weight ? 68.7 ? FVC ?4.62 ? ? ?3.63 ?5.60 ? ? ?3.86 ? ? 84 ? FEV 1 ?3.36 ? ? ?2.53 ?4.20 ? ? ?2.71 ? ? 80 ? FEV1%F ? ? ?72.78 ? ? 63.10 82.46 ? ? 70.21 ? ? 96 ? FEV 2 ?3.77 ? ? ?2.73 ?4.81 ? ? ?3.09 ? ? 82 ? FEV 3 ?4.27 ? ? ?3.25 ?5.28 ? ? ?3.29 ? ? 77 ? FEV3%E ? ? ?89.89 ? ? 85.25 94.53 ? ? 85.25 ? ? 95 ? MEF 50 ? ? ? 4.26 ?2.64 ?5.89 ? ? ?2.48 ? ? 58 ? FIF 50 ? 3.75 ? F25/75 ? ? ? 2.46 ? ? ?0.78 ?4.15 ? ? ?1.43 ? ? 58 ? FE%FIF ?66.10 ? FEV6 ? 3.58 ? PEF ?8.61 ? ? ?6.25 10.97 ? ? 11.22 ? ?130 ? FET ? 14.08 ? FETPEF ? 0.03 ? VBe%FV ? 1.86 ? VBEex ?0.07 ? LHC 06/28/18 OSH LV gram EF 50%, LVEDP 31. Severe MR. LM/LAD/CX normal, MLA of RCA, R dominant RHC: RA 22, RV 60/17, PA 76/40 (51), PCP 35, PVR 464, SVR 2464, Vi CO/CI 5.65/2.81, Thermo CO/CI 2.76/1.37, PA sat 46% DEVICES: None MEDICATIONS: Current Facility-Administered Medications: Chlorhexidine Gluconate 0.12 % 15 mL (PERIDEX) 15 mL ORAL q 6 H furosemide 40 mg injection (LASIX) 40 mg INTRAVENOUS DAILY metoprolol tartrate (short acting) 25 mg tab(s) (LOPRESSOR) 25 mg ORAL q 12 H losartan 25 mg tab(s) (COZAAR) 25 mg ORAL DAILY heparin iv infusion (LOW DOSE ACS/NOMOGRAM) 25,000 units in NaCl 0.45% 250 mL PREMIX 0-3,000 Units/hr INTRAVENOUS CONTINUOUS And heparin RATE CHANGE bolus 1,000-4,000 Units for subtherapeutic aptt results 1,000-4,000 Units INTRAVENOUS PRN perflutren lipid microspheres 1.1 mg/mL 1.3 mL injection (DEFINITY) 1.3 mL INTRAVENOUS DIRECTED PRN potassium chloride ER 10-60 mEq tab(s) (K-DUR, KLOR-CON) 10- 60 mEq ORAL PRN Is the patient currently on any anticoagulant medications: Yes: Anticoagulant medications the patient is currently on: Heparin drip This was adequately stopped before surgery: No, primary service aware. PAIN AND ANXIETY EDUCATION AND MANAGEMENT: Patient has no concerns to address at this time. Will the Patient Require an Epidural? No Additional Comments: I have reviewed the Cardiothoracic Surgical Assessment and agree with its findings. During the course of the encounter the patient was prepared for anesthetic care. This conversation included anesthetic options, possible use of invasive monitoring, the risks, benefits, alternatives, and personnel that will be present for the anesthetic encounter. The patient agreed to proceed with the planned anesthetic. Instructed to take metoprolol with a small sip of water on the morning of surgery. BETA MAUDE COMPLIANCE: Is the Patient Scheduled for a CABG: No SIGNATURE: Mike Hilario DO PATIENT NAME: Stefania Diaz DATE: July 03, 2018 TIME: 3:30 PM PAGER/CONTACT #: [id number] Observed: 07/03/2018 Status: COMPLETED Source: [place] 2:45 PM [facility] REPOSITORY Office Visit ([facility]) STEFANIA DIAZ ([id number]) 1945 M Date Time Provider Department 07/03/18 2:45 PM [facility] J-1 [place] During your visit today, we recorded the following information about you: Referring Provider: MARCI RHOADES [[id number]] Allergies As of Date: 07/03/2018 (No Known Allergies) Date Reviewed: 07/03/2018 Reviewed by: Hazel (Rn) RENITA Wilson - Fully Assessed Reason for Visit: Spirometry [191] Primary Visit Diagnosis:Dyspnea, unspecified type [R06.00] Prescriptions as of 07/03/2018 Sig: CHLORHEXIDINE GLUCONATE 0.12 * Take 15 mL by mouth twice nery* VALSARTAN ORAL Take by mouth. Pt unsure of d* ASPIRIN 325 MG TABLET Take 325 mg by mouth four franco* METOPROLOL TARTRATE 25 MG TAB* Take 25 mg by mouth twice nery* Problem List As Of Date 07/03/2018 Noted Resolved Mitral regurgitation [I34.0] INVALID FOR* Malnutrition of moderate degree (HCC) [E44.0] INVALID FOR* Preop testing [Z01.818] INVALID FOR* More... Encounter Status:Closed by BA AVELAR on 07/03/18 CONSULT PROG Observed: 07/03/2018 Status: COMPLETED Source: [place] 1:21 PM [facility] REPOSITORY HNO ID: [id number] Author: Vaishali Tapia Service: Dentistry Author Type: Dentist Type: Consult Progress Note Filed: 07/03/2018 1:21 PM Note Text: Head and Neck [place] [facility], Oral Surgery, AND Maxillofacial Prosthetics CHIEF COMPLAINT: Dental consult prior to [facility] HISTORY OF PRESENT ILLNESS: Stefania Diaz is a 73 year old male being seen for dental consultation at the request of Dr. Tonya Blake prior to open-heart surgery. The patient's last dental visit was 2 year(s) ago. He denies odontalgia today. PROBLEM LIST: ACTIVE PROBLEM LIST Mitral Regurgitation Malnutrition of Moderate Degree (Hcc) Preop Testing CURRENT MEDICATIONS: Current Facility-Administered Medications on File Prior to Visit: furosemide 40 mg injection (LASIX) metoprolol tartrate (short acting) 25 mg tab(s) (LOPRESSOR) losartan 25 mg tab(s) (COZAAR) heparin iv infusion (LOW DOSE ACS/NOMOGRAM) 25,000 units in NaCl 0.45% 250 mL PREMIX And heparin RATE CHANGE bolus 1,000-4,000 Units for subtherapeutic aptt results perflutren lipid microspheres 1.1 mg/mL 1.3 mL injection (DEFINITY) potassium chloride ER 10-60 mEq tab(s) (K-DUR, KLOR-CON) Current Outpatient Prescriptions on File Prior to Visit: VALSARTAN ORAL Take by mouth. Pt unsure of dose. Started at [facility]. aspirin 325 mg tablet Take 325 mg by mouth four times a week. metoprolol tartrate, short acting, (LOPRESSOR) 25 mg tablet Take 25 mg by mouth twice daily. ALLERGIES: ALLERGIES No Known Allergies CLINICAL EXAMINATION: Extraoral, Head and Neck exam: Extraoral swelling or erythema:NO Parotid and submandibular glands soft, nonpainful to palpation bilaterally: YES Lymphadenopathy: NO V1, V2, V3, CN VII intact bilaterally: YES Intraoral Soft Tissues: Clear saliva extruded from bilateral Hawks's and Tabatha's ducts. Tongue soft and non-tender with no apparent lesions. Buccal mucosa without lesions bilaterally. Hard palate is WNL. Soft palate is WNL. Pharynx is WNL. Floor of mouth is WNL. Dentition: Caries:None Retained root tips: None Pain to percussion: None Mobility: None Oral hygiene: fair. Radiographic examination: No apical radiolucencies noted. Unique trabeculation noted, but WNL of teeth #30 ASSESSMENT: The oral cavity and dentition were examined and found to be without signs of acute odontogenic infection. There is low risk of perioperative dental complication with this patient. RECOMMENDATIONS: The patient is cleared for treatment from an oral health standpoint. Patient will follow up with local dentist after recovery. The procedure including risks, benefits, options and personnel performing the procedure was discussed with the patient. Stefania Diaz expressed understanding and agreed to proceed. The opinions rendered will be communicated back to the referring provider via shared electronic medical record. Fartun Nesbitt DMD I saw and evaluated the patient. Discussed with the resident and agree with resident's findings and plan as documented in the resident's notes. Additionally, severe attrition extending into the dentin. Vaishali Tapia DDS PROGRESS Observed: 07/03/2018 Status: COMPLETED Source: [place] 11:51 AM [facility] REPOSITORY HNO ID: [id number] Author: Vaishali Tapia Service: (none) Author Type: Dentist Type: Progress Notes Filed: 07/03/2018 1:22 PM Note Text: Head and Neck [place] [facility], Oral Surgery, AND Maxillofacial Prosthetics CHIEF COMPLAINT: Dental consult prior to [facility] HISTORY OF PRESENT ILLNESS: Stefania Diaz is a 73 year old male being seen for dental consultation at the request of Dr. Tonya Blake prior to open-heart surgery. The patient's last dental visit was 2 year(s) ago. He denies odontalgia today. PROBLEM LIST: ACTIVE PROBLEM LIST Mitral Regurgitation Malnutrition of Moderate Degree (Hcc) Preop Testing CURRENT MEDICATIONS: Current Facility-Administered Medications on File Prior to Visit: furosemide 40 mg injection (LASIX) metoprolol tartrate (short acting) 25 mg tab(s) (LOPRESSOR) losartan 25 mg tab(s) (COZAAR) heparin iv infusion (LOW DOSE ACS/NOMOGRAM) 25,000 units in NaCl 0.45% 250 mL PREMIX And heparin RATE CHANGE bolus 1,000-4,000 Units for subtherapeutic aptt results perflutren lipid microspheres 1.1 mg/mL 1.3 mL injection (DEFINITY) potassium chloride ER 10-60 mEq tab(s) (K-DUR, KLOR-CON) Current Outpatient Prescriptions on File Prior to Visit: VALSARTAN ORAL Take by mouth. Pt unsure of dose. Started at [facility]. aspirin 325 mg tablet Take 325 mg by mouth four times a week. metoprolol tartrate, short acting, (LOPRESSOR) 25 mg tablet Take 25 mg by mouth twice daily. ALLERGIES: ALLERGIES No Known Allergies CLINICAL EXAMINATION: Extraoral, Head and Neck exam: Extraoral swelling or erythema:NO Parotid and submandibular glands soft, nonpainful to palpation bilaterally: YES Lymphadenopathy: NO V1, V2, V3, CN VII intact bilaterally: YES Intraoral Soft Tissues: Clear saliva extruded from bilateral Vicky's and Tabatha's ducts. Tongue soft and non-tender with no apparent lesions. Buccal mucosa without lesions bilaterally. Hard palate is WNL. Soft palate is WNL. Pharynx is WNL. Floor of mouth is WNL. Dentition: Caries:None Retained root tips: None Pain to percussion: None Mobility: None Oral hygiene: fair. Radiographic examination: No apical radiolucencies noted. Unique trabeculation noted, but WNL of teeth #30 ASSESSMENT: The oral cavity and dentition were examined and found to be without signs of acute odontogenic infection. There is low risk of perioperative dental complication with this patient. RECOMMENDATIONS: The patient is cleared for treatment from an oral health standpoint. Patient will follow up with local dentist after recovery. The procedure including risks, benefits, options and personnel performing the procedure was discussed with the patient. Stefania Diaz expressed understanding and agreed to proceed. The opinions rendered will be communicated back to the referring provider via shared electronic medical record. Fartun Nesbitt DMD I saw and evaluated the patient. Discussed with the resident and agree with resident's findings and plan as documented in the resident's notes. Additionally, severe attrition extending into the dentin. Vaishali Tapia DDS CNOV Observed: 07/03/2018 Status: COMPLETED Source: [place] 11:30 AM [facility] REPOSITORY Office Visit ([facility]) STEFANIA DIAZ ([id number]) 1945 M Date Time Provider Department 07/03/18 11:30 AM FARTUN NESBITT ([place]) [facility] During your visit today, we recorded the following information about you: Vaishali Tapia DDS 07/03/2018 1:22 PM Signed [facility] [place] [facility], Oral Surgery, AND Maxillofacial Prosthetics CHIEF COMPLAINT: Dental consult prior to [facility] HISTORY OF PRESENT ILLNESS: Stefania Diaz is a 73 year old male being seen for dental consultation at the request of Dr. Tonya Blake prior to open-heart surgery. The patient's last dental visit was 2 year(s) ago. He denies odontalgia today. PROBLEM LIST: ACTIVE PROBLEM LIST Mitral Regurgitation Malnutrition of Moderate Degree (Hcc) Preop Testing CURRENT MEDICATIONS: Current Facility-Administered Medications on File Prior to Visit: furosemide 40 mg injection (LASIX) metoprolol tartrate (short acting) 25 mg tab(s) (LOPRESSOR) losartan 25 mg tab(s) (COZAAR) heparin iv infusion (LOW DOSE ACS/NOMOGRAM) 25,000 units in NaCl 0.45% 250 mL PREMIX And heparin RATE CHANGE bolus 1,000-4,000 Units for subtherapeutic aptt results perflutren lipid microspheres 1.1 mg/mL 1.3 mL injection (DEFINITY) potassium chloride ER 10-60 mEq tab(s) (K-DUR, KLOR-CON) Current Outpatient Prescriptions on File Prior to Visit: VALSARTAN ORAL Take by mouth. Pt unsure of dose. Started at [facility]. aspirin 325 mg tablet Take 325 mg by mouth four times a week. metoprolol tartrate, short acting, (LOPRESSOR) 25 mg tablet Take 25 mg by mouth twice daily. ALLERGIES: ALLERGIES No Known Allergies CLINICAL EXAMINATION: Extraoral, Head and Neck exam: Extraoral swelling or erythema:NO Parotid and submandibular glands soft, nonpainful to palpation bilaterally: YES Lymphadenopathy: NO V1, V2, V3, CN VII intact bilaterally: YES Intraoral Soft Tissues: Clear saliva extruded from bilateral Vicky's and Tabatha's ducts. Tongue soft and non-tender with no apparent lesions. Buccal mucosa without lesions bilaterally. Hard palate is WNL. Soft palate is WNL. Pharynx is WNL. Floor of mouth is WNL. Dentition: Caries:None Retained root tips: None Pain to percussion: None Mobility: None Oral hygiene: fair. Radiographic examination: No apical radiolucencies noted. Unique trabeculation noted, but WNL of teeth #30 ASSESSMENT: The oral cavity and dentition were examined and found to be without signs of acute odontogenic infection. There is low risk of perioperative dental complication with this patient. RECOMMENDATIONS: The patient is cleared for treatment from an oral health standpoint. Patient will follow up with local dentist after recovery. The procedure including risks, benefits, options and personnel performing the procedure was discussed with the patient. Stefania Diaz expressed understanding and agreed to proceed. The opinions rendered will be communicated back to the referring provider via shared electronic medical record. Fartun Nsebitt DMD I saw and evaluated the patient. Discussed with the resident and agree with resident's findings and plan as documented in the resident's notes. Additionally, severe attrition extending into the dentin. Vaishali Tapia DDS Referring Provider: TONYA BLAKE [[id number]] Allergies As of Date: 07/03/2018 (No Known Allergies) Date Reviewed: 07/03/2018 Reviewed by: Hazel (Rn) RENITA Wilson - Fully Assessed Primary Visit Diagnosis:Mitral valve insufficiency, unspecified etiology [I34.0] Other Visit Diagnosis:Preoperative examination [Z01.818] Order(s):Chlorhexidine Gluconate (PERIDEX) 0.12 % solutionTake 15 mL by mouth twice daily. Rinse mouth with three (3) teaspoonsful (15mL) for 30 seconds.Disp: 473 mLRfl: 0 INTRAORAL PERIAPICAL FIRST F [[id number]] Order #: [id number]: 1 INTRAORAL PERIAPICAL EA ADD [[id number]] Order #: [id number]: 1 INTRAORAL PERIAPICAL EA ADD [[id number]] Order #: [id number]: 1 INTRAORAL PERIAPICAL FIRST F [[id number]] Order #: [id number]: 1 INTRAORAL PERIAPICAL FIRST F [[id number]] Order #: [id number]: 1 Prescriptions as of 07/03/2018 Sig: CHLORHEXIDINE GLUCONATE 0.12 * Take 15 mL by mouth twice nery* VALSARTAN ORAL Take by mouth. Pt unsure of d* ASPIRIN 325 MG TABLET Take 325 mg by mouth four franco* METOPROLOL TARTRATE 25 MG TAB* Take 25 mg by mouth twice nery* Problem List As Of Date 07/03/2018 Noted Resolved Mitral regurgitation [I34.0] INVALID FOR* Malnutrition of moderate degree (HCC) [E44.0] INVALID FOR* Preop testing [Z01.818] INVALID FOR* More... Prescriptions ordered this encounter Disp Refills Start End CHLORHEXIDINE GLUCONATE 0.12 % MOUTH* 473 * 0 07/03/2018 Class: Print RX Route: ORAL Sig: Take 15 mL by mouth twice daily. Rinse mouth with three (3) teaspoonsful (15mL) for 30 seconds. Follow-up and Disposition History Recorded Encounter Status:Closed by VAISHALI TAPIA DDS on 07/03/18 12 LEAD ELECTROCARDIOGRAM Observed: 07/03/2018 Status: F Source: [place] 10:59 AM [facility] Cardiovascular Services [address] [place] [address] 12 Lead EKG 06/27/18 1555 MR#: [id number] Acct: [id number] Name: STEFANIA IDAZ Rep #: [id number] : 1945 73 From: Gabriel Vidales MD Attending Dr: Maciel Mera MD Status: DIS IN Ordering Dr: River Alvarado MD Date: 06/27/18 Location: [facility] Sex: M C Admitted: 06/27/18 Test Reason : RHYTHM Blood Pressure : / mmHG Vent. Rate : 107 BPM Atrial Rate : 107 BPM P-R Int : 000 ms QRS Dur : 090 ms QT Int : 384 ms P-R-T Axes : 000 047 035 degrees QTc Int : 512 ms Atrial fibrillation with rapid ventricular response with premature ventricular or aberrantly conducted complexes Nonspecific ST abnormality Abnormal ECG When compared with ECG of 27-JUN-2018 00:16, MANUAL COMPARISON REQUIRED, DATA IS UNCONFIRMED Confirmed by GABRIEL VIDALES MD ([id number]), editor publications JASMEET DESIR ([id number]) on 07/03/2018 10:59:24 AM Referred By: Jose Alvarez Confirmed By:GABRIEL VIDALES MD 07/03/18 1059 Date Gabriel Vidales MD CC: River Alvarado MD; Maciel Mera MD; Jose Alvarez MD Signed 12 LEAD ELECTROCARDIOGRAM Observed: 07/03/2018 Status: F Source: [place] 10:57 AM [facility] Cardiovascular Services [address] [place] [address] 12 Lead EKG 06/28/18 0533 MR#: [id number] Acct: [id number] Name: STEFANIA DIAZ Rep #: [id number] : [id number] 73 From: Gabriel Vidales MD Attending Dr: Maciel Mera MD Status: DIS IN Ordering Dr: River Alvarado MD Date: 06/28/18 Location: [facility] Sex: M C Admitted: 06/27/18 Test Reason : AM EKG Blood Pressure : / mmHG Vent. Rate : 083 BPM Atrial Rate : 073 BPM P-R Int : 000 ms QRS Dur : 094 ms QT Int : 432 ms P-R-T Axes : 000 042 032 degrees QTc Int : 507 ms Atrial fibrillation Prolonged QT Abnormal ECG When compared with ECG of 27-JUN-2018 15:55, MANUAL COMPARISON REQUIRED, DATA IS UNCONFIRMED Confirmed by GABRIEL VIDALES MD ([id number]), editor publications JASMEET DESIR (87) on 07/03/2018 10:57:20 AM Referred By: Jose Alvarez Confirmed By:GABRIEL VIDALES MD 07/03/181056 Date Gabriel Vidales MD CC: River Alvarado MD; Maciel Mera MD; Jose Alvarez MD Signed TYPE AND SCREEN Collected: 07/03/2018 Status: F Source: [place] 9:26 AM [facility] [place] REPOSITORY TYPE CODE TESTS RESULT OUT OF REFERENCE UNITS RANGE LAB %ABR O ABO/RH(D) POSITIVE LAB % Antibody NEG Screen Performed By: #### TSCR #### [facility] [address] [place], [place] [address] CONSULT PROG Observed: 07/03/2018 Status: COMPLETED Source: [place] 8:54 AM [facility] REPOSITORY HNO ID: [id number] Author: Malgorzata Yeung.Leandro Michel Service: Cardiac Surgery Author Type: Nurse Practitioner Type: Consult Progress Note Filed: 07/03/2018 1:30 PM Note Text: [facility] CONSULT PROGRESS NOTE Stefania Diaz [id number] CONSULTING SERVICE: Cardiothoracic Surgery - MVR + MAZE PRIMARY SERVICE: Cardiology: Imaging ASSESSMENT / RECOMMENDATIONS / PLAN: OHS scheduled 2nd round tomorrow 06/14/[address] Blake Preop Orders Placed Preop Education: Informed patient (and family) what to expect pre/post operatively. (1) Stressed to patient the importance of pain control for successful recovery: INFORMED OF IMPORTANCE OF GOOD PAIN [id number]-tum for pain medication early when pain level is 2/0-10Informed patient (and family) what to expect pre/post operatively IMPORTANCE OF PAIN [id number]-rty for pain medication early, take pain medication routinely to have adquate pain control to prevent postop complications ie Pneumonia, Deep Vein Thrombosis, Delayed Wound Healing, Longer Hospital Stay. Informed of benefits of adequate pain control- taking pain medication when pain level is -ask for pain medication; Inform pt may want to ask for pain medication around the clock/routinely on first postop Day on Regular Nursing Floor- thereby promoting recovery;-able to breathe deeply and adequately thus decrease Oxygen requirements of body, Able to walk, get out of bed- thereby decrease recovery time and decreased risk for infection. Explained importance of Deep Breathing/Coughing before and after surgery pain scale, take pain medication routinely to have adquate pain control to prevent postop complications for example, Pneumonia, Deep Vein Thrombosis, Delayed Wound Healing, Longer Hospital Stay. (2) Explained importance of Deep Breathing/Coughing before and after surgery Instructed in breathing exercises-deep breaths 10 times/hour while awake. Pt verbalized understanding and demostrated understanding via return demonstration. (3) Discussed discharged plans-informed patient , a Cardiac Surgery Nurse Practitioner visit is recommended within 3-7 days after being discharged if lived in near [place], [place] area or within [address] of [place], [place]. Discussed with Patient (Family) will need to see their PCP and Ornamental Metalwork Designer following discharged- specific time frames for postop visits for Cardiac Surgery Nurse Practitioner, PCP and Ornamental Metalwork Designer will be discussed at time of discharged. Patient (Family) Verbalized understanding. ? OHS: Tentatively Scheduled for OHS 07/04/[address] Blake SUBJECTIVE: INTERVAL HISTORY:No acute events over the weekend. No complaints at this time. 73 y.o. Male wit h/o HTN, childhood Rheumatic fever, MR who was recently diagnosed with FIB and pleural effusions. He was transferred from [place] for further evaluation of his MR. Echo 06/30 EF of 61% and sever MVR. LHC/RHC (06/28): Non-obstructive CAD and severe pulmonary hypertension PERTINENT REVIEW OF SYSTEMS: Denies CP, SOB, fever, chills, N/V/D/V See HPI: Remaining ROS reviewed and negative OBJECTIVE: MEDICATIONS: Current hospital medications: furosemide 40 mg injection (LASIX) 40 mg INTRAVENOUS DAILY metoprolol tartrate (short acting) 25 mg tab(s) (LOPRESSOR) 25 mg ORAL q 12 H losartan 25 mg tab(s) (COZAAR) 25 mg ORAL DAILY heparin iv infusion (LOW DOSE ACS/NOMOGRAM) 25,000 units in NaCl 0.45% 250 mL PREMIX 0-3,000 Units/hr INTRAVENOUS CONTINUOUS heparin RATE CHANGE bolus 1,000-4,000 Units for subtherapeutic aptt results 1,000-4,000 Units INTRAVENOUS PRN perflutren lipid microspheres 1.1 mg/mL 1.3 mL injection (DEFINITY) 1.3 mL INTRAVENOUS DIRECTED PRN potassium chloride ER 10-60 mEq tab(s) (K-DUR, KLOR-CON) 10- 60 mEq ORAL PRN PHYSICAL EXAM: 07/02/18 2317 07/03/18 0258 07/03/18 0500 07/03/18 0702 BP: 123/69 121/78 124/81 Pulse: 74 79 Resp: 18 17 Temp: 36.7 ?C (98 ?F) 36.7 ?C (98 ?F) 36.7 ?C (98.1 ?F) TempSrc: Oral Oral Oral SpO2: 94% 96% 99% Weight: 68.7 kg (151 lb 6.4 oz) Height: PHYSICAL EXAMINATION General: Alert and oriented, no distress, pleasant and cooperative. Heart: IRRegular, normal S1 and S2, + murmurs Lungs: Clear to auscultation bilaterally Abdomen: Benign Extremities: Feet/ankles without edema, posterior tibial pulses full and symmetrical Intake/Output Summary (Last 24 hours) at 07/03/18 0854 Last data filed at 07/03/18 0853 Gross per 24 hour Intake 1502 ml Output 1500 ml Net 2 ml TELEMETRY: Afib DATA: Laboratory: Recent Labs 07/03/18 0355 07/02/18 0655 07/01/18 1453 07/01/18 0626 WBC 10.08 9.24 -- 9.60 HB 17.1* 16.5 -- 16.4 HCT 52.0* 49.8 -- 47.9 PLT 327 308 -- 281 NA 139 143 -- 143 K 3.8 4.0 4.0 3.4* CHLOR 97 102 -- 103 CO2 28 27 -- 26 BUN 27* 24 -- 23 CREAT 1.09 1.13 -- 1.02 GLUC 92 86 -- 92 ] ] SIGNATURE: Malgorzata Michel APRN.SORTING MACHINE OPERATOR PAGER: [phone] DATE of SERVICE: 07/03/2018 TIME of SERVICE: 1:30 PM PROGRESS Observed: 07/03/2018 Status: COMPLETED Source: [place] 5:21 AM [facility] REPOSITORY HNO ID: [id number] Author: Michaela Munroe Service: Cardiovascular Medicine Author Type: Physician Type: Progress Notes Filed: 07/03/2018 5:49 PM Note Text: [facility] CARDIOVASCULAR MEDICINE PROGRESS NOTE (Template ID [id number]) Stefania Diaz [id number] PRIMARY SERVICE: [facility] INTERVAL HISTORY Doing well, no events. Remains rate controlled. PHYSICAL EXAM BP 121/78 Pulse 74 Temp 36.7 ?C (98 ?F) (Oral) Resp 17 Ht 182.9 cm (6') Wt 68.7 kg (151 lb 8 oz) SpO2 96% BMI 20.55 kg/m? Intake/Output Summary (Last 24 hours) at 07/03/18 0521 Last data filed at 07/03/18 0200 Gross per 24 hour Intake 1383 ml Output 1500 ml Net -117 ml GEN: NAD, AANDO x 3 EYES: EOMI, PERRL, sclera non-icteric HENT: OP clear, no thrush, no cervical LAD CV: irregular, 3/6 holosystolic murmur at apex, b/l LE edema no, JVD yes PULM: CTAB, no crackles, no wheezes, no increased work of breathing ABD: Soft, NT, ND, NABS, no organomegaly, no obvious masses NEURO: CN2 -12 intact, no gross focal deficits MSK: Full ROM throughout SKIN: intact without gross abnormalities LAD: No palpable lymphadenopathy MEDICATIONS Current hospital medications: furosemide 40 mg injection (LASIX) 40 mg INTRAVENOUS DAILY metoprolol tartrate (short acting) 25 mg tab(s) (LOPRESSOR) 25 mg ORAL q 12 H losartan 25 mg tab(s) (COZAAR) 25 mg ORAL DAILY heparin iv infusion (LOW DOSE ACS/NOMOGRAM) 25,000 units in NaCl 0.45% 250 mL PREMIX 0-3,000 Units/hr INTRAVENOUS CONTINUOUS heparin RATE CHANGE bolus 1,000-4,000 Units for subtherapeutic aptt results 1,000-4,000 Units INTRAVENOUS PRN perflutren lipid microspheres 1.1 mg/mL 1.3 mL injection (DEFINITY) 1.3 mL INTRAVENOUS DIRECTED PRN potassium chloride ER 10-60 mEq tab(s) (K-DUR, KLOR-CON) 10- 60 mEq ORAL PRN DATA Recent Labs 07/03/18 0355 07/02/18 0655 07/01/18 0626 WBC 10.08 9.24 9.60 HB 17.1* 16.5 16.4 HCT 52.0* 49.8 47.9 PLT 327 308 281 Recent Labs 07/02/18 0655 07/01/18 1453 07/01/18 0626 NA 143 -- 143 K 4.0 4.0 3.4* CO2 27 -- 26 BUN 24 -- 23 CREAT 1.13 -- 1.02 GLUC 86 -- 92 IMAGING GLENNA 06/29 - Exam indication: Pre Cardioversion, Pre AF Ablation - The left ventricle is normal in size. Left ventricular systolic function is normal. EF = 55 ? 5% (visual est.) - The right ventricle is normal in size. Right ventricular systolic function is normal. - The left atrial cavity is dilated. There is no left atrial appendage thrombus or ?sludge. 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 On 3D imaging and live 2D, there appears to be flail A2 segment with free cord (Clip 30) - There is no patent foramen ovale as detected by Doppler and saline contrast. - The patient has not had a prior CC echocardiographic exam for comparison. [facility] 06/28/18 OSH (uploaded to [facility]) LV gram EF 50%, LVEDP 31. Severe MR. LM/LAD/CX normal, MLA of RCA, R dominant RHC: RA 22, RV 60/17, PA 76/40 (51), PCP 35, PVR 464, SVR 2464, Vi CO/CI 5.65/2.81, Thermo CO/CI 2.76/1.37, PA sat 46% ASSESSMENT AND PLAN 73 year old male with a history of hypertension, rheumatic fever in childhood, mitral regurgitation and mitral valve prolapse, recently diagnosed atrial fibrillation who presents as a direct admission from [place] for further evaluation of pleural effusions, afib, MR. 1 GLENNA- severe MR, flail A2 segment. 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 I have discussed the case and management of the patient's care. The following comments revise or confirm relevant pitts components of the note and updated the problem list. IMPRESSION and PLAN: Patient is without complaints and appears euvolemic. Plan for mitral valve repair and maze tomorrow with Dr. Blake. SIGNATURE:Michaela Munroe MD DATE of SERVICE: 07/03/2018 TIME of SERVICE: 5:49 PM CBC Collected: 07/03/2018 Status: F Source: [place] 3:55 AM [facility] REPOSITORY TYPE CODE TESTS RESULT OUT OF REFERENCE UNITS RANGE LAB WBC 3.70-11.00 k/uL WBC 10.08 LAB RBC 4.20-6.00 m/uL RBC 5.14 LAB HGB 13.0-17.0 g/dL High Hemoglobin 17.1 LAB HCT 39.0-51.0 % High Hematocrit 52.0 LAB MCV 80.0-100.0 fL MCV High 101.2 LAB MCH 26.0-34.0 pG MCH 33.3 LAB MCHC 30.5-36.0 g/dL MCHC 32.9 LAB RDWCV 11.5-15.0 % RDW-CV 14.0 LAB PLTCT 150-400 k/uL Platelet Count 327 LAB MPV 9.0-12.7 fL MPV 10.4 LAB ABSNUC <0.01 k/uL Absolute nRBC <0.01 Performed By: #### CBC, PTTAC, BMP #### [facility] [address], [place] [address] PTT,ANTICOAG THERAPY Collected: 07/03/2018 Status: F Source: [place] 3:55 AM [facility] REPOSITORY TYPE CODE TESTS RESULT OUT OF RANGE REFERENCE UNITS LAB APTT 23.0-32.4 sec High APTT 55.6 Result Comment: Unfractionated Heparin Therapeutic Ranges: Standard Heparin Nomogram: 53 to 78 seconds (anti-Xa level of 0.3 to 0.7 U/ml) Low Dose/ACS Nomogram: 49 to 67 seconds (anti-Xa level of 0.2 to 0.5 U/ml) Stroke Treatment Nomogram: 49 to 67 seconds (anti-Xa level of 0.2 to 0.5 U/ml) Note: The APTT therapeutic range has been determined for the current lot of laboratory APTT reagent in use throughout the [facility]. Performed By: #### CBC, PTTAC, BMP #### [facility] [address], [place] [id number] BASIC METABOLIC PANL Collected: 07/03/2018 Status: F Source: [place] 3:[address] [place] [address] REPOSITORY TYPE CODE TESTS RESULT OUT OF REFERENCE UNITS RANGE LAB GLU 74-99 mg/dL Glucose 92 Result Comment: The [place] Diabetes Association (ADA) provides guidance for cutoff values for fasting glucose and random glucose. The ADA defines fasting as no caloric intake for at least 8 hours. Fas ting plasma glucose results between 100 to 125 mg/dL indicate increased risk for diabetes (prediabetes). Fasting plasma glucose results greater than or equal to 126 mg/dL meet the criteria for diagnosis of diabetes. In the absence of unequivocal hyperglycemia, results should be confirmed by repeat testing. In a patient with classic symptoms of hyperglycemia or hyperglycemic crisis, random plasma glucose results greater than or equal to 200 mg/dL meet the criteria for diagnosis of diabetes. Reference: Standards of Medical Care in Diabetes 2016, [place] Diabetes Association. Diabetes Care. 2016.39(Suppl 1). LAB BUN 9-24 mg/dL BUN High 27 LAB CRET 0.73-1.22 mg/dL Creatinine 1.09 LAB NA 136-144 mmol/L Sodium 139 LAB K 3.7-5.1 mmol/L Potassium 3.8 LAB CL 97-105 mmol/L Chloride 97 LAB CO2 22-30 mmol/L CO2 28 LAB AGAP 9-18 mmol/L Anion Gap 14 LAB CA 8.5-10.2 mg/dL Calcium, Total 9.6 LAB GFRAA eGFR- Amer. >60 LAB GFRNAA . eGFR-All Other Races >60 Result Comment: eGFR (Estimated GFR) Units of measure: mL/min/1.73 meters squared eGFR is derived from the reexpressed MDRD Study equation using the following parameters: serum creatinine, age, gender and race. The creatinine assay has been calibrated to be traceable to IDMS. An eGFR <60 mL/min/1.73m2 for >3 months is consistent with chronic kidney disease. Refer to KDOQI guidelines for clinical interpretation. In patients with unstable renal function, e.g. those with acute kidney injury, the eGFR may not accurately reflect actual GFR. Performed By: #### CBC, PTTAC, BMP #### [facility] [place] [address] [place], [place] [address] HEPATIC FUNCTN PANEL Collected: 07/03/2018 Status: F Source: [place] 3:55 AM [facility] REPOSITORY TYPE CODE TESTS RESULT OUT OF REFERENCE UNITS RANGE LAB ALB 3.9-4.9 g/dL Low Albumin 3.3 LAB TBIL 0.2-1.3 mg/dL Bilirubin, Total 1.2 LAB CBIL <0.2 mg/dL High Bilirubin,Conjuga 0.2 sid LAB ALKP 38-113 U/L Alkaline Phosphatase 85 LAB AST 14-40 U/L AST 35 LAB ALT 10-54 U/L ALT 47 LAB TP 6.3-8.0 g/dL Protein, Total 6.3 Performed By: #### HFP #### [facility] [place] [address] [place], [place] [address] PTT,ANTICOAG THERAPY Collected: 07/02/2018 Status: F Source: [place] 11:00 PM [facility] REPOSITORY TYPE CODE TESTS RESULT OUT OF RANGE REFERENCE UNITS LAB APTT 23.0-32.4 sec High APTT 49.2 Result Comment: Unfractionated Heparin Therapeutic Ranges: Standard Heparin Nomogram: 53 to 78 seconds (anti-Xa level of 0.3 to 0.7 U/ml) Low Dose/ACS Nomogram: 49 to 67 seconds (anti-Xa level of 0.2 to 0.5 U/ml) Stroke Treatment Nomogram: 49 to 67 seconds (anti-Xa level of 0.2 to 0.5 U/ml) Note: The APTT therapeutic range has been determined for the current lot of laboratory APTT reagent in use throughout the [facility]. Performed By: #### PTTAC #### [facility] [place] [address], [place] [address] PTT,ANTICOAG THERAPY Collected: 07/02/2018 Status: F Source: [place] 4:52 PM [facility] REPOSITORY TYPE CODE TESTS RESULT OUT OF RANGE REFERENCE UNITS LAB APTT 23.0-32.4 sec High APTT 50.5 Result Comment: Unfractionated Heparin Therapeutic Ranges: Standard Heparin Nomogram: 53 to 78 seconds (anti-Xa level of 0.3 to 0.7 U/ml) Low Dose/ACS Nomogram: 49 to 67 seconds (anti-Xa level of 0.2 to 0.5 U/ml) Stroke Treatment Nomogram: 49 to 67 seconds (anti-Xa level of 0.2 to 0.5 U/ml) Note: The APTT therapeutic range has been determined for the current lot of laboratory APTT reagent in use throughout the [facility]. Performed By: #### PTTAC #### [facility] [place] [address], [place] [address] PTT,ANTICOAG THERAPY Collected: 07/02/2018 Status: F Source: [place] 6:55 AM [facility] REPOSITORY TYPE CODE TESTS RESULT OUT OF RANGE REFERENCE UNITS LAB APTT 23.0-32.4 sec High APTT 68.1 Result Comment: Unfractionated Heparin Therapeutic Ranges: Standard Heparin Nomogram: 53 to 78 seconds (anti-Xa level of 0.3 to 0.7 U/ml) Low Dose/ACS Nomogram: 49 to 67 seconds (anti-Xa level of 0.2 to 0.5 U/ml) Stroke Treatment Nomogram: 49 to 67 seconds (anti-Xa level of 0.2 to 0.5 U/ml) Note: The APTT therapeutic range has been determined for the current lot of laboratory APTT reagent in use throughout the [facility]. Performed By: #### PTTAC #### [facility] [address] [place], [place] [address] CBC Collected: 07/02/2018 Status: F Source: [place] 6:55 AM [facility] REPOSITORY TYPE CODE TESTS RESULT OUT OF REFERENCE UNITS RANGE LAB WBC 3.70-11.00 k/uL WBC 9.24 LAB RBC 4.20-6.00 m/uL RBC 4.91 LAB HGB 13.0-17.0 g/dL Hemoglobin 16.5 LAB HCT 39.0-51.0 % Hematocrit 49.8 LAB MCV 80.0-100.0 fL MCV High 101.4 LAB MCH 26.0-34.0 pG MCH 33.6 LAB MCHC 30.5-36.0 g/dL MCHC 33.1 LAB RDWCV 11.5-15.0 % RDW-CV 14.2 LAB PLTCT 150-400 k/uL Platelet Count 308 LAB MPV 9.0-12.7 fL MPV 10.8 LAB ABSNUC <0.01 k/uL Absolute nRBC <0.01 Performed By: #### CBC, BMP #### [facility] [address] [place], [place] [address] BASIC METABOLIC PANL Collected: 07/02/2018 Status: F Source: [place] 6:55 AM [facility] REPOSITORY TYPE CODE TESTS RESULT OUT OF REFERENCE UNITS RANGE LAB GLU 74-99 mg/dL Glucose 86 Result Comment: The [place] Diabetes Association (ADA) provides guidance for cutoff values for fasting glucose and random glucose. The ADA defines fasting as no caloric intake for at least 8 hours. Fas ting plasma glucose results between 100 to 125 mg/dL indicate increased risk for diabetes (prediabetes). Fasting plasma glucose results greater than or equal to 126 mg/dL meet the criteria for diagnosis of diabetes. In the absence of unequivocal hyperglycemia, results should be confirmed by repeat testing. In a patient with classic symptoms of hyperglycemia or hyperglycemic crisis, random plasma glucose results greater than or equal to 200 mg/dL meet the criteria for diagnosis of diabetes. Reference: Standards of Medical Care in Diabetes 2016, [place] [employer]. Diabetes Care. 2016.39(Suppl 1). LAB BUN 9-24 mg/dL BUN 24 LAB CRET 0.73-1.22 mg/dL Creatinine 1.13 LAB NA 136-144 mmol/L Sodium 143 LAB K 3.7-5.1 mmol/L Potassium 4.0 LAB CL 97-105 mmol/L Chloride 102 LAB CO2 22-30 mmol/L CO2 27 LAB AGAP 9-18 mmol/L Anion Gap 14 LAB CA 8.5-10.2 mg/dL Calcium, Total 9.5 LAB GFRAA eGFR- Amer. >60 LAB GFRNAA . eGFR-All Other Races >60 Result Comment: eGFR (Estimated GFR) Units of measure: mL/min/1.73 meters squared eGFR is derived from the reexpressed MDRD Study equation using the following parameters: serum creatinine, age, gender and race. The creatinine assay has been calibrated to be traceable to IDMS. An eGFR <60 mL/min/1.73m2 for >3 months is consistent with chronic kidney disease. Refer to KDOQI guidelines for clinical interpretation. In patients with unstable renal function, e.g. those with acute kidney injury, the eGFR may not accurately reflect actual GFR. Performed By: #### CBC, BMP #### [facility] [address] [place] [id number] PROGRESS Observed: 07/02/2018 Status: COMPLETED Source: [place] 6:25 AM [facility] REPOSITORY HNO ID: [id number] Author: Godfrey Landon Service: Cardiovascular Medicine Author Type: Physician Type: Progress Notes Filed: 07/02/2018 9:17 AM Note Text: [facility] CARDIOVASCULAR MEDICINE PROGRESS NOTE (Template ID [id number]) Stefania Diaz [id number] PRIMARY SERVICE: [facility] HOSPITAL DAY: # 3 INTERVAL HISTORY Doing well, no events. Remains rate controlled. PHYSICAL EXAM BP 122/76 Pulse 82 Temp 36.8 ?C (98.2 ?F) (Oral) Resp 16 Ht 182.9 cm (6') Wt 69.2 kg (152 lb 8 oz) SpO2 97% BMI 20.68 kg/m? Intake/Output Summary (Last 24 hours) at 07/02/18 06 Last data filed at 07/01/18 2234 Gross per 24 hour Intake 918 ml Output 200 ml Net 718 ml GEN: NAD, AANDO x 3 EYES: EOMI, PERRL, sclera non-icteric HENT: OP clear, no thrush, no cervical LAD CV: irregular, 3/6 holosystolic murmur at apex, b/l LE edema no, JVD yes PULM: CTAB, no crackles, no wheezes, no increased work of breathing ABD: Soft, NT, ND, NABS, no organomegaly, no obvious masses NEURO: CN2 -12 intact, no gross focal deficits MSK: Full ROM throughout SKIN: intact without gross abnormalities LAD: No palpable lymphadenopathy MEDICATIONS Current hospital medications: furosemide 40 mg injection (LASIX) 40 mg INTRAVENOUS DAILY metoprolol tartrate (short acting) 25 mg tab(s) (LOPRESSOR) 25 mg ORAL q 12 H losartan 25 mg tab(s) (COZAAR) 25 mg ORAL DAILY heparin iv infusion (LOW DOSE ACS/NOMOGRAM) 25,000 units in NaCl 0.45% 250 mL PREMIX 0-3,000 Units/hr INTRAVENOUS CONTINUOUS heparin RATE CHANGE bolus 1,000-4,000 Units for subtherapeutic aptt results 1,000-4,000 Units INTRAVENOUS PRN perflutren lipid microspheres 1.1 mg/mL 1.3 mL injection (DEFINITY) 1.3 mL INTRAVENOUS DIRECTED PRN potassium chloride ER 10-60 mEq tab(s) (K-DUR, KLOR-CON) 10- 60 mEq ORAL PRN DATA Recent Labs 07/01/18 0606/30/18427 WBC 9.60 10. HB 16.4 15.1 HCT 47.9 45.0 PLT 281 256 Recent Labs 07/01/18 1453 07/01/18 0606/30/18 19106/30/18 0428 NA -- 143 -- -- 141 K 4.0 3.4* 3.6* < > 3.0* CO2 -- 26 -- -- 26 BUN -- 23 -- -- 26* CREAT -- 1.02 -- -- 0.99 GLUC -- 92 -- -- 104* < > = values in this interval not displayed. IMAGING [place]EN[place] 06/29 - Exam indication: Pre Cardioversion, Pre AF Ablation - The left ventricle is normal in size. Left ventricular systolic function is normal. EF = 55 ? 5% (visual est.) - The right ventricle is normal in size. Right ventricular systolic function is normal. - The left atrial cavity is dilated. There is no left atrial appendage thrombus or ?sludge. 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 On 3D imaging and live 2D, there appears to be flail A2 segment with free cord (Clip 30) - There is no patent foramen ovale as detected by Doppler and saline contrast. - The patient has not had a prior CC echocardiographic exam for comparison. [facility] 06/28/18 OSH (uploaded to [facility]) LV gram EF 50%, LVEDP 31. Severe MR. LM/LAD/CX normal, MLA of RCA, R dominant RHC: RA 22, RV 60/17, PA 76/40 (51), PCP 35, PVR 464, SVR 2464, Vi CO/CI 5.65/2.81, Thermo CO/CI 2.76/1.37, PA sat 46% ASSESSMENT AND PLAN 73 year old male with a history of hypertension, rheumatic fever in childhood, mitral regurgitation and mitral valve prolapse, recently diagnosed atrial fibrillation who presents as a direct admission from [place] for further evaluation of pleural effusions, afib, MR. 06/29 GLENNA- severe MR, flail A2 segment. Problems Severe MR- fail A2 segment Atrial fibrillation HTN Plan - CTS consulted (Ncer); severe MR on GLENNA - hep gtt - lasix 40mg iv qd - afib is rate controlled Case to be discussed with staff Nilsa Arenas MD Cardiovascular Medicine Fellow Pager: [phone] Briefly, history is as follows: Stefania Diaz is a 73 year old male with a history of hypertension, rheumatic fever in childhood, mitral regurgitation?and mitral valve prolapse, recently diagnosed atrial fibrillation?who presents as a direct admission from [place] for further evaluation of pleural effusions, afib, MR. On exam, I find ?3/6 systolic murmur at apex? Of note is no obstructive CAD on recent cath. ? Assessment and plan reviewed with fellow. ? Care plan is ? 1. GLENNA to assess Mitral valve and severity of regurgitation as well as rule out LAURA thrombi. Severe MR was found ? 2. Given the presence of severe MR and flail anterior leaflet, I have consulted Dr Blake. ? 3. Continue IV anticoagulation. Rate is well controlled now. ? I have personally examined the patient and repeated the pitts components of the exam/history. ?The assessment and plan were formulated and discussed with the Fellow and team. See Fellow's note for further details. Godfrey Landon MD, [facility] Arvidn Lopez Department of Cardiovascular Medicine Heart and Vascular [place] [facility] Desk J1-[address] [place] [address] Office ? [phone] extension [phone] Office Appointments: [phone] -[phone] extension [phone] PTT,ANTICOAG THERAPY Collected: 07/01/2018 Status: F Source: [place] 10:22 PM [facility] REPOSITORY TYPE CODE TESTS RESULT OUT OF RANGE REFERENCE UNITS LAB APTT 23.0-32.4 sec High APTT 43.9 Result Comment: Unfractionated Heparin Therapeutic Ranges: Standard Heparin Nomogram: 53 to 78 seconds (anti-Xa level of 0.3 to 0.7 U/ml) Low Dose/ACS Nomogram: 49 to 67 seconds (anti-Xa level of 0.2 to 0.5 U/ml) Stroke Treatment Nomogram: 49 to 67 seconds (anti-Xa level of 0.2 to 0.5 U/ml) Note: The APTT therapeutic range has been determined for the current lot of laboratory APTT reagent in use throughout the [facility]. Performed By: #### PTTAC #### [place] [id number] PTT,ANTICOAG THERAPY Collected: 07/01/2018 Status: F Source: [place] 2:53 PM [facility] REPOSITORY TYPE CODE TESTS RESULT OUT OF RANGE REFERENCE UNITS LAB APTT 23.0-32.4 sec High APTT 54.7 Result Comment: Unfractionated Heparin Therapeutic Ranges: Standard Heparin Nomogram: 53 to 78 seconds (anti-Xa level of 0.3 to 0.7 U/ml) Low Dose/ACS Nomogram: 49 to 67 seconds (anti-Xa level of 0.2 to 0.5 U/ml) Stroke Treatment Nomogram: 49 to 67 seconds (anti-Xa level of 0.2 to 0.5 U/ml) Note: The APTT therapeutic range has been determined for the current lot of laboratory APTT reagent in use throughout the [facility]. Performed By: #### PTTAC, K1 #### [facility] [address] [place], [place] [address] POTASSIUM Collected: 07/01/2018 Status: F Source: [place] 2:53 PM [facility] REPOSITORY TYPE CODE TESTS RESULT OUT OF REFERENCE UNITS RANGE LAB K 3.7-5.1 mmol/L Potassium 4.0 Performed By: #### PTTAC, K1 #### [facility] [address], [place] [address] PROGRESS Observed: 07/01/2018 Status: COMPLETED Source: [place] 7:14 AM [facility] REPOSITORY HNO ID: [id number] Author: Godfrey Landon Service: Cardiovascular Medicine Author Type: Physician Type: Progress Notes Filed: 07/01/2018 10:10 AM Note Text: [facility] CARDI[facility]ASCULAR [facility]ICINE PROGRESS NOTE (Template ID [id number]) Stefania Diaz [id number] PRIMARY SERVICE: [facility] DAY: # 2 INTERVAL HISTORY No acute events PHYSICAL EXAM BP 153/96 Pulse 90 Temp 36.8 ?C (98.3 ?F) (Oral) Resp 18 Ht 182.9 cm (6') Wt 69.2 kg (152 lb 8 oz) SpO2 95% BMI 20.68 kg/m? Intake/Output Summary (Last 24 hours) at 07/01/18 0714 Last data filed at 07/01/18 0600 Gross per 24 hour Intake 1097 ml Output 400 ml Net 697 ml GEN: NAD, AANDO x 3 EYES: EOMI, PERRL, sclera non-icteric HENT: OP clear, no thrush, no cervical LAD CV: irregular, + 2+ holosystolic murmur at apex, b/l LE edema no, JVD yes PULM: CTAB, no crackles, no wheezes, no increased work of breathing ABD: Soft, NT, ND, NABS, no organomegaly, no obvious masses NEURO: CN2 -12 intact, no gross focal deficits MSK: Full ROM throughout SKIN: intact without gross abnormalities LAD: No palpable lymphadenopathy MEDICATIONS Current hospital medications: furosemide 40 mg injection (LASIX) 40 mg INTRAVENOUS DAILY metoprolol tartrate (short acting) 25 mg tab(s) (LOPRESSOR) 25 mg ORAL q 12 H losartan 25 mg tab(s) (COZAAR) 25 mg ORAL DAILY heparin iv infusion (LOW DOSE ACS/NOMOGRAM) 25,000 units in NaCl 0.45% 250 mL PREMIX 0-3,000 Units/hr INTRAVENOUS CONTINUOUS heparin RATE CHANGE bolus 1,000-4,000 Units for subtherapeutic aptt results 1,000-4,000 Units INTRAVENOUS PRN perflutren lipid microspheres 1.1 mg/mL 1.3 mL injection (DEFINITY) 1.3 mL INTRAVENOUS DIRECTED PRN potassium chloride ER 10-60 mEq tab(s) (K-DUR, KLOR-CON) 10- 60 mEq ORAL PRN DATA Recent Labs 06/30/188 06/29/18 0233 WBC 10.20 9.74 HB 15.1 14.8 HCT 45.0 42.9 PLT 256 262 Recent Labs 06/30/18 1919 06/30/18 1102 06/30/18 0428 06/29/18 0233 NA -- -- 141 142 K 3.6* 3.7 3.0* 3.6* CO2 -- -- 26 23 BUN -- -- 26* 33* CREAT -- -- 0.99 1.20 GLUC -- -- 104* 104* MG -- -- -- 2.1 IMAGING GLENNA 06/29 - Exam indication: Pre Cardioversion, Pre AF Ablation - The left ventricle is normal in size. Left ventricular systolic function is normal. EF = 55 ? 5% (visual est.) - The right ventricle is normal in size. Right ventricular systolic function is normal. - The left atrial cavity is dilated. There is no left atrial appendage thrombus or ?sludge. 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 On 3D imaging and live 2D, there appears to be flail A2 segment with free cord (Clip 30) - There is no patent foramen ovale as detected by Doppler and saline contrast. - The patient has not had a prior CC echocardiographic exam for comparison. [facility] 06/28/18 OSH (uploaded to [employer]) LV gram EF 50%, LVEDP 31. Severe MR. LM/LAD/CX normal, MLA of RCA, R dominant ? RHC RA 22, RV 60/17, PA 76/40 (51), PCP 35, PVR 464, SVR 2464, Vi CO/CI 5.65/2.81, Thermo CO/CI 2.76/1.37, PA sat 46% ASSESSMENT AND PLAN Stefania Diaz is a 73 year old male with a history of hypertension, rheumatic fever in childhood, mitral regurgitation and mitral valve prolapse, recently diagnosed atrial fibrillation who presents as a direct admission from [place] for further evaluation of pleural effusions, afib, MR. 06/29 GLENNA- severe MR, flail A2 segment. Problems Severe MR- fail A2 segment Atrial fibrillation HTN Plan - CTS consult; severe MR on GLENNA - hep gtt - lasix 40mg iv qd - afib is rate controlled Case to be discussed with staff Diomedes Zhang MD Cardiovascular Medicine Fellow, PGY-4 Pager: [phone] For communication after 5 pm on weekdays and after 12 pm on weekends, please page the following: - Clinical Cardiology patients on all floors: page [phone] - Other Cardiology patients on J5 and J6: page [phone] - Other Cardiology patients on J7 and J8: page [phone] Briefly, history is as follows: Stefania Diaz is a 73 year old male with a history of hypertension, rheumatic fever in childhood, mitral regurgitation?and mitral valve prolapse, recently diagnosed atrial fibrillation?who presents as a direct admission from [place] for further evaluation of pleural effusions, afib, MR. On exam, I find ?3/6 systolic murmur at apex? Of note is no obstructive CAD on recent cath. ? Assessment and plan reviewed with fellow. ? Care plan is ? 1. GLENNA to assess Mitral valve and severity of regurgitation as well as rule out LAURA thrombi. Severe MR was found ? 2. Given the presence of severe MR and flail anterior leaflet, I have consulted Dr Blake. ? 3. Continue IV anticoagulation. Rate is well controlled now. ? I have personally examined the patient and repeated the pitts components of the exam/history. ?The assessment and plan were formulated and discussed with the Fellow and team. See Fellow's note for further details. ? Godfrey Landon MD PTT,ANTICOAG THERAPY Collected: 07/01/2018 Status: F Source: [place] 6:26 AM [facility] REPOSITORY TYPE CODE TESTS RESULT OUT OF RANGE REFERENCE UNITS LAB APTT 23.0-32.4 sec High APTT 39.2 Result Comment: Unfractionated Heparin Therapeutic Ranges: Standard Heparin Nomogram: 53 to 78 seconds (anti-Xa level of 0.3 to 0.7 U/ml) Low Dose/ACS Nomogram: 49 to 67 seconds (anti-Xa level of 0.2 to 0.5 U/ml) Stroke Treatment Nomogram: 49 to 67 seconds (anti-Xa level of 0.2 to 0.5 U/ml) Note: The APTT therapeutic range has been determined for the current lot of laboratory APTT reagent in use throughout the [facility]. Performed By: #### PTTAC, CBC, BMP #### [facility] [address] [place] [id number] CBC Collected: 07/01/2018 Status: F Source: [place] 6:26 [facility] REPOSITORY TYPE CODE TESTS RESULT OUT OF REFERENCE UNITS RANGE LAB WBC 3.70-11.00 k/uL WBC 9.60 LAB RBC 4.20-6.00 m/uL RBC 4.84 LAB HGB 13.0-17.0 g/dL Hemoglobin 16.4 LAB HCT 39.0-51.0 % Hematocrit 47.9 LAB MCV 80.0-100.0 fL MCV 99.0 LAB MCH 26.0-34.0 pG MCH 33.9 LAB MCHC 30.5-36.0 g/dL MCHC 34.2 LAB RDWCV 11.5-15.0 % RDW-CV 14.3 LAB PLTCT 150-400 k/uL Platelet Count 281 LAB MPV 9.0-12.7 fL MPV 11.1 LAB ABSNUC <0.01 k/uL Absolute nRBC <0.01 Performed By: #### PTTAC, CBC, BMP #### [facility] [address] [place] [id number] BASIC METABOLIC PANL Collected: 07/01/2018 Status: F Source: [place] 6:26 AM [facility] REPOSITORY TYPE CODE TESTS RESULT OUT OF REFERENCE UNITS RANGE LAB GLU 74-99 mg/dL Glucose 92 Result Comment: The [place] Diabetes Association (ADA) provides guidance for cutoff values for fasting glucose and random glucose. The ADA defines fasting as no caloric intake for at least 8 hours. Fas ting plasma glucose results between 100 to 125 mg/dL indicate increased risk for diabetes (prediabetes). Fasting plasma glucose results greater than or equal to 126 mg/dL meet the criteria for diagnosis of diabetes. In the absence of unequivocal hyperglycemia, results should be confirmed by repeat testing. In a patient with classic symptoms of hyperglycemia or hyperglycemic crisis, random plasma glucose results greater than or equal to 200 mg/dL meet the criteria for diagnosis of diabetes. Reference: Standards of Medical Care in Diabetes 2016, [place] [employer] Association. Diabetes Care. 2016.39(Suppl 1). LAB BUN 9-24 mg/dL BUN 23 LAB CRET 0.73-1.22 mg/dL Creatinine 1.02 LAB NA 136-144 mmol/L Sodium 143 LAB K 3.7-5.1 mmol/L Potassium Low 3.4 LAB CL 97-105 mmol/L Chloride 103 LAB CO2 22-30 mmol/L CO2 26 LAB AGAP 9-18 mmol/L Anion Gap 14 LAB CA 8.5-10.2 mg/dL Calcium, Total 9.2 LAB GFRAA eGFR- Amer. >60 LAB GFRNAA . eGFR-All Other Races >60 Result Comment: eGFR (Estimated GFR) Units of measure: mL/min/1.73 meters squared eGFR is derived from the reexpressed MDRD Study equation using the following parameters: serum creatinine, age, gender and race. The creatinine assay has been calibrated to be traceable to IDMS. An eGFR <60 mL/min/1.73m2 for >3 months is consistent with chronic kidney disease. Refer to KDOQI guidelines for clinical interpretation. In patients with unstable renal function, e.g. those with acute kidney injury, the eGFR may not accurately reflect actual GFR. Performed By: #### PTTAC, CBC, BMP #### [facility] [address] [place] [id number] POTASSIUM Collected: 06/30/2018 Status: F Source: [place] 7:19 PM [facility] REPOSITORY TYPE CODE TESTS RESULT OUT OF REFERENCE UNITS RANGE LAB K 3.7-5.1 mmol/L Low Potassium 3.6 Performed By: #### K1 #### [facility] [address] [place] [id number] URINALYSIS Collected: 06/30/2018 Status: F Source: [place] 4:28 PM [facility] REPOSITORY TYPE CODE TESTS RESULT OUT OF RANGE REFERENCE UNITS LAB UCOL Yellow Color Yellow LAB [facility] Clear Clarity Clear LAB UGLUC Negative mg/dL Glucose, Urine Negative LAB UBIL Negative Bilirubin, Urine Negative LAB UKET Negative Ketones, Urine Negative LAB USPG 1.005-1.030 Specific [place], Ur 1.010 LAB UHGB Negative Hemoglobin/Blood, Negative Ur LAB UPH 4.5-8.0 pH 7.0 LAB UPROT Negative mg/dL Protein, Urine Negative LAB UUROB Normal Abnormal Urobilinogen Elevated Alert LAB UNITR Negative Nitrites Negative LAB ULKEST Negative Leukest Negative LAB UCOM Comments SEE COMMENT Result Comment: Microscopic not warranted LAB UMCOM Urine SEE Trino Comment COMMENT Result Comment: N/A Performed By: #### UA #### [facility] [place] [address] STAPH AUREUS PCR Collected: 06/30/2018 Status: F Source: [place] 2:40 PM [facility] REPOSITORY TYPE CODE TESTS RESULT OUT OF REFERENCE UNITS RANGE LAB SASRC Nasal S aureus Spec Source LAB MRSRES Negative for MRSA MRSA by PCR. PCR LAB SARES Negative for Staph Staphylococcus aureus PCR aureus by PCR. Performed By: #### SAPCR #### [facility] [place], [place] [address] CONSULT Observed: 06/30/2018 Status: COMPLETED Source: [place] 12:18 PM [facility] REPOSITORY HNO ID: [id number] Author: Tonya Blake Service: Cardiac Surgery Author Type: Physician Type: Consults Filed: 07/03/2018 9:18 PM Note Text: [facility] STAFF PHYSICIAN NOTE OF PERSONAL INVOLVEMENT IN CARE I have reviewed the documentation above obtained and documented by the Nurse Practitioner and have reviewed and updated the problem list as appropriate. I have personally participated in the pitts component and physical exam and have discussed the case and management of the patient's care. The following comments revise or confirm relevant pitts components. HPI: Mr. Stefania Diaz is a 73 year old male seen in consultation at the request of Dr Landon for opinion regarding treatment options for Atrial Fibrillation and Mitral Insufficiency.PM history of hypertension, rheumatic fever in childhood, mitral regurgitation?and mitral valve prolapse, recently diagnosed atrial fibrillation?who presents as a direct admission from [place] for further evaluation of pleural effusions, afib, MRLaurent have personally reviewed his cardiac catheterization which shows mild CAD. The Echocardiogram reveals normal ventricular function and mitral regurgitation and mild tricuspid regurgitation. Based on my evaluation he is a medium risk for open heart surgery. Impression: Atrial Fibrillation and Mitral Insufficiency Plan: MV Repair , Maze Proceedure and LAURA clip STAFF PHYSICIAN: Tonya Blake MD DATE OF SERVICE: July 03, 2018 TIME OF SERVICE: 9:13 PM CONSULT HISTORY and PHYSICAL CARDIOTHORACIC SURGERY Consulting Service: Cardiothoracic Surgery [facility] [employer] Metalwork Designer, Godfrey Jain Opinion/advice regarding: Pre-Op Open Heart Surgery Cardiothoracic Physician: Tonya Blake M.D. NAME: Stefania Diaz . HT: 182.9 cm WEIGHT: 70.2 kg Intended Procedure: MVR + MAZE REDO: No STS SCORE: 3.8 HPI: This is a 73 year old hypertensive male with rheumatic heart disease who presents in consultation for an opinion regarding treatment options for new onset atrial fibrillation, pleural effusions and severe (4+) holosystolic mitral valve regurgitation due to prolapse and restricted leaflet motion in the setting of increasing episodes of dyspnea on exertion, orthopnea and PND. After presenting to his PCP an evaluation was initiated that revealed an elevated D Dimer and troponin, BNP: 687 and was found to be hypertensive and in Afib with RVR 110s. Serial Testing: CT chest: Bilateral pleural effusions. LHC/RHC (06/28): Non-obstructive CAD and severe pulmonary hypertension (RA 22, RV 19, PA 76/40 (51), PCWP 35, LVEDP 31, SVO2 46%, vi CO/CI 5.65/2.81, thermo CO/CI 2.7/1.3). Comorbidities include HTN. PAST MEDICAL HISTORY Diagnosis Date - Colonic polyp - Hypertension resolved - MVP (mitral valve prolapse) - Snoring PAST SURGICAL HISTORY Procedure Laterality Date - COLONOSCOP W/ OR W/O [facility] SPEC 04/12/2018 Colonoscopy - HERNIA REPAIR HX Right 1982 FAMILY HISTORY: No pertinent medical history SOCIAL HISTORY: Social History Substance Use Topics - Smoking status: Former Smoker Packs/day: 1.00 Years: 20.00 Types: Cigarettes Quit date: 1980 - Smokeless tobacco: Never Used - Alcohol use 0.6 oz/week 1 Glasses of wine per week Comment: weekly MEDICATIONS: Prior to Admission Medications: VALSARTAN ORAL Take by mouth. Pt unsure of dose. Started at [facility]. aspirin 325 mg tablet Take 325 mg by mouth four times a week. metoprolol tartrate, short acting, (LOPRESSOR) 25 mg tablet Take 25 mg by mouth twice daily. Current hospital medications: furosemide 40 mg injection (LASIX) 40 mg INTRAVENOUS DAILY metoprolol tartrate (short acting) 25 mg tab(s) (LOPRESSOR) 25 mg ORAL q 12 H losartan 25 mg tab(s) (COZAAR) 25 mg ORAL DAILY heparin iv infusion (LOW DOSE ACS/NOMOGRAM) 25,000 units in NaCl 0.45% 250 mL PREMIX 0-3,000 Units/hr INTRAVENOUS CONTINUOUS heparin RATE CHANGE bolus 1,000-4,000 Units for subtherapeutic aptt results 1,000-4,000 Units INTRAVENOUS PRN perflutren lipid microspheres 1.1 mg/mL 1.3 mL injection (DEFINITY) 1.3 mL INTRAVENOUS DIRECTED PRN potassium chloride ER 10-60 mEq tab(s) (K-DUR, KLOR-CON) 10- 60 mEq ORAL PRN ALLERGIES: ALLERGIES No Known Allergies COMPLETE REVIEW OF SYSTEMS: Constitutional: Positive for fatigue HEENT: Negative for frequent or significant headaches, No changes in hearing or vision, no nose bleeds or other nasal problems Resp: Positive for shortness of breath limiting daily activity Cardiovascular: Positive for palpitations, paroxysmal nocturnal dyspnea and orthopnea GI: Negative for abdominal discomfort, blood in stools or black stools or change in bowel habits : No history of dysuria, frequency, or incontinence Endo: Negative for cold or heat intolerance, polyuria, polydipsia and goiter Heme/Lymph: Negative for prolonged bleeding, bruising easily or swollen nodes Neurologic: No history or headaches, syncope, paralysis, seizures or tremors Integumentary: Negative for lesions, rash, and itching. Additional systems reviewed: No additional systems reviewed PHYSICAL EXAM: (8) BP 119/71 Pulse 84 Temp 36.8 ?C (98.3 ?F) (Oral) Resp 16 Ht 182.9 cm (6') Wt 70.2 kg (154 lb 12.8 oz) SpO2 95% BMI 20.99 kg/m? Constitutional: Well developed, Well nourished and No acute distress HEENT: PERRLA, EOM's intact and Poor dentition Resp: Clear Cardiovascular: Regular rate AND rhythm, No heaves, Murmur and S1, S2 normal GI: Soft, Non-tender and Bowel sounds present Integumentary: Warm and Dry Musculoskeletal: No deformities Neurological/Psychiatric: Oriented to time, place AND person Additional systems reviewed: No additional systems reviewed Labs: Recent Labs 06/29/18232 CK 189 MB 3.3 CKMBP 1.7 TROPT <0.010 Recent Labs 06/30/188 06/29/18 0233 WBC 10.20 9.74 HB 15.1 14.8 HCT 45.0 42.9 PLT 256 262 Recent Labs 06/30/1842706/29/18 1529 06/29/18 0816 06/29/18 0233 INR -- -- -- 1.2 APTT 49.3* 49.9* 57.2* 29.5 Recent Labs 06/30/1842706/29/18 0233 NA 141 142 K 3.0* 3.6* CHLOR 100 109* CO2 26 23 BUN 26* 33* CREAT 0.99 1.20 GLUC 104* 104* ALKPHOS -- 87 ALT -- 98* AST -- 74* ALB -- 3.5* Total Cholesterol, Nonfasting 123 06/29/2018 HDL Cholesterol, Nonfasting 25 06/29/2018 LDL Cholesterol, Nonfasting 85 06/29/2018 DATA: I have personally reviewed the following data: Cardiac Catheterization: pending GLENNA:- The left ventricle is normal in size. Left ventricular systolic function is normal. EF = 55 ? 5% (visual est.) - The right ventricle is normal in size. Right ventricular systolic function is normal. - The left atrial cavity is dilated. There is no left atrial appendage thrombus or ?sludge. 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 On 3D imaging and live 2D, there appears to be flail A2 segment with free cord (Clip 30) - There is no patent foramen ovale as detected by Doppler and saline contrast. CXR: 06/29/2018:right costophrenic angle is excluded. ?Blunting of the left costophrenic angle may represent a small left effusion. ?A calcified granuloma is seen in the left lower lobe. ?The lungs are otherwise free of focal consolidation. ?There is no pneumothorax. Cardiomediastinal silhouette: ?The heart is enlarged. ?The mediastinal contours are normal. Other: ?The osseous structures are intact. Carotids: pending Dental clearance: pending EKG: Jun 29 2018 02:39:52 Diagnosis:ATRIAL FIBRILLATION INCOMPLETE RIGHT BUNDLE BRANCH BLOCK PROLONGED QT INTERVAL OR TU FUSION, CONSIDER HYPOKALEMIA ABNORMAL ECG Impression: This is a 73 year old year-old male, who is being evaluated for surgical intervention of atrial fibrillation and severe (4+) holosystolic mitral valve regurgitation. In consideration for surgery, the patient's acute and chronic medical issues have been evaluated as documented above and reviewed in the electronic medical record. Plan: Patient will be seen by the surgeon, Dr. Tonya Blake M.D for his surgical impression. . Anticipated Discharge Needs: No anticipated DC needs These findings will be communicated back to the requesting provider electronically. SIGNATURE:Marci Rhoades APRN.[facility] PAGER:[phone] Date of Service: June 30, 2018 Time of Service: 6:07 PM POTASSIUM Collected: 06/30/2018 Status: F Source: [place] 11:02 AM [facility] REPOSITORY TYPE CODE TESTS RESULT OUT OF REFERENCE UNITS RANGE LAB K 3.7-5.1 mmol/L Potassium 3.7 Performed By: #### K1 #### [facility] [address] [place], [place] [address] CASE MGT INIT Observed: 06/30/2018 Status: COMPLETED Source: [place] 9:07 AM [facility] REPOSITORY HNO ID: [id number] Author: Gerardo Forbes (Rn) RENITA Caraballo Service: Care Management Author Type: Registered Nurse Type: Care Mgt Initial Assessment Filed: 06/30/2018 10:09 AM Note Text: CARE MANAGEMENT: ASSESSMENT AND DISCHARGE PLAN SERVICE DATE: 06/30/2018 SERVICE TIME: 09:10 AM PRIMARY CARE PHYSICIAN: Jose Alvarez MD ADMISSION STATUS: Inpatient Needs Prior to Discharge: To Be Determined MEDICAL: Patient/Telesales Agent Stated Goals: To return home to life as it was Health Insurance: [facility] MEDICARE ADVANTAGE PPO Health Issues Impacting Discharge Plan: MR and Afib Last Admission Date: none Is this Within the Past 30 days? No Advance Directive: Current Advance Directive: Health Care Power of Service Worker;Living Will In Chart: No Psychology Technician Attempted to Assist with AD Completion: No Unable to Assist Due To:: Other: See Comment (Complete at [facility] prior to transfer to ) Action: Other: See Comment (Henry and Truman Diaz (morelia) are POAs) Health Literacy: 1. How often do you need to have someone help you when you read instructions, pamphlets, or other written material from your doctor or pharmacy? Never - 1 2. How confident are you filling out medical forms by yourself? Extremely - 1 If Patient scores > 3 on either question, the following interventions were put into place: Patient did not score > 3 FUNCTIONAL AND COGNITIVE/BEHAVIORAL PRIOR TO ADMISSION: Baseline Mental Status: Alert AND Oriented, Person, Place , Time and Situation Functional Status: Independent Does Patient Currently Receive Any Community Services or Home Care? None Equipment Prior to Admission: None Has the Patient Been in a Residential Facility in the Past 30 days? No SOCIAL: Living Arrangement: Home 1Level, 10 entry steps Lives With: Alone Financial Resources: Retired Primary Contact: Extended Emergency Contact Information Primary Emergency Contact: Truman Diaz Mobile Relation: Son Supportive: Yes Other Important Patient Contacts: Family: Name: Henry Diaz (son) Caregiver Assessment: Caregiver is ready, willing and able to meet the patient's needs as recommended by the inter-professional team? No Caregiver Needed Patient's transition needs and plan for meeting these needs: TBD Does the patient have an acute stroke diagnosis, or has the patient had a stroke during this admission? No Medication Adherence: I am convinced of the importance of my prescription medication: Agree completely - 0 I worry that my prescription medication will do more harm than good to me Disagree completely - 0 I feel financially burdened by my afu-jl-rxegev expenses for my prescription medication: Disagree completely - 0 Patient is categorized as low risk < 2 Are you interested in bedside delivery of your medications? No Food Concerns: In the Last Month, Have You had Trouble Getting Food? No trouble getting food During the Last Month, Have You Worried Whether Your Food Would Run Out Before You Had Enough Money to Buy More? NA Is the Patient Psychosocially Complex? No ASSESSMENT AND PLAN: Medical Needs: None Psychosocial Needs: None FREEDOM OF CHOICE EXPLAINED: N/A POTENTIAL TRANSITION PLANS To Be Determined Mr. Diaz was admitted for further evaluation and treatment of MR and afib. Awaiting CTS evaluation. The patient reported being independent with ADLs without the use of DMEs, prior to admission. Pt manages his prescription medication without issue. Pt has family support at home. Pt denied requiring any additional support at dc at this time. CM will follow to assist with potential dc needs. SIGNATURE: Gerardo Caraballo RN PATIENT NAME: Stefania Diaz DATE: June 30, 2018 TIME: 9:07 AM PAGER/CONTACT #: [phone] or [phone] PROGRESS Observed: 06/30/2018 Status: COMPLETED Source: [place] 5:09 AM [facility] REPOSITORY O ID: [id number] Author: Godfrey Landon Service: Cardiovascular Medicine Author Type: Physician Type: Progress Notes Filed: 06/30/2018 12:19 PM Note Text: [facility]ARD[facility]ULAR [facility]ICINE PROGRESS NOTE (Template ID [id number]) Stefania Diaz [id number] PRIMARY SERVICE: [facility] # 1 INTERVAL HISTORY GLENNA yesterday showed severe MR. PHYSICAL EXAM BP 141/94 Pulse 78 Temp 36.8 ?C (98.3 ?F) (Oral) Resp 16 Ht 182.9 cm (6') Wt 75.3 kg (166 lb) SpO2 95% BMI 22.51 kg/m? Intake/Output Summary (Last 24 hours) at 06/30/18 0509 Last data filed at 06/30/18 0400 Gross per 24 hour Intake 207 ml Output 2925 ml Net -2718 ml GEN: NAD, AANDO x 3 EYES: EOMI, PERRL, sclera non-icteric HENT: OP clear, no thrush, no cervical LAD CV: irregular, + 2+ holosystolic murmur at apex, b/l LE edema no, JVD yes PULM: CTAB, no crackles, no wheezes, no increased work of breathing ABD: Soft, NT, ND, NABS, no organomegaly, no obvious masses NEURO: CN2 -12 intact, no gross focal deficits MSK: Full ROM throughout SKIN: intact without gross abnormalities LAD: No palpable lymphadenopathy MEDICATIONS Current hospital medications: furosemide 40 mg injection (LASIX) 40 mg INTRAVENOUS BID 9a/5p metoprolol tartrate (short acting) 25 mg tab(s) (LOPRESSOR) 25 mg ORAL q 12 H losartan 25 mg tab(s) (COZAAR) 25 mg ORAL DAILY heparin iv infusion (LOW DOSE ACS/NOMOGRAM) 25,000 units in NaCl 0.45% 250 mL PREMIX 0-3,000 Units/hr INTRAVENOUS CONTINUOUS heparin RATE CHANGE bolus 1,000-4,000 Units for subtherapeutic aptt results 1,000-4,000 Units INTRAVENOUS PRN perflutren lipid microspheres 1.1 mg/mL 1.3 mL injection (DEFINITY) 1.3 mL INTRAVENOUS DIRECTED PRN potassium chloride ER 10-60 mEq tab(s) (K-DUR, KLOR-CON) 10- 60 mEq ORAL PRN warfarin order for discharge OTHER PRN DATA Recent Labs 06/29/18 0233 WBC 9.74 HB 14.8 HCT 42.9 PLT 262 Recent Labs 06/29/18 0233 NA 142 K 3.6* CO2 23 BUN 33* CREAT 1.20 GLUC 104* MG 2.1 IMAGING GLENNA 06/29 - Exam indication: Pre Cardioversion, Pre AF Ablation - The left ventricle is normal in size. Left ventricular systolic function is normal. EF = 55 ? 5% (visual est.) - The right ventricle is normal in size. Right ventricular systolic function is normal. - The left atrial cavity is dilated. There is no left atrial appendage thrombus or ?sludge. 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 On 3D imaging and live 2D, there appears to be flail A2 segment with free cord (Clip 30) - There is no patent foramen ovale as detected by Doppler and saline contrast. - The patient has not had a prior CC echocardiographic exam for comparison. [facility] 06/28/18 OSH (uploaded to [employer]) LV gram EF 50%, LVEDP 31. Severe MR. LM/LAD/CX normal, MLA of RCA, R dominant ? RHC RA 22, RV 60/17, PA 76/40 (51), PCP 35, PVR 464, SVR 2464, Vi CO/CI 5.65/2.81, Thermo CO/CI 2.76/1.37, PA sat 46% ASSESSMENT AND PLAN Stefania Diaz is a 73 year old male with a history of hypertension, rheumatic fever in childhood, mitral regurgitation and mitral valve prolapse, recently diagnosed atrial fibrillation who presents as a direct admission from [place] for further evaluation of pleural effusions, afib, MR. 06/29 GLENNA- severe MR, flail A2 segment. Problems Severe MR- fail A2 segment Atrial fibrillation HTN Plan - CTS consult - hep gtt - lasix 40mg iv qd - afib is rate controlled Case to be discussed with staff Filemon Baca MD Cardiovascular Medicine Fellow, PGY-4 [facility] Pager: [phone] For communication after 5 pm on weekdays and after 12 pm on weekends, please page the following: - Clinical Cardiology patients on all floors: page [phone] - Other Cardiology patients on J5 and J6: page [phone] - Other Cardiology patients on J7 and J8: page [phone] Briefly, history is as follows: Stefania Diaz is a 73 year old male with a history of hypertension, rheumatic fever in childhood, mitral regurgitation?and mitral valve prolapse, recently diagnosed atrial fibrillation?who presents as a direct admission from [place] for further evaluation of pleural effusions, afib, MR. On exam, I find 3/6 systolic murmur at apex Of note is no obstructive CAD on recent cath. ? Assessment and plan reviewed with fellow. ? Care plan is ? 1. GLENNA to assess Mitral valve and severity of regurgitation as well as rule out LAURA thrombi. Severe MR was found ? Given the presence of severe MR and flail anterior leaflet, I have consulted Dr Blake. ? 3. Continue IV anticoagulation. ? I have personally examined the patient and repeated the pitts components of the exam/history. The assessment and plan were formulated and discussed with the Fellow and team. See Fellow's note for further details. ? Godfrey Landon MD CBC Collected: 06/30/2018 Status: F Source: [place] 4:28 [facility] REPOSITORY TYPE CODE TESTS RESULT OUT OF REFERENCE UNITS RANGE LAB WBC 3.70-11.00 k/uL WBC 10.20 LAB RBC 4.20-6.00 m/uL RBC 4.52 LAB HGB 13.0-17.0 g/dL Hemoglobin 15.1 LAB HCT 39.0-51.0 % Hematocrit 45.0 LAB MCV 80.0-100.0 fL MCV 99.6 LAB MCH 26.0-34.0 pG MCH 33.4 LAB MCHC 30.5-36.0 g/dL MCHC 33.6 LAB RDWCV 11.5-15.0 % RDW-CV 14.3 LAB PLTCT 150-400 k/uL Platelet Count 256 LAB MPV 9.0-12.7 fL MPV 11.1 LAB ABSNUC <0.01 k/uL Absolute nRBC <0.01 Performed By: #### CBC, PTTAC, BMP #### [facility] [place] [address] [place], [place] [address] PTT,ANTICOAG THERAPY Collected: 06/30/2018 Status: F Source: [place] 4:[address] [place] [address] REPOSITORY TYPE CODE TESTS RESULT OUT OF RANGE REFERENCE UNITS LAB APTT 23.0-32.4 sec High APTT 49.3 Result Comment: Unfractionated Heparin Therapeutic Ranges: Standard Heparin Nomogram: 53 to 78 seconds (anti-Xa level of 0.3 to 0.7 U/ml) Low Dose/ACS Nomogram: 49 to 67 seconds (anti-Xa level of 0.2 to 0.5 U/ml) Stroke Treatment Nomogram: 49 to 67 seconds (anti-Xa level of 0.2 to 0.5 U/ml) Note: The APTT therapeutic range has been determined for the current lot of laboratory APTT reagent in use throughout the [facility]. Performed By: #### CBC, PTTAC, BMP #### [facility] [place] [address] [place], [place] [address] BASIC METABOLIC PANL Collected: 06/30/2018 Status: F Source: [place] 4:28 AM [facility] REPOSITORY TYPE CODE TESTS RESULT OUT OF REFERENCE UNITS RANGE LAB GLU 74-99 mg/dL High Glucose 104 Result Comment: The [place] Diabetes Association (ADA) provides guidance for cutoff values for fasting glucose and random glucose. The ADA defines fasting as no caloric intake for at least 8 hours. Fas ting plasma glucose results between 100 to 125 mg/dL indicate increased risk for diabetes (prediabetes). Fasting plasma glucose results greater than or equal to 126 mg/dL meet the criteria for diagnosis of diabetes. In the absence of unequivocal hyperglycemia, results should be confirmed by repeat testing. In a patient with classic symptoms of hyperglycemia or hyperglycemic crisis, random plasma glucose results greater than or equal to 200 mg/dL meet the criteria for diagnosis of diabetes. Reference: Standards of Medical Care in Diabetes 2016, [place] [employer] Association. Diabetes Care. 2016.39(Suppl 1). LAB BUN 9-24 mg/dL BUN High 26 LAB CRET 0.73-1.22 mg/dL Creatinine 0.99 LAB NA 136-144 mmol/L Sodium 141 LAB K 3.7-5.1 mmol/L Low Potassium 3.0 LAB CL 97-105 mmol/L Chloride 100 LAB CO2 22-30 mmol/L CO2 26 LAB AGAP 9-18 mmol/L Anion Gap 15 LAB CA 8.5-10.2 mg/dL Calcium, Total 9.1 LAB GFRAA eGFR- Amer. >60 LAB GFRNAA . eGFR-All Other Races >60 Result Comment: eGFR (Estimated GFR) Units of measure: mL/min/1.73 meters squared eGFR is derived from the reexpressed MDRD Study equation using the following parameters: serum creatinine, age, gender and race. The creatinine assay has been calibrated to be traceable to IDMS. An eGFR <60 mL/min/1.73m2 for >3 months is consistent with chronic kidney disease. Refer to KDOQI guidelines for clinical interpretation. In patients with unstable renal function, e.g. those with acute kidney injury, the eGFR may not accurately reflect actual GFR. Performed By: #### CBC, PTTAC, BMP #### [facility] [address] [place], [place] [address] PTT,ANTICOAG THERAPY Collected: 06/29/2018 Status: F Source: [place] 3:29 PM [facility] REPOSITORY TYPE CODE TESTS RESULT OUT OF RANGE REFERENCE UNITS LAB APTT 23.0-32.4 sec High APTT 49.9 Result Comment: Unfractionated Heparin Therapeutic Ranges: Standard Heparin Nomogram: 53 to 78 seconds (anti-Xa level of 0.3 to 0.7 U/ml) Low Dose/ACS Nomogram: 49 to 67 seconds (anti-Xa level of 0.2 to 0.5 U/ml) Stroke Treatment Nomogram: 49 to 67 seconds (anti-Xa level of 0.2 to 0.5 U/ml) Note: The APTT therapeutic range has been determined for the current lot of laboratory APTT reagent in use throughout the [facility]. Performed By: #### PTTAC #### [facility] [place] [address] [place], [place] [address] CNOV Observed: 06/29/2018 Status: COMPLETED Source: [place] 3:00 PM [facility] REPOSITORY Office Visit (CAFLMN) STEFANIA DIAZ ([id number]) 1945 M Date Time Provider Department 06/29/18 3:00 PM IP TRANSESOPHAGEAL ECHO CAFLMN During your visit today, we recorded the following information about you: Karon Chappell, RN, RN 06/29/2018 3:06 PM Signed AMBULATORY PATIENT EDUCATION TOPIC: Procedure Type: GLENNA READINESS TO LEARN COGNITIVE ABILITY: Alert and oriented MOTIVATION TO LEARN: Interested FAMILY SUPPORT: Unable to assess - Family not present INSTRUCTION PROVIDED TO: Patient PATIENT LEARNS BEST BY: Multiple Methods FACTORS AFFECTING LEARNING: None PHYSICAL LIMITATIONS AFFECTING LEARNING: None LEARNING RESPONSE DIAGNOSIS: Pre DCCv METHOD OF INSTRUCTION: Individual instruction Written instruction - handouts Verbal instruction PATIENT / FAMILY RESPONSE: Verbalizes understanding of: POST-PROCEDURE INSTRUCTIONS-Correct actions to take to reduce post procedure complications PRE-PROCEDURE INSTRUCTIONS-Correct action to take to follow pre-procedure instructions FOLLOW-UP PLAN: Complete - No need for follow-up SUPPLEMENTAL MATERIAL: None REFERRAL (RECOMMENDATION): None Electronically Signed By Karon Chappell RN In Department: CARDIOLOGY Referring Provider: GODFREY LANDON [[id number]] Allergies As of Date: 06/29/2018 (No Known Allergies) Date Reviewed: 06/29/2018 Reviewed by: Karon (Rn) RENITA Chappell - Fully Assessed Reason for Visit: Procedure [88] Cmt: GLENNA Primary Visit Diagnosis:Atrial fibrillation, unspecified type (HCC) [I48.91] Prescriptions as of 06/29/2018 Sig: ASPIRIN 325 MG TABLET Take 325 mg by mouth four franco* METOPROLOL TARTRATE 25 MG TAB* Take 25 mg by mouth twice nery* Problem List As Of Date: 06/29/2018 (None) Encounter Status:Closed by DIANA ORTIZ on 06/29/18 PROGRESS Observed: 06/29/2018 Status: COMPLETED Source: [place] 1:21 PM [facility] REPOSITORY HNO ID: [id number] Author: Karon DislaRn) RENITA Chappell Service: (none) Author Type: Registered Nurse Type: Progress Notes Filed: 06/29/2018 3:06 PM Note Text: AMBULATORY PATIENT EDUCATION TOPIC: Procedure Type: GLENNA READINESS TO LEARN COGNITIVE ABILITY: Alert and oriented MOTIVATION TO LEARN: Interested FAMILY SUPPORT: Unable to assess - Family not present INSTRUCTION PROVIDED TO: Patient PATIENT LEARNS BEST BY: Multiple Methods FACTORS AFFECTING LEARNING: None PHYSICAL LIMITATIONS AFFECTING LEARNING: None LEARNING RESPONSE DIAGNOSIS: Pre DCCv METHOD OF INSTRUCTION: Individual instruction Written instruction - handouts Verbal instruction PATIENT / FAMILY RESPONSE: Verbalizes understanding of: POST-PROCEDURE INSTRUCTIONS-Correct actions to take to reduce post procedure complications PRE-PROCEDURE INSTRUCTIONS-Correct action to take to follow pre-procedure instructions FOLLOW-UP PLAN: Complete - No need for follow-up SUPPLEMENTAL MATERIAL: None REFERRAL (RECOMMENDATION): None Electronically Signed By Karon Chappell RN In Department: CARDIOLOGY NUTRITION Observed: 06/29/2018 Status: COMPLETED Source: [place] 1:00 PM [facility] REPOSITORY HNO ID: [id number] Author: Nury Mariscal RD Service: Nutrition Therapy Author Type: Registered Dietitian Type: Nutrition Filed: 06/29/2018 6:55 PM Note Text: NUTRITION THERAPY INITIAL ASSESSMENT SERVICE DATE: 06/29/2018 SERVICE TIME: 3:30 PM RECOMMENDED MALNUTRITION DIAGNOSIS: 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 Recommend Electrolyte Controlled: 4 gm Na+ diet to promote oral intake -avoid Heart Healthy (fat/cholesterol) restriction while admitted 2. Declines nutrition supplements -scheduled PM/HS snacks Coordination of Care: Nursing: Please encourage and record all meal and supplement intake for kcal/protein count-thank you Monitor and Evaluation: Goal: Meet >75% of estimated needs Monitor fluid/electrolyte balance Monitor labs, I/Os, vital signs, weight Data Source: Psychiatric I/O records, RN, pt/family report Discharge Nutrition Recommendations: Diet: 2-4 gm Na+ Supplements: high calorie, high protein oral supplements of pt preference when meeting <75% estimated needs via meals Per HPI: Stefania Diaz is a 73 year old male with a history of hypertension, rheumatic fever in childhood, mitral regurgitation and mitral valve prolapse, recently diagnosed atrial fibrillation who presents as a direct admission from [place] for further evaluation of pleural effusions, afib, MR. ? He presented to his PCP with shortness of breath on Tuesday who then ordered a series of labs and CXR. He was called later in the day due to elevated D-dimer and troponin and told to go to the ED for further evaluation. Patient reports that he has been treated for multiple episodes of bronchitis over the last year that started in December. He has had worsening dyspnea with exertion since winter 2016 along with severe orthopnea to the point now that he has to pace around at night trying to find a comfortable way to breathe. The last time he was in a normal state of health he thinks is last fall. ? He reports having rheumatic fever as a child and being told about a mild valve leakage from that would eventually need to be fixed. He hasn't followed regularly with a electrical prospecting operator since and was doing fairly well functionally throughout most of his life (used to be a runner). Now he can ambulate around the hospital okay but intermittently has severe bouts of dyspnea. He also endorses a chronic non-productive cough, no fever recently. Denies LE edema. ? There he was found to be hypertensive to 200s systolic and in afib with RVR to 110s which was treated with IV diltiazem. He had a TTE which showed 2+ MR and mild prolapse of posterior MV leaflet, 2+ TR, normal EF. Troponin I was elevated to 0.077, BNP 687. CT chest revealed bilateral pleural effusions. He underwent LHC/RHC on 06/28 which showed non-obstructive CAD and severe pulmonary hypertension (RA 22, RV 19, PA 76/40 (51), PCWP 35, LVEDP 31, SVO2 46%, vi CO/CI 5.65/2.81, thermo CO/CI 2.7/1.3). Current Diet Order DIET NPO Lines and Drains: Peripheral 06/29/18 1534 Short Right Forearm 20 Gauge (Active) Nutritional Intake Prior to Admission: <75% estimated energy needs over the past 1 month(s) Patient endorses weight loss r/t recent bout of bronchitis. Reports appetite has returned to normal, but still struggling with SOB, which slightly interferes with ability for PO intake. Patient declines nutrition supplements, but agreeable to Snacks b/w meals (PM-2 hard boiled eggs, HS-sao tomean and LS crackers). Denies nausea and chewing/swallowing difficulty. Endorses moving bowels regularly, once/day. GI symptoms: none Nutrition Abdominal Exam: and not assessed ANTHROPOMETRICS Height: 182.9 cm (6') Admission Weight: 75.3 kg (166 lb) Current Weight: 75.3 kg (166 lb) Body mass index is 22.51 kg/m?. Endorses UBW 170-175 lbs. Reports weighing 172 lbs 1 month ago. Weight has decreased by 6 lbs over 1 months representing 3.5 % weight change Last Wt 06/29/18 : 75.3 kg (166 lb) 03/07/17 : 79.8 kg (176 lb) Dosing Weight: 75.3 kg Resting Metabolic Rate: 1536 Estimated kilocalorie needs: 7756-0545 kilocalories determined by 25-35 kcal/kg Estimated protein needs: 75-90 grams determined by 1.0-1.2 g/kg Dosing weight Estimated fluid needs: >/=1900 milliliters based on 1 mL per kcal NUTRITION FOCUSED PHYSICAL EXAM: Subcutaneous Fat Loss Orbital Mild Triceps Mild Mid-axillary at the iliac crest Unable to determine at this time Muscle Loss Locations: Temporalis Mild Pectoralis Mild Deltoids Moderate Interosseous No muscle loss Latissimus dorsi, trapezius Unable to determine at this time Quadriceps Mild Gastrocnemius Moderate Potential micronutrient deficiency revealed in: No deficiency identified Edema: No Ascites: No Assessment of Functional Status: Functional capacity is unrelated to nutrition status Temperature Max in 24 hours: Temp (24hrs), Av.7 ?C (98.1 ?F), Min:36.3 ?C (97.4 ?F), Max:37.3 ?C (99.1 ?F) BP 150/97 Pulse 85 Temp 36.3 ?C (97.4 ?F) (Oral) Resp 18 Ht 182.9 cm (6') Wt 75.3 kg (166 lb) SpO2 94% BMI 22.51 kg/m? Recent Labs 06/29/18 0233 GLUC 104* BUN 33* CREAT 1.20 NA 142 K 3.6* CHLOR 109* CO2 23 ALB 3.5* HB 14.8 HCT 42.9 WBC 9.74 MG 2.1 Potential Signs of Inflammation: hyperglycemia, hypoalbuminemia and chronic condition ALLERGIES No Known Allergies Current Facility-Administered Medications: furosemide 40 mg injection (LASIX) 40 mg INTRAVENOUS BID 9a/5p metoprolol tartrate (short acting) 25 mg tab(s) (LOPRESSOR) 25 mg ORAL q 12 H losartan 25 mg tab(s) (COZAAR) 25 mg ORAL DAILY heparin iv infusion (LOW DOSE ACS/NOMOGRAM) 25,000 units in NaCl 0.45% 250 mL PREMIX 0-3,000 Units/hr INTRAVENOUS CONTINUOUS And heparin RATE CHANGE bolus 1,000-4,000 Units for subtherapeutic aptt results 1,000-4,000 Units INTRAVENOUS PRN perflutren lipid microspheres 1.1 mg/mL 1.3 mL injection (DEFINMr Banana) 1.3 mL INTRAVENOUS DIRECTED PRN potassium chloride ER 10-60 mEq tab(s) (K-DUR, KLOR-CON) 10- 60 mEq ORAL PRN warfarin order for discharge OTHER PRN Date 06/28/18 1500 - 10/18/18 0659(Not Admitted) 06/29/18 0700 - 06/30/18 0659 Shift 7959-2031 2602-6761 24 Hour Total 0633-8228 8227-8440 9545-7575 24 Hour Total I N T A K E IV 45 45 72 72 Heparin IV 45 45 72 72 Shift Total 45 45 72 72 O U T P U T Urine 2175 2175 Void (ml) 2175 2175 Urine Not Saved. 1 x 1 x Shift Total 2175 2175 Weight (kg) 75.3 75.3 75.3 75.3 75.3 75.3 MNT Billing Type: Initial Assess/15 min 4 units SIGNATURE: BUCKY Michaels, RD, LD PATIENT NAME: Stefania Diaz DATE: June 29, 2018 TIME: 1:01 PM PAGER: [phone] LEAD ELECTROCARDIOGRAM Observed: 06/29/2018 Status: F Source: [place] 11:28 AM [facility] Cardiovascular Services [address] [place] [id number] 12 Lead EKG 06/27/18 0016 MR#: [id number] Acct: [id number] Name: STEFANIA DIAZ Rep #: [id number] : 1945 73 From: River Alvarado MD Attending Dr: Maciel Mera MD Status: DIS IN Ordering Dr: Venkat Jacques MD Date: 06/27/18 Location: U Sex: M C Admitted: 06/27/18 Test Reason : SOB Blood Pressure : / mmHG Vent. Rate : 115 BPM Atrial Rate : 113 BPM P-R Int : 000 ms QRS Dur : 094 ms QT Int : 378 ms P-R-T Axes : 000 048 -43 degrees QTc Int : 522 ms Atrial fibrillation with multiform PVCs Nonspecific ST and T wave abnormality Prolonged QT Abnormal ECG Confirmed by CONTRERAS KELLEY, RIVER ([id number]), editor publications FELI HO ([id number]) on 06/29/2018 11:28:19 AM Referred By: Jose Alvarez Confirmed By:RIVER ALVARADO MD 06/29/18 1128 Date River Alvarado MD CC: VENKAT JACQUES MD; Maciel Mera MD; Jose Alvarez MD Signed PTT,ANTICOAG THERAPY Collected: 06/29/2018 Status: F Source: [place] 8:16 AM [facility] REPOSITORY TYPE CODE TESTS RESULT OUT OF RANGE REFERENCE UNITS LAB APTT 23.0-32.4 sec High APTT 57.2 Result Comment: Unfractionated Heparin Therapeutic Ranges: Standard Heparin Nomogram: 53 to 78 seconds (anti-Xa level of 0.3 to 0.7 U/ml) Low Dose/ACS Nomogram: 49 to 67 seconds (anti-Xa level of 0.2 to 0.5 U/ml) Stroke Treatment Nomogram: 49 to 67 seconds (anti-Xa level of 0.2 to 0.5 U/ml) Note: The APTT therapeutic range has been determined for the current lot of laboratory APTT reagent in use throughout the [facility]. Performed By: #### PTTAC #### [facility] [address] [place], [place] [address] DISCHARGE SUMMARY Observed: 06/29/2018 Status: F Source: [place] 8:08 AM [facility] Medical Records Department [address] [place] [id number] Discharge Summary 06/29/18 0716 MR#: [id number] Acct: [id number] Name: STEFANIA DIAZ Rep #: [id number] : 1945 73 From: Keyla Sigala BOW MAKER MACHINE TENDER-C PCP: Antonio KELLEY,Jose Rodriguez Status: DIS IN Y Location: [facility] [id number] <Keyla Sigala - Last Filed: 06/28/18 15:22> Discharge Date and Diagnosis Date of Admission: 06/27/18 Date of Discharge: 06/28/18 - Primary Discharge Diagnosis Active and Suspected Problems 1. Small bilateral pleural effusions secondary to new onset diastolic CHF 2. New onset atrial fibrillation 3. Grade 4 mitral valve insufficiency 4. Hypertensive urgency 5. Severe pulmonary hypertension 6. Indeterminate troponin, demand ischemia secondary to A. fib and CHF - Secondary Discharge Diagnosis Chronic Problems Mitral valve disorder (Chronic) Hospital Course and Treatment Imaging Results: Diagnostic Data Chest CTA 06/27/18 00:27 IMPRESSION: 1. No evidence of pulmonary embolism. 2. Moderate bilateral pleural effusions. 3. Mild stranding/scarring in the left lower lobe. Electronically Signed: Mohit Stark MD at 1:35 EDT Tel , Service support , Chest X-Ray 06/28/18 04:00 IMPRESSION: Interval resolution of bibasilar alveolar disease. Electronically Signed: Daniele Barnes MD at 4:55 EDT Tel , Service support , Dr. Alvarado- Cardiology Operations: None Procedures: 2-D Echocardiogram Summary of Care Provided: The patient is a 73 year old M admitted 06/27/2018 due to shortness of breath. 1. Small bilateral pleural effusions suspected secondary to new onset diastolic CHF, unclear subtype-BNP on admission 687. Chest x-ray shows bibasilar small effusions, mild cardiomegaly. CTA of chest showed no evidence of pulmonary embolism, moderate bilateral pleural effusions, mild scarring in the left lower lobe. Patient reports history of rheumatic fever as a child, positive murmur. Echocardiogram shows an EF of 60%, mild mitral valve prolapse, moderate mitral valve insufficiency, moderate tricuspid valve insufficiency, RVSP estimated to be 58 mmHg. Continue IV Lasix. Cardiology following. Strict I AND O. Daily weight. Patient underwent cardiac catheterization this morning which showed no significant CAD. Stage IV mitral valve insufficiency. 2. New onset atrial fibrillation-initially A. fib with RVR on admission. Rate controlled. Continue metoprolol. On therapeutic Lovenox. Recommend Eliquis at discharge. 3. Grade IV mitral valve insufficiency- as noted on cath. Cardiology recommending transfer for valve replacement. Transfer to [facility]. 4. Hypertensive urgency-elevated blood pressure on admission 203/99. Improved. Patient reports previously on lisinopril and developed cough. He was then switched to metoprolol by primary care physician. Losartan added. 5. Severe pulmonary hypertension- as noted on echo and heart cath. Suspect secondary to mitral valve insufficiency. 6. Indeterminate troponin- demand ischemia due to A. fib with RVR/CHF. Cath without CAD as noted above. 7. Elevated glucose-hemoglobin A1c 5.6%. General: Alert, Oriented x3, Cooperative HEENT: Atraumatic, PERRLA, EOMI, Normocephalic Neck: Supple, No JVD, Negative Carotid Bruits Lungs: Clear to auscultation, Normal air movement Cardiovascular: Murmur, - - Atrial fibrillation, rate controlled. Abdomen: Bowel Sounds Present, Soft, Non Tender, Non-Distended Extremities: No clubbing, No cyanosis, No edema, Capillary Refill Less than 3 Seconds Skin: No rashes, No breakdown Musculoskeletal: No Tenderness to Palpation of Joints or Extremities Neurological: Cranial nerves II-XII grossly intact, Neuro grossly intact Psych/Mental Status: Normal Affect, Appropriate Patient seen exam prior to discharge. Physical assessment as noted above. This patient was seen by GABE Hodge under the supervision of Dr. Mera. - Physical Exam Vital Signs Temp Pulse Resp BP Pulse Ox 97.7 F L 91 28 H 134/70 H 98 06/28/18 13:09 06/28/18 14:50 06/28/18 13:09 06/28/18 13:09 06/28/18 13:09 Oxygen Flow Rate (L/min) 2 Oxygen Delivery Method Nasal Cannula Weight: 173 lb 1.006 oz Body Mass Index (BMI) 23.4 Intake and Output for Last 24 Hours Intake Total 800 / 800 1100 / 1100 Output Total 1525 / 1525 1775 / 1775 Balance -725 / -725 -675 / -675 Laboratory Tests Past 24 Hrs WBC RBC Hgb Hct MCV MCH MCHC RDW WBC 13.7 H RBC 4.22 L Hgb 14.5 Hct 42.2 MCV 100.0 H MCH 34.4 H WBC Home Medications: Medications to take at Discharge Metoprolol Tartrate 50 mg PO DAILY 06/27/18 Primary Care Physician: Jose Alvarez Chi, MD [Primary Care Provider] - Disposition: Acute care Hospital Minutes spent on discharge:: 35 Patient Condition:: Stable Medical Necessity - Tobacco Use Smoking Status: Former smoker Meaningful Use Info Meaningful Use Diagnoses (Choose all that apply): None applicable <Maciel Mera - Last Filed: 06/29/18 08:08> Discharge Date and Diagnosis - Secondary Discharge Diagnosis Chronic Problems Mitral valve disorder (Chronic) Hospital Course and Treatment Imaging Results: 06/29/18 05:55 CXR [Chest 1 View (Portable)] [RAD] AM (NON MEDS) Summary of Care Provided: This patient was seen in conjunction with Keyla NOONAN. I have independently interviewed and examined the patient and reviewed pertinent history, examination findings, laboratory and plan of management. I have reviewed the note and agree with the documented findings with the few additional points. In brief, patient is admitted for new diagnosis of heart failure with small to moderate bilateral pleural effusion on chest x-ray and chest CT scan. CTA negative for PE. Patient also has A. fib with RVR on admission currently rate is controlled. Patient is on Lovenox subcut therapeutic dose. Patient had cardiac catheter today and shows severe MR, significant pulmonary hypertension without significant obvious coronary artery disease. Right heart pressure was severely elevated. Mild luminal irregularities of proximal RCA. 2D echo was done which shows EF 60% with indeterminant diastolic function. No regional wall motion abnormality. LA moderately enlarged. RA mildly enlarged. Moderate 2+ eccentric MR, mild mitral prolapse. Moderate TR. RVSP [address] Alvarado suggested patient requires CT surgery for mitral valve replacement. For A. fib, patient may be considered for Hackett maze procedure. Transfer to tertiary care, [facility] was facilitated. SHAISTA Ramires discussed the patient finding and clinical course with electrical prospecting operator Dr. Landon and he accepted the patient. Transfer formality is done. The patient transferred to [facility] about 11:00 PM on 06/28/2018 I have discussed my assessment with Keyla NOONAN and orders have been reviewed. [] - Physical Exam General: Alert, Oriented x3, Cooperative HEENT: Atraumatic, PERRLA, EOMI, Normocephalic Neck: Supple, No JVD, Negative Carotid Bruits Lungs: Diminished - Air entry diminished in bilateral lung bases. Bilateral pleural effusion, Short of Breath - Orthopnea. Cardiovascular: Irregular Rate, Murmur - grade 4/6, pansystolic murmur over mitral area with radiation to right axillary region. Abdomen: Bowel Sounds Present, Soft, Non Tender, Non-Distended Extremities: No edema, Capillary Refill Less than 3 Seconds Skin: No rashes, No breakdown Musculoskeletal: No Tenderness to Palpation of Joints or Extremities Neurological: Cranial nerves II-XII grossly intact Psych/Mental Status: Normal Affect, Appropriate Vital Signs Temp Pulse Resp BP Pulse Ox 97.7 F L 91 28 H 134/70 H 98 06/28/18 13:09 06/28/18 14:50 06/28/18 13:09 06/28/18 13:09 06/28/18 13:09 Oxygen Flow Rate (L/min) 2 Oxygen Delivery Method Nasal Cannula Weight: 173 lb 1.006 oz Body Mass Index (BMI) 23.4 Intake and Output for Last 24 Hours Intake Total 800 / 800 1100 / 1100 Output Total 1525 / 1525 1775 / 1775 Balance -725 / -725 -675 / -675 Laboratory Tests Past 24 Hrs WBC RBC Hgb Hct MCV MCH MCHC RDW WBC 13.7 H RBC 4.22 L Hgb 14.5 Hct 42.2 MCV 100.0 H MCH 34.4 H WBC Code Visit Inpatient E AND M: [id number] Disch Hosp 06/28/18 1523 <Electronically signed by Keyla BERNAL> Date Keyla BERNAL 06/29/18 0808<Electronically signed by Maciel Mera MD> Cosigner Signature (if applicable): Date Maciel Mera MD CC: GABE Sigala; Maciel Mera MD; Jose Alvarez MD Signed XR CHEST 1V FRONTAL Observed: 06/29/2018 Status: F Source: [facility] 4:55 AM [facility] REPOSITORY * * *Final Report* * * DATE OF EXAM: Jun 29 2018 4:55AM KACIE [id number] - XR CHEST 1V FRONTAL PORT / PROCEDURE REASON: Chest pain or SOB, pleurisy or effusion suspected * * * * Physician Interpretation * * * * EXAMINATION: CHEST RADIOGRAPH (PORTABLE SINGLE VIEW AP) Exam Date/Time: 06/29/2018 4:55 AM Clinical History: Chest pain or SOB, pleurisy or effusion suspected, MQ: [id number] Comparison: No prior chest radiograph is available for comparison. RESULT: See impression. IMPRESSION: Lines, tubes, and devices: None Lungs and pleura: The right costophrenic angle is excluded. Blunting of the left costophrenic angle may represent a small left effusion. A calcified granuloma is seen in the left lower lobe. The lungs are otherwise free of focal consolidation. There is no pneumothorax. Cardiomediastinal silhouette: The heart is enlarged. The mediastinal contours are normal. Other: The osseous structures are intact. Self Propelled Hot Mix Roller Operator: PSCB Transcribe Date/Time: Jun 29 2018 11:17A Dictated by : LIA FOREMAN MD This examination was interpreted and the report reviewed and electronically signed by: LAI FOREMAN MD on Jun 29 2018 11:18AM EST [id number] CBC Collected: 06/29/2018 Status: F Source: [place] 2:33 AM [facility] REPOSITORY TYPE CODE TESTS RESULT OUT OF REFERENCE UNITS RANGE LAB WBC 3.70-11.00 k/uL WBC 9.74 LAB RBC 4.20-6.00 m/uL RBC 4.35 LAB HGB 13.0-17.0 g/dL Hemoglobin 14.8 LAB HCT 39.0-51.0 % Hematocrit 42.9 LAB MCV 80.0-100.0 fL MCV 98.6 LAB MCH 26.0-34.0 pG MCH 34.0 LAB MCHC 30.5-36.0 g/dL MCHC 34.5 LAB RDWCV 11.5-15.0 % RDW-CV 14.7 LAB PLTCT 150-400 k/uL Platelet Count 262 LAB MPV 9.0-12.7 fL MPV 11.0 LAB ABSNUC <0.01 k/uL Absolute nRBC <0.01 Performed By: #### CBC, PT, PTT, CMP, MG1 #### [facility] [address] [place], [place] [address] PROTIME Collected: 06/29/2018 Status: F Source: [place] 2:33 AM [facility] REPOSITORY TYPE CODE TESTS RESULT OUT OF RANGE REFERENCE UNITS LAB PSEC 9.7-13.0 sec PT Sec 12.4 LAB INR 0.9-1.3 PT INR 1.2 Result Comment: Vitamin K Antagonist (VKA) Therapeutic Range: INR 2 to 3 (Target INR of 2.5) Note: For patients treated with VKA drugs, such as warfarin, the [place] [employer] 2012 Guideline recommends a therapeutic INR range of 2 to 3 (target INR of 2.5). This recommendation includes high-risk patients with antiphospholipid syndrome with previous arterial or venous thromboembolism, current-generation mechanical or bioprosthetic aortic heart valve replacement. Note: Patients with mechanical aortic valve replacement and additional risk factors for thromboembolic events (atrial fibrillation, previous thromboembolism, LV dysfunction, hypercoagulable conditions) or an older generation mechanical AVR (i.e., ball in-Cage) or any mechanical MVR should have a INR therapeutic range of 2.5 to 3.5 (target INR of 3). Nadia YBARRA, et al. Chest 2012, 141:7S-47S Demetria ARANGO et al. [facility] 2017, 70: 252-289 Performed By: #### CBC, PT, PTT, CMP, MG1 #### [facility] [place] [address] [place], [place] [address] APTT Collected: 06/29/2018 Status: F Source: [place] 2:33 [facility] REPOSITORY TYPE CODE TESTS RESULT OUT OF RANGE REFERENCE UNITS LAB APTT 23.0-32.4 sec APTT 29.5 Result Comment: Unfractionated Heparin Therapeutic Ranges: Standard Heparin Nomogram: 53 to 78 seconds (anti-Xa level of 0.3 to 0.7 U/ml) Low Dose/ACS Nomogram: 49 to 67 seconds (anti-Xa level of 0.2 to 0.5 U/ml) Stroke Treatment Nomogram: 49 to 67 seconds (anti-Xa level of 0.2 to 0.5 U/ml) Note: The APTT therapeutic range has been determined for the current lot of laboratory APTT reagent in use throughout the [facility]. Performed By: #### CBC, PT, PTT, CMP, MG1 #### [facility] [place] [address] [place], [place] [address] COMP METABOLIC PANEL Collected: 06/29/2018 Status: F Source: [place] 2:33 AM [facility] REPOSITORY TYPE CODE TESTS RESULT OUT OF REFERENCE UNITS RANGE LAB TP 6.3-8.0 g/dL Low Protein, Total 6.0 LAB ALB 3.9-4.9 g/dL Low Albumin 3.5 LAB CA 8.5-10.2 mg/dL Calcium, Total 9.1 LAB TBIL 0.2-1.3 mg/dL Bilirubin, High Total 1.4 LAB ALKP 38-113 U/L Alkaline Phosphatase 87 LAB AST 14-40 U/L AST High 74 LAB GLU 74-99 mg/dL Glucose High 104 Result Comment: The [place] Diabetes Association (ADA) provides guidance for cutoff values for fasting glucose and random glucose. The ADA defines fasting as no caloric intake for at least 8 hours. Fas ting plasma glucose results between 100 to 125 mg/dL indicate increased risk for diabetes (prediabetes). Fasting plasma glucose results greater than or equal to 126 mg/dL meet the criteria for diagnosis of diabetes. In the absence of unequivocal hyperglycemia, results should be confirmed by repeat testing. In a patient with classic symptoms of hyperglycemia or hyperglycemic crisis, random plasma glucose results greater than or equal to 200 mg/dL meet the criteria for diagnosis of diabetes. Reference: Standards of Medical Care in Diabetes 2016, [place] [employer] Association. Diabetes Care. 2016.39(Suppl 1). LAB BUN 9-24 mg/dL BUN High 33 LAB CRET 0.73-1.22 mg/dL Creatinine 1.20 LAB NA 136-144 mmol/L Sodium 142 LAB K 3.7-5.1 mmol/L Low Potassium 3.6 LAB CL 97-105 mmol/L Chloride High 109 LAB CO2 22-30 mmol/L CO2 23 LAB AGAP 9-18 mmol/L Anion Gap 10 LAB ALT 10-54 U/L ALT High 98 LAB GFRAA eGFR- Amer. >60 LAB GFRNAA . eGFR-All Other Races 59 Result Comment: eGFR (Estimated GFR) Units of measure: mL/min/1.73 meters squared eGFR is derived from the reexpressed MDRD Study equation using the following parameters: serum creatinine, age, gender and race. The creatinine assay has been calibrated to be traceable to IDMS. An eGFR <60 mL/min/1.73m2 for >3 months is consistent with chronic kidney disease. Refer to KDOQI guidelines for clinical interpretation. In patients with unstable renal function, e.g. those with acute kidney injury, the eGFR may not accurately reflect actual GFR. Performed By: #### CBC, PT, PTT, CMP, MG1 #### [facility] [place] [address], [place] [address] MAGNESIUM Collected: 06/29/2018 Status: F Source: [place] 2:33 AM [facility] REPOSITORY TYPE CODE TESTS RESULT OUT OF REFERENCE UNITS RANGE LAB MG 1.7-2.3 mg/dL Magnesium 2.1 Performed By: #### CBC, PT, PTT, CMP, MG1 #### [facility] [place] [address] [place], [place] [address] CK, TOTAL AND CKMB Collected: 06/29/2018 Status: F Source: [place] 2:[address] [place] [address] REPOSITORY TYPE CODE TESTS RESULT OUT OF REFERENCE UNITS RANGE LAB CK 51-298 U/L CK 189 LAB MB <7.7 ng/mL MB 3.3 LAB CKMBRI 0.0-4.0 % CK MB % 1.7 Performed By: #### CKCKMB, LIPNF, NTBNP, NATA, TSH, HBA1C #### [facility] [place] [address] [place], [place] [address] LIPID PANEL, NONFAST Collected: 06/29/2018 Status: F Source: [place] [address] [place] [address] REPOSITORY TYPE CODE TESTS RESULT OUT OF REFERENCE UNITS RANGE LAB CHOLNF <200 mg/dL Total Cholesterol NF 123 Result Comment: <200 mg/dL, Desirable 200-239 mg/dL, Borderline high >239 mg/dL, High LAB TRIGNF <150 mg/dL Triglycerides, NF 65 Result Comment: <150 mg/dL, Normal 150-199 mg/dL, Borderline high 200-499 mg/dL, High >499 mg/dL, Very high LAB HDLNF >39 mg/dL HDL Cholesterol, NF Low 25 Result Comment: 40-59 mg/dL, Acceptable >59 mg/dL, High: Negative risk factor for coronary heart disease <40 mg/dL, Low: Positive risk factor for coronary heart disease LAB LDLNF <100 mg/dL LDL Cholesterol, NF 85 Result Comment: <100 mg/dL, Optimal 100-129 mg/dL, Near optimal/above optimal 130-159 mg/dL, Borderline high 160-189 mg/dL, High >189 mg/dL, Very high Secondary prevention optimal LDL Cholesterol levels are recommended to be < 70 mg/dL LAB NOHDLN <130 mg/dL Non HDL Chol, 98 NF Result Comment: <130 mg/dL, Optimal 130-159 mg/dL, Near optimal/above optimal 160-189 mg/dL, Borderline high 190-219 mg/dL, High >219 mg/dL, Very high Secondary prevention optimal non HDL Cholesterol levels are recommended to be < 100 mg/dL LAB VLDLNF <30 mg/dL VLDL Cholesterol, NF 13 LAB TCHDLN <5.10 mg/dL T Chol/HDL Ratio NF 4.92 LAB LDLHDN <2.54 mg/dL LDL/HDL Ratio, NF High 3.40 Result Comment: Reference: 1. National Cholesterol Education Program ATP III Guideline At-A-Glance Quick Desk Reference: National Heart, Lung, and Blood [place]. National Institutes of Health. 2001: NIH Publication No. 01-3305. 2. An International Atherosclerosis Society position paper: global recommendations for the management of dyslipidemia: executive summary, Atherosclerosis. 2014: 232(2):410-413. Performed By: #### CKCKMB, LIPNF, NTBNP, NATA, TSH, HBA1C #### [facility] [place] [address] [place] [id number] NT PRO BNP Collected: 06/29/2018 Status: F Source: [place] 2:33 AM [facility] REPOSITORY TYPE CODE TESTS RESULT OUT OF REFERENCE UNITS RANGE LAB PBNP <125 pg/mL High PRO B Natr 3931 Peptide Performed By: #### CKCKMB, LIPNF, NTBNP, NATA, TSH, HBA1C #### [facility] [place] [address] [place], [place] [address] TROPONIN T Collected: 06/29/2018 Status: F Source: [place] 2:33 AM [facility] REPOSITORY TYPE CODE TESTS RESULT OUT OF REFERENCE UNITS RANGE LAB TROPT 0.000-0.029 ng/mL Troponin T <0.010 Performed By: #### CKCKMB, LIPNF, NTBNP, NATA, TSH, HBA1C #### [facility] [place] [address] [place], [place] [address] TSH Collected: 06/29/2018 Status: F Source: [place] 2:33 AM [facility] REPOSITORY TYPE CODE TESTS RESULT OUT OF RANGE REFERENCE UNITS LAB TSH 0.400-5.500 uU/mL TSH 2.560 Performed By: #### CKCKMB, LIPNF, NTBNP, NATA, TSH, HBA1C #### [facility] [address], [place] [address] HEMOGLOBIN A1C Collected: 06/29/2018 Status: F Source: [place] 2:33 AM [facility] REPOSITORY TYPE CODE TESTS RESULT OUT OF REFERENCE UNITS RANGE LAB HGBA1C 4.3-5.6 % Hemoglobin A1c 5.5 LAB HBA0 mg/dL Est. Average Glucose 111 Result Comment: eAG: (Estimated average glucose) is a calculated value from HgbA1c and is lead customer service representative of the average blood glucose level in the last 2-3 month period. Performed By: #### CKCKMB, LIPNF, NTBNP, NATA, TSH, HBA1C #### [facility] [address] [place], [place] [address] ECG COMPLETE W Observed: 06/29/2018 Status: F Source: [place] INTERPRETATION 1:44 AM [facility] REPOSITORY NAME : STEFANIA DIAZ PID : [id number] : 1945 Gender : Male Race : ORD : [id number] Procedure Date : Jun 29 2018 01:44:22 Edit Date : Jun 30 2018 15:09:10 Diagnosis:ATRIAL FIBRILLATION INCOMPLETE RIGHT BUNDLE BRANCH BLOCK PROLONGED QT INTERVAL OR TU FUSION, CONSIDER HYPOKALEMIA ABNORMAL ECG Confirmed by MELISA WEBBER MD ([id number]) on 06/30/2018 3:09:08 PM Ventricular Rate : 91 BPM Atrial Rate : 65 BPM QRS Duration : 94 ms Q-T Interval : 406 ms QTC Calculation(Bezet) : 499 ms R [place] : 24 degrees T [place] : 15 degrees Test Reason : Location : 351 : [id number] Overread By : MELISA WEBBER MD Edited By : MELISA WEBBER MD Referred By : , Acquired by : EDNA TIWARI PROG Observed: 06/29/2018 Status: COMPLETED Source: [place] 1:18 AM [facility] REPOSITORY HNO ID: [id number] Author: Trixie DislaRn) RENITA Chand Service: (none) Author Type: Registered Nurse Type: Nursing Progress Note Filed: 06/29/2018 1:19 AM Note Text: Nursing Progress Note Patient Name: Stefania Diaz Patient Location: [place] [id number] Daily Note: Pt refused bed alarm, educated on risk for falls and needs for first 24hrs, pt understands but refuses, pharmacy messenger aware, will continue to monitor and educate. This note was completed by: Trixie Chand RN NURSING PROG Observed: 06/29/2018 Status: COMPLETED Source: [place] 12:50 AM [facility] REPOSITORY HNO ID: [id number] Author: Trixie Pearce) RENITA Chand Service: (none) Author Type: Registered Nurse Type: Nursing Progress Note Filed: 06/29/2018 12:50 AM Note Text: Nursing Progress Note Patient Name: Stefania Diaz Patient Location: [place] [id number] Transfer Note: Patient transferred into room/unit J51-23 in stable condition. My safety plan discussed, falls plan in place, bed alarm on. Dual skin assessment with Otoniel RN, no breakdown noted. Actions taken: No futher actions taken at this time. Will continue to monitor and check with patient. This note was completed by: Trixie Chand RN HISTORY PHYSICAL Observed: 06/29/2018 Status: COMPLETED Source: [place] 12:32 AM [facility] REPOSITORY HNO ID: [id number] Author: Godfrey Landon Service: Cardiovascular Medicine Author Type: Physician Type: HANDP Filed: 06/29/2018 11:40 AM Note Text: [facility] HIST[facility] AND PHYSICAL Stefania Diaz [id number] PRIMARY SERVICE: Cardiovascular Medicine: Imaging DATE OF ADMISSION: 06/29/2018 CHIEF COMPLAINT: afib, MR HISTORY OF PRESENT ILLNESS Stefania Diaz is a 73 year old male with a history of hypertension, rheumatic fever in childhood, mitral regurgitation and mitral valve prolapse, recently diagnosed atrial fibrillation who presents as a direct admission from [place] for further evaluation of pleural effusions, afib, MR. He presented to his PCP with shortness of breath on Tuesday who then ordered a series of labs and CXR. He was called later in the day due to elevated D-dimer and troponin and told to go to the ED for further evaluation. Patient reports that he has been treated for multiple episodes of bronchitis over the last year that started in December. He has had worsening dyspnea with exertion since winter 2016 along with severe orthopnea to the point now that he has to pace around at night trying to find a comfortable way to breathe. The last time he was in a normal state of health he thinks is last fall. He reports having rheumatic fever as a child and being told about a mild valve leakage from that would eventually need to be fixed. He hasn't followed regularly with a electrical prospecting operator since and was doing fairly well functionally throughout most of his life (used to be a runner). Now he can ambulate around the hospital okay but intermittently has severe bouts of dyspnea. He also endorses a chronic non-productive cough, no fever recently. Denies LE edema. There he was found to be hypertensive to 200s systolic and in afib with RVR to 110s which was treated with IV diltiazem. He had a TTE which showed 2+ MR and mild prolapse of posterior MV leaflet, 2+ TR, normal EF. Troponin I was elevated to 0.077, BNP 687. CT chest revealed bilateral pleural effusions. He underwent LHC/RHC on 06/28 which showed non-obstructive CAD and severe pulmonary hypertension (RA 22, RV 19, PA 76/40 (51), PCWP 35, LVEDP 31, SVO2 46%, vi CO/CI 5.65/2.81, thermo CO/CI 2.7/1.3). PAST MEDICAL HISTORY PAST MEDICAL HISTORY Diagnosis Date - Hypertension resolved - MVP (mitral valve prolapse) - Snoring PAST SURGICAL HISTORY PAST SURGICAL HISTORY Procedure Laterality Date - COLONOSCOP W/ OR W/O [facility] SPEC 04/12/2018 Colonoscopy - HERNIA REPAIR HX Right 1982 FAMILY HISTORY Dad- passed from an [place] in 70s Mother- breast cancer, colon cancer, passed at age 97 SOCIAL HISTORY Social History Substance Use Topics - Smoking status: Former Smoker Packs/day: 1.00 Years: 20.00 Types: Cigarettes Quit date: 1980 - Smokeless tobacco: Never Used - Alcohol use 0.6 oz/week 1 Glasses of wine per week Comment: weekly HOME MEDICATIONS aspirin 325 mg tablet Take 325 mg by mouth four times a week. metoprolol tartrate, short acting, (LOPRESSOR) 25 mg tablet Take 25 mg by mouth twice daily. INPATIENT MEDICATIONS Current hospital medications: perflutren lipid microspheres 1.1 mg/mL 1.3 mL injection (DEFINITY) 1.3 mL INTRAVENOUS DIRECTED PRN furosemide 40 mg injection (LASIX) 40 mg INTRAVENOUS BID 9a/5p metoprolol tartrate (short acting) 25 mg tab(s) (LOPRESSOR) 25 mg ORAL q 12 H losartan 25 mg tab(s) (COZAAR) 25 mg ORAL DAILY heparin iv infusion (LOW DOSE ACS/NOMOGRAM) 25,000 units in NaCl 0.45% 250 mL PREMIX 0-3,000 Units/hr INTRAVENOUS CONTINUOUS heparin RATE CHANGE bolus 1,000-4,000 Units for subtherapeutic aptt results 1,000-4,000 Units INTRAVENOUS PRN heparin nomogram INITIAL BOLUS - LOW DOSE/ACS 4,000 Units INTRAVENOUS ONCE (heparin bolus) ALLERGIES ALLERGIES No Known Allergies PHYSICAL EXAM BP 152/104 Pulse 77 Temp 36.6 ?C (97.8 ?F) (Oral) Resp 16 Ht 182.9 cm (6') Wt 75.3 kg (166 lb) SpO2 93% BMI 22.51 kg/m? General Appearance: Well developed and No acute distress HEENT: PERRLA and EOM's intact Neck: JVD to angle of jaw at 60 degrees Lungs: Occasional expiratory wheezes throughout, crackles to mid lung tarango Heart: Irregular rhythm, normal rate and S1, S2 normal. Grade IV/ holosystolic murmur at apex Abdomen: Soft, Non-tender and Bowel sounds present Skin: Warm and Dry Musculoskeletal: No deformities Neurologic/Psychiatric:No gross focal neurologic deficits DATA Laboratory: Reviewed in Psychiatric EKG: pending Chest Radiograph: pending C 06/28/18 OSH (uploaded to [employer]) LV gram EF 50%, LVEDP 31. Severe MR. LM/LAD/CX normal, MLA of RCA, R dominant RHC RA 22, RV 60/17, PA 76/40 (51), PCP 35, PVR 464, SVR 2464, Vi CO/CI 5.65/2.81, Thermo CO/CI 2.76/1.37, PA sat 46% Echocardiogram: 06/27/2018 Interpretation Summary Left ventricular systolic function is normal. The estimated ejection fraction is 60 %. Apical false tendon noted. The left atrium is moderately enlarged. The right atrium is mildly enlarged. Mild mitral valve prolapse, posterior leaflet Moderate (2+) eccentric mitral valve insufficiency. Moderate (2+) eccentric tricuspid valve insufficiency. Mild focal aortic valve calcification. Trivial eccentric aortic valve insufficiency. Trivial eccentric pulmonic valve insufficiency. Echolucency c/w a pleural effusion. Right ventricular systolic pressure estimated to be 58 mmHg. Diastolic function is indeterminate. Chest CTA 06/27/18 FINDINGS: Normal enhancement of the main pulmonary artery and right and left pulmonary arteries. Normal enhancement of the bilateral peripheral pulmonary arteries. There is no demonstrated pulmonary embolism. There is mild atherosclerotic calcification of the aortic arch with tortuosity. The aorta otherwise is not enhanced. Normal heart and pericardium. There are small nodes in the mediastinum and aortopulmonic window. Normal hilar regions. Normal visualized trachea and bronchi. The lungs are well expanded. There is a calcified granuloma in the left lower lobe. There is mild stranding/scarring in the left lower lobe. No focal infiltrate otherwise is seen. There are moderate bilateral pleural effusions. Normal chest wall structures. There are mild degenerative changes of thoracic spine. The visualized portions of the upper abdomen demonstrate a cyst in the right kidney. ASSESSMENT AND PLAN Stefania Diaz is a 73 year old male with a history of hypertension, rheumatic fever in childhood, mitral regurgitation and mitral valve prolapse, recently diagnosed atrial fibrillation who presents as a direct admission from [place] for further evaluation of pleural effusions, afib, MR. Mitral regurgitation with posterior leaflet prolapse- patient has NYHA class III-IV symptoms currently and severe pulmonary hypertension based on OSH RHC. He has a non-dilated LV and normal EF. Based on TTE it appears that he has moderately severe MR. - TTE uploaded to [employer] for review - GLENNA as below for further evaluation of MV - Diurese with IV lasix given elevated right/left sided filling pressures - Afterload reduction as below Atrial fibrillation - currently rate-controlled. Patient was diagnosed with afib at PCP's office at least 6 months ago and presented in afib with RVR to ED on 06/27/18. [id number] score of 2. - Continue rate control metoprolol 25mg BID - Heparin drip ordered - GLENNA/DCCV - TSH Elevated troponin - attributed to type 2 IL due to afib with RVR. [facility] non-obstructive CAD. - Rate control afib as above Hypertension- uncontrolled on admission - Metoprolol - Losartan, uptitrate prn Case to be discussed with staff Macarena Olivo MD Fellow, Cardiovascular Medicine, PGY-5 Pager: [phone] 06/29/2018 12:32 AM For communication after 5 pm on weekdays and after 12 pm on weekends, please page the following: - Clinical Cardiology patients on all floors: page [phone] - Other Cardiology patients on J5 and J6: page [phone] - Other Cardiology patients on J7 and J8: page [phone] Fellow's history reviewed. Patient interviewed and examined. Briefly, history is as follows: Stefania Diaz is a 73 year old male with a history of hypertension, rheumatic fever in childhood, mitral regurgitation and mitral valve prolapse, recently diagnosed atrial fibrillation who presents as a direct admission from [place] for further evaluation of pleural effusions, afib, MR. On exam, I find 3/6 systolic murmur at apex Of note is no obstructive CAD on recent cath. Assessment and plan reviewed with fellow. Care plan is 1. Get a GLENNA to assess Mitral valve and severity of regurgitation as well as rule out LAURA thrombi. 2. Plan cor DCC this afternoon. 3. Continue anticoagulation. I have personally examined the patient and repeated the pitts components of the exam/history. The assessment and plan were formulated and discussed with the Fellow and team. See Fellow's note for further details. Godfrey Landon MD June 29, 2018 BLOOD GASES BY CPS Collected: 06/28/2018 Status: F Source: [place] 8:04 AM [facility] TYPE CODE TESTS RESULT OUT OF RANGE REFERENCE UNITS LAB L9000.9990 Normal BLD GAS ART TYPE LAB L9001.1110 7.35-7.45 Normal pH - 7.40 I-STAT LAB L9001.1210 35-45 mmHg Normal pCO2 - 38.0 ISTAT LAB L9001.1310 75-100 mmHG Low PO2 46 I-STAT LAB L9001.2300 22-26 mmol/L Normal HCO3 23.5 ISTAT LAB L9001.2400 -2 to +2 mmol/L Normal BE ISTAT -1 LAB L9001.2415 mmol/L Normal TOTAL CO2 25 ISTAT LAB L9001.2425 95-99 % Low SO2 ISTAT 82 Performed By: #### L9000.0800 #### [facility] Point of Care [address] [place], [place] [id number] VENOUS BLOOD GAS Collected: 06/28/2018 Status: F Source: [place] 8:01 AM [facility] [place] [place] TYPE CODE TESTS RESULT OUT OF RANGE REFERENCE UNITS LAB L9000.9990 Normal BLD GAS CURT TYPE LAB L9002.1110 7.32-7.42 Normal VBGpH - 7.40 I-STAT LAB L9002.1212 41-51 mmHg Low VBG pCO2 38.8 - ISTA LAB L9002.1310 25-40 mmHg Normal VBG PO2 25 I-STAT LAB L9002.2300 22-26 mmol/L Normal VBG HCO3 24 ISTAT LAB L9002.2400 -1.0-3.5 mmol/L Normal VBG BE -1 ISTAT LAB L9002.2410 50-70 % Low VBG SO2 46 ISTAT LAB L9002.2415 23-33 mmol/L Normal VBG O2 CT 25 ISTAT Performed By: #### L9000.0810 #### [facility] Point of Care [address] [place], [place] [id number] VENOUS BLOOD GAS Collected: 06/28/2018 Status: F Source: [place] 7:57 AM [facility] [place] TYPE CODE TESTS RESULT OUT OF RANGE REFERENCE UNITS LAB L9000.9990 Normal BLD GAS CURT TYPE LAB L9002.1110 7.32-7.42 Normal VBGpH - 7.39 I-STAT LAB L9002.1212 41-51 mmHg Low VBG pCO2 40.5 - ISTA LAB L9002.1310 25-40 mmHg Normal VBG PO2 27 I-STAT LAB L9002.2300 22-26 mmol/L Normal VBG HCO3 25 ISTAT LAB L9002.2400 -1.0-3.5 mmol/L Normal VBG BE 0 ISTAT LAB L9002.2410 50-70 % Normal VBG SO2 50 ISTAT LAB L9002.2415 23-33 mmol/L Normal VBG O2 CT 26 ISTAT Performed By: #### L9000.0810 #### [facility] Point of Care [address] [facility]. [place], [place] [id number] VENOUS BLOOD GAS Collected: 06/28/2018 Status: F Source: [place] 7:54 AM [facility] [place] [place] TYPE CODE TESTS RESULT OUT OF RANGE REFERENCE UNITS LAB L9000.9990 Normal BLD GAS CURT TYPE LAB L9002.1110 7.32-7.42 Normal VBGpH - 7.41 I-STAT LAB L9002.1212 41-51 mmHg Low VBG pCO2 38.3 - ISTA LAB L9002.1310 25-40 mmHg Normal VBG PO2 30 I-STAT LAB L9002.2300 22-26 mmol/L Normal VBG HCO3 24 ISTAT LAB L9002.2400 -1.0-3.5 mmol/L Normal VBG BE 0 ISTAT LAB L9002.2410 50-70 % Normal VBG SO2 58 ISTAT LAB L9002.2415 23-33 mmol/L Normal VBG O2 CT 26 ISTAT Performed By: #### L9000.0810 #### [facility] Point of Care [address] [facility] [place] [address] CBC W/DIFF, AUTOMATED Collected: 06/28/2018 Status: F Source: [place] 5:40 AM [facility] [place] [place] TYPE CODE TESTS RESULT OUT OF RANGE REFERENCE UNITS LAB L100.1000 4.4-11.0 K/mm3 High WBC 13.7 LAB L100.1200 4.6-6.2 M/mm3 Low RBC 4.22 LAB L100.1300 13.0-16.5 g/dl Normal HGB 14.5 LAB L100.1400 40-54 % Normal HCT 42.2 LAB L100.1500 80-94 fL High MCV 100.0 LAB L100.1600 27.0-32.0 pg High MCH 34.4 LAB L100.1700 32-36 g/gl Normal MCHC 34.4 LAB L100.1810 11.6-14.6 % High RDW CV 14.9 LAB L100.1820 35.1-43.9 fl High RDW SD 53.8 LAB L100.1900 150-450 K/mm3 Normal PLT 267 LAB L100.2000 6.2-12.0 fl Normal MPV 10.8 LAB L100.2100 47-70 % High NEUT% 78.5 LAB L100.2200 19-41 % Low LY% 10.6 LAB L100.2300 0-10 % Normal MONO% 9.9 LAB L100.2400 0-5 % Normal EO% 0.4 LAB L100.2500 0-1 % Normal BASO% 0.2 LAB L100.2550 0.0-0.9 % Normal IM GRAN % 0.400 Result Comment: IG% - Immature Granulocytes (promyelocytes, myelocytes and metamyelocytes) > 1% indicates that a LEFT SHIFT is Present. LAB L100.2620 2.0-7.7 X10 3/uL High Absolute Neut 10.8 LAB L100.2720 0.83-4.51 X10 3/ul Normal Absolute Lymph 1.45 Performed By: #### L100.0100 #### [facility] [address] [place] [address]. [place], [address] BASIC METABOLIC Collected: 06/28/2018 Status: F Source: [place] PROFILE (BMP) 5:40 AM [facility] [place] TYPE CODE TESTS RESULT OUT OF RANGE REFERENCE UNITS LAB L501.0100 74-106 mg/dL Normal GLU 99 Result Comment: Please note revised GLUCOSE reference range effective 2017. LAB L501.1000 7-18 mg/dL High BUN 27 LAB L501.1100 0.70-1.30 mg/dL Normal CREAT,SERUM 1.16 Result Comment: The validity of the calculated GFR AND GFRAA in patients over 70 years has not been determined. Clinical correlation is essential. LAB L501.1110 >60 mL/min Normal EST GFR 65 Result Comment: Non- GFR Calc LAB L501.1115 >60 mL/min Normal EST GFR - AA 79 Result Comment: GFR Calc LAB L501.1255 ml/min Normal Estimated CRCL 61.32 LAB L501.1300 10-20 RATIO High BUN/CRE 23.3 LAB L501.2200 8.5-10 mg/dL Normal .1 CA 8.9 LAB L501.5300 136-14 mmol/L High 5 NA 146 LAB L501.5600 3.5-5. mmol/L Low 1 K 3.3 LAB L501.5900 98-107 mmol/L High CL 111 LAB L501.6100 21.0-3 mmol/L Normal 2.0 CO2 25.0 LAB L501.6200 5-15 Normal GAP 10 Performed By: #### L500.2500, L501.5200 #### [facility] [address] [facility] [place], [address] MAGNESIUM Collected: 06/28/2018 Status: F Source: [place] 5:40 AM [facility] [place] [place] TYPE CODE TESTS RESULT OUT OF RANGE REFERENCE UNITS LAB L501.5200 1.6-2.6 mg/dL Normal MG 1.9 Performed By: #### L500.2500, L501.5200 #### [facility] [address] [place], [address] PROTHROMBIN TIME W/INR Collected: 06/28/2018 Status: F Source: [place] 5:40 AM [facility] [place] TYPE CODE TESTS RESULT OUT OF RANGE REFERENCE UNITS LAB L300.4150 11.7-14.9 SECONDS High PROTIME 15.3 LAB L300.4200 Normal INR 1.2 Performed By: #### L300.3900, L300.4310 #### [facility] [address] [facility] [place], [address] PARTIAL THROMBOPLAST Collected: 06/28/2018 Status: F Source: [place] TIME 5:40 AM [facility] [place] TYPE CODE TESTS RESULT OUT OF REFERENCE UNITS RANGE LAB L300.4310 24.1-36.2 Seconds High PTT 38.3 Performed By: #### L300.3900, L300.4310 #### [facility] [address] [place], [address] HEMOGLOBIN A1C Collected: 06/28/2018 Status: F Source: [place] 5:40 AM [facility] [place] Order Comment: Comments: add on to labs if possible TYPE CODE TESTS RESULT OUT OF RANGE REFERENCE UNITS LAB L501.9985 4.2-6.3 % Normal HGB A1C 5.6 Performed By: #### L501.9985 #### [facility] [address] [facility] [place], [address] URINALYSIS, ROUTINE Collected: 06/28/2018 Status: F Source: [place] (DIPSTICK) 1:05 AM [facility] [place] Order Comment: How was Urine Obtained? MORTAR MIXER TO SPECIFY TYPE CODE TESTS RESULT OUT OF RANGE REFERENCE UNITS LAB L400.3000 Yellow COLOR Normal Yellow LAB L400.3050 Clear Normal CLARITY Clear LAB L400.3200 Normal mg/dl Normal GLUCOSE, UR Normal LAB L400.3300 Negative mg/dL Normal BILIRUBIN URINE Negative LAB L400.3400 Negative mg/dl Normal KETONE UR Negative LAB L400.3465 1.002-1.030 Normal SP.GR. DIPSTX 1.020 LAB L400.3550 5.0 - 8.0 pH UR Normal 6.0 LAB L400.3600 Negative mg/dl High PROT 30 DIPSTX LAB L400.3700 Normal mg/dl High 1 UROBILI LAB L400.3750 Negative Normal NITRITE UR Negative LAB L400.3780 Negative /ul High OCCULT BLOOD-UR 150 LAB L400.3800 Negative /ul LEUK Normal ESTERASE Negative Performed By: #### L400.2010 #### [facility] [address] [place], [address] HOSP Observed: 06/28/2018 Status: COMPLETED Source: [place] 12:00 AM [facility] REPOSITORY Patient:Stefania Diaz MRN: <[id number]> Height:6' 0(1.829 m) Weight:151 lb 6.4 oz (68.675 kg) Outpatient Medications as of 07/04/18: Chlorhexidine Gluconate (PERIDEX) 0.12 % solution VALSARTAN ORAL aspirin 325 mg tablet metoprolol tartrate, short acting, (LOPRESSOR) 25 mg tablet Admission/Clinic Administered Medications as of 07/04/18: Chlorhexidine Gluconate 0.12 % 15 mL (PERIDEX) furosemide 40 mg injection (LASIX) metoprolol tartrate (short acting) 25 mg tab(s) (LOPRESSOR) losartan 25 mg tab(s) (COZAAR) heparin iv infusion (LOW DOSE ACS/NOMOGRAM) 25,000 units in NaCl 0.45% 250 mL PREMIX heparin RATE CHANGE bolus 1,000-4,000 Units for subtherapeutic aptt results potassium chloride ER 10-60 mEq tab(s) (K-DUR, KLOR-CON) Problem List: Mitral regurgitation [I34.0] Malnutrition of moderate degree (HCC) [E44.0] Preop testing [Z01.818] Allergies: No Known Allergies Date Verified:07/04/18 Lab Values Lab Value Units Date High Low POTA* 4.6 mmol/L 07/04/2018 5.1 3.7 JOSE* 50.1 % 07/04/2018 51.0 39.0 Progress Notes (DMFP DENT MF PROS MAIN): Vaishali Tapia DDS 07/03/2018 1:22 PM Signed Head and Neck [place], Oral Surgery, AND Maxillofacial Prosthetics CHIEF COMPLAINT: Dental consult prior to OHS HISTORY OF PRESENT ILLNESS: Stefania Diaz is a 73 year old male being seen for dental consultation at the request of Dr. Tonya Blake prior to open-heart surgery. The patient's last dental visit was 2 year(s) ago. He denies odontalgia today. PROBLEM LIST: ACTIVE PROBLEM LIST Mitral Regurgitation Malnutrition of Moderate Degree (Hcc) Preop Testing CURRENT MEDICATIONS: Current Facility-Administered Medications on File Prior to Visit: furosemide 40 mg injection (LASIX) metoprolol tartrate (short acting) 25 mg tab(s) (LOPRESSOR) losartan 25 mg tab(s) (COZAAR) heparin iv infusion (LOW DOSE ACS/NOMOGRAM) 25,000 units in NaCl 0.45% 250 mL PREMIX And heparin RATE CHANGE bolus 1,000-4,000 Units for subtherapeutic aptt results perflutren lipid microspheres 1.1 mg/mL 1.3 mL injection (DEFINITY) potassium chloride ER 10-60 mEq tab(s) (K-DUR, KLOR-CON) Current Outpatient Prescriptions on File Prior to Visit: VALSARTAN ORAL Take by mouth. Pt unsure of dose. Started at [facility]. aspirin 325 mg tablet Take 325 mg by mouth four times a week. metoprolol tartrate, short acting, (LOPRESSOR) 25 mg tablet Take 25 mg by mouth twice daily. ALLERGIES: ALLERGIES No Known Allergies CLINICAL EXAMINATION: Extraoral, Head and Neck exam: Extraoral swelling or erythema:NO Parotid and submandibular glands soft, nonpainful to palpation bilaterally: YES Lymphadenopathy: NO V1, V2, V3, CN VII intact bilaterally: YES Intraoral Soft Tissues: Clear saliva extruded from bilateral Vicky's and Tabatha's ducts. Tongue soft and non-tender with no apparent lesions. Buccal mucosa without lesions bilaterally. Hard palate is WNL. Soft palate is WNL. Pharynx is WNL. Floor of mouth is WNL. Dentition: Caries:None Retained root tips: None Pain to percussion: None Mobility: None Oral hygiene: fair. Radiographic examination: No apical radiolucencies noted. Unique trabeculation noted, but WNL of teeth #30 ASSESSMENT: The oral cavity and dentition were examined and found to be without signs of acute odontogenic infection. There is low risk of perioperative dental complication with this patient. RECOMMENDATIONS: The patient is cleared for treatment from an oral health standpoint. Patient will follow up with local dentist after recovery. The procedure including risks, benefits, options and personnel performing the procedure was discussed with the patient. Stefania Diaz expressed understanding and agreed to proceed. The opinions rendered will be communicated back to the referring provider via shared electronic medical record. Fartun Nesbitt, BETTIE I saw and evaluated the patient. Discussed with the resident and agree with resident's findings and plan as documented in the resident's notes. Additionally, severe attrition extending into the dentin. Vaishali Tapia DDS Previous Version Progress Notes (CARD [facility]CTION LAB J1-5): Karon Chappell, RN, RN 06/29/2018 3:06 PM Signed AMBULATORY PATIENT EDUCATION TOPIC: Procedure Type: GLENNA READINESS TO LEARN COGNITIVE ABILITY: Alert and oriented MOTIVATION TO LEARN: Interested FAMILY SUPPORT: Unable to assess - Family not present INSTRUCTION PROVIDED TO: Patient PATIENT LEARNS BEST BY: Multiple Methods FACTORS AFFECTING LEARNING: None PHYSICAL LIMITATIONS AFFECTING LEARNING: None LEARNING RESPONSE DIAGNOSIS: Pre DCCv METHOD OF INSTRUCTION: Individual instruction Written instruction - handouts Verbal instruction PATIENT / FAMILY RESPONSE: Verbalizes understanding of: POST-PROCEDURE INSTRUCTIONS-Correct actions to take to reduce post procedure complications PRE-PROCEDURE INSTRUCTIONS-Correct action to take to follow pre-procedure instructions FOLLOW-UP PLAN: Complete - No need for follow-up SUPPLEMENTAL MATERIAL: None REFERRAL (RECOMMENDATION): None Electronically Signed By Karon Chappell RN In Department: CARDIOLOGY CHEST 1 VIEW Observed: 06/28/2018 Status: F Source: [place] (PORTABLE) 12:00 AM [facility] [place] [place] Imaging Services [address] [place] [address] Chest 1 View (Portable) MR#: [id number] Acct: [id number] Name: STEFANIA DIAZ Rep #: [id number] : 1945 M [id number] From: Daniele Barnes MD PCP: Antonio KELLEY,Jose Rodriguez Status: ADM IN Study: Chest 1 View (Portable) Date of Exam: 06/28/18 Exam# [id number] Ordering Dr: River Alvarado MD STUDY: X-RAY CHEST REASON FOR EXAM: Male, 73 years old. Cough TECHNIQUE: Single frontal view of the chest. COMPARISON: 06/26/2018 FINDINGS: Interval resolution of bibasilar alveolar disease. There is no demonstrated pleural abnormality. Stable cardiac silhouette. Calcified granuloma in the left lung base. Normal mediastinum and beto. Normal visualized pulmonary arteries. Normal visualized aortic arch and descending thoracic aorta. Normal visualized thoracic spine. Normal visualized ribs, clavicles, and shoulders. There is no demonstrated abnormality of the visualized soft tissue structures of the upper abdomen. RAD/Chest 1 View (Portable) IMPRESSION: Interval resolution of bibasilar alveolar disease. Electronically Signed: Daniele Barnes MD at 4:55 EDT Tel , Service support , CC: River Alvarado MD; Jose Alvarez MD Self Propelled Hot Mix Roller Operator: Signed CONSULTATION Observed: 06/27/2018 Status: F Source: [place] 5:12 PM [facility] [place] [place] Medical Records Department [address] [place] [address] Consultation 06/27/18 1659 MR#: [id number] Acct: [id number] Name: STEFANIA DIAZ Rep #: [id number] : 1945 73 From: River Alvarado MD PCP: Jose Alvarez MD, Chi Status: ADM IN Y Location: [place] [address] Problem List (1) Atrial fibrillation with RVR Status: Acute (2) Mitral valve disorder Status: Chronic (3) CHF (congestive heart failure) Status: Acute Qualifiers: Heart failure type: diastolic Heart failure chronicity: acute Qualified Code(s): I50.31 - Acute diastolic (congestive) heart failure (4) Pleural effusion, bilateral Status: Acute (5) Abnormal cardiac enzyme level Status: Acute (6) Hypertensive urgency Status: Acute Reason for Consult Date of Consultation: 06/27/18 History of Present Illness: The patient is a 73 year old male who claims to have a past medical history of hypertension and a mitral valve disorder with mitral valve prolapse/mitral valve regurgitation, who presents for concerns of progressive shortness of breath/dyspnea, orthopnea, and fatigue. He states symptoms have progressed for some time now. He notes they finally got to the point where he felt he required additional evaluation and care. He states based upon his symptoms he has been diagnosed with repetitive episodes of bronchitis in the past. He has been treated with antiviral therapy and antibacterial therapy. He notes over time he would rebound from these events and then they would occur again. Thus based upon his ongoing symptoms and concerns, despite his outpatient medical evaluation care, he presented to the hospital for further evaluation. He has denied acute chest discomfort. He states he has had waxing and waning lower extremity edema in the past but not recently. He denies any near-syncope or syncope. He believes he may have sensed intermittent palpitations and/or an irregular heartbeat in the past. He was evaluated and found to have abnormal cardiac enzymes with respect to troponin I levels and BNP levels. His ECG demonstrated atrial fibrillation with occasional PVCs. A chest x-ray and chest CT scan suggested bilateral pleural effusions. There was no report of great vessel disease or thromboembolic disease. He has undergone evaluation with a transthoracic echocardiogram. The results are as noted below. He does not recall any other cardiovascular testing since perhaps the when he believes he had some form of exercise tolerance test performed in [place]. Since admission he has been treated with rate control therapy with IV beta-blockers. He is also received IV diuretics. He notes that his breathing has improved. He feels he is able to lie much more supine now than he has for some time. He does note based upon his mitral valve history that he was told that at some point in time in the future he would need a valve job . [] Past Medical History Allergies/Adverse Reactions: Allergies No Known Allergies Allergy (Verified 06/27/18 02:51) Home Medications: Ambulatory Orders Medication Instructions Recorded Metoprolol Tartrate 50 mg PO DAILY 06/27/18 Past Medical History (Chronic Problems): Chronic Problems Mitral valve disorder (Chronic) Surgical History: no surgical history - *Family History Maternal History Items: No pertinent history Lives: Alone Smoking Status: Former smoker Alcohol: None Drugs: None Review of Systems - Review of Systems General: Reports: Fatigue. Denies: Fever, Night Sweats Cardiovascular: Reports: Shortness of Breath, Shortness of Breath at Rest, Shortness of Breath with Exertion, Orthopnea, Peripheral Edema. Denies: Chest Discomfort, PND, Palpitations, Lightheadedness, Dizziness, Near Syncope, Syncope Respiratory: Reports: Cough, Shortness of Breath. Denies: Hemoptysis Gastrointestinal: Denies: Hematemesis, Hematochezia, Melena Genitourinary: Denies: Dysuria, Hematuria Skin: Denies: Rash Subjectve: This is a thin 73-year-old white male who appears to be resting reasonably comfortably at this time in no acute distress. Objective: Vital Signs Temp Pulse Resp BP Pulse Ox 97.9 F 97 18 151/81 H 95 06/27/18 11:18 06/27/18 16:10 06/27/18 11:18 06/27/18 11:30 06/27/18 11:18 Oxygen Delivery Method Room Air Weight: 173 lb 1.006 oz Body Mass Index (BMI) 23.4 Intake and Output for Last 24 Hours Intake Total 320 / 320 Output Total 675 / 675 Balance -355 / -355 General: Awake, Alert, Oriented x 3, Cooperative, No Acute Distress HEENT: Atraumatic, Normocephalic, PERRL, EOMI, Sclera Non Icteric Oral: Moist Mucosa, Poor Dentition Neck: Supple, Good ROM, No JVD Lungs: Diminished Roldan Bases Cardiovascular: Irregular Rhythm, Normal S1, Normal S2 Murmur Murmur: Grade 3/6, Harsh, Holosystolic, Fisk, Axilla Vascular: No Carotid Bruits Abdomen: Bowel Sounds Present, Soft, Non Tender Extremities: No Cyanosis, No Clubbing, No edema Neurological: No Focal Motor or Sensory Deficit Psych/Mental Status: Appropriate, Normal Affect 06/27/18 00:40: Troponin I 0.058 H 06/27/18 03:38: Sodium 144, Potassium 3.3 L, Chloride 111 H, Carbon Dioxide 21.0, Anion Gap 12, BUN 25 H, Creatinine 1.01, Est GFR (MDRD) Af Amer 93, Est GFR (MDRD) Non-Af 77, BUN/Creatinine Ratio 24.8 H, Glucose 147 H, Calcium 8.4 L, Total Bilirubin 1.50 H, Triglycerides 62, Cholesterol 153, LDL Cholesterol 119, VLDL Cholesterol 12, HDL Cholesterol 22 L 06/27/18 03:38: B-Natriuretic Peptide 687.1 H 06/27/18 03:38: Troponin I 0.059 H 06/27/18 06:40: Troponin I 0.055 H 06/27/18 13:10: Sodium 145, Potassium 3.9, Chloride 112 H, Carbon Dioxide 21.0, Anion Gap 12, BUN 24 H, Creatinine 1.24, Est GFR (MDRD) Af Amer 73, Est GFR (MDRD) Non-Af 61, BUN/Creatinine Ratio 19.4, Glucose 132 H, Calcium 9.1 Rhythm: Atrial fibrillation; PVCs EKG: As noted above ECHO: 06/27/2018 Interpretation Summary Left ventricular systolic function is normal. The estimated ejection fraction is 60 %. Apical false tendon noted. The left atrium is moderately enlarged. The right atrium is mildly enlarged. Mild mitral valve prolapse, posterior leaflet Moderate (2+) eccentric mitral valve insufficiency. Moderate (2+) eccentric tricuspid valve insufficiency. Mild focal aortic valve calcification. Trivial eccentric aortic valve insufficiency. Trivial eccentric pulmonic valve insufficiency. Echolucency c/w a pleural effusion. Right ventricular systolic pressure estimated to be 58 mmHg. Diastolic function is indeterminate. Assessment/Plan 1. Atrial fibrillation It is unclear how long the patient has been in atrial fibrillation. The etiologies may be multifactorial related to his age, hypertension, underlying cardiovascular disease with mitral valve disorder with mitral valve regurgitation, etc. From a cardiac standpoint he will need to be monitored. He will continue rate control therapy and anticoagulant therapy as deemed appropriate. Depending upon his clinical course and future needs he may at some point in time be considered for an attempt at regaining sinus rhythm with synchronized biphasic DC cardioversion. 2. Mitral valve disorder with mitral valve prolapse and mitral valve regurgitation The patient knows that he has mitral valve prolapse with mitral valve regurgitation. He states there is been no follow-up for this. He states he was told at some point in time this would catch up with him and he would need a valve job . At the present time there is concern that his mitral valve disorder may be contributing to his atrial dysrhythmia and his volume overload status with respect to concerns of CHF and pleural effusions. At the present time he is being monitored. He will continue to be treated medically for his multiple medical issues. He will be considered for additional evaluation of his cardiovascular status with diagnostic cardiac catheterization and depending upon his clinical course needs potential future GLENNA to further evaluate his mitral valve apparatus and physiology. If it is found that his mitral valve disorder has progressed to the point where it does appear to be causing him concerns of CHF and pleural effusions then he will need to be considered for CT surgery consultation for mitral valve repair. 3. CHF: Acute diastolic This is based on the patient's clinical course and objective markers and findings. At the present time he is being followed. He is being treated medically. This is included IV diuretics. He has had increased diuresis and states his breathing has improved. He will continue evaluation care as noted above. 4. Pleural effusions The patient does have bilateral pleural effusions. This to be related to his underlying mitral valve disorder and atrial dysrhythmia and congestive heart failure scenario. He is continuing IV diuresis. His pulmonary status/respiratory status/breathing has improved. 5. Abnormal cardiac enzymes He does have abnormal troponin I levels. Is unclear whether this represents an additional acute coronary syndrome event versus a type II supply demand mismatch event secondary to his underlying combination of atrial dysrhythmia, mitral valve disorder, congestive heart failure, etc. Thus at the present time he is being evaluated and treated for the possibility of underlying CAD. He is being considered for further evaluation with diagnostic cardiac catheterization. 6. Hypertensive urgency The patient's blood pressure was elevated upon admission. It is unclear whether this was a primary event contributing to his other findings versus a secondary event from concerns of his other findings in his respiratory concerns. His blood pressure is being followed. His medications are being adjusted. Overall, at the present time, the patient will continue to be monitored. He will continue medical management. He will be considered for further noninvasive and invasive studies as described above. The above was discussed with the patient and he is agreeable to the aforementioned evaluation and care plan. The patient's case is also been discussed with the [facility] staff members. This note was generated with [employer] software. It may contain incorrect words, spelling, and punctuation that were not noted in checking the note before signing. 06/27/181711 <Electronically signed by River Alvarado MD> Date River Alvarado MD Cosigner Signature (if applicable): Date CC: River Alvarado MD; Jose Alvarez MD Signed ECHOCARDIOGRAM COMPLETE Observed: 06/27/2018 Status: F Source: [place] 2:03 PM [facility] Cardiovascular Services [address] [place] [address] Echo Complete 06/27/18 0908 MR#: [id number] Acct: [id number] Name: STEFANIA DIAZ Rep #: [id number] : 1945 73 From: River Alvarado MD [facility]ending [facility]: ADM IN Ordering Dr: River North MD Date: 06/27/18 Location: [facility] Sex: M C Admitted: 06/27/18 Reason For Study: MURMUR Procedure This was a 2D Doppler, Color Flow transthoracic echocardiogram. The exam was of adequate technical quality. Exam performed portable in patient room. Left Ventricle Normal LV size. Apical false tendon noted. Left ventricular systolic function is normal. The estimated ejection fraction is 60 %. Diastolic function is indeterminate. No regional wall motion abnormalities noted. Right Ventricle Normal RV size. Normal systolic function. Atria The left atrium is moderately enlarged. The right atrium is mildly enlarged. No doppler evidence for ASD. Mitral Valve There is no mitral annular calcification. Mild mitral valve prolapse, posterior leaflet. Moderate (2+) eccentric mitral valve insufficiency. Tricuspid Valve Normal tricuspid valve. Moderate (2+) eccentric tricuspid valve insufficiency. Right ventricular systolic pressure estimated to be 58 mmHg. Aortic Valve Trisinus/trileaflet aortic valve. Mild focal aortic valve calcification. Trivial eccentric aortic valve insufficiency. Pulmonic Valve The pulmonic valve is not well visualized. Trivial eccentric pulmonic valve insufficiency. Great Vessels Normal sized aortic root. Pericardium/Pleural No pericardial effusion. Echolucency c/w a pleural effusion. MMode/2D Measurements AND Calculations LVIDd: 5.5 cm IVSd: 1.2 cm Ao root diam: 3.3 cm LVIDs: 4.3 cm LVPWd: 1.1 cm LA dimension: 4.4 cm RVDd: 3.9 cm FS: 22.3 % LAV(MOD-bp): 119.5 ml LVAd ap4: 35.5 cm2 SV(MOD-sp4): 73.0 ml LAV(MOD-bp) Indexed: 60.9 ml/m2 EDV(MOD-sp4): 115.0 ml LAV(MOD-sp2): 125.7 ml EDV(sp4-el): 117.7 ml LAV(MOD-sp4): 95.0 ml LVAs ap4: 20.0 cm2 ESV(MOD-sp4): 42.0 ml ESV(sp4-el): 43.6 ml EF(MOD-sp4): 63.5 % EF(sp4-el): 63.0 % SV(sp4-el): 74.1 ml LA A4 area: 31.2 cm2 RA A4 area: 26.3 cm2 Doppler Measurements AND Calculations MV E max kimberly: 121.9 cm/sec Ao V2 max: 123.4 cm/sec LV V1 max: 93.0 cm/sec Ao max P.1 mmHg LV V1 max P.5 mmHg PA V2 max: 82.8 cm/sec TR max kimberly: 354.4 cm/sec TR max P.3 mmHg Interpretation Summary Left ventricular systolic function is normal. The estimated ejection fraction is 60 %. Apical false tendon noted. The left atrium is moderately enlarged. The right atrium is mildly enlarged. Mild mitral valve prolapse, posterior leaflet Moderate (2+) eccentric mitral valve insufficiency. Moderate (2+) eccentric tricuspid valve insufficiency. Mild focal aortic valve calcification. Trivial eccentric aortic valve insufficiency. Trivial eccentric pulmonic valve insufficiency. Echolucency c/w a pleural effusion. Right ventricular systolic pressure estimated to be 58 mmHg. Diastolic function is indeterminate. Ordering Physician: River North Referring Physician: Jose Alvarez Chi Performed By: Grace Dawson RDCS 06/27/18 1402 Date River Alvarado MD CC: River North MD; Maciel Mera MD; Jose Alvarez MD Date Dictated: 06/27/18907 Date Transcribed: 06/27/181401 Self Propelled Hot Mix Roller Operator: Signed BASIC METABOLIC Collected: 06/27/2018 Status: F Source: MARY PROFILE (BMP) 1:10 PM [facility] TYPE CODE TESTS RESULT OUT OF RANGE REFERENCE UNITS LAB L501.0100 74-106 mg/dL High GLU 132 Result Comment: Fasting Glucose result greater than or equal to 126 mg/dL suggests DIABETES MELLITUS per A.D.A. criteria. Please note revised GLUCOSE reference range effective 2017. LAB L501.1000 7-18 mg/dL High BUN 24 LAB L501.1100 0.70-1.30 mg/dL Normal CREAT,SERUM 1.24 Result Comment: The validity of the calculated GFR AND GFRAA in patients over 70 years has not been determined. Clinical correlation is essential. LAB L501.1110 >60 mL/min Normal EST GFR 61 Result Comment: Non- GFR Calc LAB L501.1115 >60 mL/min Normal EST GFR - AA 73 Result Comment: GFR Calc LAB L501.1255 ml/min Normal Estimated CRCL 57.37 LAB L501.1300 10-20 RATIO Normal BUN/CRE 19.4 LAB L501.2200 8.5-10 mg/dL Normal .1 CA 9.1 LAB L501.5300 136-14 mmol/L Normal 5 NA 145 LAB L501.5600 3.5-5. mmol/L Normal 1 K 3.9 LAB L501.5900 98-107 mmol/L High CL 112 LAB L501.6100 21.0-3 mmol/L Normal 2.0 CO2 21.0 LAB L501.6200 5-15 Normal GAP 12 Performed By: #### L500.2500 #### [facility] [address] [place], [address] TROPONIN-I Collected: 06/27/2018 Status: F Source: MARY 6:40 AM [facility] Order Comment: 'TROP' Serial specimen #1, #2 or #3: 3 TYPE CODE TESTS RESULT OUT OF RANGE REFERENCE UNITS LAB L501.4010 <0.045 ng/mL High 0.055 TROPONIN-I Result Comment: TROPONIN-I EXPECTED VALUES <0.045 Negative 0.045 - 0.590 Consistent with Cardiac Damage > OR = 0.600 Critical Value Not every elevated troponin is indicative of IL. These values should be used with clinical judgement in examining the patient's clinical picture for diagnosis. To establish a diagnosis of IL versus myocardial injury, there must be a demonstrated rise and/or fall in the troponin values, in addition to ischemic symptoms, EKG changes, new regional wall motion abnormality, and/or angiographical evidence. PLEASE NOTE: REFERENCE RANGES EDITED 18 Performed By: #### L501.4010 #### [facility] [address] [facility] [place], [address] BNP,B-TYPE NATRIURETIC Collected: 06/27/2018 Status: F Source: MARY PEPTIDE 3:38 AM [facility] TYPE CODE TESTS RESULT OUT OF RANGE REFERENCE UNITS LAB L503.6620 0-100 pg/mL High B-TYPE 687.1 ALBAN PEP Performed By: #### L503.6620 #### [facility] [address] [facility] [place], [address] COMPREHENSIVE METABOLIC Collected: 06/27/2018 Status: F Source: MARY PROFIL 3:38 AM [facility] Order Comment: Comments: Fasting Lipid Profile TYPE CODE TESTS RESULT OUT OF RANGE REFERENCE UNITS LAB L501.0100 74-106 mg/dL High GLU 147 Result Comment: Fasting Glucose result greater than or equal to 126 mg/dL suggests DIABETES MELLITUS per A.D.A. criteria. Please note revised GLUCOSE reference range effective 2017. LAB L501.1000 7-18 mg/dL High BUN 25 LAB L501.1100 0.70-1.30 mg/dL Normal CREAT,SERUM 1.01 Result Comment: The validity of the calculated GFR AND GFRAA in patients over 70 years has not been determined. Clinical correlation is essential. LAB L501.1110 >60 mL/min Normal EST GFR 77 Result Comment: Non- GFR Calc LAB L501.1115 >60 mL/min Normal EST GFR - AA 93 Result Comment: GFR Calc LAB L501.1255 ml/min Normal Estimated CRCL 70.43 LAB L501.1300 10-20 RATIO High BUN/CRE 24.8 LAB L501.1500 6.4-8. g/dL Low 2 T PROT 6.2 LAB L501.1800 3.2-5. g/dL Normal 0 ALB 3.2 LAB L501.1950 2.2-4. g/dL Normal 2 GLOB 3.0 LAB L501.2000 0.9-2. RATIO Normal 4 A/G 1.1 LAB L501.2200 8.5-10 mg/dL Low .1 CA 8.4 LAB L501.4100 15-37 U/L High AST 39 LAB L501.4305 45-117 U/L Normal ALK P 70 LAB L501.4405 16-61 U/L Normal ALT 54 LAB L501.4600 0.20-1 mg/dL High .00 T BILI 1.50 LAB L501.5300 136-14 mmol/L Normal 5 NA 144 LAB L501.5600 3.5-5. mmol/L Low 1 K 3.3 LAB L501.5900 98-107 mmol/L High CL 111 LAB L501.6100 21.0-3 mmol/L Normal 2.0 CO2 21.0 LAB L501.6200 5-15 Normal GAP 12 Performed By: #### L500.4050, L500.4100, L501.9520 #### [facility] [address] [place], [address] LIPID PROFILE Collected: 06/27/2018 Status: F Source: MARY 3:38 AM [facility] Order Comment: Comments: Fasting Lipid Profile TYPE CODE TESTS RESULT OUT OF RANGE REFERENCE UNITS LAB L501.4900 200 mg/dL Normal CHOL 153 Result Comment: <200 mg/dL Desirable 200-240 mg/dL Borderline >240 mg/dL High Risk LAB L501.5000 mg/dL Normal TRIG 62 Result Comment: The drugs N-Acetylcysteine and Metamizole may falsely depress this assay. Serum Triglycerides Reference Interval Normal <150 mg/dL Borderline high 150 - 199 mg/dL High 200 - 499 mg/dL Very High > or = 500 mg/dL LAB L501.6400 mg/dL Low HDL 22 Result Comment: The drugs N-Acetylcysteine and Metamizole may falsely depress this assay. Reference Range HDL <40 mg/dL Low HDL Cholesterol HDL >or= 60 mg/dL High HDL Cholesterol LAB L501.6500 0-130 mg/dL Normal LDL 119 LAB L501.6600 5-40 mg/dL Normal VLDL 12 Performed By: #### L500.4050, L500.4100, L501.9520 #### [facility] [address] [place], [address] THYROID STIM HORMONE Collected: 06/27/2018 Status: F Source: [place] (TSH) 3:38 AM [facility] Order Comment: Comments: Fasting Lipid Profile TYPE CODE TESTS RESULT OUT OF RANGE REFERENCE UNITS LAB L501.9520 0.358-3.74 uIU/mL Normal TSH 0.54 Performed By: #### L500.4050, L500.4100, L501.9520 #### [facility] [address] [place], [address] HISTORY AND PHYSICAL Observed: 06/27/2018 Status: F Source: [place] EXAM 2:20 AM [facility] Medical Records Department [address] [place] [address] History and Physical 06/27/18 0213 MR#: [id number] Acct: [id number] Name: STEFANIA DIAZ Rep #: [id number] : 1945 73 From: River North MD PCP: Antonio KELLEY,Jose Rodriguez Status: ADM IN Location: [place] [address] Problem List (1) Pleural effusion, bilateral Status: Acute (2) Atrial fibrillation with RVR Status: Acute (3) Hypertensive urgency Status: Chronic History of Present Illness Date of Admission: 06/27/18 Chief Complaint: shortness of breath The patient is a 73 year old male patient with a history of hypertension presents to the ER with shortness of breath. He states he has been dealing with what he calls chronic bronchitis for the past year. It has recently become worse with any exertion. He denies chest pain. CT scan reveals bilateral pleural effusions. He has an elevated BNTP and is in atrial fibrillation. He recently stopped his metoprolol and finds himself more short of breath after this was discharged. He will be admitted for further cardiac workup. Past Medical History Past Medical History (Chronic Problems): Chronic Problems Hypertensive urgency (Chronic) Allergies No Known Allergies Allergy (Verified 06/27/18 00:09) Home Medications: Ambulatory Orders Medication Instructions Recorded Metoprolol Tartrate 50 mg PO DAILY 06/27/18 Surgical History: no surgical history Smoking Status: Former smoker Drugs: None - *Family History Maternal History Items: No pertinent history Review of Systems Constitutional: Denies: Chills, Fever, Weight Change HEENT: Denies: Head Aches, Sinus Congestion, Sinus Drainage Cardiovascular: Denies: Chest Pain, Palpitations Respiratory: Reports: Cough, Shortness of breath at rest, Shortness of breath upon exertion. Denies: Sputum production Gastrointestinal: Denies: Abdominal Pain, Nausea, Vomiting Genitourinary: Denies: Dysuria Musculoskeletal: Denies: Joint Pain, Joint Tenderness Skin: Denies: Rash, Wounds Neurological: Denies: Numbness, Tingling, Focal weakness Psychiatric: Denies: Anxiety, Depression, Homicidal Ideations, Suicidal Ideations Hematologic/ Lymphatic: Denies: Easy Bruising, Easy Bleeding VTE Information - Inpt Only VTE Present on Admission: No VTE Mechan Device Prophylaxis: None VTE Pharm Prophylaxis ordered?: Yes Patient Problems: Active and Suspected Problems Pleural effusion, bilateral (Acute) Atrial fibrillation with RVR (Acute) - Physical Exam General: Alert, Oriented x3, Cooperative HEENT: Atraumatic, Normocephalic Neck: Supple Lungs: Clear to auscultation, Normal air movement Cardiovascular: Normal S1, Normal S2, Irregular Rate, Murmur Abdomen: Bowel Sounds Present, Soft, Non Tender Extremities: No edema Skin: No rashes Musculoskeletal: No Tenderness to Palpation of Joints or Extremities Neurological: Neuro grossly intact Psych/Mental Status: Normal Affect, Appropriate Vital Signs Temp Pulse Resp BP Pulse Ox 97.6 F L 94 26 H 148/92 H 92 06/27/18 00:05 06/27/18 02:00 06/27/18 02:00 06/27/18 02:00 06/27/18 02:00 Oxygen Delivery Method Nasal Cannula Weight: 173 lb 1.006 oz Body Mass Index (BMI) 24.8 Laboratory Tests Past 24 Hrs Troponin I 0.058 H Assessment/Plan All Active Problems Pleural effusion, bilateral (Acute) Atrial fibrillation with RVR (Acute) Plan - admit to PCU - cycle cardiac markers - echocardiogram - consider cardiac consult in am - add lasix for diureses - CBC, BMP in am - oxygen per routine - LMWH for DVT prophylaxis - continue routine medications Code Visit Inpatient E AND M: 45073 Init Hosp L3 06/27/180 <Electronically signed by River North MD> Date River North MD Cosigner Signature: Date (if applicable) CC: River North MD; Jose Alvarez MD Signed EMERGENCY DEPARTMENT Observed: 06/27/2018 Status: F Source: [place] SUMMARY 2:07 AM [facility] Medical Records Department [address] [place] [id number] Emergency Department Summary 06/27/18 0031 MR#: [id number] Acct: [id number] Name: STEFANIA DIAZ Rep #: [id number] : 1945 73 From: Venkat Jacques MD PCP: Antonio KELLEY,Jose Rodriguez Status: REG ER History of Present Illness Chief Complaint: Shortness of Breath Informant: Patient Onset: Month(s) - 6 Context: Gradual Onset Timing: Continuous Quality: just feels short of breath; wheezy at times, but not always Location: chest Current Severity: Mild - at rest, but present Maximum Severity: Severe Worsened by: exertion, lying supine Relieved by: sitting up, rest Associated Symptoms: cough mostly nonproductive, but swallowing mucous Narrative: Saw his PCP for this for the first time in about 6 months, since symptoms have been getting worse. No fever since, no chest discomfort. With swallowing mucus, he was vomiting last week, but that has been less now. About 6 months ago he had a case of acute bronchitis that he saw his doctor for and felt like he got over for the most part but continued to have coughing and dyspnea since that progressively worsened, but slowly. He thought maybe he had chronic bronchitis and was waiting for my body to heal itself, but I realized I was getting worse so I made an appointment with my doctor. An EKG was done in the office which according to his PCP showed A. fib, but he was rate controlled, so labs and chest x-ray were obtained as an outpatient. However they came back with a d-dimer elevated over 1 and a troponin that was just barely not negative, and the patient was more short of breath at rest and so he was advised to come to the ER for further testing and admission. Past Medical History - Allergies and Home Meds Allergies/Adverse Reactions: Allergies No Known Allergies Allergy (Verified 06/27/18 00:09) Primary Care Physician: Jose Alvarez Chi, MD [Primary Care Provider] - Smoking Status: Former smoker Drugs: None Review of Systems General: Reports: Malaise. Denies: Chills, Fever, Sweats Eyes: Denies: Visual changes - bilaterally, Diplopia ENT: Denies: Rhinorrhea, Sore throat Cardiovascular: Denies: Chest pain, Palpitations, Heart racing Respiratory: Reports: Dyspnea, Cough, Sputum - mostly swallowing it, Dyspnea on exertion Gastrointestinal: Reports: Nausea - gone now, Vomiting - after swallows lots of sputum. Denies: Abdominal pain, Diarrhea, Melena, Hematochezia Genitourinary: Denies: Dysuria, Hematuria, Frequency Musculoskeletal: Denies: Neck pain, Back pain, Swelling, Extremity Pain Skin: Denies: Rash, Abscess Neurological: Denies: Headache, Weakness, Numbness Psych: Denies: Depression, Suicidal thoughts Endocrine: Denies: Polyuria, Polydipsia, Heat intolerance, Cold intolerance Hematologic: Denies: Easy bruising, Easy bleeding Allergy: Denies: Swelling of the mouth, Swelling of the tongue Physical Exam Vital Signs/Narrative: Vital Signs 06/27/18 00:15 119 H 24 H 203/99 H 96 06/27/18 00:05 97.6 F L 116 H 18 161/109 H 93 06/27/18 00:04 130 H 22 H 159/113 H 98 Inital Vital Signs reviewed: Yes General: Well nourished, Well developed Head: Normocephalic, Atraumatic Eyes: Perrl, EOMI ENT: Moist mucous membranes, No rhinorrhea Neck: Supple, Nontender, No lymphadenopathy, No JVD, - - trachea midline Cardiovascular: No murmurs, Irregular, Tachycardia Respiratory: No distress - mildly tachypneic, no distress. conversational., CTA bilaterally - although somewhat symmetrically diminished throughout, Chest nontender Abdomen: Soft, Nontender, Nondistended, Normal bowel sounds Back: Nontender, Normal Inspection. Negative for: CVA tenderness Extremities: Nontender - including no calf tenderness bilat, No edema, - - no cords Skin: Normal color, No rash Neurological: Alert, Oriented x3, Cranial nerves II-XII grossly intact, Normal Strength, Normal Sensation Psychological: Normal affect Diagnostic/Tx/Re-eval Impressions Chest CTA 06/27/18 00:27 IMPRESSION: 1. No evidence of pulmonary embolism. 2. Moderate bilateral pleural effusions. 3. Mild stranding/scarring in the left lower lobe. Electronically Signed: Mohit Stark MD at 1:35 EDT Tel , Service support , 06/27/18 00:27 CTA Chest W/WO Contrast [CT] Stat Laboratory Results Troponin I 0.058 H - Rhythm Strip Rhythm Strip: A-fib Rate: 118 Ectopy: PVC(s) - EKG Initial EKG Interpretation: No Acute Injury Pattern, Atrial Fibrillation - w/ RVR at around 115, Non-Specific ST Changes, - - frequent multifocal PVCs, Fusion beats seen - Medical Decision Making Blood counts and renal function were fairly unremarkable, his x-ray had not been interpreted by radiology yet but I was able to visualize it, it showed what appeared to be a possible infiltrate in the left lower lobe and a possible left lung mass. His d-dimer was reported by his PCP to be over 1, but in the computer/EMR, it is labeled as canceled and there is no result available. I thought it best given x-ray findings in this ambiguous lab result to directly obtain CT angiography of the chest which I discussed with the patient and he was amenable to. It shows no PE, but bilateral moderate pleural effusions, which I suspect is probably mostly responsible for his symptoms. It also shows some scarring without pneumonia in the left lower lobe, as well as a calcified granuloma. His troponin is a little lower than it was earlier today but still abnormal. He was initially in A. fib with RVR, I gave him Cardizem 20 mg, also treating his blood pressure which was over 200. His blood pressure is down to 160s, and his heart rate is in the 80 range. Therefore, I am not putting him on a drip at this time. Will admit to the hospital for further workup and treatment. ED Disposition - Plan for ED Patient: Disposition: [facility] Chief Complaint: Shortness of Breath Diagnosis: Pleural effusion, bilateral, Atrial fibrillation with RVR, Hypertensive urgency Referrals: Jose Alvarez Chi, MD [Primary Care Provider] - What to do if you have Problems For any increased pain, shortness of breath, bleeding, nausea or vomiting, chest pain, or any unexpected problems, contact your Primary Care Provider. Call [facility] ([phone]) or report to the closest Emergency Room. Call 911 if necessary. 06/27/18 0207 <Electronically signed by Venkat Jacques MD> Date Venkat Jacques MD Cosigner Signature (If Indicated): Date CC: Jose Alvarez MD TROPONIN-I Collected: 06/27/2018 Status: F Source: [place] 12:40 AM [facility] TYPE CODE TESTS RESULT OUT OF RANGE REFERENCE UNITS LAB L501.4010 <0.045 ng/mL High 0.058 TROPONIN-I Result Comment: TROPONIN-I EXPECTED VALUES <0.045 Negative 0.045 - 0.590 Consistent with Cardiac Damage > OR = 0.600 Critical Value Not every elevated troponin is indicative of IL. These values should be used with clinical judgement in examining the patient's clinical picture for diagnosis. To establish a diagnosis of IL versus myocardial injury, there must be a demonstrated rise and/or fall in the troponin values, in addition to ischemic symptoms, EKG changes, new regional wall motion abnormality, and/or angiographical evidence. PLEASE NOTE: REFERENCE RANGES EDITED 18 Performed By: #### L501.4010 #### [facility] [address] [place], [address] CTA CHEST W/WO Observed: 06/27/2018 Status: F Source: [place] CONTRAST 12:29 AM [facility] Imaging Services [address] [place] [address] CTA Chest W/WO Contrast MR#: [id number] Acct: [id number] Name: STEFANIA DIAZ Rep #: [id number] : 1945 M 73 From: Mohit Stark MD PCP: Antonio KELLEY,[employer] [facility] Status: REG ER Study: CTA Chest W/WO Contrast Date of Exam: 06/27/18 Exam# [id number] Ordering Dr: Venkat Jacques MD STUDY: CTA CHEST REASON FOR EXAM: Male, 73 years old. Shortness of breath for 6 months. RADIATION DOSAGE (If Supplied By Facility): CTDIvol = ( 16.62 ) mGy, DLP = ( 563.28 ) mGycm TECHNIQUE: The examination was performed with the intravenous administration of 75ML ml of Isovue 370 contrast material. Post-processing of the angiographic images was performed, with multiplanar reformation and 3D reconstruction. Individualized dose optimization techniques were used for this CT. COMPARISON: None. FINDINGS: Normal enhancement of the main pulmonary artery and right and left pulmonary arteries. Normal enhancement of the bilateral peripheral pulmonary arteries. There is no demonstrated pulmonary embolism. There is mild atherosclerotic calcification of the aortic arch with tortuosity. The aorta otherwise is not enhanced. Normal heart and pericardium. There are small nodes in the mediastinum and aortopulmonic window. Normal hilar regions. Normal visualized trachea and bronchi. The lungs are well expanded. There is a calcified granuloma in the left lower lobe. There is mild stranding/scarring in the left lower lobe. No focal infiltrate otherwise is seen. There are moderate bilateral pleural effusions. Normal chest wall structures. There are mild degenerative changes of thoracic spine. The visualized portions of the upper abdomen demonstrate a cyst in the right kidney. CT/CTA Chest W/WO Contrast IMPRESSION: 1. No evidence of pulmonary embolism. 2. Moderate bilateral pleural effusions. 3. Mild stranding/scarring in the left lower lobe. Electronically Signed: Mohit Stark MD at 1:35 EDT Tel , Service support , CC: VENKAT JACQUES MD; Jose Alvarez MD [employer] Operator: Signed ABDOMEN SINGLE VIEW Observed: 06/26/2018 Status: F Source: [place] 2:43 PM [facility] Imaging Services [address] [place] [address] Abdomen Single View MR#: [id number] Acct: [id number] Name: STEFANIA DIAZ Rep #: [id number] : 1945 M 73 From: Yasmany Hartley DO PCP: Jose Alvarez MD, Chi Status: REG CLI Study: Abdomen Single View Date of Exam: 06/26/18 Exam# [id number] Ordering Dr: Jose Alvarez MD STUDY: X-RAY - ABDOMEN/PELVIS REASON FOR EXAM: Male, 73 years old. Nausea and vomiting TECHNIQUE: Two AP supine views of the abdomen and pelvis. COMPARISON: None. FINDINGS: No evidence of small bowel obstruction. Singular mildly gaseous distended loop of small bowel in the central abdomen with some wall thickening; this could represent enteritis. There is no demonstrated free abdominal air. The visualized liver, spleen and kidneys are grossly normal in size and morphology. Normal soft tissue structures. There are diffuse degenerative changes of the visualized lumbar spine. RAD/Abdomen Single View IMPRESSION: No evidence of small bowel obstruction. Mildly gaseous distended loop of small bowel in the central abdomen with wall thickening. Could represent enteritis. Electronically Signed: Yasmany Hartley DO at 12:47 EDT Tel , Service support , CC: Jose Alvarez MD [employer] Operator: Signed CHEST PA AND LATERAL Observed: 06/26/2018 Status: F Source: [place] 2:43 PM [facility] Imaging Services [address] [place] [address] Chest PA and Lateral MR#: [id number] Acct: [id number] Name: STEFANIA DIAZ Rep #: [id number] : 1945 M 73 From: Yasmany Hartley DO PCP: Jose Alvarez MD, Chi Status: REG CLI Study: Chest PA and Lateral Date of Exam: 06/26/18 Exam# [id number] Ordering Dr: Jose Alvarez MD STUDY: X-RAY CHEST REASON FOR EXAM: Male, 73 years old. Cough TECHNIQUE: PA and lateral views of the chest. COMPARISON: None. FINDINGS: There is hyperinflation of the lungs consistent with chronic obstructive lung disease (COPD). Bibasilar airspace disease with small effusions. There is no demonstrated pleural abnormality. There is mild cardiac enlargement. Normal mediastinum and beto. Normal visualized pulmonary arteries. There is atherosclerotic tortuosity of the aortic arch and descending thoracic aorta. There are diffuse degenerative changes of the visualized thoracic spine. Normal visualized ribs, clavicles, and shoulders. There is no demonstrated abnormality of the visualized soft tissue structures of the upper abdomen. RAD/Chest PA and Lateral IMPRESSION: Bibasilar airspace disease with small effusions. Mild cardiomegaly Electronically Signed: Yasmany Hartley DO at 12:48 EDT Tel , Service support , CC: Jose Alvarez MD [employer] Rol[employer] Operator: Signed BASIC METABOLIC Collected: 06/26/2018 Status: F Source: [place] PROFILE (BMP) 1:39 PM [facility] Order Comment: 'TROP' Serial specimen #1, #2, #3, or #4: 1 TYPE CODE TESTS RESULT OUT OF RANGE REFERENCE UNITS LAB L501.0100 74-106 mg/dL High GLU 112 Result Comment: Fasting Glucose result from 100 to 125 mg/dL suggests IMPAIRED HOMEOSTASIS per A.D.A. criteria. Please note revised GLUCOSE reference range effective 2017. LAB L501.1000 7-18 mg/dL High BUN 29 LAB L501.1100 0.70-1.30 mg/dL Normal CREAT,SERUM 1.17 Result Comment: The validity of the calculated GFR AND GFRAA in patients over 70 years has not been determined. Clinical correlation is essential. LAB L501.1110 >60 mL/min Normal EST GFR 65 Result Comment: Non- GFR Calc LAB L501.1115 >60 mL/min Normal EST GFR - AA 78 Result Comment: GFR Calc LAB L501.1300 10-20 RATIO High BUN/CRE 24.8 LAB L501.2200 8.5-10.1 mg/dL CA Normal 9.4 LAB L501.5300 136-145 mmol/L NA Normal 143 LAB L501.5600 3.5-5.1 mmol/L K Normal 4.0 LAB L501.5900 98-107 mmol/L High CL 108 LAB L501.6100 21.0-32.0 mmol/L Normal CO2 26.0 LAB L501.6200 5-15 Normal GAP 9 Performed By: #### L500.2500, L501.3620, L501.4010 #### [facility] [address] [place], [address] CPK TOTAL, CREATINE Collected: 06/26/2018 Status: F Source: [place] KINASE 1:39 PM [facility] Order Comment: 'TROP' Serial specimen #1, #2, #3, or #4: 1 TYPE CODE TESTS RESULT OUT OF RANGE REFERENCE UNITS LAB L501.3620 39-308 U/L Normal CPK TOTAL 106 Performed By: #### L500.2500, L501.3620, L501.4010 #### [facility] [address] [place], [address] TROPONIN-I Collected: 06/26/2018 Status: F Source: [place] 1:39 PM [facility] Order Comment: 'TROP' Serial specimen #1, #2, #3, or #4: 1 TYPE CODE TESTS RESULT OUT OF RANGE REFERENCE UNITS LAB L501.4010 <0.045 ng/mL High 0.077 TROPONIN-I Result Comment: TROPONIN-I EXPECTED VALUES <0.045 Negative 0.045 - 0.590 Consistent with Cardiac Damage > OR = 0.600 Critical Value Not every elevated troponin is indicative of IL. These values should be used with clinical judgement in examining the patient's clinical picture for diagnosis. To establish a diagnosis of IL versus myocardial injury, there must be a demonstrated rise and/or fall in the troponin values, in addition to ischemic symptoms, EKG changes, new regional wall motion abnormality, and/or angiographical evidence. PLEASE NOTE: REFERENCE RANGES EDITED 18 Performed By: #### L500.2500, L501.3620, L501.4010 #### [facility] [address] [place], [address] BNP,B-TYPE NATRIURETIC Collected: 06/26/2018 Status: F Source: [place] PEPTIDE 1:39 PM [facility] TYPE CODE TESTS RESULT OUT OF RANGE REFERENCE UNITS LAB L503.6620 0-100 pg/mL High B-TYPE 722.9 ALBAN PEP Performed By: #### L503.6620 #### [facility] [address] [place], [address] D-DIMER QUANTITATIVE Collected: 06/26/2018 Status: F Source: [place] (DVT/PE) 1:39 PM [facility] TYPE CODE TESTS RESULT OUT OF RANGE REFERENCE UNITS LAB L300.8000 0.27-0.49 FEU/ug/m High alert D-DIMER 1.34 QUANT Result Comment: D-Dimer ELEVATED (>0.49): Additional studies and clinical assessments are indicated to conclude diagnosis of: Deep Vein Thrombosis (DVT) or Pulmonary Embolism (PE) Performed By: #### L300.8000 #### [facility] [address] [place], [place], [address] CBC W/DIFF, AUTOMATED Collected: 06/26/2018 Status: F Source: [place] 1:39 PM [facility] TYPE CODE TESTS RESULT OUT OF RANGE REFERENCE UNITS LAB L100.1000 4.4-11.0 K/mm3 Normal WBC 9.2 LAB L100.1200 4.6-6.2 M/mm3 Normal RBC 4.65 LAB L100.1300 13.0-16.5 g/dl Normal HGB 15.7 LAB L100.1400 40-54 % Normal HCT 46.9 LAB L100.1500 80-94 fL High MCV 100.9 LAB L100.1600 27.0-32.0 pg High MCH 33.8 LAB L100.1700 32-36 g/gl Normal MCHC 33.5 LAB L100.1810 11.6-14.6 % Normal RDW CV 14.4 LAB L100.1820 35.1-43.9 fl High RDW SD 52.7 LAB L100.1900 150-450 K/mm3 Normal PLT 283 LAB L100.2000 6.2-12.0 fl Normal MPV 11.7 LAB L100.2100 47-70 % High NEUT% 72.8 LAB L100.2200 19-41 % Low LY% 14.7 LAB L100.2300 0-10 % High MONO% 10.6 LAB L100.2400 0-5 % Normal EO% 1.2 LAB L100.2500 0-1 % Normal BASO% 0.4 LAB L100.2550 0.0-0.9 % Normal IM GRAN % 0.300 Result Comment: IG% - Immature Granulocytes (promyelocytes, myelocytes and metamyelocytes) > 1% indicates that a LEFT SHIFT is Present. LAB L100.2620 2.0-7.7 X10 3/uL Normal Absolute Neut 6.7 LAB L100.2720 0.83-4.51 X10 3/ul Normal Absolute Lymph 1.35 Performed By: #### L100.0100 #### [facility] [place], [address] MYOGLOBIN, SERUM Collected: 06/26/2018 Status: F Source: [place] 1:39 PM [facility] TYPE CODE TESTS RESULT OUT OF RANGE REFERENCE UNITS LAB L3600.5100 28-72 ng/mL High 75 Myoglobin, Ser Result Comment: Performed at: [facility] [id number] Retail Banker: Isaias Johnston PhD, Phone: [phone] Performed By: #### L3600.5100 #### [facility] (refer to report for specific site) refer to report for address and phone number CNPN Observed: 04/18/2018 Status: COMPLETED Source: [place] 12:00 AM [facility] REPOSITORY Telephone (GENSWS) STEFANIA DIAZ ([id number]) 1945 M Date Time Provider Department 04/18/18 TANGELA FLANNERY During your visit today, we recorded the following information about you: Becky Mariano LPN 04/18/2018 7:55 AM Signed Please address pathology results. Tangela Flannery MD 04/18/2018 9:26 AM Signed Tried to contact patient. The phone number is incorrect. Need up to date telephone contact number for patient. Allergies As of Date: 04/18/2018 (No Known Allergies) Date Reviewed: 04/12/2018 Reviewed by: Eden Cruz RN - Fully Assessed Reason for Visit: Report On Pathology [1184] Prescriptions as of 04/18/2018 Sig: ASPIRIN 325 MG TABLET Take 325 mg by mouth four franco* METOPROLOL TARTRATE 25 MG TAB* Take 25 mg by mouth twice nery* Problem List As Of Date: 04/18/2018 (None) Encounter Status:Closed by MD TANGELA FLANNERY on 04/18/18 NURSING PROG Observed: 04/12/2018 Status: COMPLETED Source: [place] 11:27 AM [facility] REPOSITORY HNO ID: [id number] Author: Eden Cruz RN Service: (none) Author Type: Registered Nurse Type: Nursing Progress Note Filed: 04/12/2018 11:29 AM Note Text: Patient did not experience a fall prior to discharge. Patient did not experience a burn prior to discharge. Eden Cruz RN PT ED Observed: 04/12/2018 Status: COMPLETED Source: [place] 11:12 AM [facility] REPOSITORY HNO ID: [id number] Author: Eden Cruz RN Service: (none) Author Type: Registered Nurse Type: Patient Education Filed: 04/12/2018 11:13 AM Note Text: POST OP LEARNING RESPONSE INSTRUCTION PROVIDED TO: Patient and family member METHOD OF INSTRUCTION: Individual instruction Written instruction - handouts Verbal instruction PATIENT / FAMILY RESPONSE: Verbalizes understanding of: MEDICAL REGIMEN-Importance of following prescribed medical regimen POST-PROCEDURE INSTRUCTIONS-Correct actions to take to reduce post procedure complications WORSENING CONDITION-Signs and symptoms of a worsening condition that warrant a call to the physician FOLLOW-UP PLAN: Patient instructed to call with any further issues Follow up phone call. Contact information given. SUPPLEMENTAL MATERIAL: Procedure discharge instructions REFERRAL (RECOMMENDATION): None Electronically Signed By: Eden Cruz RN In Department: AMBULATORY SURGERY NURSING PROG Observed: 04/12/2018 Status: COMPLETED Source: [place] 11:11 AM [facility] REPOSITORY HNO ID: [id number] Author: Eden Cruz RN Service: (none) Author Type: Registered Nurse Type: Nursing Progress Note Filed: 04/12/2018 11:11 AM Note Text: Pt sitting up in bed tolerating snack and drink. Denies pain or nausea. Brother at bedside. Abd soft and nondistended. Dr. Flannery was by and spoke with both pt and brother. No complaints. Eden Cruz RN NURSING PROG Observed: 04/12/2018 Status: COMPLETED Source: [place] 10:44 AM [facility] REPOSITORY HNO ID: [id number] Author: Jyoti Gao RN Service: Nursing Author Type: Registered Nurse Type: Nursing Progress Note Filed: 04/12/2018 10:44 AM Note Text: Patient did not experience a fall within the Intraoperative area. Patient did not experience a burn within the Intraoperative area. Jyoti Gao RN NURSING PROG Observed: 04/12/2018 Status: COMPLETED Source: [place] 10:16 AM [facility] REPOSITORY HNO ID: [id number] Author: Eden Cruz RN Service: (none) Author Type: Registered Nurse Type: Nursing Progress Note Filed: 04/12/2018 11:17 AM Note Text: [facility] PRE-OP NURSING HAND OFF NOTE SBAR Hand off given to Jyoti Gao RN. Hand off was communicated verbally and at the patient's bedside and all questions were answered. FALLS/COOK Patient did not experience a fall within the Preoperative area. Patient did not experience a burn within the Preoperative area. Eden Cruz RN PT ED Observed: 04/12/2018 Status: COMPLETED Source: [place] 8:54 AM [facility] REPOSITORY HNO ID: [id number] Author: Eden Cruz RN Service: (none) Author Type: Registered Nurse Type: Patient Education Filed: 04/12/2018 8:55 AM Note Text: PRE OP LEARNING ASSESSMENT PROCEDURE/SURGERY: GI PROCEDURES: Colonoscopy READINESS TO LEARN COGNITIVE ABILITY: Alert and oriented MOTIVATION TO LEARN: Interested FAMILY SUPPORT: High - Very involved in pt care PATIENT LEARNS BEST BY: Multiple Methods FACTORS AFFECTING LEARNING: None PHYSICAL LIMITATIONS AFFECTING LEARNING: None Electronically Signed By: Eden Cruz RN In Department: AMBULATORY SURGERY SURGICAL PATHOLOGY Observed: 04/12/2018 Status: F Source: [place] 12:00 AM [facility] REPOSITORY Specimen originated from [facility] Specimen #: [id number] Submitting Physician: TANGELA FLANNERY MD FINAL DIAGNOSIS 1. Colon, transverse, polypectomy (A) - Colonic mucosa with no diagnostic alteration (deeper levels examined). 2. Colon, sigmoid, biopsy (B) - Chronic active colitis (see comment). CARLITO/david 04/13/2018 COMMENT Histologic sections from the sigmoid colon biopsy specimen show fragments of colonic mucosa with acute, neutrophil-mediated epithelial injury in the form of cryptitis and crypt abscesses. There is mild crypt distortion in association with basal lymphoplasmacytosis and Paneth cell metaplasia, indicative of ongoing, chronic mucosal injury. Granulomas, viral inclusions and pathogenic organisms are not identified. Overall, the histologic findings demonstrate a chronic active colitis. Diagnostic considerations include chronic infection, medication-induced injury (particularly NSAIDs), ischemia, idiopathic inflammatory bowel disease, and, in the proper endoscopic setting, diverticular disease-associated colitis. There is no dysplasia. CARLITO/david 04/13/2018 Ryan Yoon M.D. (Electronic Signature) SPECIMEN SUBMITTED A: TRANSVERSE COLON POLYP B: SIGMOID COLON, BIOPSY CLINICAL DATA A: COLD SNARE GROSS DESCRIPTION A. Received in formalin are six pieces of galeano, soft tissue aggregating to 1.3 x 0.2 x 0.1 cm. Totally submitted in one cassette. B. Received in formalin are two pieces of galeano, soft tissue aggregating to 0.4 x 0.2 x 0.2 cm. Totally submitted in one cassette. Gross examination performed at [facility], [address] [place] [address] 04/13/2018 12:40:33 AM Date of Report: 04/13/2018 Date of Procedure: 04/12/2018 Date of Receipt: 04/12/2018 Submitted by: TANGELA FLANNERY MD Location: [facility] Diagnostic interpretation performed at [place] [address]. HISTORY PHYSICAL Observed: 04/11/2018 Status: COMPLETED Source: [place] 6:47 PM [facility] HNO ID: [id number] Author: Tangela Flannery Service: (none) Author Type: Physician Type: HANDP Filed: 04/11/2018 6:48 PM Note Text: Stefania Diaz 1945 REFERRING PHYSICIAN: Jose Alvarez Chi, MD ? CHIEF COMPLAINT: Consult (colonoscopy) ? HPI: The patient is a 71 year old male who presents for surveillance colonoscopy with findings of colon polyp on last colonoscopy in April of 2013. Had previous colonoscopy in the also with findings of polyps. Previous hospital unknown - cannot obtain pathology report. Denies blood in stools. Denies abdominal pain. Denies changes in bowel habits. Mother had colon cancer in her 70s, but in her 90s ? PAST MEDICAL HISTORY - Hypertension - presently resolved PAST SURGICAL HISTORY 1982: HERNIA REPAIR HX Right Eye surgery for strabismus ' ? PAST INJURIES Denies head injuries, had previous ankle fracture/right clavicular fracture/finger fracture ? MEDICATIONS: Was on an antihypertensive but recently discontinued ? ALLERGIES: Review of patient's allergies indicates no known allergies. ? PERSONAL HISTORY: Social History Marital status: Single Smoking status: Former smoker - 1 ppd for 17 years Quit date: 1980 Smokeless status: Never Used Alcohol use: Yes Comment: occasional Drug use: No FAMILY HISTORY: Mother had colon cancer in her late 70s, Father of IL at age 74. ? REVIEW OF SYSTEMS: General - denies fevers, denies weight loss, denies anorexia Cardiovascular - has mitral valve prolapse, denies chest pain, denies chest palpitations Pulmonary - denies shortness of breath, denies coughing up blood Gastrointestinal - denies blood in stools, denies abdominal pain Neurological - denies numbness/weakness of extremities, denies seizures Genitourinary - has had kidney stones in past, denies blood in urine, denies burning with urination Hematological - denies spontaneous/prolonged bleeding Skin - denies nonhealing skin wounds Musculoskeletal - had previous ankle fracture/right clavicular fracture/finger fracture Endocrine - denies diabetes, denies thyroid disorders Psychological ? denies hallucinations ? PHYSICAL EXAMINATION: General: The patient is 71 year old male, well nourished, well hydrated in no acute distress. The patient is oriented to time, place, and person. VITALS: Blood pressure 190/100, pulse 90, height 182.9 cm (6'), weight 79.8 kg (176 lb). Body mass index is 23.87 kg/(m2). Head ? Normocephalic. EOM intact with sclera clear and no icterus noted. Mouth with mucus membranes moist. Neck - supple with no jugular venous distention noted. Trachea is midline. Lungs ? no labored breathing noted, such as retractions. Heart ? normal heart sounds. No rubs/clicks/murmurs noted. Regular rate. Abdomen ? soft and benign. Normal bowel sounds. Extremities ? No obvious deformity noted. Skin ? normal skin integrity. Neurological ? no focal deficits detected. Psych ? calm and appropriate ? ? IMPRESSION: history of colon polyp by colonoscopy April 2013 ? PLAN: I have discussed the above with the patient. I have offered surveillance colonoscopy, however, the patient require this until April of 2018. I have explained the procedure to the patient. I have counseled the patient as to the risks of the procedure, including but not limited to: infection, bleeding, perforation of GI tract, injury to any internal organs such as liver/spleen, inability to complete the procedure, complications of anesthesia, etc. ? the patient understands. The patient wishes to proceed. I have answered all questions to the patient?s satisfaction and the patient has no further questions. ? Diagnoses: (Z86.010) History of colonic polyps (primary encounter diagnosis) HOSP Observed: 02/08/2018 Status: COMPLETED Source: [place] 12:00 AM [facility] RE[facility] Patient:Stefania Diaz MRN: <[id number]> Height:6' 0(1.829 m) Weight:No patient weight recorded within the last 30 days. Outpatient Medications as of 04/12/18: aspirin 325 mg tablet metoprolol tartrate, short acting, (LOPRESSOR) 25 mg tablet Admission/Clinic Administered Medications as of 04/12/18: lactated ringers infusion Problem List: No problem list on file for this patient. Allergies: No Known Allergies Date Verified:04/12/18 Lab Values No results within the last 30 days for the following basenames: K,HCT No progress notes entered within the past 30 days Observed: 12/30/2017 Status: F Source: [place] RESPIRATORY PANEL 12:06 PM [facility] RP PANEL ADENOVIRUS Not Detected HUMAN METAPHNEUMO Not Detected INFLUENZA A Not Detected INFLUENZA A (SUBTYPE H1) Not Detected INFLUENZA A (SUBTYPE H3) Not Detected INFLUENZA B Not Detected PARAINFLUENZA 1 Not Detected PARAINFLUENZA 2 Not Detected PARAINFLUENZA 3 Not Detected PARAINFLUENZA 4 Not Detected RHINOVIRUS Not Detected RSV A Not Detected RSV B Not Detected NAAT METHOD Testing was performed using nucleic acid amplification Performed By: #### M100.638 #### [facility] [address] [place], [address] CBC W/DIFF, AUTOMATED Collected: 11/28/2017 Status: F Source: [place] 10:37 AM [facility] [place] [place] CODE TESTS RESULT OUT OF RANGE REFERENCE UNITS LAB L100.1000 4.4-11.0 K/mm3 Normal WBC 6.1 LAB L100.1200 4.6-6.2 M/mm3 Low RBC 4.39 LAB L100.1300 13.0-16.5 g/dl Normal HGB 15.0 LAB L100.1400 40-54 % Normal HCT 43.8 LAB L100.1500 80-94 fL High MCV 99.8 LAB L100.1600 27.0-32.0 pg High MCH 34.2 LAB L100.1700 32-36 g/gl Normal MCHC 34.2 LAB L100.1810 11.6-14.6 % Normal RDW CV 12.5 LAB L100.1820 35.1-43.9 fl High RDW SD 45.8 LAB L100.1900 150-450 K/mm3 Normal PLT 285 LAB L100.2000 6.2-12.0 fl Normal MPV 11.1 LAB L100.2100 47-70 % Normal NEUT% 55.6 LAB L100.2200 19-41 % Normal LY% 26.9 LAB L100.2300 0-10 % High MONO% 11.5 LAB L100.2400 0-5 % Normal EO% 4.6 LAB L100.2500 0-1 % High BASO% 1.1 LAB L100.2550 0.0-0.9 % Normal IM GRAN % 0.300 Result Comment: IG% - Immature Granulocytes (promyelocytes, myelocytes and metamyelocytes) > 1% indicates that a LEFT SHIFT is Present. LAB L100.2620 2.0-7.7 X10 3/uL Normal Absolute Neut 3.4 LAB L100.2720 0.83-4.51 X10 3/ul Normal Absolute Lymph 1.64 Performed By: #### L100.0100 #### [facility] [address] [place], [address] VITAMIN D,25 HYDROXY Collected: 11/28/2017 Status: F Source: [place] 10:37 AM [facility] [place] [place] CODE TESTS RESULT OUT OF REFERENCE UNITS RANGE LAB L506.1000 29.95-100.01 ng/mL Low Vitamin D 18.5 25-OH Result Comment: Vitamin D 25(OH) Status Range Deficiency <20 ng/mL (50nmol/L) Insuffciency 20 - 30 ng/mL (50 - 75 nmol/L) Sufficiency 30 - 100 ng/mL (75 - 250 nmol/L) Toxicity >100 ng/mL (>250 nmol/L) Performed By: #### L506.1000 #### [facility] [address] [place], [address] COMPREHENSIVE METABOLIC Collected: 11/28/2017 Status: F Source: [facility] 10:37 AM [facility] [place] TYPE CODE TESTS RESULT OUT OF RANGE REFERENCE UNITS LAB L501.0100 74-106 mg/dL Normal GLU 97 Result Comment: Please note revised GLUCOSE reference range effective 2017. LAB L501.1000 7-18 mg/dL High BUN 24 LAB L501.1100 0.70-1.30 mg/dL Normal CREAT,SERUM 1.08 Result Comment: The validity of the calculated GFR AND GFRAA in patients over 70 years has not been determined. Clinical correlation is essential. LAB L501.1110 >60 mL/min Normal EST GFR 71 Result Comment: Non- GFR Calc LAB L501.1115 >60 mL/min Normal EST GFR - AA 86 Result Comment: GFR Calc LAB L501.1300 10-20 RATIO High BUN/CRE 22.2 LAB L501.1500 6.4-8.2 g/dL T Normal PROT 7.4 LAB L501.1800 3.2-5.0 g/dL Normal ALB 3.6 LAB L501.1950 2.2-4.2 g/dL Normal GLOB 3.8 LAB L501.2000 0.9-2.4 RATIO Normal A/G 0.9 LAB L501.2200 8.5-10.1 mg/dL CA Normal 8.7 LAB L501.4100 15-37 U/L Low AST 14 LAB L501.4305 45-117 U/L Normal ALK P 63 LAB L501.4405 16-61 U/L Normal ALT 26 Result Comment: Please note revised ALT reference range effective 2017. LAB L501.4600 0.20-1.00 mg/dL Normal T BILI 0.90 LAB L501.5300 136-145 mmol/L Normal NA 141 LAB L501.5600 3.5-5.1 mmol/L Normal K 3.9 LAB L501.5900 98-107 mmol/L Normal CL 107 LAB L501.6100 21.0-32.0 mmol/L Normal CO2 26.0 LAB L501.6200 5-15 Normal GAP 8 Performed By: #### L500.4050, L501.9520, L501.9910 #### [facility] [address] [place], [address] THYROID STIM HORMONE Collected: 11/28/2017 Status: F Source: [place] (TSH) 10:37 AM [facility] [place] CODE TESTS RESULT OUT OF RANGE REFERENCE UNITS LAB L501.9520 0.358-3.74 uIU/mL Normal TSH 2.55 Performed By: #### L500.4050, L501.9520, L501.9910 #### [facility] [address] [place], [address] PSA,TOTAL - ANNUAL Collected: 11/28/2017 Status: F Source: [place] SCREEN 10:37 AM [facility] [place] [place] TYPE CODE TESTS RESULT OUT OF RANGE REFERENCE UNITS LAB L501.9910 0.00-4.00 ng/mL Normal PSA,TOT 1.53 SCREEN Result Comment: This test was performed using the TPSA assay method for the [employer] chemistry system. Values obtained with different assay methods cannot be used interchangably. When changing PSA assays in the course of monitoring a patient, additional sequential testing should be carried out to confirm baseline values. Performed By: #### L500.4050, L501.9520, L501.9910 #### [facility] [address] [place], [address] ALLERGIES ALLERGIES DATE TYPE / CODE NAME / CODE REACTION SEVERITY SOURCE 08/17/2018 Drug No Known Unknown [facility] Allergy/416 Allergies/V83060 Hospital 896329(SNOM 0388(RXNORM) Repository ED CT) Drug NO KNOWN [facility] Class/94905 ALLERGIES [place] 1003(SNOMED Repository CT) ENCOUNTERS ENCOUNTERS ADMIT/DISCHARGE ACCOUNT ADMITTING ENCOUNTER LOCATION SOURCE NUMBER CLASS 08/22/2018 [id number] Ambulatory [facility] ing:[facility] Repository 08/22/2018 [id number] Ambulatory BMSBuilding:W [facility] Repository 08/17/2018/08/17/20 [id number] Ambulatory BMSBuilding:B Mary [address] [facility] Repository 08/16/2018 [id number] Ambulatory BMSBuilding:B [place] [facility] Repository 07/19/2018 [id number] Ambulatory [facility] ing:POLAB3 Repository 07/03/2018/07/05/20 [id number] Ambulatory [address] Repository 07/03/2018/07/04/20 [id number] Ambulatory [address] Repository 06/29/2018/06/29/20 [id number] Ambulatory [address] Repository 06/29/2018/07/13/20 [id number] GODFREY LANDON Inpatient [place] [address] Encounter [facility] Repository 06/27/2018/06/28/20 [id number] [facility] [address] ing:PCURoom: Repository [id number]: 1 06/27/2018 [id number] [facility] Ambulatory BMSBuilding:B [place] Repository 06/27/2018 [id number] [facility] Ambulatory BMSBuilding:[place] MS.[facility] Repository 06/27/2018 [id number] [facility] Ambulatory BMSBuilding:B [place] Repository 06/27/2018 [id number] [facility] Ambulatory BMSBuilding:B [place] Repository 06/27/2018 [id number] [facility] Ambulatory BMSBuilding:B [place] [facility] Repository 06/26/2018 [id number] [facility] ing:POLAB3 Repository 04/12/2018/04/12/20 [id number] TANGELA FLANNERY Ambulatory [address] Repository 12/30/2017 [id number] [facility] ing:PSN Repository 11/28/2017 [id number] [facility] ing:POLAB3 Repository PAYERS PAYERS ENCOUNTER GUARANTOR PAYER SUBSCRIBER SOURCE 08/22/2018 STEFANIA Christian Primary Insurance:[facility] STEFANIA [place] [id number] [facility]: [facility] [address] Number: [id number] [id number] Repository [address]Pfs: 330) Date:7121-97-67VK [phone] () [address] [place] [address]DO: 08/22/2018 Secondary NOT GIVENUNK Mary Insurance:SELF PAY [facility] Number: Effective Repository Date:2018-08-17 08/22/2018 STEFANIA M Primary Insurance:[facility] STEFANIA [place] [id number] [facility]: [facility] [address] Number: [id number], [place] [id number] Repository [address]Etb: (330) Date:0488-22-49YN [phone] () [address] [place] [phone]: 08/22/2018 Secondary NOT GIVENUNK [place] Insurance:SELF PAY [facility] Number: Effective Repository Date:2018-08-22 08/17/2018 STEFANIA Christian Primary Insurance:[facility] STEFANIA [place] [id number] [facility] SOLUTIONSPolicy NORTONDOB: [facility] EVARISTO FISCHER, Number: [id number] Regional Medical [facility] [address]Alt: [id number] Repository Date:8767-64-78EB BOX () [address] [place] [address]SU: 08/17/2018 Secondary NOT GIVENUNK Mary Insurance:SELF PAY [facility] Number: Effective Repository Date:2018-08-15 08/16/2018 STEFANIA M Primary Insurance:[facility] STEFANIA [place] [id number] [facility] SOLUTIONSPolicy NORTONDOB: [facility] EVARISTO FISCHER, Number: [id number] Regional Medical Center [address]Mix: [id number] Repository Date:3700-57-30XZ BOX () [address] [place] [address]GK: 08/16/2018 Secondary NOT GIVENUNK [place] Insurance:SELF PAY [facility] Number: Effective Repository Date:2018-08-16 07/19/2018 STEFANIA Christian Primary Insurance:[facility] STEFANIA Christian [place] [id number] [facility] SOLUTIONSPolicy NORTONDOB: [facility] EVARISTO FISCHER, Number: [id number] Regional Medical Center [address]Cmw: [id number] Repository Date:7840-44-91SB BOX () [address] [place] [address]AI: 07/19/2018 Secondary NOT GIVENUNK [place] Insurance:SELF PAY [facility] Number: Effective Repository Date:2018-07-19 06/27/2018 STEFANIA M Primary Insurance:[facility] STEFANIA Christian [place] [id number] [facility] SOLUTIONSPolicy NORTONDOB: [facility] EVARISTO FISCHER, Number: [id number] Regional Medical Center [address]Pbs: [id number] Repository Date:6318-67-75SR BOX (HP) [address] [place] [address]PZ: 06/27/2018 Secondary NOT GIVENUNK [place] Insurance:SELF PAY [facility] Number: Effective Repository Date:2018-06-27 06/27/2018 STEFANIA Christian Primary Insurance:[facility] TSEFANIA [place] [id number] SOLUTIONSPolicy NORTONDOB: [facility] EVARISTO RDDALTON, Number: [id number] Regional Medical Center [address]Uus: [id number] Repository Date:6722-16-79VM BOX () [address] [place] [phone]: 06/27/2018 Secondary NOT GIVENUNK [place] Insurance:SELF PAY [facility] Number: Effective Repository Date:2018-06-27 06/27/2018 STEFANIA Christian Primary Insurance:[facility] STEFANIA [place] [id number] [facility] SOLUTIONSPolicy NORTONDOB: [facility] EVARISTO RDYAHAIRALTON, Number: [id number] Regional Medical Center [address]Ytv: [id number] Repository Date:0101-93-88MF BOX () [address] [place] [phone]: 06/27/2018 Secondary NOT GIVENUNK Mary Insurance:SELF PAY [facility] Number: Effective Repository Date:2018-06-27 06/27/2018 STEFANIA Christian Primary Insurance:[facility] STEFANIA Christian [place] [id number] [facility] SOLUTIONSPolicy NORTONDOB: [facility] EVARISTO RDDALTON, Number: [id number] Hospital [place] [address]Zri: [id number] Repository Date:9929-07-79TO BOX () [address] [place] [phone]: 06/27/2018 Secondary NOT GIVENUNK Mary Insurance:SELF PAY [facility] Number: Effective Repository Date:2018-06-27 06/27/2018 STEFANIA M Primary Insurance:[facility] STEFANIA Christian Mary [id number] [facility] SOLUTIONSPolicy NORTONDOB: [facility] EVARISTO FISCHER, Number: [id number] Regional Medical Center [address]Pvx: [id number] Repository Date:6446-93-88CV BOX () [address] [place] [phone]: 06/27/2018 Secondary NOT GIVENUNK [place] Insurance:SELF PAY [facility] Number: Effective Repository Date:2018-06-27 06/27/2018 STEFANIA M Primary Insurance:[facility] STEFANIA [place] [id number] [facility] SOLUTIONSPolicy NORTONDOB: [facility] EVARISTO FISCHER, Number: [id number] Regional Medical Center [address]Lwq: [id number] Repository Date:9116-41-61RN BOX () [address] [place] [phone]: 06/27/2018 Secondary NOT GIVENUNK Mary Insurance:SELF PAY [facility] Number: Effective Repository Date:2018-06-27 06/26/2018 STEFANIA M Primary Insurance:[facility] STEFANIA Christian Mary [id number] [facility] SOLUTIONSPolicy NORTONDOB: [facility] EVARISTO FISCHER, Number: [id number] Regional Medical Center [address]Hrg: [id number] Repository Date:3023-77-30ED BOX () [address] [place] [phone]: 06/26/2018 Secondary NOT GIVENUNK Mary Insurance:SELF PAY [facility] Number: Effective Repository Date:2018-06-26 12/30/2017 Stefania M Primary Insurance:[facility] Stefania Christian [place] [id number] [facility] SOLUTIONSPolicy NortonDOB: [facility] Evaristo Fischer, Number: [id number] Regional Medical Center [address]Hjf: [id number] Repository Date:4003-09-75OB [address] () [address] [address]CN: 12/30/2017 Secondary NOT GIVENUNK [place] Insurance:SELF PAY [facility] Number: Effective Repository Date:2017-12-30 11/28/2017 Stefania Christian Primary Insurance:[facility] Stefania [id number] [facility] Enrique: [facility], Number: [id number] Regional Medical Center [address]You: [id number] Repository Date:5084-23-54UB [address]OX () [address], [place] [address]GA: 11/28/2017 Secondary NOT GIVENUNK Mary Insurance:SELF PAY [facility] Number: Effective Repository Date:2017-11-28
== END ==
PROVIDERS: Family Provider Family Medicine Geriatric Medicine; PCP Family Medicine Geriatric Medicine; Referring Provider Internal Medicine Cardiovascular Disease; Visit Provider Internal Medicine Cardiovascular Disease
DX: I25.10 Atherosclerotic heart disease of native coronary artery without angina pectoris (principal); I48.91 Unspecified atrial fibrillation; Z98.890 Other specified postprocedural states
CPT/HCPCS: 93017

== ENCOUNTER → 2018-11-30 11:44 | Outpatient (CLI) | payer MEDICARE, SELFPAY ==
[2018-11-23 13:23] VITALS: BMI 22.8
[2018-11-30 14:23] LABS: Absolute Lymphocyte Count 1.69 X10^3/ul (0.83-4.51); Absolute Neutrophil Count 2.8 X10^3/uL (2.0-7.7); Basophil# 0.08 X10^3/uL; Basophil% 1.5 % (0-1); Eosinophil# 0.31 X10^3/uL; Eosinophils% 5.7 % (0-5); Hematocrit 45.6 % (40-54); Hemoglobin 14.9 g/dl (13.0-16.5); Lymphocyte # 1.69 X10^3/ul (4.0); Lymphocyte % 30.8 % (19-41); Mean Corp Hgb Conc 32.7 g/gl (32-36); Mean Corpuscular Hgb 32.5 pg (27.0-32.0); Mean Corpuscular Volume 99.3 fL (80-94); Mean Platelet Vol. 10.5 fl (6.2-12.0); Monocyte# 0.61 X10^3/uL; Monocyte% 11.1 % (0-10); Neutrophil # 2.77 X10^3/uL (2.7-7.7); Neutrophil % 50.5 % (47-70); Platelet Count 293 K/mm3 (150-450); RBC Distribution Width CV 14.2 % (11.6-14.6); RBC Distribution Width SD 50.9 fl (35.1-43.9); Red Blood Count 4.59 M/mm3 (4.6-6.2); White Blood Count 5.5 K/mm3 (4.4-11.0)
[2018-11-30 14:24] LABS: POSITIVE COUNT NO; POSITIVE DIFFERENTIAL NO; POSITIVE MORPHOLOGY NO
[2018-11-30 14:31] LABS: Vitamin D,25 Hydroxy 37.5 ng/mL (29.95-100.01)
[2018-11-30 14:34] LABS: ALB/GLOB Ratio 0.9 RATIO (0.9-2.4); AST(SGOT) 22 U/L (15-37); Alanine Aminotransfer ALT/SGPT 30 U/L (16-61); Albumin, Serum 3.6 g/dL (3.2-5.0); Alkaline Phosphatase 93 U/L (45-117); Anion Gap 6 (5-15); BUN 24 mg/dL (7-18); BUN/Creat Ratio 20.5 RATIO (10-20); Calcium,Total 8.7 mg/dL (8.5-10.1); Chloride 108 mmol/L (98-107); Creatinine, Serum 1.17 mg/dL (0.70-1.30); EST Glomerular Filtration Rate 65 mL/min (>60); Est Glom Filt Rate - Afr Amer 78 mL/min (>60); Globulin 3.9 g/dL (2.2-4.2); Glucose 97 mg/dL (74-106); Potassium 4.1 mmol/L (3.5-5.1); Protein, Total 7.5 g/dL (6.4-8.2); Sodium Level 142 mmol/L (136-145)
== END ==
PROVIDERS: Family Provider Family Medicine Geriatric Medicine; PCP Family Medicine Geriatric Medicine; Visit Provider Family Medicine Geriatric Medicine
DX: I10 Essential (primary) hypertension (principal); E55.9 Vitamin D deficiency, unspecified
CPT/HCPCS: 36415; 80053; 82306; 84443; 85025

== ENCOUNTER → 2019-05-31 09:42 | Outpatient (CLI) | payer MEDICARE, SELFPAY ==
[2019-05-30 13:40] VITALS: BMI 24.0
[2019-05-31 17:35] LABS: Absolute Lymphocyte Count 1.43 X10^3/uL (0.83-4.51); Absolute Neutrophil Count 4.3 X10^3/uL (2.0-7.7); Basophil# 0.05 X10^3/uL; Basophil% 0.7 % (0-1); Eosinophil# 0.26 X10^3/uL; Eosinophils% 3.9 % (0-5); Hematocrit 42.9 % (40-54); Hemoglobin 14.5 g/dL (13.0-16.5); Lymphocyte # 1.43 X10^3/ul (4.0); Lymphocyte % 21.4 % (19-41); Mean Corp Hgb Conc 33.8 g/dL (32-36); Mean Corpuscular Volume 100.7 fL (80-94); Mean Platelet Vol. 10.9 fl (6.2-12.0); Monocyte# 0.62 X10^3/uL; Monocyte% 9.3 % (0-10); NRBC Flagged by Analyzer 0 % (0-5); Neutrophil % 64.4 % (47-70); Platelet Count 275 K/mm3 (150-450); RBC Distribution Width CV 13.3 % (11.6-14.6); RBC Distribution Width SD 49.7 fl (35.1-43.9); Red Blood Count 4.26 M/mm3 (4.6-6.2); White Blood Count 6.7 K/mm3 (4.4-11.0)
[2019-05-31 17:55] LABS: Vitamin D,25 Hydroxy 29.6 ng/mL (29.95-100.01)
[2019-05-31 18:03] LABS: ALB/GLOB Ratio 0.9 RATIO (0.9-2.4); AST(SGOT) 17 U/L (15-37); Alanine Aminotransfer ALT/SGPT 26 U/L (16-61); Albumin, Serum 3.4 g/dL (3.2-5.0); Alkaline Phosphatase 66 U/L (45-117); Anion Gap 7 (5-15); BUN 24 mg/dL (7-18); BUN/Creat Ratio 27.1 RATIO (10-20); Calcium,Total 8.8 mg/dL (8.5-10.1); Chloride 108 mmol/L (98-107); Creatinine, Serum 0.89 mg/dL (0.70-1.30); EST Glomerular Filtration Rate 89 mL/min (>60); Est Glom Filt Rate - Afr Amer 108 mL/min (>60); Globulin 3.6 g/dL (2.2-4.2); Glucose 86 mg/dL (74-106); Potassium 4.2 mmol/L (3.5-5.1); Sodium Level 142 mmol/L (136-145); Thyroid Stim Hormone (TSH) 1.55 uIU/mL (0.358-3.74)
== END ==
PROVIDERS: Family Provider Family Medicine Geriatric Medicine; PCP Family Medicine Geriatric Medicine; Visit Provider Family Medicine Geriatric Medicine
DX: I10 Essential (primary) hypertension (principal); E55.9 Vitamin D deficiency, unspecified
CPT/HCPCS: 36415; 80053; 82306; 84443; 85025

== ENCOUNTER → 2019-06-20 14:48 | Outpatient (CLI) | payer MEDICARE, SELFPAY ==
[2019-05-30 13:40] VITALS: BMI 24.0
--- NOTE | 2019-06-20 14:52 | ECHOD_ITS ---
Reason For Study: VALVE REPLACEMENT - EVAL Procedure This was a 2D Doppler, Color Flow transthoracic echocardiogram. The study was technically difficult. Exam performed in department. Left Ventricle Normal LV size. Apical false tendon noted. Left ventricular systolic function is normal. The estimated ejection fraction is 55 %. No regional wall motion abnormalities noted. Right Ventricle Normal RV size. Normal systolic function. Atria The left atrium is mildly enlarged. The right atrium is mildly enlarged. No doppler evidence for ASD. Mitral Valve Mild (1+) eccentric mitral valve insufficiency. An annuloplasty ring is noted in the mitral position. Tricuspid Valve Normal tricuspid valve. Mild to moderate (1-2+) eccentric tricuspid valve insufficiency. Right ventricular systolic pressure estimated to be 29 mmHg. Aortic Valve Trisinus/trileaflet aortic valve. Normal aortic valve. Trivial aortic valve insufficiency. Pulmonic Valve The pulmonic valve is not well visualized. Trivial pulmonic valve insufficiency. Great Vessels Normal sized aortic root. Pericardium/Pleural No pericardial effusion. MMode/2D Measurements & Calculations LVIDd: 5.2 cm IVSd: 1.1 cm Ao root diam: 3.3 cm LVIDs: 3.9 cm LVPWd: 1.1 cm RVDd: 4.0 cm FS: 26.3 % LAV(MOD-bp): 112.2 ml LA A4 area: 26.8 cm2 LA dimension(2D): 3.7 cm LAV(MOD-bp) Indexed: 55.5 ml/m2 LAV(MOD-sp2): 111.2 ml LAV(MOD-sp4): 104.0 ml RA A4 area: 17.6 cm2 Time Measurements MV dec time: 0.22 sec Doppler Measurements & Calculations MV E max caleb: 136.0 cm/sec Lat Peak E' Caleb: 10.3 cm/sec Med Peak E' Caleb: 6.7 cm/sec MV A max caleb: 78.1 cm/sec E/E' lat: 13.2 E/E' med: 20.3 MV E/A: 1.7 Ao V2 max: 94.8 cm/sec LV V1 max: 84.4 cm/sec PA V2 max: 110.2 cm/sec Ao max P.6 mmHg LV V1 max P.8 mmHg TR max caleb: 251.9 cm/sec TR max P.5 mmHg Interpretation Summary The study was technically difficult. Left ventricular systolic function is normal. The estimated ejection fraction is 55 %. Apical false tendon noted. The left atrium is mildly enlarged. The right atrium is mildly enlarged. An annuloplasty ring is noted in the mitral position. Mild (1+) eccentric mitral valve insufficiency. Mild to moderate (1-2+) eccentric tricuspid valve insufficiency. Trivial aortic valve insufficiency. Trivial pulmonic valve insufficiency. Right ventricular systolic pressure estimated to be 29 mmHg. Transmitral diastolic flow velocities suggest diastolic dysfunction (pseudonormal pattern). Ordering Physician: Bear Juan Referring Physician: Jose Alvarez Chi Performed By: Bety Alfonso RDCS, RVT
== END ==
PROVIDERS: Family Provider Family Medicine Geriatric Medicine; PCP Family Medicine Geriatric Medicine; Referring Provider Nurse Practitioner Family; Visit Provider Nurse Practitioner Family
DX: I25.10 Atherosclerotic heart disease of native coronary artery without angina pectoris (principal); I06.1 Rheumatic aortic insufficiency; I05.9 Rheumatic mitral valve disease, unspecified; I27.20 Pulmonary hypertension, unspecified; Z98.890 Other specified postprocedural states
CPT/HCPCS: 93306

== ENCOUNTER → 2021-04-21 12:42 | Outpatient (CLI) | payer MEDICARE, SELFPAY ==
[2021-04-06 15:36] VITALS: BMI 24.2
--- NOTE | 2021-04-21 12:45 | ECHOD_ITS ---
Reason For Study: s/p MV Repair Procedure This was a 2D Doppler, Color Flow transthoracic echocardiogram. The exam was of adequate technical quality. Exam performed in department. Left Ventricle Normal LV size. Left ventricular systolic function is normal. The estimated ejection fraction is 60 %. No regional wall motion abnormalities noted. Right Ventricle Normal RV size. Normal systolic function. Atria The left atrium is moderately enlarged. The right atrium is mildly enlarged. No doppler evidence for ASD. Mitral Valve An annuloplasty ring is noted in the mitral position. MIld (1+) transvalvular insufficiency of the mitral valve. Tricuspid Valve Normal tricuspid valve. Mild to moderate (1-2+) tricuspid valve insufficiency. Right ventricular systolic pressure estimated to be 35 mmHg. Aortic Valve Trisinus/trileaflet aortic valve. Normal aortic valve. Mild (1+) aortic valve insufficiency. Pulmonic Valve The pulmonic valve is not well visualized. Trivial pulmonic valve insufficiency. Great Vessels Normal sized aortic root. Pericardium/Pleural No pericardial effusion. MMode/2D Measurements & Calculations LVIDd: 5.0 cm IVSd: 1.1 cm Ao root diam: 3.7 cm LVIDs: 3.5 cm LVPWd: 1.3 cm LA dimension: 3.9 cm RVDd: 4.1 cm FS: 30.2 % LAV(MOD-bp): 101.0 ml LA A4 area: 27.8 cm2 RA A4 area: 23.6 cm2 LAV(MOD-bp) Indexed: 49.8 ml/m2 LAV(MOD-sp2): 100.9 ml LAV(MOD-sp4): 94.4 ml Time Measurements MV dec time: 0.20 sec Doppler Measurements & Calculations MV E max caleb: 138.0 cm/sec Lat Peak E' Caleb: 9.8 cm/sec Med Peak E' Caleb: 8.5 cm/sec MV A max caleb: 69.2 cm/sec E/E' lat: 14.1 E/E' med: 16.3 MV E/A: 2.0 MV V2 max: 147.7 cm/sec MV P1/2t max caleb: 146.7 cm/sec Ao V2 max: 90.2 cm/sec MV max P.7 mmHg MV P1/2t: 79.0 msec Ao max P.3 mmHg MV V2 mean: 71.1 cm/sec MV dec slope: 543.6 cm/sec2 MV mean P.6 mmHg MVA(P1/2t): 2.8 cm2 MV V2 VTI: 34.7 cm LV V1 max: 77.5 cm/sec PA V2 max: 92.5 cm/sec TR max caleb: 283.6 cm/sec LV V1 max P.4 mmHg TR max P.2 mmHg ECHO/Echo Complete Interpretation Summary Left ventricular systolic function is normal. The estimated ejection fraction is 60 %. The left atrium is moderately enlarged. The right atrium is mildly enlarged. An annuloplasty ring is noted in the mitral position. MIld (1+) transvalvular insufficiency of the mitral valve. Mild to moderate (1-2+) tricuspid valve insufficiency. Mild (1+) aortic valve insufficiency. Trivial pulmonic valve insufficiency. Right ventricular systolic pressure estimated to be 35 mmHg. Transmitral diastolic flow velocities suggest diastolic dysfunction (pseudonorm al pattern). Ordering Physician: River Alvarado Referring Physician: Jose Alvarez Chi Performed By: Antione Lopez [facility]
== END ==
PROVIDERS: PCP Family Medicine Geriatric Medicine; Referring Provider Internal Medicine Cardiovascular Disease; Visit Provider Internal Medicine Cardiovascular Disease
DX: I25.10 Atherosclerotic heart disease of native coronary artery without angina pectoris (principal); Z98.890 Other specified postprocedural states
CPT/HCPCS: 93306

== ENCOUNTER 2021-11-02 15:37 | Outpatient (CLI) | payer MEDICARE, SELFPAY ==
[2021-11-02 17:24] LABS: Anion Gap 6 (5-15); BUN 24 mg/dL (7-18); BUN/Creat Ratio 23.8 RATIO (10-20); Calcium,Total 8.8 mg/dL (8.5-10.1); Chloride 109 mmol/L (98-107); Creatinine, Serum 1.01 mg/dL (0.70-1.30); EST Glomerular Filtration Rate 76 mL/min (>60); Est Glom Filt Rate - Afr Amer 92 mL/min (>60); Glucose 89 mg/dL (74-106); Potassium 3.5 mmol/L (3.5-5.1); Sodium Level 140 mmol/L (136-145)
== END 2021-11-02 23:59 | disposition home or self-care (01) ==
PROVIDERS: PCP Family Medicine Geriatric Medicine; Referring Provider Nurse Practitioner Family; Visit Provider Nurse Practitioner Family
DX: I10 Essential (primary) hypertension (principal)
CPT/HCPCS: 36415; 80048

== ENCOUNTER → 2022-06-16 | Outpatient (CLI) | payer MEDICARE, SELFPAY ==
--- NOTE | 2022-06-16 14:18 | RAD_ITS ---
STUDY: X-RAY - RIGHT ELBOW REASON FOR EXAM: Male, 77 years old. Posterior elbow pain. TECHNIQUE: 3 view(s) of the elbow. COMPARISON: None. FINDINGS: Normal visualized humerus, radius and ulna. Small enthesophyte at the insertion of the triceps tendon on the olecranon. 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 There is no acute fracture, dislocation or destructive osseous pathology. The soft tissue structures are unremarkable. RAD/Elbow min 3 Views IMPRESSION: Degenerative changes of the elbow. Electronically Signed: Mannie Jcainto DO at 17:15 EDT ,
[2022-06-16 17:33] LABS: Absolute Lymphocyte Count 1.55 X10^3/uL (0.83-4.51); Absolute Neutrophil Count 5.2 X10^3/uL (2.0-7.7); Basophil# 0.07 X10^3/uL; Basophil% 0.9 % (0-1); Eosinophils% 2.6 % (0-5); Hematocrit 42.5 % (40-54); Hemoglobin 14.6 g/dL (13.0-16.5); Lymphocyte # 1.55 X10^3/ul (0.83-4.51); Lymphocyte % 20.3 % (19-41); Mean Corp Hgb Conc 34.4 g/dL (32-36); Mean Corpuscular Hgb 34.4 pg (27.0-32.0); Mean Platelet Vol. 11.4 fl (6.2-12.0); Monocyte# 0.57 X10^3/uL; Monocyte% 7.5 % (0-10); NRBC Flagged by Analyzer 0 % (0-5); Neutrophil # 5.21 X10^3/uL (2.7-7.7); Neutrophil % 68.3 % (47-70); Platelet Count 288 K/mm3 (150-450); RBC Distribution Width CV 12.7 % (11.6-14.6); RBC Distribution Width SD 46.9 fl (35.1-43.9); Red Blood Count 4.25 M/mm3 (4.6-6.2); White Blood Count 7.6 K/mm3 (4.4-11.0)
[2022-06-16 17:57] LABS: Vitamin D,25 Hydroxy 45.5 ng/mL
[2022-06-16 18:11] LABS: AST(SGOT) 17 U/L (15-37); Alanine Aminotransfer ALT/SGPT 23 U/L (16-61); Albumin, Serum 3.6 g/dL (3.2-5.0); Alkaline Phosphatase 66 U/L (45-117); Anion Gap 7 (5-15); BUN 21 mg/dL (7-18); BUN/Creat Ratio 19.8 RATIO (10-20); Calcium,Total 9.4 mg/dL (8.5-10.1); Chloride 109 mmol/L (98-107); Cholesterol 216 mg/dL (200); Creatinine, Serum 1.06 mg/dL (0.70-1.30); EST Glomerular Filtration Rate 72 mL/min (>60); Est Glom Filt Rate - Afr Amer 87 mL/min (>60); Globulin 3.6 g/dL (2.2-4.2); Glucose 118 mg/dL (74-106); High Density Lipoprotein 28 mg/dL; Potassium 3.7 mmol/L (3.5-5.1); Protein, Total 7.2 g/dL (6.4-8.2); Sodium Level 141 mmol/L (136-145); Thyroid Stim Hormone (TSH) 1.83 uIU/mL (0.358-3.74); Triglycerides 183 mg/dL; Very Low Density Lipoprotein 37 mg/dL (5-40)
== END | disposition home or self-care (01) ==
PROVIDERS: PCP Family Medicine Geriatric Medicine; Visit Provider Family Medicine Geriatric Medicine
DX: I10 Essential (primary) hypertension (principal); E55.9 Vitamin D deficiency, unspecified; E78.49 Other hyperlipidemia; M19.021 Primary osteoarthritis, right elbow
CPT/HCPCS: 36415; 73080; 80053; 80061; 82306; 84443; 85025

== ENCOUNTER → 2022-12-16 | Outpatient (CLI) | payer MEDICARE, SELFPAY ==
[2022-12-16 12:14] LABS: Absolute Lymphocyte Count 1.34 X10^3/uL (0.83-4.51); Absolute Neutrophil Count 3.8 X10^3/uL (2.0-7.7); Basophil# 0.09 X10^3/uL; Basophil% 1.5 % (0-1); Eosinophil# 0.21 X10^3/uL; Eosinophils% 3.5 % (0-5); Hematocrit 44.1 % (40-54); Hemoglobin 14.6 g/dL (13.0-16.5); Lymphocyte # 1.34 X10^3/ul (0.83-4.51); Lymphocyte % 22.5 % (19-41); Mean Corp Hgb Conc 33.1 g/dL (32-36); Mean Corpuscular Hgb 33.6 pg (27.0-32.0); Mean Corpuscular Volume 101.4 fL (80-94); Mean Platelet Vol. 9.9 fl (6.2-12.0); Monocyte# 0.46 X10^3/uL; Monocyte% 7.7 % (0-10); NRBC Flagged by Analyzer 0 % (0-5); Neutrophil # 3.84 X10^3/uL (2.7-7.7); Neutrophil % 64.5 % (47-70); Platelet Count 503 K/mm3 (150-450); RBC Distribution Width CV 12.3 % (11.6-14.6); RBC Distribution Width SD 46.5 fl (35.1-43.9); Red Blood Count 4.35 M/mm3 (4.6-6.2)
[2022-12-16 12:28] LABS: Vitamin D,25 Hydroxy 39.6 ng/mL
[2022-12-16 13:00] LABS: ALB/GLOB Ratio 0.8 RATIO (0.9-2.4); AST(SGOT) 20 U/L (15-37); Alanine Aminotransfer ALT/SGPT 27 U/L (16-61); Albumin, Serum 3.4 g/dL (3.2-5.0); Alkaline Phosphatase 74 U/L (45-117); Anion Gap 3 (5-15); BUN 22 mg/dL (7-18); BUN/Creat Ratio 20.6 RATIO (10-20); Calcium,Total 9.1 mg/dL (8.5-10.1); Chloride 107 mmol/L (98-107); Cholesterol 165 mg/dL (200); Creatinine, Serum 1.07 mg/dL (0.70-1.30); EST Glomerular Filtration Rate 71 mL/min (>60); Est Glom Filt Rate - Afr Amer 86 mL/min (>60); Glucose 103 mg/dL (74-106); High Density Lipoprotein 28 mg/dL; Potassium 3.9 mmol/L (3.5-5.1); Protein, Total 7.4 g/dL (6.4-8.2); Sodium Level 137 mmol/L (136-145); Triglycerides 143 mg/dL; Very Low Density Lipoprotein 29 mg/dL (5-40)
== END | disposition home or self-care (01) ==
LOC: POLAB3 10:36
PROVIDERS: PCP Family Medicine Geriatric Medicine; Visit Provider Family Medicine Geriatric Medicine
DX: I10 Essential (primary) hypertension (principal); E78.5 Hyperlipidemia, unspecified; E55.9 Vitamin D deficiency, unspecified
CPT/HCPCS: 36415; 80053; 80061; 82306; 84443; 85025

== ENCOUNTER → 2023-06-20 | Outpatient (CLI) | payer MEDICARE, SELFPAY ==
[2023-06-20 14:42] LABS: Absolute Lymphocyte Count 0.99 X10^3/uL (0.83-4.51); Absolute Neutrophil Count 5.6 X10^3/uL (2.0-7.7); Basophil# 0.05 X10^3/uL; Basophil% 0.6 % (0-1); Eosinophils% 3.7 % (0-5); Hematocrit 46.2 % (40-54); Hemoglobin 15.2 g/dL (13.0-16.5); Lymphocyte # 0.99 X10^3/ul (0.83-4.51); Lymphocyte % 12.2 % (19-41); Mean Corp Hgb Conc 32.9 g/dL (32-36); Mean Corpuscular Hgb 33.6 pg (27.0-32.0); Mean Corpuscular Volume 102.2 fL (80-94); Mean Platelet Vol. 10.4 fl (6.2-12.0); Monocyte# 1.17 X10^3/uL; Monocyte% 14.5 % (0-10); NRBC Flagged by Analyzer 0 % (0-5); Neutrophil # 5.55 X10^3/uL (2.7-7.7); Neutrophil % 68.6 % (47-70); Platelet Count 295 K/mm3 (150-450); RBC Distribution Width CV 13.3 % (11.6-14.6); RBC Distribution Width SD 51.1 fl (35.1-43.9); Red Blood Count 4.52 M/mm3 (4.6-6.2); White Blood Count 8.1 K/mm3 (4.4-11.0)
[2023-06-20 15:17] LABS: Vitamin D,25 Hydroxy 54.2 ng/mL
[2023-06-20 15:20] LABS: ALB/GLOB Ratio 0.8 RATIO (0.9-2.4); AST(SGOT) 14 U/L (15-37); Alanine Aminotransfer ALT/SGPT 23 U/L (16-61); Albumin, Serum 3.7 g/dL (3.2-5.0); Alkaline Phosphatase 93 U/L (45-117); Anion Gap 7 (5-15); BUN 20 mg/dL (7-18); BUN/Creat Ratio 20.6 RATIO (10-20); Calcium,Total 9.2 mg/dL (8.5-10.1); Chloride 103 mmol/L (98-107); Cholesterol 164 mg/dL (200); Creatinine, Serum 0.97 mg/dL (0.70-1.30); EST Glomerular Filtration Rate 79 mL/min (>60); Est Glom Filt Rate - Afr Amer 96 mL/min (>60); Globulin 4.4 g/dL (2.2-4.2); Glucose 90 mg/dL (74-106); High Density Lipoprotein 26 mg/dL; Potassium 3.7 mmol/L (3.5-5.1); Protein, Total 8.1 g/dL (6.4-8.2); Sodium Level 138 mmol/L (136-145); Thyroid Stim Hormone (TSH) 2.15 uIU/mL (0.358-3.74); Triglycerides 144 mg/dL; Very Low Density Lipoprotein 29 mg/dL (5-40)
== END | disposition home or self-care (01) ==
LOC: LAB 13:38
PROVIDERS: PCP Family Medicine Geriatric Medicine; Referring Provider Family Medicine Geriatric Medicine; Visit Provider Family Medicine Geriatric Medicine
DX: I10 Essential (primary) hypertension (principal); E55.9 Vitamin D deficiency, unspecified; E78.5 Hyperlipidemia, unspecified
CPT/HCPCS: 36415; 80053; 80061; 82306; 84443; 85025

== ENCOUNTER → 2023-12-21 | Outpatient (CLI) | payer OTHER, SELFPAY ==
[2023-12-21 14:53] LABS: Absolute Lymphocyte Count 1.64 X10^3/uL (0.83-4.51); Absolute Neutrophil Count 4.8 X10^3/uL (2.0-7.7); Basophil# 0.06 X10^3/uL; Basophil% 0.8 % (0-1); Eosinophil# 0.35 X10^3/uL; Eosinophils% 4.7 % (0-5); Hematocrit 42.3 % (40-54); Lymphocyte # 1.64 X10^3/ul (0.83-4.51); Lymphocyte % 21.9 % (19-41); Mean Corp Hgb Conc 33.1 g/dL (32-36); Mean Corpuscular Hgb 33.6 pg (27.0-32.0); Mean Corpuscular Volume 101.4 fL (80-94); Mean Platelet Vol. 10.5 fl (6.2-12.0); NRBC Flagged by Analyzer 0 % (0-5); Neutrophil # 4.81 X10^3/uL (2.7-7.7); Neutrophil % 64.2 % (47-70); Platelet Count 315 K/mm3 (150-450); RBC Distribution Width CV 13.1 % (11.6-14.6); Red Blood Count 4.17 M/mm3 (4.6-6.2); White Blood Count 7.5 K/mm3 (4.4-11.0)
[2023-12-21 15:05] LABS: Vitamin D,25 Hydroxy 49.5 ng/mL
[2023-12-21 15:15] LABS: AST(SGOT) 18 U/L (15-37); Alanine Aminotransfer ALT/SGPT 20 U/L (16-61); Albumin, Serum 3.6 g/dL (3.2-5.0); Alkaline Phosphatase 66 U/L (45-117); Anion Gap 3 (5-15); BUN 21 mg/dL (7-18); BUN/Creat Ratio 20.2 RATIO (10-20); Calcium,Total 9.2 mg/dL (8.5-10.1); Chloride 109 mmol/L (98-107); Creatinine, Serum 1.04 mg/dL (0.70-1.30); EST Glomerular Filtration Rate 73 mL/min (>60); Est Glom Filt Rate - Afr Amer 88 mL/min (>60); Globulin 3.7 g/dL (2.2-4.2); Glucose 109 mg/dL (74-106); Potassium 4.3 mmol/L (3.5-5.1); Protein, Total 7.3 g/dL (6.4-8.2); Sodium Level 140 mmol/L (136-145); Thyroid Stim Hormone (TSH) 2.12 uIU/mL (0.358-3.74)
== END | disposition home or self-care (01) ==
LOC: POLAB3 13:06
PROVIDERS: PCP Family Medicine Geriatric Medicine; Visit Provider Family Medicine Geriatric Medicine
DX: I10 Essential (primary) hypertension (principal); E55.9 Vitamin D deficiency, unspecified
CPT/HCPCS: 36415; 80053; 82306; 84443; 85025

== ENCOUNTER → 2024-04-10 | Outpatient (CLI) | payer MEDICARE, SELFPAY ==
--- NOTE | 2024-04-10 10:39 | ECHOD_ITS ---
Reason For Study: Valve Evaluation Procedure This was a 2D Doppler, Color Flow transthoracic echocardiogram. Exam performed in department. Left Ventricle Normal LV size. The estimated ejection fraction is 60 %. Unable to assess diastolic dysfunction. No regional wall motion abnormalities noted. Right Ventricle Normal RV size. Normal systolic function. Atria The left atrium is moderately enlarged. The right atrium is mildly enlarged. No doppler evidence for ASD. Mitral Valve There is no mitral valve stenosis. Trivial mitral valve insufficiency. An annuloplasty ring is noted in the mitral position. Tricuspid Valve There is no tricuspid stenosis. Mild tricuspid valve insufficiency. Pulmonary artery systolic pressure is 40-45 mmHg. Aortic Valve Trisinus/trileaflet aortic valve. There is no aortic stenosis. No aortic valve insufficiency. Pulmonic Valve There is no pulmonic valvular stenosis. No pulmonic valve insufficiency. Great Vessels Normal aortic root. Pericardium/Pleural No pericardial effusion. MMode/2D Measurements & Calculations LVIDd: 5.3 cm IVSd: 1.2 cm Ao root diam: 3.3 cm LVIDs: 4.0 cm LVPWd: 1.1 cm LA dimension: 5.2 cm RVDd: 4.6 cm FS: 24.8 % LAV(MOD-bp): 105.4 ml LA A4 area: 29.7 cm2 RA A4 area: 25.8 cm2 LAV(MOD-bp) Indexed: 51.8 ml/m2 LAV(MOD-sp2): 108.7 ml LAV(MOD-sp4): 99.9 ml TAPSE: 2.2 cm Time Measurements MV dec time: 0.16 sec Doppler Measurements & Calculations MV E max caleb: 168.1 cm/sec Lat Peak E' Caleb: 11.3 cm/sec Med Peak E' Caleb: 10.5 cm/sec MV A max caleb: 78.1 cm/sec E/E' lat: 14.9 E/E' med: 16.0 MV E/A: 2.2 MV V2 max: 164.9 cm/sec MV P1/2t max caleb: 167.1 cm/sec Ao V2 max: 109.8 cm/sec MV max P.9 mmHg MV P1/2t: 68.1 msec Ao max P.8 mmHg MV V2 mean: 92.4 cm/sec Ao V2 mean: 70.2 cm/sec MV mean P.1 mmHg MV dec slope: 718.3 cm/sec2 Ao mean P.3 mmHg MV V2 VTI: 35.9 cm MVA(P1/2t): 3.2 cm2 Ao V2 VTI: 22.8 cm AV (velocity ratio): 0.99 LV V1 max: 99.1 cm/sec MR max caleb: 532.7 cm/sec PA V2 max: 114.0 cm/sec LV V1 max P.9 mmHg MR max P.5 mmHg PA max PG (full): 3.1 mmHg LV V1 mean P.9 mmHg MR mean caleb: 448.2 cm/sec PA V2 mean: 73.3 cm/sec LV V1 mean: 63.7 cm/sec MR mean P.5 mmHg PA mean PG (full): 1.4 mmHg LV V1 VTI: 22.5 cm MR VTI: 169.6 cm TR max caleb: 299.5 cm/sec TR max P.9 mmHg ECHO/Echo Complete Interpretation Summary The estimated ejection fraction is 60 %. Unable to assess diastolic dysfunction. The left atrium is moderately enlarged. The right atrium is mildly enlarged. Trivial mitral valve insufficiency. Ordering Physician: Darrel Mcdonnell Referring Physician: Darrel Mcdonnell Performed By: Antione Lopez RCS
== END | disposition home or self-care (01) ==
LOC: CVS 10:37
PROVIDERS: PCP Family Medicine Geriatric Medicine; Referring Provider Internal Medicine Cardiovascular Disease; Visit Provider Internal Medicine Cardiovascular Disease
DX: I06.1 Rheumatic aortic insufficiency (principal)
CPT/HCPCS: 93306

== ENCOUNTER → 2024-07-19 | Outpatient (CLI) | payer MEDICARE, SELFPAY ==
[2024-07-19 14:11] LABS: Absolute Lymphocyte Count 1.59 X10^3/uL (0.83-4.51); Absolute Neutrophil Count 4.8 X10^3/uL (2.0-7.7); Basophil# 0.07 X10^3/uL; Basophil% 0.9 % (0-1); Eosinophil# 0.29 X10^3/uL; Eosinophils% 3.9 % (0-5); Hematocrit 44.1 % (40-54); Hemoglobin 15.2 g/dL (13.0-16.5); Lymphocyte # 1.59 X10^3/ul (0.83-4.51); Lymphocyte % 21.5 % (19-41); Mean Corp Hgb Conc 34.5 g/dL (32-36); Mean Corpuscular Hgb 34.2 pg (27.0-32.0); Mean Corpuscular Volume 99.1 fL (80-94); Mean Platelet Vol. 10.3 fl (6.2-12.0); Monocyte# 0.67 X10^3/uL; NRBC Flagged by Analyzer 0 % (0-5); Neutrophil # 4.76 X10^3/uL (2.7-7.7); Neutrophil % 64.3 % (47-70); Platelet Count 309 K/mm3 (150-450); RBC Distribution Width CV 12.9 % (11.6-14.6); Red Blood Count 4.45 M/mm3 (4.6-6.2); White Blood Count 7.4 K/mm3 (4.4-11.0)
[2024-07-19 14:50] LABS: ALB/GLOB Ratio 0.9 RATIO (0.9-2.4); AST(SGOT) 17 U/L (15-37); Alanine Aminotransfer ALT/SGPT 19 U/L (16-61); Albumin, Serum 3.7 g/dL (3.2-5.0); Alkaline Phosphatase 82 U/L (45-117); Anion Gap 4 (5-15); BUN 22 mg/dL (7-18); BUN/Creat Ratio 23.5 RATIO (10-20); Calcium,Total 9.2 mg/dL (8.5-10.1); Chloride 109 mmol/L (98-107); Cholesterol 205 mg/dL (200); Creatinine, Serum 0.94 mg/dL (0.70-1.30); EST Glomerular Filtration Rate 83 mL/min (>60); Est Glom Filt Rate - Afr Amer 100 mL/min (>60); Globulin 3.9 g/dL (2.2-4.2); Glucose 92 mg/dL (74-106); High Density Lipoprotein 31 mg/dL; Potassium 3.8 mmol/L (3.5-5.1); Protein, Total 7.6 g/dL (6.4-8.2); Sodium Level 138 mmol/L (136-145); Triglycerides 120 mg/dL; Very Low Density Lipoprotein 24 mg/dL (5-40)
== END | disposition home or self-care (01) ==
LOC: LAB 13:51
PROVIDERS: PCP Family Medicine Geriatric Medicine; Referring Provider Family Medicine Geriatric Medicine; Visit Provider Family Medicine Geriatric Medicine
DX: I10 Essential (primary) hypertension (principal); E78.5 Hyperlipidemia, unspecified; E55.9 Vitamin D deficiency, unspecified
CPT/HCPCS: 36415; 80053; 80061; 82306; 84443; 85025

== ENCOUNTER → 2025-01-16 | Outpatient (CLI) | payer MEDICARE, SELFPAY ==
[2025-01-16 14:40] LABS: Absolute Lymphocyte Count 1.44 X10^3/uL (0.83-4.51); Absolute Neutrophil Count 4.7 X10^3/uL (2.0-7.7); Basophil# 0.06 X10^3/uL; Basophil% 0.9 % (0-1); Eosinophil# 0.24 X10^3/uL; Eosinophils% 3.4 % (0-5); Hematocrit 42.2 % (40-54); Hemoglobin 14.6 g/dL (13.0-16.5); Lymphocyte # 1.44 X10^3/ul (0.83-4.51); Lymphocyte % 20.7 % (19-41); Mean Corp Hgb Conc 34.6 g/dL (32-36); Mean Corpuscular Hgb 34.2 pg (27.0-32.0); Mean Corpuscular Volume 98.8 fL (80-94); Mean Platelet Vol. 10.4 fl (6.2-12.0); Monocyte% 7.2 % (0-10); NRBC Flagged by Analyzer 0 % (0-5); Neutrophil % 67.4 % (47-70); Platelet Count 288 K/mm3 (150-450); RBC Distribution Width CV 13.1 % (11.6-14.6); RBC Distribution Width SD 47.5 fl (35.1-43.9); Red Blood Count 4.27 M/mm3 (4.6-6.2)
[2025-01-16 15:31] LABS: ALB/GLOB Ratio 1.2 RATIO (0.9-2.4); AST(SGOT) 19 U/L (<=37); Alanine Aminotransfer ALT/SGPT 13 U/L (<=46); Albumin, Serum 4.1 g/dL (3.4-4.8); Alkaline Phosphatase 83 U/L (40-129); Anion Gap 9 (5-15); BUN 21 mg/dL (4-19); BUN/Creat Ratio 17.8 RATIO (10-20); Calcium,Total 9.5 mg/dL (7.6-11.0); Carbon Dioxide 24.3 mmol/L (21.0-32.0); Chloride 105 mmol/L (98-108); Cholesterol 232 mg/dL (<=200); Creatinine, Serum 1.16 mg/dL (0.70-1.20); EST Glomerular Filtration Rate 64 (>60); Globulin 3.3 g/dL (2.2-4.2); Glucose 105 mg/dL (70-99); High Density Lipoprotein 33 mg/dL; Low Density Lipoprotein Calc. 175 mg/dL; Potassium 4.2 mmol/L (3.3-5.1); Protein, Total 7.3 g/dL (5.9-8.4); Sodium Level 139 mmol/L (133-145); Total Bilirubin 0.71 mg/dL (0.00-1.30); Triglycerides 121 mg/dL; Very Low Density Lipoprotein 24 mg/dL (5-40); cholesterol:hdl ratio screen 7.05
[2025-01-16 15:36] LABS: Vitamin D,25 Hydroxy 34.2 ng/mL (30-100)
== END | disposition home or self-care (01) ==
LOC: LAB 13:24
PROVIDERS: PCP Family Medicine Geriatric Medicine; Referring Provider Family Medicine Geriatric Medicine; Visit Provider Family Medicine Geriatric Medicine
DX: I10 Essential (primary) hypertension (principal); E78.5 Hyperlipidemia, unspecified; E55.9 Vitamin D deficiency, unspecified
CPT/HCPCS: 36415; 80053; 80061; 82306; 84443; 85025

== ENCOUNTER → 2025-07-22 | Outpatient (CLI) | payer MEDICARE, SELFPAY ==
[2025-07-22 13:36] LABS: Hematocrit 44.1 % (40-54); Hemoglobin 14.9 g/dL (13.0-16.5); Immature Granulocytes Count 0.020 X10^3/uL (0.0-0.0); Mean Corp Hgb Conc 33.8 g/dL (32-36); Mean Corpuscular Volume 100.2 fL (80-94); Mean Platelet Vol. 10.0 fl (6.2-12.0); NRBC Flagged by Analyzer 0 % (0-5); Platelet Count 338 K/mm3 (150-450); RBC Distribution Width CV 13.0 % (11.6-14.6); RBC Distribution Width SD 48.4 fl (35.1-43.9); Red Blood Count 4.40 M/mm3 (4.6-6.2); White Blood Count 7.2 K/mm3 (4.4-11.0)
[2025-07-22 14:27] LABS: AST(SGOT) 21 U/L (<=37); Alanine Aminotransfer ALT/SGPT 11 U/L (<=46); Albumin, Serum 4.4 g/dL (3.4-4.8); Alkaline Phosphatase 85 U/L (40-129); Anion Gap 11 (5-15); BUN 22 mg/dL (4-19); BUN/Creat Ratio 22.7 RATIO (10-20); Calcium,Total 9.8 mg/dL (7.6-11.0); Carbon Dioxide 25.2 mmol/L (21.0-32.0); Chloride 104 mmol/L (98-108); Cholesterol 235 mg/dL (<=200); Globulin 3.2 g/dL (2.2-4.2); Glucose 107 mg/dL (70-99); Low Density Lipoprotein Calc. 169 mg/dL; Potassium 4.1 mmol/L (3.3-5.1); Triglycerides 179 mg/dL; Very Low Density Lipoprotein 36 mg/dL (5-40); Vitamin D,25 Hydroxy 38.1 ng/mL (30-100); cholesterol:hdl ratio screen 7.16
[2025-07-22 21:23] LABS: Xtra Tube Kwok EXTRA TUBE
== END | disposition home or self-care (01) ==
LOC: POLAB3 13:23
PROVIDERS: PCP Family Medicine Geriatric Medicine; Visit Provider Family Medicine Geriatric Medicine
DX: I10 Essential (primary) hypertension (principal); E55.9 Vitamin D deficiency, unspecified; E78.5 Hyperlipidemia, unspecified
CPT/HCPCS: 36415; 80053; 80061; 82306; 84443; 85025

== ENCOUNTER → 2025-07-25 | Outpatient (CLI) | payer MEDICARE, SELFPAY ==
--- NOTE | 2025-07-25 14:41 | ECHOD_ITS ---
Reason For Study Reason For Study: MURMUR Procedure This was a 2D Doppler, Color Flow transthoracic echocardiogram. Exam performed in department. Left Ventricle Normal LV size. The estimated ejection fraction is 60 %. Unable to assess diastolic dysfunction. No regional wall motion abnormalities noted. Right Ventricle Normal RV size. Normal systolic function. Atria The left atrium is moderately enlarged. The right atrium is mildly enlarged. No doppler evidence for ASD. Mitral Valve There is no mitral valve stenosis. Trivial mitral valve insufficiency. An annuloplasty ring is noted in the mitral position. Tricuspid Valve There is no tricuspid stenosis. Moderate (2+) tricuspid valve insufficiency. Pulmonary artery systolic pressure is 45 mmHg. Aortic Valve Trisinus/trileaflet aortic valve. There is no aortic stenosis. Trivial aortic valve insufficiency. Pulmonic Valve There is no pulmonic valvular stenosis. Trivial pulmonic valve insufficiency. Great Vessels Normal sized aortic root. Pericardium/Pleural No pericardial effusion. MMode/2D Measurements & Calculations LVIDd: 5.4 cm IVSd: 1.2 cm Ao root diam: 3.7 cm LVIDs: 3.4 cm LVPWd: 1.0 cm RVDd: 4.0 cm FS: 36.7 % LAV(MOD-bp): 109.6 ml LVAd ap4: 38.0 cm2 LVAd ap2: 42.5 cm2 LAV(MOD-bp) Indexed: 54.6 ml/m2 LVLd ap4: 9.0 cm LVLd ap2: 9.4 cm LAV(MOD-sp2): 108.5 ml EDV(MOD-sp4): 132.3 ml EDV(MOD-sp2): 161.7 ml LAV(MOD-sp4): 102.8 ml EDV(sp4-el): 135.3 ml EDV(sp2-el): 163.0 ml LVAs ap4: 21.0 cm2 LVAs ap2: 23.3 cm2 LVLs ap4: 7.4 cm LVLs ap2: 8.0 cm ESV(MOD-sp4): 51.0 ml ESV(MOD-sp2): 62.7 ml ESV(sp4-el): 51.1 ml ESV(sp2-el): 58.1 ml EF(MOD-sp4): 61.4 % EF(MOD-sp2): 61.2 % EF(sp4-el): 62.2 % SV(MOD-sp4): 81.3 ml SV(MOD-sp2): 99.0 ml SV(sp4-el): 84.2 ml SI(MOD-sp4): 40.5 ml/m2 SI(MOD-sp2): 49.3 ml/m2 LA A4 area: 30.3 cm2 LA dimension(2D): 4.8 cm RA A4 area: 22.5 cm2 TAPSE: 1.9 cm Time Measurements MV dec time: 0.19 sec Doppler Measurements & Calculations MV E max caleb: 161.8 cm/sec Lat Peak E' Caleb: 9.7 cm/sec Med Peak E' Caleb: 8.0 cm/sec E/E' lat: 16.6 E/E' med: 20.2 MV V2 max: 170.1 cm/sec MV P1/2t max caleb: 171.7 cm/sec Ao V2 max: 101.8 cm/sec MV max P.6 mmHg MV P1/2t: 57.5 msec Ao max P.1 mmHg MV V2 mean: 84.4 cm/sec Ao V2 mean: 63.1 cm/sec MV mean P.8 mmHg MV dec slope: 874.1 cm/sec2 Ao mean P.9 mmHg MV V2 VTI: 38.8 cm MVA(P1/2t): 3.8 cm2 Ao V2 VTI: 22.3 cm AV (velocity ratio): 0.74 AI max caleb: 320.0 cm/sec LV V1 max: 77.2 cm/sec MR max caleb: 555.9 cm/sec AI max P.0 mmHg LV V1 max P.4 mmHg MR max P.6 mmHg LV V1 mean P.2 mmHg MR mean caleb: 430.7 cm/sec AI dec slope: 140.7 cm/sec2 LV V1 mean: 49.2 cm/sec MR mean P.7 mmHg AI P1/2t: 666.0 msec LV V1 VTI: 16.5 cm MR VTI: 197.4 cm PA V2 max: 87.8 cm/sec TR max caleb: 312.6 cm/sec TR max P.1 mmHg ECHO/Echo Complete Interpretation Summary The estimated ejection fraction is 60 %. The left atrium is moderately enlarged. The right atrium is mildly enlarged. Trivial mitral valve insufficiency. Trivial aortic valve insufficiency. Ordering Physician: Darrel Mcdonnell Referring Physician: Jose Alvarez Chi Performed By: Marco Antonio Michael RDCS
== END | disposition home or self-care (01) ==
LOC: CVS 14:40
PROVIDERS: PCP Family Medicine Geriatric Medicine; Referring Provider Internal Medicine Cardiovascular Disease; Visit Provider Internal Medicine Cardiovascular Disease
DX: I06.1 Rheumatic aortic insufficiency (principal)
CPT/HCPCS: 93306